=== PATIENT | male | born 1955 | race Caucasian/White ===

== ENCOUNTER 2020-08-13 10:29 | Outpatient (REF) | payer MEDICARE, SELFPAY ==
[2020-08-13 13:48] LABS: Anion Gap 11 (12-20); Blood Urea Nitrogen 18 mg/dL (9-16); Calcium 9.2 mg/dL (8.4-10.2); Carbon Dioxide 34 mmol/L (22-29); Chloride 102 mmol/L (96-108); Estimated Glomerular Filt Rate > 60; Glucose Random 160 mg/dL (60-115); Potassium 4.5 mmol/l (3.3-5.1); Sodium 142 mmol/L (135-145)
== END 2020-08-13 10:30 | disposition home or self-care (01) ==
LOC: HO.MANLDS 10:29
PROVIDERS: PCP Physician Assistant; Visit Provider Physician Assistant
DX: R60.0 Localized edema (principal)
CPT/HCPCS: 80048

== ENCOUNTER 2020-10-22 14:16 | Outpatient (REF) | payer MEDICARE, SELFPAY ==
[2020-10-22 18:43] LABS: Free T4 (Free Thyroxine) 0.94 ng/dL (0.71-1.85); Thyroid Stimulating Hormone 10.71 uIU/mL (0.32-4.0)
== END 2020-10-22 14:17 | disposition home or self-care (01) ==
LOC: HO.MANLDS 14:16
PROVIDERS: PCP Internal Medicine; Visit Provider Physician Assistant
DX: E03.9 Hypothyroidism, unspecified (principal)
CPT/HCPCS: 84439; 84443

== ENCOUNTER → 2020-11-18 12:40 | Outpatient (REF) | payer MEDICARE, SELFPAY ==
--- NOTE | 2020-11-18 12:45 | CA_ITS ---
Transthoracic Echocardiogram Patient (Last, First, Middle): Rudy Mathias E Gender: Male Date of : 1955 Age: 65 Procedure Date: 11/18/2020 Procedure Type: Transthoracic Echocardiogram Location: OP Height: 185.42 cm Weight: 163.3 kg BSA: 2.76 m2 Heart Rate: bpm BP: 138 / 80 mmHg Routing Equipment Tender: Referring MD: Tomi Loyola MD Overhead Worker: Evan Meyers MD Symptoms: ASHD, PAF, HTN, OBSTRUCTIVE SLEEP APNEA. Study Quality: Technically Difficult due to oesity ECG Rhythm: Sinus Conclusions: - 1. Technically limited study due to body habitus 2. Normal LV systolic function with LVEF of 65-70% 3. Limited evaluation of cardiac valves with normal cardiac valvular Doppler 4. Moderately elevated right ventricular systolic pressure Findings Procedure Information Contrast agent, definity, is being given per protocol without apparent complications. Left Ventricle Normal left ventricular size and systolic function. There is mildly increased left ventricular wall thickness. The visually estimated ejection fraction is between 65-70%. Diastolic function is indeterminate on the basis of available data. Right Ventricle The right ventricle was not well visualized. Atria The left atrium was not well visualized. Interatrial shunt cannot be excluded. The right atrium was not well visualized. Aortic Valve The aortic valve was not well visualized. There is no aortic valve stenosis. There is no aortic valve regurgitation. Mitral Valve The mitral valve was not well visualized. There is trace mitral valve regurgitation. There is no mitral valve stenosis. Pulmonic Valve The pulmonic valve was not well visualized. Tricuspid Valve The tricuspid valve was not well visualized. Moderate pulmonary hypertension is present. Great Vessels The aorta was not well visualized. The pulmonary artery was not well visualized. Venous The inferior vena cava is normal in size and collapses greater than 50% with inspiration. Pericardium/Pleural The pericardium was not well visualized. Prior Study Comparison Changes noted compared to prior study dated: 05/19/2016. RV systolic pressure measured to be moderately elevated Measurements 2D Linear Measurements IVSd: 1.29 0.6-0.9/0.6-1.0 cm LVIDd: 4.68 3.9-5.3/4.2-5.9 cm LVIDd Index: 1.70 2.4-3.2/2.2-3.1 cm/m2 LVIDs: 3.10 2.0-3.6 cm LVPWd: 1.27 0.7-1.1 cm Ao Root: 3.00 2.1-3.5 cm LA Diam: 4.00 2.7-3.8/3.0-4.0 cm LAIDs Index: 1.45 1.5-2.3 cm/m2 LV Mass: 288.08 67-162/88-224 g LV Mass Index: 104.38 43-95/49-115 g/m2 LVOT Diam: 2.10 3.0+(-)1.3 cm Mitral Valve MV Pk E: 1.13 MV PK A: 0.55 MV Decel Time: 141.00 E/A: 2.10 E'Lateral: 13.20 E'Medial: 7.45 E/E' Med: 15.20 E/E' Lat: 8.60 PHT: 41.00 MVA PHT: 5.37 Decel [place]: 8.02 Aortic Valve AoV Pk Felix: 1.25 AoV Mn Felix: 0.88 AoV VTI: 0.32 AoV Pk Grad: 6.00 Aov Mn Grad: 4.00 JACLYN Cont.VTI: 2.92 LVOT LVOT Pk Felix: 0.92 LVOT Mn Felix: 0.65 LVOT VTI: 0.27 LVOT Pk Grad: 3.00 LVOT Mn Grad: 2.00 LVOT Diam: 2.10 LVOT Area: 3.46 Diastolic Function MV Pk E: 1.13 MV Pk A: 0.55 E/A: 2.10 E'Medial: 7.45 E/E' Med: 15.20 E' Laterial: 13.20 E/E' Lat: 8.60 Tricuspid Valve TR Pk Felix: 3.38 TR Pk Grad: 46.00 RA Press: 3.00 RVSP: 49.00 Great Vessels Aorta Ao Root-2D: 3.00 2.0-3.7 cm Ao Asc: 2.90 2.1-3.4 cm Pulmonary Valve PV Pk Felix: 0.83 Peak PV Grad: 3.00 Updated in Other Vendor System with Status of Final Evan Meyers MD electronically signed on 11/19/2020 2:35:35 PM with status of Final
== END ==
LOC: HO.CARD 12:40
PROVIDERS: PCP Internal Medicine; Visit Provider Internal Medicine
DX: I25.10 Atherosclerotic heart disease of native coronary artery without angina pectoris (principal); I10 Essential (primary) hypertension; I48.0 Paroxysmal atrial fibrillation; G47.33 Obstructive sleep apnea (adult) (pediatric)
CPT/HCPCS: 93306; Q9957

== ENCOUNTER → 2020-12-02 07:59 | Outpatient (BNVA) | payer MEDICARE, SELFPAY | PROVIDERS: PCP Internal Medicine; Visit Provider Internal Medicine | DX: I25.10 Atherosclerotic heart disease of native coronary artery without angina pectoris (principal); I48.0 Paroxysmal atrial fibrillation; I10 Essential (primary) hypertension; E78.5 Hyperlipidemia, unspecified; G47.33 Obstructive sleep apnea (adult) (pediatric); M79.89 Other specified soft tissue disorders; R09.89 Other specified symptoms and signs involving the circulatory and respiratory systems; Z78.9 Other specified health status | CPT/HCPCS: 93005; 99212 ==

== ENCOUNTER 2021-02-18 14:04 | Outpatient (REF) | payer MEDICARE, SELFPAY ==
[2021-02-18 18:44] LABS: Free T4 (Free Thyroxine) 0.77 ng/dL (0.71-1.85)
== END 2021-02-18 14:05 | disposition home or self-care (01) ==
LOC: HO.MANLDS 14:04
PROVIDERS: PCP Internal Medicine; Visit Provider Physician Assistant
DX: E03.9 Hypothyroidism, unspecified (principal)
CPT/HCPCS: 36415; 84439; 84443

== ENCOUNTER 2021-09-03 07:11 | Emergency (ER) | payer MEDICARE, SELFPAY ==
--- NOTE | ~2021-09-03 | CT_ITS ---
EXAMINATION: CT SOFT TISSUE NECK WITH CONTRAST CLINICAL INFORMATION: Evaluate for abscess. Left mandible. COMPARISON: No relevant prior imaging. TECHNIQUE: Following the intravenous administration of 60 mL of Omnipaque 350 intravenous contrast, helical imaging was performed in the axial plane with generation of coronal and sagittal reformatted images. This CT examination was performed using dose optimization techniques as appropriate, variously including the following: *Automated exposure control *Adjustment of mA and/or kV according to patient size (this includes techniques or standardized protocols for targeted exams where dose is matched to indication/reason for exam; i.e. extremities or head) *Use of iterative reconstruction technique DLP: 418 mGy-cm FINDINGS: There are multiple carious or missing teeth. There is a peripherally enhancing subperiosteal abscess located along the buccal margin of the left mandibular alveolar process best depicted on coronal image 16 of 84 series 4 measuring approximately 0.5 cm in diameter. In addition there is relatively extensive inflammatory stranding within the adjacent subcutaneous fat and asymmetric thickening of the left platysma muscle. Multiple asymmetrically prominent left cervical lymph nodes are likely reactive in the setting of an odontogenic abscess. Pharyngeal mucosal spaces are symmetric. Parapharyngeal and retromaxillary fat is preserved. [employer] spaces are symmetric. Parotid and submandibular glands are normal. The tongue base and epiglottis are normal. Preepiglottic fat is preserved. Glottic and subglottic airways are patent. The thyroid gland is normal and the remainder of the visualized visceral soft tissues are normal. Lung apices are clear. There is multilevel degenerative spondylosis of the cervical spine. The skull base is intact. No mastoid middle ear effusion. Limited visualization of the intracranial anatomy reveals no abnormal finding. CT/CT soft tissue neck w con IMPRESSION: There odontogenic disease and an 0.5 cm subperiosteal abscess involving the buccal margin of the left mandibular alveolar process. Extensive inflammatory changes are visualized within the subcutaneous fat and there are multiple reactive left sided cervical lymph nodes.
[2021-09-03 07:16] VITALS: BP 120/74; PULSE 79; RESP 18; TEMP 37.3; O2SAT 93; BMI 47.5
--- NOTE | 2021-09-03 07:53 | ED_ITS ---
HPI - Dental/Oral General Chief complaint: Dental/Oral Stated complaint: dental pain/infection Time Seen by Provider: 09/03/21 07:41 Source: patient Mode of arrival: ambulatory Limitations: no limitations History of Present Illness HPI Narrative: Patient comes emergency room complaining of left-sided dental pain in the maxillary side. Patient was seen by his dentist, patient is supposed to get tooth extraction of his molar on the left side, but due to the infection patient was placed on clindamycin, patient allergic to penicillin. Patient has been on clindamycin for 2 days and ibuprofen, patient states that the swelling on the left side of his face is increasing despite being on antibiotics for the last 2 days. Patient denies fever chills, no pain on the floor of the mouth, no tongue swelling. Related Data Home Medications Medication Instructions Recorded Confirmed furosemide 40 mg tablet 40 mg PO DAILY 12/02/20 12/02/20 levothyroxine 75 mcg tablet 75 mcg PO DAILY 12/02/20 12/02/20 potassium chloride 10 mEq 10 meq PO DAILY 12/02/20 12/02/20 capsule,extended release Previous Rx's Medication Instructions Recorded aspirin 81 mg tablet,delayed 81 mg PO DAILY 90 Days #90 tab 10/07/20 release ezetimibe 10 mg tablet (Zetia) 10 mg PO DAILY 90 Days #90 tab 10/29/20 amlodipine 10 mg tablet 10 mg PO DAILY #90 tab 01/13/21 metoprolol tartrate 100 mg tablet 100 mg PO BID #180 tab 03/23/21 losartan 25 mg tablet 25 mg PO DAILY #90 tab 05/18/21 oxycodone 5 mg tablet 5 mg PO TID PRN #7 tab 09/03/21 Allergies Allergy/AdvReac Type Severity Reaction Status Date / Time penicillin V Allergy Unknown Verified 11/20/19 00:00 Penicillins [PENICILLINS] Allergy Unknown UNKNOWN Unverified 07/24/20 14:36 statin intolerance Allergy Unknown Uncoded 11/20/19 00:00 Review of Systems Review of Systems: Constitutional : No Weight loss, No Fever, No Chills, No Night Sweats, No Fatigue, No Malaise ENT/Mouth : No Hearing loss, No Ear Pain, No Nasal Congestion, No Sinus Pain, No Hoarseness, No sore throat, No Rhinorrhea, No Swallowing Difficulty, complaining of worsening pain and swelling in the left maxillary side Eyes: No Eye Pain, No Swelling, No Redness, No Foreign Body, No Discharge, No Vision Changes Cardiovascular : No Chest Pain, No SOB, No Dyspnea on Exertion, No Orthopnea, No Edema, No Palpitations Respiratory : No Cough, No Sputum, No Wheezing, No Smoke Exposure, No Dyspnea Gastrointestinal : No Nausea, No Vomiting, No Diarrhea, No Constipation, No abdominal Pain, No Hematochezia, No Melena Genitourinary : no irregular bleeding, No Dysuria, No Urinary Frequency, No Hematuria, No Urinary Incontinence, No Urgency, No Flank Pain, No Urinary Flow Changes, No Hesitancy Musculoskeletal : No joint pain, No Myalgias, No Joint Swelling Skin : No Skin Lesions, No rash Neuro : No Weakness, No Numbness, No Paresthesias, No Loss of Consciousness, No Dizziness, No Headache Psych : No Anxiety/Panic, No Depression, No SI/HI/AH/VH, No Social Issues, Heme/Lymph: No Bruising, No Bleeding,No Lymphadenopathy Endocrine : No Polyuria, No Polydipsia, No Temperature Intolerance [facility] Past Medical History Medical History Atherosclerotic cardiovascular disease Essential hypertension Leg swelling Lyme disease Mixed hyperlipidemia Obstructive sleep apnea Paroxysmal atrial fibrillation Pulmonary hyperinflation Statin intolerance Family History Family History (Updated 12/02/20 @ 08:34 by MARGARITA Hill) Father No problems noted. Mother CHF (congestive heart failure) Social History Social History (Updated 12/02/20 @ 08:34 by MARGARITA Hill) Advance Directives: No Physical Exam Vital Signs: Vital Signs: Last Vital Signs Temp 98.3 F 09/03/21 11:19 Pulse 60 09/03/21 11:19 Resp 18 09/03/21 11:19 BP 120/65 09/03/21 11:19 Pulse Ox 93 09/03/21 11:19 Body Mass Index 47.5 Const: Other: Appearance: Alert. Oriented X3. No acute distress. Eyes: Pupils equal, round and reactive to light. ENT: Pharynx normal. Moderate swelling in the left maxillary side, no pain to palpation on the mild floor, orientation especially on the left mandibular side, no visualized abscess Neck: Normal inspection. Neck supple. No lymph nodes noted. No crepitus CVS: Normal heart rate and rhythm. Pulses normal. Normal S1 and S2 Respiratory: No respiratory distress. Breath sounds normal. No Wheezing. No rales Abdomen: Soft and nontender. No rigidity. No distention. good BS x4 Skin: Skin warm and dry. Normal skin color. Normal skin turgor. Extremities: No lower extremity edema. No lower extremity edema. No Lacerations. No Rash Neuro: Oriented X 3. No motor deficit. No sensory deficit. Moving all extermities. No slurred speech. Course Course Course Narrative: At this time, Galindo's angina is not suspected. Although labs and CT scans are pending. At this time, patient declined pain medication I discussed the CT scan findings with the patient, patient does have a 0.5 cm abscess. Patient declined to have it drained. Patient states that he will continue taking the antibiotic. At this time he declined any further pain me dication but states he will be willing to take a prescription in case he needs it. MDM - Dental/Oral Lab Data Result diagrams: 09/03/21 08:13 09/03/21 08:13 Labs: Lab Results 09/03/21 09/03/21 09/03/21 Range/Units 08:13 08:13 08:13 WBC 11.2 H (4.8-10.8) X10*3/uL RBC 5.35 (4.60-5.80) X10*6/uL Hgb 17.1 (14.0-18.0) g/dl Hct 50.0 (42-52) % MCV 93.5 (80-98) fL MCH 32.0 (27.0-33.0) pg MCHC 34.2 (31.0-36.0) g/dl RDW 13.2 (11.0-16.0) % Plt Count 124 L (160-400) X10*3/uL MPV 12.5 H (9.4-12.4) fL Immature Gran % (Auto) 0.3 (0.0-0.4) % Neut % (Auto) 76.7 H (45-73) % Lymph % (Auto) 9.8 L (20-40) % [place] % (Auto) 11.5 H (2-11) % Eos % (Auto) 1.3 (0-4) % Baso % (Auto) 0.4 (0-2) % Lymph # (Auto) 1.1 L (1.2-4.9) X10*3/uL [place] # (Auto) 1.3 H (0.1-1.2) X10*3/uL Eos # (Auto) 0.1 (0.0-0.4) X10*3/uL Baso # (Auto) 0.0 (0.0-0.2) X10*3/uL Abs Immat Gran (auto) 0.03 (0.00-0.03) X10*3/uL Absolute Neuts (auto) 8.6 H (2.0-8.3) X10*3/uL Absolute Nucleated RBC 0.000 (0.0-0.012) X10*3/uL Nucleated RBC % (auto) 0.0 (0.0-0.2) /100WBC Sodium 136 (135-145) mmol/L Potassium 4.5 (3.3-5.1) mmol/L Chloride 101 (96-108) mmol/L Carbon Dioxide 29 (22-29) mmol/L Anion Gap 11 L (12-20) BUN 9 (9-16) mg/dL Creatinine 0.85 (0.5-1.4) mg/dL Estim Creat Clear Calc 135.0 Estimated GFR > 60 Random Glucose 149 H (60-115) mg/dL Lactic Acid 1.2 (0.5-2.0) mmol/L Calcium 9.0 (8.4-10.2) mg/dL Total Bilirubin 1.1 H (0.0-1.0) mg/dL Direct Bilirubin 0.4 (0.0-0.5) mg/dL AST 15 (5-37) U/L ALT 15 (0-40) U/L Alkaline Phosphatase 72 (39-117) U/L Total Protein 6.5 (6.5-8.0) g/dL Albumin 4.0 (3.5-5.0) g/dL Imaging Data CT of the soft tissue of the neck: Radiologist's impression: FINDINGS: There are multiple carious or missing teeth. There is a peripherally enhancing subperiosteal abscess located along the buccal margin of the left mandibular alveolar process best depicted on coronal image 16 of 84 series 4 measuring approximately 0.5 cm in diameter. In addition there is relatively extensive inflammatory stranding within the adjacent subcutaneous fat and asymmetric thickening of the left platysma muscle. Multiple asymmetrically prominent left cervical lymph nodes are likely reactive in the setting of an odontogenic abscess. Pharyngeal mucosal spaces are symmetric. Parapharyngeal and retromaxillary fat is preserved. Package Reinspector spaces are symmetric. Parotid and submandibular glands are normal. The tongue base and epiglottis are normal. Preepiglottic fat is preserved. Glottic and subglottic airways are patent. The thyroid gland is normal and the remainder of the visualized visceral soft tissues are normal. Lung apices are clear. There is multilevel degenerative spondylosis of the cervical spine. The skull base is intact. No mastoid middle ear effusion. Limited visualization of the intracranial anatomy reveals no abnormal finding. CT/CT soft tissue neck w con IMPRESSION: There odontogenic disease and an 0.5 cm subperiosteal abscess involving the buccal margin of the left mandibular alveolar process. Extensive inflammatory changes are visualized within the subcutaneous fat and there are multiple reactive left sided cervical lymph nodes. Discharge Plan Discharge Clinical Impression: Abscess, dental Patient Disposition: Home, Self-Care Instructions: Dental Abscess (ED) Additional Instructions: Please follow-up with your primary care physician in with your dentist tomorrow. If you have any worsening or new symptoms, please return to the emergency room or call 911 Prescriptions: New oxycodone 5 mg tablet 5 mg PO TID PRN (Reason: pain) Qty: 7 RF: 0 No Action aspirin 81 mg tablet,delayed release (DR/EC) 81 mg PO DAILY 90 Days Qty: 90 RF: 3 ezetimibe [Zetia] 10 mg tablet 10 mg PO DAILY 90 Days Qty: 90 RF: 1 amlodipine 10 mg tablet 10 mg PO DAILY Qty: 90 RF: 3 metoprolol tartrate 100 mg tablet 100 mg PO BID Qty: 180 RF: 1 losartan 25 mg tablet 25 mg PO DAILY Qty: 90 RF: 3 furosemide 40 mg tablet 40 mg PO DAILY RF: 0 levothyroxine 75 mcg tablet 75 mcg PO DAILY RF: 0 potassium chloride 10 mEq capsule, extended release 10 meq PO DAILY RF: 0
[2021-09-03 08:18] LABS: MANUAL DIFF FLAG NO
[2021-09-03 08:21] LABS: Basophils Percent Auto 0.4 % (0-2); Eosinophils Absolute Auto 0.1 X10*3/uL (0.0-0.4); Eosinophils Percent Auto 1.3 % (0-4); Hemoglobin 17.1 g/dl (14.0-18.0); Imm Gran Abs Auto 0.03 X10*3/uL (0.00-0.03); Imm Gran Pct Auto 0.3 % (0.0-0.4); Lymphocytes Absolute Auto 1.1 X10*3/uL (1.2-4.9); Lymphocytes Percent Auto 9.8 % (20-40); Mean Corpuscular HGB Conc 34.2 g/dl (31.0-36.0); Mean Corpuscular Volume 93.5 fL (80-98); Mean Platelet Volume 12.5 fL (9.4-12.4); Monocytes Absolute Auto 1.3 X10*3/uL (0.1-1.2); Monocytes Percent Auto 11.5 % (2-11); Neutrophils Absolute Auto 8.6 X10*3/uL (2.0-8.3); Neutrophils Percent Auto 76.7 % (45-73); Platelet Count 124 X10*3/uL (160-400); Red Blood Count 5.35 X10*6/uL (4.60-5.80); Red Cell Distribution Width 13.2 % (11.0-16.0); White Blood Count 11.2 X10*3/uL (4.8-10.8)
--- NOTE | 2021-09-03 08:30 | PC.NURSE ---
pt alert and oriented, vss. pt c/o left-sided dental pain. Pt seen by his dentist and was supposed to have his molar on his left side extracted. the procedure was not done because of the infection, he was put on clindamycin, pt states he has been on the clindamycin for 2 days and has been taking Ibuprofen, he reports the swelling is increasing. Patient denies fever/chills. no tongue swelling. no sob noted or reported. No other symptoms reported. IV established, labs drawn.
[2021-09-03 08:32] LABS: Lactic Acid 1.2 mmol/L (0.5-2.0)
[2021-09-03 08:36] LABS: Alanine Aminotransferase 15 U/L (0-40); Alkaline Phosphatase 72 U/L (39-117); Anion Gap 11 (12-20); Aspartate Amino Transferase 15 U/L (5-37); Bilirubin Direct 0.4 mg/dL (0.0-0.5); Bilirubin Total 1.1 mg/dL (0.0-1.0); Blood Urea Nitrogen 9 mg/dL (9-16); Carbon Dioxide 29 mmol/L (22-29); Chloride 101 mmol/L (96-108); Estimated Glomerular Filt Rate > 60; Glucose Random 149 mg/dL (60-115); Potassium 4.5 mmol/L (3.3-5.1); Sodium 136 mmol/L (135-145); Total Protein 6.5 g/dL (6.5-8.0)
[2021-09-03 09:05] VITALS: BP 118/68; PULSE 60; RESP 18; O2SAT 95
[2021-09-03] MEDS: iohexoL 350 MG/ML 100 ML INFUS..BTL IV (10:47)
[2021-09-03 11:19] VITALS: BP 120/65; PULSE 60; RESP 18; TEMP 36.8; O2SAT 93
--- NOTE | 2021-09-03 11:30 | PC.NURSE ---
pt medically cleared for discharge. vss.
== END 2021-09-03 11:33 | disposition home or self-care (01) ==
PROVIDERS: Emergency Provider Emergency Medicine; PCP Internal Medicine
DX: K04.7 Periapical abscess without sinus (principal); K08.89 Other specified disorders of teeth and supporting structures; Z79.899 Other long term (current) drug therapy; I10 Essential (primary) hypertension; I48.0 Paroxysmal atrial fibrillation; E78.2 Mixed hyperlipidemia
CPT/HCPCS: 36415; 70491; 80048; 80076; 83605; 85025; 87040; 99283; 99284; Q9967

== ENCOUNTER → 2021-12-03 08:10 | Outpatient (BNVA) | payer MEDICARE, SELFPAY | PROVIDERS: PCP Internal Medicine; Visit Provider Internal Medicine | DX: I25.10 Atherosclerotic heart disease of native coronary artery without angina pectoris (principal); I48.0 Paroxysmal atrial fibrillation; I10 Essential (primary) hypertension; E78.2 Mixed hyperlipidemia; G47.33 Obstructive sleep apnea (adult) (pediatric); M79.89 Other specified soft tissue disorders; R09.89 Other specified symptoms and signs involving the circulatory and respiratory systems; Z79.82 Long term (current) use of aspirin; Z79.899 Other long term (current) drug therapy; Z78.9 Other specified health status | CPT/HCPCS: 93005; 99212 ==

== ENCOUNTER → 2022-01-25 12:22 | Outpatient (BNVA) | payer MEDICARE, SELFPAY | PROVIDERS: PCP Internal Medicine; Visit Provider Internal Medicine | DX: I25.10 Atherosclerotic heart disease of native coronary artery without angina pectoris (principal); I48.0 Paroxysmal atrial fibrillation; I10 Essential (primary) hypertension; E78.2 Mixed hyperlipidemia; G47.33 Obstructive sleep apnea (adult) (pediatric); M79.89 Other specified soft tissue disorders; R09.89 Other specified symptoms and signs involving the circulatory and respiratory systems; Z78.9 Other specified health status | CPT/HCPCS: 93005; 99212 ==

== ENCOUNTER 2022-02-26 11:35 | Outpatient (REF) | payer MEDICARE, SELFPAY ==
[2022-02-26 13:52] LABS: Anion Gap 10 (12-20); Blood Urea Nitrogen 13 mg/dL (9-16); Calcium 9.5 mg/dL (8.4-10.2); Carbon Dioxide 37 mmol/L (22-29); Chloride 99 mmol/L (96-108); Estimated Glomerular Filt Rate > 60; Glucose Random 134 mg/dL (60-115); Potassium 4.6 mmol/L (3.3-5.1); Sodium 141 mmol/L (135-145)
[2022-02-26 14:03] LABS: Free T4 (Free Thyroxine) 0.85 ng/dL (0.71-1.85); Thyroid Stimulating Hormone 8.17 uIU/mL (0.32-4.0)
== END 2022-02-26 11:36 | disposition home or self-care (01) ==
LOC: HO.MANLDS 11:35
PROVIDERS: Absent Provider Internal Medicine; PCP Physician Assistant; Visit Provider Physician Assistant
DX: I48.0 Paroxysmal atrial fibrillation (principal); E03.9 Hypothyroidism, unspecified
CPT/HCPCS: 36415; 80048; 84439; 84443

== ENCOUNTER → 2022-08-05 11:06 | Outpatient (BNVA) | payer MEDICARE, SELFPAY | PROVIDERS: PCP Physician Assistant; Referring Provider Physician Assistant; Visit Provider Internal Medicine | DX: I48.0 Paroxysmal atrial fibrillation (principal); I25.10 Atherosclerotic heart disease of native coronary artery without angina pectoris; M79.89 Other specified soft tissue disorders; I10 Essential (primary) hypertension; E78.2 Mixed hyperlipidemia; G47.33 Obstructive sleep apnea (adult) (pediatric); E66.01 Morbid (severe) obesity due to excess calories; Z68.42 Body mass index [BMI] 45.0-49.9, adult | CPT/HCPCS: 99212 ==

== ENCOUNTER 2022-11-01 13:49 | Inpatient (IN) | payer MEDICARE, SELFPAY ==
[2022-11-01] VITALS (7 sets, daily range): BP systolic 115–147; BP diastolic 70–82; PULSE 60–74; RESP 13–24; TEMP 36.1–36.8; O2SAT 79–95; BMI 47.8; BMI 48.0
--- NOTE | ~2022-11-01 | US_ITS ---
EXAMINATION: US VENOUS ULTRASOUND WITH DOPPLER LOWER EXTREMITY, BILATERAL CLINICAL INFORMATION: Bilateral lower extremity swelling, erythema, PE COMPARISON: None TECHNIQUE: Ultrasound of the deep veins is performed from the hip to the calf with compression sonography and color and pulse Doppler assessment. Spectral analysis with color-flow imaging is performed. FINDINGS: RIGHT: There is normal venous compression and respiratory variation and augmented flow. The visualized common femoral vein, superficial femoral vein, profunda femoral vein, popliteal vein, and the trifurcation region shows no evidence of deep venous thrombosis. There is no significant popliteal fossa cyst. There is limited visualization of the mid to distal femoral vein due to body habitus. LEFT: There is normal venous compression and respiratory variation and augmented flow. The visualized common femoral vein, superficial femoral vein, profunda femoral vein, popliteal vein, and the trifurcation region shows no evidence of deep venous thrombosis. There is no significant popliteal fossa cyst. There is limited visualization of the mid to distal femoral vein due to body habitus. There is also limited visualization of the calf veins. If the patient's symptoms persist, followup ultrasound in 5 days 7 days might be of value to exclude proximal propagation from a non-visualized calf vein. US/US venous duplex LE BI IMPRESSION: No DVT demonstrated in the bilateral lower extremities.
--- NOTE | ~2022-11-01 | XR_ITS ---
EXAMINATION: XR CHEST CLINICAL INFORMATION: Covid positive, O2 sat 79% COMPARISON: Chest x-ray 05/09/2018 TECHNIQUE: Frontal view of the chest was obtained. FINDINGS: The lungs are mildly hypoinflated. Mild streaky linear bibasilar opacities likely subsegmental atelectasis. No definite airspace consolidation. No pleural effusion or pneumothorax. Cardiomediastinal silhouette is unchanged and within normal limits. Prominence of the pulmonary vascularity likely artifactually accentuated by AP technique
--- NOTE | 2022-11-01 14:02 | ECG_ITS ---
Test Reason : DYSPNEA Blood Pressure : / mmHG Vent. Rate : 064 BPM Atrial Rate : 064 BPM P-R Int : 118 ms QRS Dur : 082 ms QT Int : 430 ms P-R-T Axes : 083 067 030 degrees QTc Int : 443 ms Normal sinus rhythm Nonspecific ST and T wave abnormality Abnormal ECG When compared with ECG of 09-MAY-2018 10:41, Criteria for Lateral infarct are no longer Present Referred By: Gomez Bowen Electronically Signed By:Andi Lozada
--- NOTE | 2022-11-01 14:06 | ED.GENADULT ---
HPI - General Adult General Stated complaint: COVID+/Difficulty breathing Related Data Home Medications Medication Instructions Recorded Confirmed levothyroxine 100 mcg tablet 100 mcg PO DAILY 01/25/22 08/05/22 losartan 50 mg tablet 50 mg PO DAILY 01/25/22 08/05/22 potassium chloride 10 mEq 10 meq PO DAILY 01/25/22 08/05/22 tablet,extended release Previous Rx's Medication Instructions Recorded aspirin 81 mg tablet,delayed 81 mg PO DAILY 90 days #90 tabs 10/15/21 release diltiazem HCl 120 mg 120 mg PO DAILY 90 days #90 caps 01/25/22 capsule,extended release 24 hr metoprolol tartrate 100 mg tablet 100 mg PO BID #180 tabs 03/15/22 apixaban 5 mg tablet (Eliquis) 5 mg PO BID 90 days #180 tabs 08/05/22 ezetimibe 10 mg tablet 10 mg PO DAILY #90 tabs 10/11/22 Allergies Allergy/AdvReac Type Severity Reaction Status Date / Time Penicillins [PENICILLINS] Allergy Unknown UNKNOWN Verified 01/25/22 12:36 statin intolerance Allergy Unknown swelling Uncoded 01/25/22 12:36 [facility] Past Medical History Medical History (Updated 08/05/22 @ 12:57 by Tomi Loyola MD) Atherosclerotic cardiovascular disease Essential hypertension Leg swelling Lyme disease Mixed hyperlipidemia Obstructive sleep apnea Paroxysmal atrial fibrillation Pulmonary hyperinflation Statin intolerance Surgical History History of cardiac catheterization Family History Family History Father No problems noted. Mother CHF (congestive heart failure) Social History Social History (Updated 01/25/22 @ 12:35 by MARGARITA Ray) Patient Tobacco Use Status: Former Tobacco user Quit Date: 01/15/2022 Course Course Course Narrative: RME: Patient COVID positive. Patient presented shortness of breath. O2 saturation room air. 79%. Patient immediately brought by nurse to the ED. EKG troponin chest x-ray steroids albuterol inhaler and oxygen nasal cannula ordered. Discharge Plan Discharge Prescriptions: No Action aspirin 81 mg tablet,delayed release (DR/EC) 81 mg PO DAILY 90 Days Qty: 90 3RF metoprolol tartrate 100 mg tablet 100 mg PO BID Qty: 180 3RF ezetimibe 10 mg tablet 10 mg PO DAILY Qty: 90 3RF levothyroxine 100 mcg tablet 100 mcg PO DAILY losartan 50 mg tablet 50 mg PO DAILY potassium chloride 10 mEq tablet extended release 10 meq PO DAILY diltiazem HCl 120 mg capsule,extended release 24hr 120 mg PO DAILY 90 Days Qty: 90 3RF Eliquis 5 mg tablet 5 mg PO BID 90 Days Qty: 180 3RF
--- NOTE | 2022-11-01 14:24 | ED.GENADULT ---
HPI - General Adult General Chief complaint: Dyspnea Stated complaint: COVID+/Difficulty breathing Time Seen by Provider: 11/01/22 14:10 Source: patient and family () Mode of arrival: ambulatory Limitations: no limitations History of Present Illness HPI narrative: 67-year-old male with history of smoking and COPD and obstructive sleep apnea patient tested positive for COVID about a week ago today patient checked his O2 sat was in the 70s%, in the ED patient had O2 sat of 79% on room air patient was placed on facemask with full L of oxygen his O2 saturation is 95%. Related Data Home Medications Medication Instructions Recorded Confirmed levothyroxine 100 mcg tablet 100 mcg PO DAILY 01/25/22 08/05/22 losartan 50 mg tablet 50 mg PO DAILY 01/25/22 08/05/22 potassium chloride 10 mEq 10 meq PO DAILY 01/25/22 08/05/22 tablet,extended release Previous Rx's Medication Instructions Recorded aspirin 81 mg tablet,delayed 81 mg PO DAILY 90 days #90 tabs 10/15/21 release diltiazem HCl 120 mg 120 mg PO DAILY 90 days #90 caps 01/25/22 capsule,extended release 24 hr metoprolol tartrate 100 mg tablet 100 mg PO BID #180 tabs 03/15/22 apixaban 5 mg tablet (Eliquis) 5 mg PO BID 90 days #180 tabs 08/05/22 ezetimibe 10 mg tablet 10 mg PO DAILY #90 tabs 10/11/22 Allergies Allergy/AdvReac Type Severity Reaction Status Date / Time Penicillins [PENICILLINS] Allergy Unknown UNKNOWN Verified 01/25/22 12:36 statin intolerance Allergy Unknown swelling Uncoded 01/25/22 12:36 Review of Systems Review of Systems: All other systems are reviewed and are negative Constitutional: Reports as per HPI and Reports no additional constitutional complaints Eyes: Reports as per HPI and Reports no additional eye complaints Reports system reviewed and no additional complaints, except as documented Cardiovascular: Reports as per HPI and Reports no additional cardiovascular complaints Respiratory: Reports as per HPI and Reports no additional respiratory complaints Gastrointestinal: Reports as per HPI and Reports no additional gastrointestinal complaints Genitourinary: Reports no additional female genitourinary complaints Musculoskeletal: Reports no additional musculoskeletal complaints Skin/Breast: Reports system reviewed and no additional complaints, except as docu Psychiatric: Reports no additional psychiatric complaints Endocrine: Reports no additional endocrine complaints Hematologic/Lymphatic: Reports no additional hematologic/lymphatic complaints Allergic/Immunologic: Reports no additional allergic/immunologic complaints Reports system reviewed and no additional complaints, except as documented and Reports Abnormal speech present [facility] Past Medical History Medical History Atherosclerotic cardiovascular disease Essential hypertension Leg swelling Lyme disease Mixed hyperlipidemia Obstructive sleep apnea Paroxysmal atrial fibrillation Pulmonary hyperinflation Statin intolerance Surgical History History of cardiac catheterization Family History Family History Father No problems noted. Mother CHF (congestive heart failure) Social History Social History Patient Tobacco Use Status: Former Tobacco user Quit Date: 01/15/2022 Advance Directives: No Advance Directives Information Provided: Yes Physical Exam ED Vital Signs: Vital Signs - 24 hr 11/01/22 13:59 11/01/22 14:24 11/01/22 15:11 Temperature 96.9 F Pulse Rate 63 63 60 Respiratory Rate 24 H 16 13 Blood Pressure 141/78 H Pulse Oximetry 79 L 95 Oxygen Delivery Method Room Air Oxymask Oxygen Flow Rate 4 BMI result Body Mass Index 47.8 Vital signs have been reviewed as appeared to be correct. Blood pressure normal. Heart rate normal. Respiration rate normal. Temperature normal. Oxygen saturation normal. Appearance: Alert. Oriented X3. No acute distress. Head: Normal external exam. Normocephalic. Atraumatic. No Velasquez signs noted. No raccoon eyes noted Eyes: PERRLA. EOMI. Conjunctiva and sclera normal. Eyelids normal. ENT: TM's Normal. Pharynx normal. Uvula midline. Moist mucous membranes. No trismus noted. No drooling noted. No muffled voice noted. Neck: Normal inspection. Neck supple. FROM. No adenopathy. Thyroid Normal. No meningeal signs. No neck mass noted. CVS: Normal heart rate and rhythm. Heart sound normal. No murmurs noted. Pulses normal throughout. Respiratory: No respiratory distress. Painless inspiration. Breath sounds normal. No wheezes/rales/rhonchi noted. Chest nontender. No accessory muscle usage noted or decreased air movement noted. Abdomen: Soft and nontender. Bowel sounds normal in all 4 quadrants. No distention noted. No organomegaly noted. No visible injury noted. Back: No CVA tenderness. Full range of motion noted. Skin: Skin warm and dry. Normal skin color. Normal skin turgor. No rashes/lesions/lacerations noted. Extremities: No lower extremity edema. Extremities exhibit normal range of motion. Extremities nontender. Neuro: Oriented X 3. Cranial nerve exam: II-XII are grossly intact No motor deficit. No sensory deficit. Reflexes normal. Course Course Course Narrative: 67-year-old history of COPD/obstructive sleep apnea/obesity/smoker recently diagnosed with COVID patient is hypoxic requiring supplemental oxygen. Lactic acidosis likely secondary to hypoxia no severe sepsis or septic shock. Will admit for supplemental oxygen. Medications Administered Discontinued Medications Generic Name Dose Route Start Last Admin Trade Name Freq PRN Reason Stop Dose Admin Albuterol/Ipratropium 3 ml 11/01/22 14:02 11/01/22 14:22 Albuterol/Iprat 2.5/0.5mg 3 Ml Ampul.Neb INHALE 11/01/22 14:03 3 ml ONCE ONE Administration Dexamethasone Sodium Phosphate 10 mg 11/01/22 14:02 11/01/22 15:12 Dexamethasone Sod Phosphate 10 Mg/Ml Vial IVPUSH 11/01/22 14:03 10 mg ONCE ONE Administration Lorazepam 2 mg 11/01/22 14:57 11/01/22 15:12 Lorazepam 1 Mg Tablet PO 11/01/22 14:58 2 mg ONCE ONE Administration Medical Decision Making Differential Diagnosis Differential Diagnoses: The differential diagnosis associated with the presentation includes (COVID/hypoxia/pneumonia/sepsis.) Admission/Observation Consideration of admission/observation: Escalation of care including admission/observation considered Consult Healthcare Provider Management of the patient was discussed with: Hospitalist Lab Data MDM Lab Attestation statement: I reviewed the patient's lab results. Result Diagrams: 11/01/22 15:01 11/01/22 15:01 Labs: Lab Results 11/01/22 11/01/22 11/01/22 Range/Units 14:59 15:01 15:01 WBC 7.0 (4.8-10.8) X10*3/uL RBC 5.39 (4.60-5.80) X10*6/uL Hgb 17.5 (14.0-18.0) g/dl Hct 53.7 H (42.0-52.0) % MCV 99.6 H (80.0-98.0) fL MCH 32.5 (27.0-33.0) pg MCHC 32.6 (31.0-36.0) g/dl RDW 13.6 (11.0-16.0) % Plt Count 120 L (160-400) X10*3/uL MPV 12.7 H (9.4-12.4) fL Immature Gran % (Auto) 0.3 (0.0-0.4) % Neut % (Auto) 59.7 (45-73) % Lymph % (Auto) 22.2 (20-40) % [place] % (Auto) 12.0 H (2-11) % Eos % (Auto) 5.2 H (0-4) % Baso % (Auto) 0.6 (0-2) % Lymph # (Auto) 1.6 (1.2-4.9) X10*3/uL [place] # (Auto) 0.8 (0.1-1.2) X10*3/uL Eos # (Auto) 0.4 (0.0-0.4) X10*3/uL Baso # (Auto) 0.0 (0.0-0.2) X10*3/uL Abs Immat Gran (auto) 0.02 (0.00-0.03) X10*3/uL Absolute Neuts (auto) 4.2 (2.0-8.3) x10*3/uL Absolute Nucleated RBC 0.000 (0.0-0.012) X10*3/uL Nucleated RBC % (auto) 0.0 (0.0-0.2) /100WBC PT (10.0-13.1) SEC INR (0.9-1.1) APTT (26.0-36.4) SEC Sodium (135-145) mmol/L Potassium (3.3-5.1) mmol/L Chloride (96-108) mmol/L Carbon Dioxide (22-29) mmol/L Anion Gap (12-20) BUN (9-16) mg/dL Creatinine (0.5-1.4) mg/dL Estim Creat Clear Calc Estimated GFR Random Glucose (60-115) mg/dL Lactic Acid 4.2 H* (0.5-2.0) mmol/L Calcium (8.4-10.2) mg/dL Ferritin (20-250) ng/mL Total Bilirubin (0.0-1.0) mg/dL AST (5-37) U/L ALT (0-40) U/L Alkaline Phosphatase (39-117) U/L Lactate Dehydrogenase (118-273) U/L Troponin I High Sens 7.6 (<3.5-35.0) ng/L B-Natriuretic Peptide (<100) pg/mL Total Protein (6.5-8.0) g/dL Albumin (3.5-5.0) g/dL Procalcitonin ng/mL 11/01/22 11/01/22 11/01/22 Range/Units 15:01 15:01 15:01 WBC (4.8-10.8) X10*3/uL RBC (4.60-5.80) X10*6/uL Hgb (14.0-18.0) g/dl Hct (42.0-52.0) % MCV (80.0-98.0) fL MCH (27.0-33.0) pg MCHC (31.0-36.0) g/dl RDW (11.0-16.0) % Plt Count (160-400) X10*3/uL MPV (9.4-12.4) fL Immature Gran % (Auto) (0.0-0.4) % Neut % (Auto) (45-73) % Lymph % (Auto) (20-40) % [place] % (Auto) (2-11) % Eos % (Auto) (0-4) % Baso % (Auto) (0-2) % Lymph # (Auto) (1.2-4.9) X10*3/uL [place] # (Auto) (0.1-1.2) X10*3/uL Eos # (Auto) (0.0-0.4) X10*3/uL Baso # (Auto) (0.0-0.2) X10*3/uL Abs Immat Gran (auto) (0.00-0.03) X10*3/uL Absolute Neuts (auto) (2.0-8.3) x10*3/uL Absolute Nucleated RBC (0.0-0.012) X10*3/uL Nucleated RBC % (auto) (0.0-0.2) /100WBC PT 13.5 H (10.0-13.1) SEC INR 1.2 H (0.9-1.1) APTT 29.1 (26.0-36.4) SEC Sodium 140 (135-145) mmol/L Potassium 4.5 (3.3-5.1) mmol/L Chloride 96 (96-108) mmol/L Carbon Dioxide 34 H (22-29) mmol/L Anion Gap 15 (12-20) BUN 11 (9-16) mg/dL Creatinine 0.95 (0.5-1.4) mg/dL Estim Creat Clear Calc 124.7 Estimated GFR > 60 Random Glucose 118 H (60-115) mg/dL Lactic Acid (0.5-2.0) mmol/L Calcium 9.1 (8.4-10.2) mg/dL Ferritin (20-250) ng/mL Total Bilirubin 0.8 (0.0-1.0) mg/dL AST 14 (5-37) U/L ALT 14 (0-40) U/L Alkaline Phosphatase 57 (39-117) U/L Lactate Dehydrogenase 210 (118-273) U/L Troponin I High Sens (<3.5-35.0) ng/L B-Natriuretic Peptide 104 H (<100) pg/mL Total Protein 6.2 L (6.5-8.0) g/dL Albumin 3.8 (3.5-5.0) g/dL Procalcitonin ng/mL 11/01/22 11/01/22 Range/Units 15:01 15:01 WBC (4.8-10.8) X10*3/uL RBC (4.60-5.80) X10*6/uL Hgb (14.0-18.0) g/dl Hct (42.0-52.0) % MCV (80.0-98.0) fL MCH (27.0-33.0) pg MCHC (31.0-36.0) g/dl RDW (11.0-16.0) % Plt Count (160-400) X10*3/uL MPV (9.4-12.4) fL Immature Gran % (Auto) (0.0-0.4) % Neut % (Auto) (45-73) % Lymph % (Auto) (20-40) % [place] % (Auto) (2-11) % Eos % (Auto) (0-4) % Baso % (Auto) (0-2) % Lymph # (Auto) (1.2-4.9) X10*3/uL [place] # (Auto) (0.1-1.2) X10*3/uL Eos # (Auto) (0.0-0.4) X10*3/uL Baso # (Auto) (0.0-0.2) X10*3/uL Abs Immat Gran (auto) (0.00-0.03) X10*3/uL Absolute Neuts (auto) (2.0-8.3) x10*3/uL Absolute Nucleated RBC (0.0-0.012) X10*3/uL Nucleated RBC % (auto) (0.0-0.2) /100WBC PT (10.0-13.1) SEC INR (0.9-1.1) APTT (26.0-36.4) SEC Sodium (135-145) mmol/L Potassium (3.3-5.1) mmol/L Chloride (96-108) mmol/L Carbon Dioxide (22-29) mmol/L Anion Gap (12-20) BUN (9-16) mg/dL Creatinine (0.5-1.4) mg/dL Estim Creat Clear Calc Estimated GFR Random Glucose (60-115) mg/dL Lactic Acid (0.5-2.0) mmol/L Calcium (8.4-10.2) mg/dL Ferritin 141 (20-250) ng/mL Total Bilirubin (0.0-1.0) mg/dL AST (5-37) U/L ALT (0-40) U/L Alkaline Phosphatase (39-117) U/L Lactate Dehydrogenase (118-273) U/L Troponin I High Sens (<3.5-35.0) ng/L B-Natriuretic Peptide (<100) pg/mL Total Protein (6.5-8.0) g/dL Albumin (3.5-5.0) g/dL Procalcitonin 0.03 ng/mL Independent Interpretation I performed an independent interpretation of an: Plain X-Ray (Chest: No acute pathology.) Radiology Impression Discussion of test interpretation with radiology: I have reviewed the radiologist's reading. Discharge Plan Discharge Clinical Impression: COVID-19 virus infection, Hypoxia, Acidosis, lactic Patient Disposition: Admitted As Inpatient Prescriptions: No Action aspirin 81 mg tablet,delayed release (DR/EC) 81 mg PO DAILY 90 Days Qty: 90 3RF metoprolol tartrate 100 mg tablet 100 mg PO BID Qty: 180 3RF ezetimibe 10 mg tablet 10 mg PO DAILY Qty: 90 3RF levothyroxine 100 mcg tablet 100 mcg PO DAILY losartan 50 mg tablet 50 mg PO DAILY potassium chloride 10 mEq tablet extended release 10 meq PO DAILY diltiazem HCl 120 mg capsule,extended release 24hr 120 mg PO DAILY 90 Days Qty: 90 3RF Eliquis 5 mg tablet 5 mg PO BID 90 Days Qty: 180 3RF
[2022-11-01 15:08] LABS: MANUAL DIFF FLAG NO
[2022-11-01 15:09] LABS: Basophils Percent Auto 0.6 % (0-2); Eosinophils Absolute Auto 0.4 X10*3/uL (0.0-0.4); Eosinophils Percent Auto 5.2 % (0-4); Hematocrit 53.7 % (42.0-52.0); Hemoglobin 17.5 g/dl (14.0-18.0); Imm Gran Abs Auto 0.02 X10*3/uL (0.00-0.03); Imm Gran Pct Auto 0.3 % (0.0-0.4); Lymphocytes Absolute Auto 1.6 X10*3/uL (1.2-4.9); Lymphocytes Percent Auto 22.2 % (20-40); Mean Corpuscular HGB Conc 32.6 g/dl (31.0-36.0); Mean Corpuscular Hemoglobin 32.5 pg (27.0-33.0); Mean Corpuscular Volume 99.6 fL (80.0-98.0); Mean Platelet Volume 12.7 fL (9.4-12.4); Monocytes Absolute Auto 0.8 X10*3/uL (0.1-1.2); Neutrophils Absolute Auto 4.2 x10*3/uL (2.0-8.3); Neutrophils Percent Auto 59.7 % (45-73); Platelet Count 120 X10*3/uL (160-400); Red Blood Count 5.39 X10*6/uL (4.60-5.80); Red Cell Distribution Width 13.6 % (11.0-16.0)
[2022-11-01 15:16] LABS: INTERNATIONAL NORM RATIO 1.2 (0.9-1.1); Prothrombin Time 13.5 SEC (10.0-13.1)
[2022-11-01 15:18] LABS: Partial Thromboplastin Time 29.1 SEC (26.0-36.4)
[2022-11-01 15:26] LABS: Alanine Aminotransferase 14 U/L (0-40); Albumin Level 3.8 g/dL (3.5-5.0); Alkaline Phosphatase 57 U/L (39-117); Anion Gap 15 (12-20); Aspartate Amino Transferase 14 U/L (5-37); Bilirubin Total 0.8 mg/dL (0.0-1.0); Blood Urea Nitrogen 11 mg/dL (9-16); Calcium 9.1 mg/dL (8.4-10.2); Carbon Dioxide 34 mmol/L (22-29); Chloride 96 mmol/L (96-108); Creatinine Clr Calc Pharmacy 124.7; Estimated Glomerular Filt Rate > 60; Glucose Random 118 mg/dL (60-115); Lactate Dehydrogenase 210 U/L (118-273); Potassium 4.5 mmol/L (3.3-5.1); Sodium 140 mmol/L (135-145); Total Protein 6.2 g/dL (6.5-8.0)
[2022-11-01 15:32] LABS: Troponin-I High Sensitivity 7.6 ng/L (<3.5-35.0)
[2022-11-01 15:37] LABS: Lactic Acid 4.2 mmol/L (0.5-2.0)
[2022-11-01 15:46] LABS: Ferritin 141 ng/mL (20-250); Procalcitonin 0.03 ng/mL
[2022-11-01 16:00] LABS: B Type Natriuretic Peptide 104 pg/mL (<100)
--- NOTE | 2022-11-01 17:11 | PC.NURSE ---
Patient took off oxygen because he wanted to go to the bathroom desated to 80% on room air. instructed patient he cannot take off his oxygen he needs it. reapplied oxygen. Patient became unsteady walking.
[2022-11-01 17:23] LABS: Influenza A PCR NEGATIVE (Negative); Influenza B PCR NEGATIVE (Negative); Resp Syncy Virus RNA Qual PCR NEGATIVE (Negative); SARS COV2 PCR INHOUSE POSITIVE (Negative)
--- NOTE | 2022-11-01 17:39 | P.HPHOSP_ITS ---
History of Present Illness Date of Service: 11/01/22 <HARSH Marques - Last Filed: 11/01/22 18:15> Attending physician on admission: Uli Myrick <HARSH Marques - Last Filed: 11/01/22 18:15> Chief Complaint: hypoxia, sob <HARSH Marques - Last Filed: 11/01/22 18:15> 67-year-old male with history of hypertension, hyperlipidemia intolerant of statins, COPD, obstructive sleep apnea noncompliant with CPAP, paroxysmal atrial fibrillation noncompliant with anticoagulation, morbid obesity, and coronary artery disease who is a former smoker who recently quit within the last few weeks presented to the ED earlier today for evaluation of hypoxia. He states he tested positive for COVID-19 at home 6 days ago. Symptoms have included fevers up to 104 that have resolved, productive cough, pleuritic chest pain, nasal congestion, and hypoxia to 77%. He has become increasingly short of breath. He did call his PCP who prescribed paxlovid which he has been taking x 3 days and she then recommended he come to the ED 2 days ago, but he did not present until today. Arrival, patient hypoxic at 79%, placed on OxyMask with improvement to 95%. Also initially tachypneic to 24 but afebrile without any tachycardia or hypotension. No leukocytosis. Platelet count 120. Renal function and electrolyte levels within normal limits except for CO2 34. Lactic acid 4.2. CRP 4.90. BNP 104, troponin 7.6. Procalcitonin within normal limits. CXR showing low lung volumes with mild bibasilar subsegmental atelectasis without any definitive airspace consolidation or pleural effusions. Serologies for influenza, RSV, COVID-19 pending. Pt to be admitted for acute hypoxemic respiratory failure secondary to COVID-19 and COPD exacerbation. <HARSH Marques - Last Filed: 11/01/22 18:15> Review of Systems Review of Systems: General: No fevers, malaise, unintentional weight loss HEENT: +sore throat, +nasal congestion. No blurred vision, diplopia. No rhinorrhea, sinus pain, ear pain Cardiovascular: +ble edema, +pleuritic cp. No chest pressure, palpitations Respiratory: +shortness of breath, +wheezing, +cough GI: No abdominal pain, nausea, vomiting, diarrhea : No dysuria, hematuria, increased urinary frequency MSK: No myalgia, back pain Neuro: No headaches, weakness, paresthesias Skin: No rashes or lesions <HARSH Marques - Last Filed: 11/01/22 18:15> [facility] Medical History: Medical History (Updated 11/01/22 @ 18:13 by HARSH Marques) Atherosclerotic cardiovascular disease Essential hypertension Hypoxia Leg swelling Lyme disease Mixed hyperlipidemia Obstructive sleep apnea Paroxysmal atrial fibrillation Pulmonary hyperinflation Statin intolerance <HARSH Marques - Last Filed: 11/01/22 18:15> Family History: Family History Father No problems noted. Mother CHF (congestive heart failure) <HARSH Marques - Last Filed: 11/01/22 18:15> Surgical History: Surgical History History of cardiac catheterization <HARSH Marques - Last Filed: 11/01/22 18:15> Social History: Social History Alcohol intake: former Patient Tobacco Use Status: Former Tobacco user Quit Date: 01/15/2022 Use of substances other than those prescribed or required for medical reasons: No Advance Directives: No Advance Directives Information Provided: Yes <HARSH Marques - Last Filed: 11/01/22 18:15> Meds Allergies/Adverse reactions: Allergies Allergy/AdvReac Type Severity Reaction Status Date / Time Penicillins [PENICILLINS] Allergy Unknown UNKNOWN Verified 01/25/22 12:36 statin intolerance Allergy Unknown swelling Uncoded 01/25/22 12:36 <HARHS Marques - Last Filed: 11/01/22 18:15> Active Medications: Current Medications Acetaminophen (Acetaminophen 325 Mg Tablet) 650 mg PO Q6H PRN PRN Reason: Pain, Mild (Pain Scale 1-3) Albuterol Sulfate (Albuterol Sulfate (0.083%) 2.5 Mg/3 Ml Vial.Neb) 2.5 mg INHALE Q2H PRN PRN Reason: Shortness of Breath/Wheezing Albuterol/Ipratropium (Albuterol/Iprat 2.5/0.5mg 3 Ml Ampul.Neb) 3 ml INHALE RQ4H WHILE AWAKE SELVIN Dexamethasone Sodium Phosphate (Dexamethasone Sod Phosphate 4 Mg/Ml Vial) 6 mg IVPUSH DAILY SELVIN Stop: 11/10/22 09:01 Ondansetron HCl (Ondansetron Hcl 4 Mg/2 Ml Vial) 4 mg IVPUSH Q8H PRN PRN Reason: Nausea and Vomiting Pharmacy Consult (Consult Rx Perform Med Rec) 1 each MISCELLANE STAT STA Stop: 11/01/22 16:46 Senna (Sennosides 8.6 Mg Tablet) 17.2 mg PO BEDTIME PRN PRN Reason: Constipation <HARSH Marques - Last Filed: 11/01/22 18:15> Home medications: Home Medications Medication Instructions Recorded Confirmed Last Taken Type levothyroxine 100 mcg tablet 100 mcg PO DAILY@0600 01/25/22 11/01/22 11/01/22 History losartan 50 mg tablet 50 mg PO DAILY 01/25/22 11/01/22 11/01/22 History potassium chloride 10 mEq 10 meq PO DAILY 01/25/22 11/01/22 11/01/22 History tablet,extended release atorvastatin 40 mg tablet 1 tab PO DAILY 11/01/22 11/01/22 11/01/22 History budesonide 32 mcg/actuation nasal 1 spray intranasal DAILY 11/01/22 11/01/22 11/01/22 History spray cholecalciferol (vitamin D3) 25 11/01/22 11/01/22 History mcg (1,000 unit) tablet <HARSH Marques - Last Filed: 11/01/22 18:15> Physical Exam Vital Signs and Narrative: Vital Signs: Last Vital Signs Temp 96.9 F 11/01/22 13:59 Pulse 60 11/01/22 15:11 Resp 13 11/01/22 15:11 BP 141/78 H 11/01/22 13:59 Pulse Ox 95 11/01/22 15:11 O2 Del Method 11/01/22 15:11 O2 Flow Rate 4 11/01/22 15:11 BMI result Body Mass Index 47.8 <HARSH Marques - Last Filed: 11/01/22 18:15> Constitutional - Awake and Alert, No apparent distress Eyes - PERRLA, EOMI Cardiovascular - S1S2, RRR, 1+ ble edema Respiratory - Normal lung expansion, Normal respiratory effort, No respiratory distress on 5L oxymask, bilateral expiratory wheezes Gastrointestinal - NT / ND; +BS; No rebound or guarding Extremities - no calf tenderness bilaterally, 1+ ble edema with venous stasis changes lower legs b/l Skin - Warm/Dry Neurological - Alert & oriented x3 Psychological - Appropriate affect <HARSH Marques - Last Filed: 11/01/22 18:15> Results Labs CBC and Chem 7: : 11/01/22 15:01 11/01/22 15:01 <HARSH Marques - Last Filed: 11/01/22 18:15> Labs: Laboratory Results - last 24 hr 11/01/22 11/01/22 11/01/22 14:59 15:01 15:01 MCV 99.6 H MCH 32.5 MCHC 32.6 RDW 13.6 Plt Count 120 L MPV 12.7 H Immature Gran % (Auto) 0.3 Neut % (Auto) 59.7 Lymph % (Auto) 22.2 Traill % (Auto) 12.0 H Eos % (Auto) 5.2 H Baso % (Auto) 0.6 Lymph # (Auto) 1.6 Traill # (Auto) 0.8 Eos # (Auto) 0.4 Baso # (Auto) 0.0 Abs Immat Gran (auto) 0.02 Absolute Neuts (auto) 4.2 Absolute Nucleated RBC 0.000 Nucleated RBC % (auto) 0.0 PT INR APTT Anion Gap Estim Creat Clear Calc Estimated GFR Random Glucose Lactic Acid 4.2 H* Calcium Ferritin Total Bilirubin AST ALT Alkaline Phosphatase Lactate Dehydrogenase Total Creatine Kinase Troponin I High Sens 7.6 C-Reactive Protein B-Natriuretic Peptide Total Protein Albumin Procalcitonin 11/01/22 11/01/22 11/01/22 15:01 15:01 15:01 MCV MCH MCHC RDW Plt Count MPV Immature Gran % (Auto) Neut % (Auto) Lymph % (Auto) Traill % (Auto) Eos % (Auto) Baso % (Auto) Lymph # (Auto) Traill # (Auto) Eos # (Auto) Baso # (Auto) Abs Immat Gran (auto) Absolute Neuts (auto) Absolute Nucleated RBC Nucleated RBC % (auto) PT 13.5 H INR 1.2 H APTT 29.1 Anion Gap 15 Estim Creat Clear Calc 124.7 Estimated GFR > 60 Random Glucose 118 H Lactic Acid Calcium 9.1 Ferritin Total Bilirubin 0.8 AST 14 ALT 14 Alkaline Phosphatase 57 Lactate Dehydrogenase 210 Total Creatine Kinase 58 Troponin I High Sens C-Reactive Protein 4.90 H B-Natriuretic Peptide 104 H Total Protein 6.2 L Albumin 3.8 Procalcitonin 11/01/22 11/01/22 15:01 15:01 MCV MCH MCHC RDW Plt Count MPV Immature Gran % (Auto) Neut % (Auto) Lymph % (Auto) Traill % (Auto) Eos % (Auto) Baso % (Auto) Lymph # (Auto) Traill # (Auto) Eos # (Auto) Baso # (Auto) Abs Immat Gran (auto) Absolute Neuts (auto) Absolute Nucleated RBC Nucleated RBC % (auto) PT INR APTT Anion Gap Estim Creat Clear Calc Estimated GFR Random Glucose Lactic Acid Calcium Ferritin 141 Total Bilirubin AST ALT Alkaline Phosphatase Lactate Dehydrogenase Total Creatine Kinase Troponin I High Sens C-Reactive Protein B-Natriuretic Peptide Total Protein Albumin Procalcitonin 0.03 <HARSH Marques - Last Filed: 11/01/22 18:15> Imaging Radiologist's Impressions: Impressions Chest X-Ray 11/01/22 14:36 IMPRESSION: 1. Low lung volumes with mild bibasilar subsegmental atelectasis. 2. No definite airspace consolidation or pleural effusions. <HARSH Marques - Last Filed: 11/01/22 18:15> Assessment and Plan (1) COVID-19 virus infection: Status: Acute <HARSH Marques Last Filed: 11/01/22 18:15> (2) Hypoxia: Status: Inactive <HARSH Marques - Last Filed: 11/01/22 18:15> (3) COPD exacerbation: Status: Acute <HARSH Marques Last Filed: 11/01/22 18:15> (4) Acute hypoxemic respiratory failure: Status: Acute <HARSH Marques - Last Filed: 11/01/22 18:15> 67-year-old male with history of hypertension, hyperlipidemia intolerant of statins, COPD, obstructive sleep apnea noncompliant with CPAP, hypothyroidism, paroxysmal atrial fibrillation noncompliant with anticoagulation, morbid obesity, and coronary artery disease who is a former smoker who recently quit within the last few weeks admitted for acute hypoxemic respiratory failure secondary to COVID-19 and COPD exacerbation. # acute hypoxemic respiratory failure-secondary to COVID-19 and COPD exacerbation -states he feels like he needs supplemental O2 at baseline, but does not currently use this at baseline -oxygen saturation down to 72% at home and 79% on arrival to ED -continue supplemental O2 to maintain oximetry 92%, titrate as tolerated -D-dimer ordered # COVID-19 with acute hypoxemic respiratory failure -Initially dx 6 days ago, and took 3 days paxlovid -CXR negative for pneumonia -IV remdesivir -IV steroid for COPD exacerbation as below -continue supplemental O2 as above -symptomatic management -droplet/contact precautions # acute COPD exacerbation secondary to COVID-19 -IV Solu-Medrol 60 mg b.i.d. -DuoNebs q.4h -albuterol p.r.n. # paroxysmal atrial fibrillation -not currently taking apixaban as prescribed due to cost. Will resume apixaban 5 mg b.i.d. and provide patient with coupon -continue diltiazem and metoprolol # hypertension-reasonably controlled -continue home meds # hypothyroidism -continue levothyroxine # CAD/HLD-no anginal chest pain, troponin negative, EKG without ischemic changes -continue baby aspirin, BB, Zetia -intolerant of statins # KJ -noncompliant with CPAP -counseled on the importance of compliance with CPAP, refuses DVT prophylaxis-Kana Full code Patient requires inpatient stay of at least 2 midnights for management of acute hypoxemic respiratory failure secondary to COVID-19 on IV remdesivir and supplemental O2 with OxyMask with close monitoring for pulmonary decompensation. <HARSH Marques - Last Filed: 11/01/22 18:15> 67-year-old male with history of hypertension, hyperlipidemia intolerant of statins, COPD, obstructive sleep apnea noncompliant with CPAP, hypothyroidism, paroxysmal atrial fibrillation noncompliant with anticoagulation, morbid obesity, and coronary artery disease who is a former smoker who recently quit within the last few weeks admitted for acute hypoxemic respiratory failure secondary to COVID-19 and COPD exacerbation. # acute hypoxemic respiratory failure-secondary to COVID-19 and COPD exacerbation -states he feels like he needs supplemental O2 at baseline, but does not currently use this at baseline -oxygen saturation down to 72% at home and 79% on arrival to ED -continue supplemental O2 to maintain oximetry 92%, titrate as tolerated -D-dimer ordered # COVID-19 with acute hypoxemic respiratory failure -Initially dx 6 days ago, and took 3 days paxlovid -CXR negative for pneumonia -IV remdesivir -IV steroid for COPD exacerbation as below -continue supplemental O2 as above -symptomatic management -droplet/contact precautions # acute COPD exacerbation secondary to COVID-19 -IV Solu-Medrol 60 mg b.i.d. -DuoNebs q.4h -albuterol p.r.n. # paroxysmal atrial fibrillation -not currently taking apixaban as prescribed due to cost. Will resume apixaban 5 mg b.i.d. and provide patient with coupon -continue diltiazem and metoprolol # hypertension-reasonably controlled -continue home meds # hypothyroidism -continue levothyroxine # CAD/HLD-no anginal chest pain, troponin negative, EKG without ischemic changes -continue baby aspirin, BB, Zetia -intolerant of statins # KJ -noncompliant with CPAP -counseled on the importance of compliance with CPAP, refuses DVT prophylaxis-Kana Full code Patient requires inpatient stay of at least 2 midnights for management of acute hypoxemic respiratory failure secondary to COVID-19 on IV remdesivir and supplemental O2 with OxyMask with close monitoring for pulmonary decompensation. 67-year-old male with history of hypertension, hyperlipidemia intolerant of statins, COPD, obstructive sleep apnea noncompliant with CPAP, paroxysmal atrial fibrillation noncompliant with anticoagulation, morbid obesity, and coronary artery disease who is a former smoker who recently quit within the last few weeks presented to the ED earlier today for evaluation of hypoxia. He states he tested positive for COVID-19 at home 6 days ago. Symptoms have included fevers up to 104 that have resolved, productive cough, pleuritic chest pain, nasal congestion, and hypoxia to 77%. He has become increasingly short of breath. He did call his PCP who prescribed paxlovid which he has been taking x 3 days and she then recommended he come to the ED 2 days ago, but he did not present until today. Arrival, patient hypoxic at 79%, placed on OxyMask with improvement to 95%. Also initially tachypneic to 24 but afebrile without any tachycardia or hypotension. No leukocytosis. Platelet count 120. Renal function and electrolyte levels within normal limits except for CO2 34. Lactic acid 4.2. CRP 4.90. BNP 104, troponin 7.6. Procalcitonin within normal limits. CXR showing low lung volumes with mild bibasilar subsegmental atelectasis without any definitive airspace consolidation or pleural effusions. Serologies for influenza, RSV, COVID-19 pending. Pt to be admitted for acute hypoxemic r espiratory failure secondary to COVID-19 and COPD exacerbation. Addendum to history and physical by the advanced practice provider, HARSH Iniguez I interviewed and examined the patient. I discussed their presentation and management with the KURT. I reviewed the history and physical and agree with the documentation, with the following additions and corrections: 67yo M with HTN, COPD, KJ not on CPAP, pAF not on AC due to cost issues, morbid obesity, CAD on 6th day of illness with Covid-19 [fever, cough, chest pain] on Paxlovid. Presented hypoxic at 79%, tachypneic at 24 RR. Lactate 4.2, CRP 4 .90. CXR with mild bibasilar subsegmental atelectasis. SARS-CoV2 RNA positive Plan admit for COPD exacerbation/severe Covid-19 infection. Give steroids, remdesivir, nebulizer treatments. Apixaban for AF- give co-pay card. Check D- dimer; if high, CTA to r/o PE. <Uli Myrick MD - Last Filed: 11/01/22 18:45> Time Spent With Patient Time: Total time managing care of this patient today ____ minutes. <HARSH Marques - Last Filed: 11/01/22 18:15> Quality Stroke Does the patient have a stroke diagnosis?: No <HARSH Marques - Last Filed: 11/01/22 18:15> VTE Prior VTE?: No <HARSH Marques - Last Filed: 11/01/22 18:15> VTE Risk Level:: Medical - moderate - high <HARSH Marques - Last Filed: 11/01/22 18:15> VTE Device Contraindication: Treatment Not Indicated <HARSH Marques - Last Filed: 11/01/22 18:15> VTE Drug Contraindication: N/A - Med Ordered <HARSH Marques - Last Filed: 11/01/22 18:15>
[2022-11-01 18:23] LABS: D Dimer High Sensitivity 1967 NG/ML
[2022-11-01 18:26] LABS: ~Lactic Acid-LAB USE ONLY 1.5 mmol/L (0.5-2.0)
--- NOTE | 2022-11-01 18:26 | PHA.MEDREC ---
Pharmacy Consult ? Medication Reconciliation Pharmacy has completed the medication reconciliation. Spoke to pt's Muna over the phone who went over med list.
[2022-11-01] MEDS: methylPREDNISolone Sod Succ 125 MG/2 ML VIAL 60 MG IVPUSH (19:17)
[2022-11-01] MEDS: Albuterol/Iprat 2.5/0.5MG 3 ML AMPUL.NEB INHALE (20:21)
[2022-11-01] MEDS: Apixaban 5 MG TABLET PO (20:28)
[2022-11-01] MEDS: Metoprolol Tartrate 100 MG TABLET PO (20:28)
--- NOTE | 2022-11-01 21:01 | PM.EVENT ---
Event Note Date of Service: 11/01/22 Event Note: CTA chest showed positive for PE. pt already on anticoagulation Time Spent With Patient Time: Total time managing care of this patient today ____ minutes.
[2022-11-02] VITALS (10 sets, daily range): BP systolic 127–158; BP diastolic 59–93; PULSE 66–80; RESP 17–22; TEMP 36.2–37.1; O2SAT 91–96
[2022-11-02] MEDS: Levothyroxine Sodium 100 MCG TABLET PO (05:59)
[2022-11-02] MEDS: methylPREDNISolone Sod Succ 125 MG/2 ML VIAL 60 MG IVPUSH (06:20)
[2022-11-02 08:26] LABS: Hematocrit 52.8 % (42.0-52.0); Hemoglobin 17.6 g/dl (14.0-18.0); Mean Corpuscular HGB Conc 33.3 g/dl (31.0-36.0); Mean Corpuscular Hemoglobin 32.7 pg (27.0-33.0); Mean Platelet Volume 12.9 fL (9.4-12.4); Platelet Count 131 X10*3/uL (160-400); Red Blood Count 5.39 X10*6/uL (4.60-5.80); Red Cell Distribution Width 13.3 % (11.0-16.0); Venous Blood Gas Refer to POC result; White Blood Count 7.4 X10*3/uL (4.8-10.8)
[2022-11-02 08:28] LABS: VBG Base Excess 4.7 mmol/L; VBG HCO3 33 mmol/L (22-26); VBG pCO2 61 mmHg; VBG pH 7.33 (7.32-7.43); VBG pO2 53 mmHg
[2022-11-02] MEDS: Metoprolol Tartrate 100 MG TABLET PO ×2 (08:45→21:35)
[2022-11-02] MEDS: Apixaban 5 MG TABLET PO (08:45)
[2022-11-02] MEDS: dilTIAZem HCL CD 120 MG CAP.ER.DEG PO (08:45)
[2022-11-02] MEDS: Ezetimibe 10 MG TABLET PO (08:46)
[2022-11-02] MEDS: Atorvastatin Calcium 40 MG TABLET PO (08:46)
[2022-11-02] MEDS: Losartan Potassium 50 MG TABLET PO (08:47)
[2022-11-02 08:48] LABS: Blood Urea Nitrogen 10 mg/dL (9-16); Calcium 8.9 mg/dL (8.4-10.2); Creatinine Clr Calc Pharmacy 154.2; Estimated Glomerular Filt Rate > 60; Glucose Random 197 mg/dL (60-115)
[2022-11-02] MEDS: Albuterol/Iprat 2.5/0.5MG 3 ML AMPUL.NEB INHALE ×4 (08:51→20:20)
--- NOTE | 2022-11-02 08:56 | MHC.CM.PN ---
IMM EXPLAINED AND WHITE COPY TO BE MAILED TO [facility]. YELLOW COPY TO CHART. CM SPOKE WITH PT VIA TELEPHONE. LIVES IN SINGLE FAMILY HOME WITH SPOUSE. PT IS EMPLOYED, NO SERVICES PRIOR. USES C-PAP AT NIGHT BUT IS UNSURE OF THE VENDOR IT HAS CHANGED FREQUENTLY. +HCP,COPY REQUESTED. + COVID VAX X 3. PCP DR. CAST. DP: ANTICIPATE HOME WITH NO SERVICES, [facility] WILL TRANSPORT HOME. CM WILL CONTINUE TO FOLLOW.
[2022-11-02 09:09] LABS: Anion Gap 17 (12-20); Carbon Dioxide 30 mmol/L (22-29); Chloride 100 mmol/L (96-108); Potassium 5.6 mmol/L (3.3-5.1); Sodium 141 mmol/L (135-145)
--- NOTE | 2022-11-02 09:53 | P.PNIM_ITS ---
Subjective Subjective Date of Service: 11/02/22 Interval History: Seen in follow-up for acute hypoxic respiratory failure secondary to COVID-19 and acute pulmonary embolism Interval history: Patient denies any complaints. No shortness of breath, chest pain, lightheadedness. He is satting at 94% on 5 L OxyMask. Review of Systems General: No fevers, malaise, unintentional weight loss Cardiovascular: No chest pain, palpitations, or leg edema Respiratory: No shortness of breath, wheezing, cough GI: No abdominal pain, nausea, vomiting, diarrhea : No dysuria, hematuria, increased urinary frequency MSK: No myalgia, back pain Neuro: No headaches, weakness, paresthesias Skin: No rashes or lesions Physical Exam Vital Signs: Vital Signs: Last Vital Signs Temp 97.1 F 11/02/22 08:00 Pulse 80 11/02/22 08:51 Resp 22 H 11/02/22 08:51 BP 127/72 11/02/22 08:00 Pulse Ox 91 L 11/02/22 08:00 O2 Del Method 11/02/22 08:00 O2 Flow Rate 7 11/02/22 08:00 BMI result Body Mass Index 48.0 Constitutional - Awake and Alert, No apparent distress Eyes - PERRLA, EOMI Cardiovascular - S1S2, RRR, No edema Respiratory - Normal lung expansion, Normal respiratory effort, No respiratory distress, CTA bilaterally Gastrointestinal - NT / ND; +BS; No rebound or guarding Extremities - no calf tenderness bilaterally, BLE swelling, mild erythema, with chronic venous stasis changes Skin - Warm/Dry Neurological - Alert & oriented Psychological - Appropriate affect Objective Data Active Medications Acetaminophen (Acetaminophen 325 Mg Tablet) 650 mg PO Q6H PRN PRN Reason: Pain, Mild (Pain Scale 1-3) Albuterol Sulfate (Albuterol Sulfate (0.083%) 2.5 Mg/3 Ml Vial.Neb) 2.5 mg INHALE Q2H PRN PRN Reason: Shortness of Breath/Wheezing Albuterol/Ipratropium (Albuterol/Iprat 2.5/0.5mg 3 Ml Ampul.Neb) 3 ml INHALE RQ4H WHILE AWAKE SELVIN Last Admin: 11/02/22 08:51 Dose: 3 ml Documented By: ROSALINA Apixaban (Apixaban 5 Mg Tablet) 5 mg PO BID [facility] Last Admin: 11/02/22 08:45 Dose: 5 mg Documented By: COLIN Atorvastatin Calcium (Atorvastatin Calcium 40 Mg Tablet) 40 mg PO DAILY [facility] Last Admin: 11/02/22 08:46 Dose: 40 mg Documented By: COLIN Diltiazem HCl (Diltiazem Hcl Cd 120 Mg Cap.Er.Deg) 120 mg PO DAILY [facility]; Protocol Last Admin: 11/02/22 08:45 Dose: 120 mg Documented By: COLIN Ezetimibe (Ezetimibe 10 Mg Tablet) 10 mg PO DAILY [facility] Last Admin: 11/02/22 08:46 Dose: 10 mg Documented By: COLIN Guaifenesin (Guaifenesin 200 Mg/10 Ml 10 Ml Liquid) 10 ml PO Q4H PRN PRN Reason: Cough Remdesivir 100 mg/ Sodium (Chloride) 250 mls @ 125 mls/hr IV Q24H [facility] Stop: 11/05/22 19:59 Levothyroxine Sodium (Levothyroxine Sodium 100 Mcg Tablet) 100 mcg PO DAILY@0600 [facility] Last Admin: 11/02/22 05:59 Dose: 100 mcg Documented By: BRYAN Losartan Potassium (Losartan Potassium 50 Mg Tablet) 50 mg PO DAILY [facility]; Protocol Last Admin: 11/02/22 08:47 Dose: 50 mg Documented By: COLIN Methylprednisolone Sodium Succinate (Methylprednisolone Sod Succ 125 Mg/2 Ml Vial) 60 mg IVPUSH Q12H [facility] Last Admin: 11/02/22 06:20 Dose: 60 mg Documented By: BRYAN Metoprolol Tartrate (Metoprolol Tartrate 100 Mg Tablet) 100 mg PO BID [facility]; Protocol Last Admin: 11/02/22 08:45 Dose: 100 mg Documented By: COLIN Ondansetron HCl (Ondansetron Hcl 4 Mg/2 Ml Vial) 4 mg IVPUSH Q8H PRN PRN Reason: Nausea and Vomiting Potassium Chloride (Potassium Chloride Er 10 Meq Capsule.Er) 10 meq PO DAILY [facility] Last Admin: 11/02/22 08:46 Dose: 10 meq Documented By: COLIN Senna (Sennosides 8.6 Mg Tablet) 17.2 mg PO BEDTIME PRN PRN Reason: Constipation Labs CBC & Chem 7: 11/02/22 08:19 11/02/22 08:19 Labs: Laboratory Results - last 24 hr 11/01/22 11/01/22 11/01/22 14:59 15:01 15:01 MCV 99.6 H MCH 32.5 MCHC 32.6 RDW 13.6 Plt Count 120 L MPV 12.7 H Immature Gran % (Auto) 0.3 Neut % (Auto) 59.7 Lymph % (Auto) 22.2 [place] % (Auto) 12.0 H Eos % (Auto) 5.2 H Baso % (Auto) 0.6 Lymph # (Auto) 1.6 [place] # (Auto) 0.8 Eos # (Auto) 0.4 Baso # (Auto) 0.0 Abs Immat Gran (auto) 0.02 Absolute Neuts (auto) 4.2 Absolute Nucleated RBC 0.000 Nucleated RBC % (auto) 0.0 PT INR APTT D-Dimer High Sensitivty VBG pH VBG pCO2 VBG pO2 VBG HCO3 VBG O2 Saturation VBG Base Excess Anion Gap Estim Creat Clear Calc Estimated GFR Random Glucose Lactic Acid 4.2 H* Lactic Acid F/U @ 2Hr Calcium Ferritin Total Bilirubin AST ALT Alkaline Phosphatase Lactate Dehydrogenase Total Creatine Kinase Troponin I High Sens 7.6 C-Reactive Protein B-Natriuretic Peptide Total Protein Albumin Procalcitonin Influenza Type A (PCR) Influenza Type B (PCR) RSV RNA Qual (PCR) SARS-CoV-2 RNA (RT-PCR) 11/01/22 11/01/22 11/01/22 15:01 15:01 15:01 MCV MCH MCHC RDW Plt Count MPV Immature Gran % (Auto) Neut % (Auto) Lymph % (Auto) [place] % (Auto) Eos % (Auto) Baso % (Auto) Lymph # (Auto) [place] # (Auto) Eos # (Auto) Baso # (Auto) Abs Immat Gran (auto) Absolute Neuts (auto) Absolute Nucleated RBC Nucleated RBC % (auto) PT 13.5 H INR 1.2 H APTT 29.1 D-Dimer High Sensitivty VBG pH VBG pCO2 VBG pO2 VBG HCO3 VBG O2 Saturation VBG Base Excess Anion Gap 15 Estim Creat Clear Calc 124.7 Estimated GFR > 60 Random Glucose 118 H Lactic Acid Lactic Acid F/U @ 2Hr Calcium 9.1 Ferritin Total Bilirubin 0.8 AST 14 ALT 14 Alkaline Phosphatase 57 Lactate Dehydrogenase 210 Total Creatine Kinase 58 Troponin I High Sens C-Reactive Protein 4.90 H B-Natriuretic Peptide 104 H Total Protein 6.2 L Albumin 3.8 Procalcitonin Influenza Type A (PCR) Influenza Type B (PCR) RSV RNA Qual (PCR) SARS-CoV-2 RNA (RT-PCR) 11/01/22 11/01/22 11/01/22 15:01 15:01 16:30 MCV MCH MCHC RDW Plt Count MPV Immature Gran % (Auto) Neut % (Auto) Lymph % (Auto) [place] % (Auto) Eos % (Auto) Baso % (Auto) Lymph # (Auto) [place] # (Auto) Eos # (Auto) Baso # (Auto) Abs Immat Gran (auto) Absolute Neuts (auto) Absolute Nucleated RBC Nucleated RBC % (auto) PT INR APTT D-Dimer High Sensitivty VBG pH VBG pCO2 VBG pO2 VBG HCO3 VBG O2 Saturation VBG Base Excess Anion Gap Estim Creat Clear Calc Estimated GFR Random Glucose Lactic Acid Lactic Acid F/U @ 2Hr Calcium Ferritin 141 Total Bilirubin AST ALT Alkaline Phosphatase Lactate Dehydrogenase Total Creatine Kinase Troponin I High Sens C-Reactive Protein B-Natriuretic Peptide Total Protein Albumin Procalcitonin 0.03 Influenza Type A (PCR) NEGATIVE Influenza Type B (PCR) NEGATIVE RSV RNA Qual (PCR) NEGATIVE SARS-CoV-2 RNA (RT-PCR) POSITIVE A 11/01/22 11/01/22 11/02/22 18:07 18:07 08:19 MCV 98.0 MCH 32.7 MCHC 33.3 RDW 13.3 Plt Count 131 L MPV 12.9 H Immature Gran % (Auto) Neut % (Auto) Lymph % (Auto) [place] % (Auto) Eos % (Auto) Baso % (Auto) Lymph # (Auto) [place] # (Auto) Eos # (Auto) Baso # (Auto) Abs Immat Gran (auto) Absolute Neuts (auto) Absolute Nucleated RBC 0.000 Nucleated RBC % (auto) 0.0 PT INR APTT D-Dimer High Sensitivty 1967 VBG pH VBG pCO2 VBG pO2 VBG HCO3 VBG O2 Saturation VBG Base Excess Anion Gap Estim Creat Clear Calc Estimated GFR Random Glucose Lactic Acid Lactic Acid F/U @ 2Hr 1.5 Calcium Ferritin Total Bilirubin AST ALT Alkaline Phosphatase Lactate Dehydrogenase Total Creatine Kinase Troponin I High Sens C-Reactive Protein B-Natriuretic Peptide Total Protein Albumin Procalcitonin Influenza Type A (PCR) Influenza Type B (PCR) RSV RNA Qual (PCR) SARS-CoV-2 RNA (RT-PCR) 11/02/22 11/02/22 08:19 08:23 MCV MCH MCHC RDW Plt Count MPV Immature Gran % (Auto) Neut % (Auto) Lymph % (Auto) [place] % (Auto) Eos % (Auto) Baso % (Auto) Lymph # (Auto) [place] # (Auto) Eos # (Auto) Baso # (Auto) Abs Immat Gran (auto) Absolute Neuts (auto) Absolute Nucleated RBC Nucleated RBC % (auto) PT INR APTT D-Dimer High Sensitivty VBG pH 7.33 VBG pCO2 61 VBG pO2 53 VBG HCO3 33 H VBG O2 Saturation 77.0 VBG Base Excess 4.7 Anion Gap 17 Estim Creat Clear Calc 154.2 Estimated GFR > 60 Random Glucose 197 H Lactic Acid Lactic Acid F/U @ 2Hr Calcium 8.9 Ferritin Total Bilirubin AST ALT Alkaline Phosphatase Lactate Dehydrogenase Total Creatine Kinase Troponin I High Sens C-Reactive Protein B-Natriuretic Peptide Total Protein Albumin Procalcitonin Influenza Type A (PCR) Influenza Type B (PCR) RSV RNA Qual (PCR) SARS-CoV-2 RNA (RT-PCR) Assessment and Plan (1) Acute hypoxemic respiratory failure: Status: Acute (2) COVID-19 virus infection: Status: Acute (3) COPD exacerbation: Status: Acute (4) Pulmonary embolism: Status: Acute Plan 67-year-old male with history of hypertension, hyperlipidemia intolerant of statins, COPD, obstructive sleep apnea noncompliant with CPAP, hypothyroidism, paroxysmal atrial fibrillation noncompliant with anticoagulation, morbid obesity, and coronary artery disease who is a former smoker who recently quit within the last few weeks admitted for acute hypoxemic respiratory failure secondary to COVID-19 and COPD exacerbation and newly diagnosed PE. # acute hypoxemic respiratory failure-secondary to PE, COVID-19 -states he feels like he needs supplemental O2 at baseline, but does not currently use this at baseline -oxygen saturation down to 72% at home and 79% on arrival to ED -continue supplemental O2 to maintain oximetry 92%, titrate as tolerated #Acute pulmonary embolism -DDimer >1100. CTA chest showing several filling defects with in segmental pulmonary arterial branches in the right upper, right middle, and right lower lobes highly suspicious for segmental PE. No evidence right heart strain/cor pulmonale -Pt resumed on eliquis which he had been noncompliant with d/t cost. Denies bleeding episodes -Continue supplemental O2 as above -BLE DVT studies pending # COVID-19 with acute hypoxemic respiratory failure -CXR negative for pneumonia -IV remdesivir given hypoxia -IV steroid for COPD exacerbation as below -continue supplemental O2 as above -symptomatic management -droplet/contact precautions # acute COPD exacerbation secondary to COVID-19- improving -Titrate IV Solu-Medrol to 40 mg b.i.d. -DuoNebs q.4h -albuterol p.r.n. # paroxysmal atrial fibrillation- rate controlled -not currently taking apixaban as prescribed due to cost.? Will resume apixaban 5 mg b.i.d. and provide patient with coupon -continue diltiazem and metoprolol # hypertension-reasonably controlled -continue home meds # hypothyroidism -continue levothyroxine # CAD/HLD-no anginal chest pain, troponin negative, EKG without ischemic changes -continue baby aspirin, BB, Zetia -intolerant of statins # KJ -noncompliant with CPAP -counseled on the importance of compliance with CPAP, refuses DVT prophylaxis-Eliquis Full code Patient requires ongoing inpt stay for management of acute hypoxemic respiratory failure due to COVID 19 at risk for severe disease due to comorbidities, on IV remdesivir and IV steroid, now with newly diagnosed PE started on eliquis Quality Stroke Does the patient have a stroke diagnosis?: No VTE Prior VTE?: No VTE Risk Level:: Medical - moderate - high VTE Device Contraindication: Treatment Not Indicated VTE Drug Contraindication: N/A - Med Ordered
[2022-11-02] MEDS: methylPREDNISolone Sod Succ 125 MG/2 ML VIAL 40 MG IVPUSH ×2 (11:48→21:36)
[2022-11-02] MEDS: LORazepam 0.5 MG TABLET PO (11:48)
--- NOTE | 2022-11-02 12:37 | P.CDIC_ITS ---
CDI Concurrent Query Documentation Clarification: PHYSICIAN'S DOCUMENTATION REQUEST Date of Query: 11/02/22 1237 Patient Name: Rudy Mathias Admit Date: 11/01/22 Dear Doctor, A review of the medical record indicates additional documentation may be needed. Please review below and update the documentation accordingly. Clinical Indicators: Is there a diagnosis that correlates with these lab findings below: Risk Factors/Clinical Indicators/Treatments Lab: Potassium on 11/02: 5.6 Administered Medications: Potassium chloride Based on the above, could you clarify in the Progress Notes the appropriate diagnosis, if significant, that supports the above abnormalities and additional evaluation, monitoring, and/or treatment rendered: * Hyperkalemia * Labs indicate a diagnosis of (please specify) * Other (please specify) * Unable to determine Use of terms such as suspected, likely, concern for, or probable (associated with a specific diagnosis that is being evaluated, monitored, or treated as if it exists) are acceptable and can be coded in the inpatient setting, when documented at the time of discharge. Thank you, Lesly Marshall MS, RN, CCRN Extension: [phone] Please use your independent medical judgment in providing your response. THIS QUERY IS PART OF THE PERMANENT MEDICAL RECORD Provider Response: Other Other Diagnosis: No hyperkalemia. The sample was moderately hemolyzed. Repeat potassium 4.8
[2022-11-02 14:46] LABS: Potassium 4.8 mmol/L (3.3-5.1)
[2022-11-02] MEDS: Remdesivir 100 MG in 0.9 % Sodium Chloride 230 ML 125 MG IV (18:09)
[2022-11-02] MEDS: Apixaban 5 MG TABLET 10 MG PO (21:36)
[2022-11-03] VITALS (8 sets, daily range): BP systolic 110–163; BP diastolic 57–86; PULSE 58–72; RESP 18–20; TEMP 36.1–36.6; O2SAT 91–94
[2022-11-03] MEDS: Levothyroxine Sodium 100 MCG TABLET PO (05:06)
[2022-11-03] MEDS: Albuterol/Iprat 2.5/0.5MG 3 ML AMPUL.NEB INHALE ×4 (07:38→20:10)
[2022-11-03] MEDS: Apixaban 5 MG TABLET 10 MG PO ×2 (08:07→20:32)
[2022-11-03] MEDS: dilTIAZem HCL CD 120 MG CAP.ER.DEG PO (08:07)
[2022-11-03] MEDS: Losartan Potassium 50 MG TABLET PO (08:07)
[2022-11-03] MEDS: Metoprolol Tartrate 100 MG TABLET PO ×2 (08:07→20:32)
[2022-11-03] MEDS: guaiFENesin 200 MG/10 ML 10 ML LIQUID PO (08:07)
[2022-11-03] MEDS: Ezetimibe 10 MG TABLET PO (08:07)
[2022-11-03] MEDS: Atorvastatin Calcium 40 MG TABLET PO (08:07)
--- NOTE | 2022-11-03 08:27 | PC.NURSE ---
report received from overnight RN, medical authorization specialist per JAN. pt scoring as a moderate fall risk but refusing safety precautions. Refusing bed alarm, camera, non skid socks. Pt educated and encouraged to call for assistance. Call jain within reach.
[2022-11-03 08:28] LABS: Basophils Percent Auto 0.1 % (0-2); Hemoglobin 17.8 g/dl (14.0-18.0); Imm Gran Abs Auto 0.06 X10*3/uL (0.00-0.03); Imm Gran Pct Auto 0.5 % (0.0-0.4); Lymphocytes Absolute Auto 0.7 X10*3/uL (1.2-4.9); MANUAL DIFF FLAG SCAN; Mean Corpuscular HGB Conc 32.2 g/dl (31.0-36.0); Mean Corpuscular Hemoglobin 32.2 pg (27.0-33.0); Mean Platelet Volume 12.7 fL (9.4-12.4); Monocytes Absolute Auto 0.6 X10*3/uL (0.1-1.2); Monocytes Percent Auto 4.2 % (2-11); Neutrophils Absolute Auto 11.7 x10*3/uL (2.0-8.3); Neutrophils Percent Auto 90.2 % (45-73); Platelet Count 152 X10*3/uL (160-400); Red Blood Count 5.53 X10*6/uL (4.60-5.80); Red Cell Distribution Width 13.4 % (11.0-16.0); SCAN SMEAR FLAG 1
[2022-11-03 08:29] LABS: Hematocrit 55.3 % (42.0-52.0)
[2022-11-03 08:51] LABS: SLIDE REVIEW VERIFIED
[2022-11-03 08:57] LABS: Anion Gap 15 (12-20); Blood Urea Nitrogen 19 mg/dL (9-16); Calcium 9.4 mg/dL (8.4-10.2); Carbon Dioxide 33 mmol/L (22-29); Chloride 97 mmol/L (96-108); Creatinine Clr Calc Pharmacy 136.4; Estimated Glomerular Filt Rate > 60; Glucose Random 220 mg/dL (60-115); Potassium 5.3 mmol/L (3.3-5.1); Sodium 140 mmol/L (135-145)
[2022-11-03 09:06] LABS: Venous Blood Gas Refer to POC result
[2022-11-03 09:08] LABS: VBG Base Excess 5.8 mmol/L; VBG HCO3 34 mmol/L (22-26); VBG pCO2 65 mmHg; VBG pH 7.33 (7.32-7.43); VBG pO2 41 mmHg
--- NOTE | 2022-11-03 10:36 | HO.PM.IMPN ---
Subjective Subjective Date of Service: 11/03/22 Interval History: Seen in follow-up for acute hypoxic respiratory failure secondary to COVID-19 and acute pulmonary embolism Interval history: Patient denies any complaints. No shortness of breath, chest pain, lightheadedness. Currently on RA @95% but was requiring 5L oxymask overnight Review of Systems General: No fevers, malaise, unintentional weight loss Cardiovascular: +right sided chest pain positional and pleuritic. No chest pressure, palpitations, or leg edema Respiratory: +cough. No shortness of breath, wheezing, cough GI: No abdominal pain, nausea, vomiting, diarrhea : No dysuria, hematuria, increased urinary frequency MSK: No myalgia, back pain Neuro: No headaches, weakness, paresthesias Skin: No rashes or lesions Physical Exam Vital Signs: Vital Signs: Last Vital Signs Temp 97.1 F 11/03/22 07:55 Pulse 72 11/03/22 07:55 Resp 20 11/03/22 07:55 BP 155/86 H 11/03/22 07:55 Pulse Ox 94 11/03/22 07:55 O2 Del Method 11/03/22 07:55 O2 Flow Rate 2 11/02/22 23:48 BMI result Body Mass Index 48.0 Constitutional - Awake and Alert, No apparent distress Eyes - PERRLA, EOMI Cardiovascular - S1S2, RRR, No edema Respiratory - Normal lung expansion, Normal respiratory effort, No respiratory distress, CTA bilaterally Gastrointestinal - NT / ND; +BS; No rebound or guarding Extremities - no calf tenderness bilaterally, BLE swelling, mild erythema, with chronic venous stasis changes Skin - Warm/Dry Neurological - Alert & oriented Psychological - Appropriate affect Objective Data Active Medications Acetaminophen (Acetaminophen 325 Mg Tablet) 650 mg PO Q6H PRN PRN Reason: Pain, Mild (Pain Scale 1-3) Albuterol Sulfate (Albuterol Sulfate (0.083%) 2.5 Mg/3 Ml Vial.Neb) 2.5 mg INHALE Q2H PRN PRN Reason: Shortness of Breath/Wheezing Albuterol/Ipratropium (Albuterol/Iprat 2.5/0.5mg 3 Ml Ampul.Neb) 3 ml INHALE RQ4H WHILE AWAKE SELVIN Last Admin: 11/03/22 07:38 Dose: 3 ml Documented By: HO.BRESNE Apixaban (Apixaban 5 Mg Tablet) 10 mg PO BID [facility] Last Admin: 11/03/22 08:07 Dose: 10 mg Documented By: RL Atorvastatin Calcium (Atorvastatin Calcium 40 Mg Tablet) 40 mg PO DAILY [facility] Last Admin: 11/03/22 08:07 Dose: 40 mg Documented By: RL Diltiazem HCl (Diltiazem Hcl Cd 120 Mg Cap.Er.Deg) 120 mg PO DAILY [facility]; Protocol Last Admin: 11/03/22 08:07 Dose: 120 mg Documented By: RL Ezetimibe (Ezetimibe 10 Mg Tablet) 10 mg PO DAILY [facility] Last Admin: 11/03/22 08:07 Dose: 10 mg Documented By: RL Fluticasone Propionate (Fluticasone Propionate Nasal 16 Gm [place]) 1 spray NOSTRIL-B DAILY [facility] Last Admin: 11/03/22 10:20 Dose: Not Given Documented By: RL Non-Admin Reason: Med Not Available Guaifenesin (Guaifenesin 200 Mg/10 Ml 10 Ml Liquid) 10 ml PO Q4H PRN PRN Reason: Cough Last Admin: 11/03/22 08:07 Dose: 10 ml Documented By: RL Remdesivir 100 mg/ Sodium (Chloride) 250 mls @ 125 mls/hr IV Q24H [facility] Stop: 11/05/22 19:59 Last Infusion: 11/02/22 22:44 Dose: 0 mls/hr Documented By: TERRI Levothyroxine Sodium (Levothyroxine Sodium 100 Mcg Tablet) 100 mcg PO DAILY@0600 [facility] Last Admin: 11/03/22 05:06 Dose: 100 mcg Documented By: TERRI Lorazepam (Lorazepam 0.5 Mg Tablet) 0.5 mg PO Q8H PRN PRN Reason: Anxiety Last Admin: 11/02/22 11:48 Dose: 0.5 mg Documented By: COLIN Losartan Potassium (Losartan Potassium 50 Mg Tablet) 50 mg PO DAILY [facility]; Protocol Last Admin: 11/03/22 08:07 Dose: 50 mg Documented By: RL Methylprednisolone Sodium Succinate (Methylprednisolone Sod Succ 125 Mg/2 Ml Vial) 40 mg IVPUSH Q12H [facility] Last Admin: 11/02/22 21:36 Dose: 40 mg Documented By: TERRI Metoprolol Tartrate (Metoprolol Tartrate 100 Mg Tablet) 100 mg PO BID [facility]; Protocol Last Admin: 11/03/22 08:07 Dose: 100 mg Documented By: RL Ondansetron HCl (Ondansetron Hcl 4 Mg/2 Ml Vial) 4 mg IVPUSH Q8H PRN PRN Reason: Nausea and Vomiting Potassium Chloride (Potassium Chloride Er 10 Meq Capsule.Er) 10 meq PO DAILY [facility] Last Admin: 11/03/22 08:06 Dose: 10 meq Documented By: RL Senna (Sennosides 8.6 Mg Tablet) 17.2 mg PO BEDTIME PRN PRN Reason: Constipation Labs CBC & Chem 7: 11/03/22 08:20 11/03/22 08:20 Labs: Laboratory Results - last 24 hr 11/03/22 11/03/22 11/03/22 08:20 08:20 08:25 MCV 100.0 H MCH 32.2 MCHC 32.2 RDW 13.4 Plt Count 152 L MPV 12.7 H Immature Gran % (Auto) 0.5 H Neut % (Auto) 90.2 H Lymph % (Auto) 5.0 L [place] % (Auto) 4.2 Eos % (Auto) 0.0 Baso % (Auto) 0.1 Lymph # (Auto) 0.7 L [place] # (Auto) 0.6 Eos # (Auto) 0.0 Baso # (Auto) 0.0 Abs Immat Gran (auto) 0.06 H Absolute Neuts (auto) 11.7 H Absolute Nucleated RBC 0.000 Nucleated RBC % (auto) 0.0 Smear Tech's Comments VERIFIED VBG pH 7.33 VBG pCO2 65 VBG pO2 41 VBG HCO3 34 H VBG O2 Saturation 61.0 VBG Base Excess 5.8 Anion Gap 15 Estim Creat Clear Calc 136.4 Estimated GFR > 60 Random Glucose 220 H Calcium 9.4 Microbiology Microbiology Results: Microbiology 11/01/22 16:15 Blood Culture - Preliminary Blood - Venous No growth after 24 hours. 11/01/22 14:59 Blood Culture - Preliminary Blood - Venous No growth after 24 hours. Assessment and Plan (1) Acute hypoxemic respiratory failure: Status: Acute (2) COVID-19 virus infection: Status: Acute (3) COPD exacerbation: Status: Acute (4) Pulmonary embolism: Status: Acute Plan 67-year-old male with history of hypertension, hyperlipidemia intolerant of statins, COPD, obstructive sleep apnea noncompliant with CPAP, hypothyroidism, paroxysmal atrial fibrillation noncompliant with anticoagulation, morbid obesity, and coronary artery disease who is a former smoker who recently quit within the last few weeks admitted for acute hypoxemic respiratory failure secondary to COVID-19 and COPD exacerbation and newly diagnosed PE. # acute hypoxemic respiratory failure-secondary to PE -states he feels like he needs supplemental O2 at baseline, but does not currently use this at baseline -continue supplemental O2 to maintain oximetry 92% -Titrate O2, consider home O2 eval if needed #Acute pulmonary embolism -DDimer >1100. CTA chest showing several filling defects with in segmental pulmonary arterial branches in the right upper, right middle, and right lower lobes highly suspicious for segmental PE. No evidence right heart strain/cor pulmonale -Continue eliquis 10mg BID x 7 days, then 5mg BID -Continue supplemental O2 as above -BLE DVT studies negative # COVID-19 with acute hypoxemic respiratory failure -CXR negative for pneumonia -IV remdesivir -IV steroid -continue supplemental O2 as above -symptomatic management -droplet/contact precautions # acute COPD exacerbation secondary to COVID-19- improving -Continue IV Solu-Medrol 40 mg b.i.d. -DuoNebs q.4h -albuterol p.r.n. -Leukocytosis 2/2 steroid use, not infection # paroxysmal atrial fibrillation- rate controlled -Continue apixaban 5 mg b.i.d. -continue diltiazem and metoprolol # hypertension- BPs elevated -continue home meds, increase losartan to 50mg daily # hypothyroidism -continue levothyroxine # CAD/HLD-no anginal chest pain, troponin negative, EKG without ischemic changes -continue baby aspirin, BB, Zetia -intolerant of statins # KJ -noncompliant with CPAP -counseled on the importance of compliance with CPAP, refuses #morbid obesity -Pt counseled on weight loss #Hyperkalemia -Specimen hemolyzed, not true hyperkalemia -Repeat BMP am DVT prophylaxis-Eliquis Full code Patient requires ongoing inpt stay for management of acute hypoxemic respiratory failure due on supplemental O2 to COVID 19/PE at risk for severe disease due to comorbidities, on IV remdesivir and IV steroid, now with newly diagnosed PE started on eliquis Quality Stroke Does the patient have a stroke diagnosis?: No VTE Prior VTE?: No VTE Risk Level:: Medical - moderate - high VTE Device Contraindication: Treatment Not Indicated VTE Drug Contraindication: N/A - Med Ordered
[2022-11-03] MEDS: methylPREDNISolone Sod Succ 125 MG/2 ML VIAL 40 MG IVPUSH ×2 (11:10→20:32)
[2022-11-03] MEDS: Remdesivir 100 MG in 0.9 % Sodium Chloride 230 ML 125 MG IV (17:39)
[2022-11-03] MEDS: LORazepam 0.5 MG TABLET PO (20:32)
[2022-11-04] VITALS (7 sets, daily range): BP systolic 126–157; BP diastolic 63–74; PULSE 64–87; RESP 18–20; TEMP 36.1–36.4; O2SAT 82–96
[2022-11-04 05:49] LABS: MANUAL DIFF FLAG NO
[2022-11-04 05:51] LABS: Basophils Percent Auto 0.1 % (0-2); Hematocrit 51.7 % (42.0-52.0); Hemoglobin 16.7 g/dl (14.0-18.0); Imm Gran Abs Auto 0.11 X10*3/uL (0.00-0.03); Imm Gran Pct Auto 0.9 % (0.0-0.4); Lymphocytes Absolute Auto 0.7 X10*3/uL (1.2-4.9); Lymphocytes Percent Auto 5.4 % (20-40); Mean Corpuscular HGB Conc 32.3 g/dl (31.0-36.0); Mean Corpuscular Hemoglobin 32.6 pg (27.0-33.0); Mean Corpuscular Volume 100.8 fL (80.0-98.0); Mean Platelet Volume 12.8 fL (9.4-12.4); Monocytes Absolute Auto 0.7 X10*3/uL (0.1-1.2); Monocytes Percent Auto 5.2 % (2-11); Neutrophils Absolute Auto 11.3 x10*3/uL (2.0-8.3); Neutrophils Percent Auto 88.4 % (45-73); Platelet Count 164 X10*3/uL (160-400); Red Blood Count 5.13 X10*6/uL (4.60-5.80); Red Cell Distribution Width 13.4 % (11.0-16.0); White Blood Count 12.8 X10*3/uL (4.8-10.8)
[2022-11-04 06:32] LABS: Anion Gap 12 (12-20); Blood Urea Nitrogen 24 mg/dL (9-16); Calcium 8.8 mg/dL (8.4-10.2); Carbon Dioxide 33 mmol/L (22-29); Chloride 100 mmol/L (96-108); Creatinine Clr Calc Pharmacy 124.9; Estimated Glomerular Filt Rate > 60; Glucose Random 261 mg/dL (60-115); Potassium 5.6 mmol/L (3.3-5.1); Sodium 139 mmol/L (135-145)
[2022-11-04] MEDS: Levothyroxine Sodium 100 MCG TABLET PO (06:44)
[2022-11-04] MEDS: LORazepam 0.5 MG TABLET PO ×2 (06:44→14:34)
--- NOTE | 2022-11-04 07:46 | PC.NURSE ---
Patient refuses high fall interventions. Pt refused 07:30 POC glucose check and 08:00 vital signs. Provided ongoing safety education.
[2022-11-04 07:56] LABS: Estimated Average Glucose 148 mg/dL; Hemoglobin A1c % 6.8 %
[2022-11-04] MEDS: Insulin Lispro 100 UNIT/ML 3 ML VIAL SUBCUT (11:18)
[2022-11-04] MEDS: predniSONE 20 MG TABLET 40 MG PO (11:19)
[2022-11-04] MEDS: Metoprolol Tartrate 100 MG TABLET PO (11:19)
[2022-11-04] MEDS: dilTIAZem HCL CD 120 MG CAP.ER.DEG PO (11:19)
[2022-11-04] MEDS: Ezetimibe 10 MG TABLET PO (11:19)
[2022-11-04] MEDS: Apixaban 5 MG TABLET 10 MG PO (11:19)
[2022-11-04] MEDS: Albuterol/Iprat 2.5/0.5MG 3 ML AMPUL.NEB INHALE ×2 (11:20→15:33)
[2022-11-04] MEDS: Atorvastatin Calcium 40 MG TABLET PO (11:20)
[2022-11-04 11:23] LABS: Glucose, Whole Blood 286 mg/dL (60-115)
[2022-11-04] MEDS: Sodium Zirconium Cyclosilicate 5 GM POWD.PACK PO ×2 (11:26→17:29)
[2022-11-04] MEDS: 0.9 % Sodium Chloride 500 ML IV (11:33)
--- NOTE | 2022-11-04 12:14 | MHC.CM.PN ---
Addendum entered by Sade Rm 11/04/22 15:30: RN AWARE Addendum entered by Sade Rm 11/04/22 15:26: DP: PT MEDICALLY CLEARED FOR DC HOME, DECLINING HOME SERVICES. FAMILY WILL TRANSPORT HOME. Original Note: PER MD ROUNDS, PT WILL GO HOME WITH NEW 02. PT IS DECLINING [facility], DOES NOT FEEL HE WILL NEED IT. HARSH [place] NOTIFIED. CM WILL CONTINUE TO FOLLOW
--- NOTE | 2022-11-04 15:00 | P.DS_ITS ---
DS: Providers Provider Date of Service: 11/04/22 Date of admission: 11/01/22 17:03 Date of discharge: 11/04/22 Primary care physician: Kojo Hou MD Admitting clinician: Ana Iniguez Attending physician on admission: Uli Myrick Attending physician on discharge: Yuriy Mujica Discharging clinician: Ana Iniguez DS: Diagnosis Discharge Diagnosis (1) Acute hypoxemic respiratory failure: Status: Acute (2) COVID-19 virus infection: Status: Acute (3) COPD exacerbation: Status: Acute (4) Pulmonary embolism: Status: Acute DS: Summary Hospital Course Hospital Course: HPI on admission 11/01/2022: 67-year-old male with history of hypertension, hyperlipidemia intolerant of statins, COPD, obstructive sleep apnea noncompliant with CPAP, paroxysmal atrial fibrillation noncompliant with anticoagulation, morbid obesity, and coronary artery disease who is a former smoker who recently quit within the last few weeks presented to the ED earlier today for evaluation of hypoxia.? He states he tested positive for COVID-19 at home 6 days ago.? Symptoms have included fevers up to 104 that have resolved, productive cough, pleuritic chest pain, nasal congestion, and hypoxia to 77%. He has become increasingly short of breath. He did call his PCP who prescribed paxlovid which he has been taking x 3 days and she then recommended he come to the ED 2 days ago, but he did not present until today.? Arrival, patient hypoxic at 79%, placed on OxyMask with improvement to 95%.? Also initially tachypneic to 24 but afebrile without any tachycardia or hypotension.? No leukocytosis.? Platelet count 120.? Renal function and electrolyte levels within normal limits except for CO2 34.? Lactic acid 4.2.? CRP 4.90.? BNP 104, troponin 7.6.? Procalcitonin within normal limits.? CXR showing low lung volumes with mild bibasilar subsegmental atelectasis without any definitive airspace consolidation or pleural effusions.? Serologies for influenza, RSV, COVID-19 pending. Pt to be admitted for acute hypoxemic respiratory failure secondary to COVID-19 and COPD exacerbation. Hospital Course: 67-year-old male with history of hypertension, hyperlipidemia intolerant of statins, COPD, obstructive sleep apnea noncompliant with CPAP, hypothyroidism, paroxysmal atrial fibrillation noncompliant with anticoagulation, morbid obesity, and coronary artery disease who is a former smoker who recently quit within the last few weeks admitted for acute hypoxemic respiratory failure secondary to newly diagnosed PE treated with eliquis. COVID-19 less likely contirbutory. Pt was educated on the importance of lifelong compliance with anticoagulation. Unable to titrate off of supplemental O2 entirely. Underent home O2 eval and will be discharged with supplemental oxygen. Also with newly diagnosed type 2 diabetes. Advised to follow up with PCP and cardiology soon. # acute hypoxemic respiratory failure-secondary to PE, COVID-19 -Unable to completely titrate from supplemental O2 -Home O2 eval with RT recommending 2L at rest, 4L with exertion. -Discharged home with O2 tanks, advised to follow up with [facility] #Acute pulmonary embolism -DDimer >1100. CTA chest showing several filling defects with in segmental pulmonary arterial branches in the right upper, right middle, and right lower lobes highly suspicious for segmental PE. No evidence right heart strain/cor pulmonale -Comple 10mg BID x 7 days (give 5 doses while inpt) then 5mg BID indefinitely -Continue supplemental O2 as above -BLE DVT studies negative # COVID-19 -CXR negative for pneumonia -Treated with 3 days IV remdesivir -IV steroid -supplemental O2 as above -symptomatic management -droplet/contact precautions # acute COPD exacerbation secondary to COVID-19- improving -Treated with IV Solu-Medrol 40 mg, complete last dose prednisone at home -DuoNebs q.4h -albuterol p.r.n. -Leukocytosis 2/2 steroid use, not infection # paroxysmal atrial fibrillation- rate controlled -Apixiban resumed -continue diltiazem and metoprolol # hypertension- BPs elevated -continue home meds, hold losartan due to hyperkalemia # hypothyroidism -continue levothyroxine # CAD/HLD-no anginal chest pain, troponin negative, EKG without ischemic changes -continue baby aspirin, BB, Zetia -intolerant of statins # KJ -noncompliant with CPAP -counseled on the importance of compliance with CPAP, refuses #morbid obesity -Pt counseled on weight loss #Hyperkalemia -Mild- 5.6 likely secondary to hyperglycemia from steroid use, losartan, KCl supplement -Treated with IVF, 5units insulin, lokelma. Improved to 5.2 -Continue holding losartan and KCl on dc -Repeat BMP 1 week. #Newly diagnosed type 2 diabetes -Hgb A1c 6.8% -Counseled on lifestyle modification including diabetic diet and exercise -Discharged with glucometer and testing supplies to check fasting glucose daily, goal 90-130. Status at Discharge Functional status at discharge: independent ambulation Overall status at discharge: patient is progressing back to baseline Time Spent with Patient Discharge coordination time: Greater than 30 minutes Quality: Safe Use of Opioids Does Pt have an Active Cancer Diagnosis on the Problem List?: No Quality: Stroke Does the patient have a stroke diagnosis?: No Physical Exam Vital Signs: Vital Signs: Last Vital Signs Temp 97.5 F 11/04/22 11:15 Pulse 64 11/04/22 11:22 Resp 20 11/04/22 11:22 BP 157/74 H 11/04/22 11:15 Pulse Ox 93 11/04/22 11:15 O2 Del Method 11/04/22 11:15 O2 Flow Rate 2 11/04/22 11:15 BMI result Body Mass Index 48.0 Constitutional - Awake and Alert, No apparent distress Eyes - PERRLA, EOMI Cardiovascular - S1S2, RRR, No edema Respiratory - Normal lung expansion, Normal respiratory effort, No respiratory distress, CTA bilaterally Gastrointestinal - NT / ND; +BS; No rebound or guarding Extremities - no calf tenderness bilaterally, no swelling Skin - Warm/Dry Neurological - Alert & oriented x3 Psychological - Appropriate affect DS: Data Data Completed and Pending Labs on day of discharge: Laboratory Results - last 24 hr 11/04/22 11/04/22 11/04/22 05:39 05:39 05:39 WBC 12.8 H RBC 5.13 Hgb 16.7 Hct 51.7 MCV 100.8 H MCH 32.6 MCHC 32.3 RDW 13.4 Plt Count 164 MPV 12.8 H Immature Gran % (Auto) 0.9 H Neut % (Auto) 88.4 H Lymph % (Auto) 5.4 L [place] % (Auto) 5.2 Eos % (Auto) 0.0 Baso % (Auto) 0.1 Lymph # (Auto) 0.7 L [place] # (Auto) 0.7 Eos # (Auto) 0.0 Baso # (Auto) 0.0 Abs Immat Gran (auto) 0.11 H Absolute Neuts (auto) 11.3 H Absolute Nucleated RBC 0.000 Nucleated RBC % (auto) 0.0 Sodium 139 Potassium 5.6 H Chloride 100 Carbon Dioxide 33 H Anion Gap 12 BUN 24 H Creatinine 0.95 Estim Creat Clear Calc 124.9 Estimated GFR > 60 POC Glucose Random Glucose 261 H Estimat Average Glucose 148 Hemoglobin A1c % 6.8 Calcium 8.8 D 11/04/22 11:17 WBC RBC Hgb Hct MCV MCH MCHC RDW Plt Count MPV Immature Gran % (Auto) Neut % (Auto) Lymph % (Auto) [place] % (Auto) Eos % (Auto) Baso % (Auto) Lymph # (Auto) [place] # (Auto) Eos # (Auto) Baso # (Auto) Abs Immat Gran (auto) Absolute Neuts (auto) Absolute Nucleated RBC Nucleated RBC % (auto) Sodium Potassium Chloride Carbon Dioxide Anion Gap BUN Creatinine Estim Creat Clear Calc Estimated GFR POC Glucose 286 H Random Glucose Estimat Average Glucose Hemoglobin A1c % Calcium Preliminary micro results at discharge 11/01/22 16:15 Blood Culture - Preliminary Blood - Venous No growth after 48 hours. 11/01/22 14:59 Blood Culture - Preliminary Blood - Venous No growth after 48 hours. Discharge Plan Discharge Anticipated Discharge Date/Time: 11/04/22 14:27 Patient Disposition: Home, Self-Care Discharge Diagnosis: Acute hypoxemic respiratory failure secondary to pulmonary embolism/COVID-19, new onset type 2 diabetes Referrals: Kojo Hou MD [Primary Care Provider] - 1 Week Discharge Medications: New prednisone 20 mg Tablet 40 mg PO DAILY 1 Days Qty: 2 0RF guaifenesin 100 mg/5 mL Liquid 200 mg PO Q4H PRN (Reason: Cough) Qty: 200 0RF apixaban 5 mg tablet See Rx Instructions .ROUTE .COMPLEX Qty: 60 0RF Rx Instructions: Take 10mg by mouth tonight and then 10mg twice daily x 7 days. Then continue 5mg twice daily indefinitely (DME) FreeStyle Lite Strips Strip Qty: 100 0RF Rx Instructions: Test four times a day or as directed. (DME) blood-glucose meter [FreeStyle Lite Meter] Kit Qty: 1 0RF Rx Instructions: As Directed alcohol swabs Pads, Medicated 1 pad TOPICAL QIDACHS Qty: 100 0RF Rx Instructions: Use four times a day or as directed. (DME) lancets [FreeStyle Lancets] 28 gauge misc Qty: 100 0RF Rx Instructions: Test four times a day or as directed. doxycycline monohydrate 100 mg capsule 100 mg PO BID Qty: 19 0RF Continued ezetimibe 10 mg tablet 10 mg PO DAILY Qty: 90 3RF metoprolol tartrate 100 mg tablet 100 mg PO BID Qty: 180 3RF aspirin 81 mg tablet,delayed release (DR/EC) 81 mg PO DAILY Qty: 90 3RF budesonide 32 mcg/actuation spray,non-aerosol 1 spray intranasal DAILY atorvastatin 40 mg tablet 1 tab PO DAILY cholecalciferol (vitamin D3) 25 mcg (1,000 unit) Tablet levothyroxine 100 mcg tablet 100 mcg PO DAILY@0600 diltiazem HCl 120 mg capsule,extended release 24hr 120 mg PO DAILY 90 Days Qty: 90 3RF Discontinued losartan 50 mg tablet 50 mg PO DAILY potassium chloride 10 mEq tablet extended release 10 meq PO DAILY Discharge Orders: Discharge Order (Routine); Ordered 11/04/22 Ordered By: Ana Iniguez Diet: Diabetic diet Activity on Discharge: As tolerated Stand Alone Forms: Patient Portal Discharge page Care Plan Goals: See below Health Concerns: Pulmonary embolism Acute hypoxic respiratory failure COVID 19 Newly diagnosed type 2 diabetes Morbid obesity Plan of Treatment: Pulmonary embolism- likely secondary to COVID-19 and atrial fibrillation both which increase the likelihood of developing clots -You require lifelong anticoagulation to treat and prevent further clots/stroke. -You were started on eliquis in the hospital. Take another dose of 10mg (2 tabs) tonight around 8pm. Then 10mg twice daily x 7 days. Then 5mg twice daily indefinitely Acute hypoxemic respiratory failure-secondary to pulmonary embolism -continue with 2 L supplemental O2 at rest and 4 L supplemental O2 with exertion per home O2 evaluation -Take prednisone 40mg tomorrow morning to complete treatment for mild COPD exacerbation. Continue home inhalers/nebulizers COVID-19 -You do not require any further antibiotic treatment for management of COVID-19. Please continue with symptomatic management as needed. Newly diagnosed type 2 diabetes -your hemoglobin A1c was 6.8%, diabetes diagnosed at 6.5%. The goal for hemoglobin A1cs to be less than 7.0%. At this time I do not feel you need medication but would benefit from lifestyle modification as discussed. Please follow diet low in carbohydrates and work on gradually increasing exercise to help manage diabetes as well as weight. High potassium -You potassium level was mildly elevated during admission. This may be related to you high sugars confined with the losartan and potassium supplement. Please hold off on taking any losartan over potassium supplement until you follow-up with PCP with repeat lab work in 1 week. Follow-up with PCP soon. Assessment: See above Patient Instructions: Pulmonary Embolism (DC), Type 2 Diabetes in Adults: New Diagnosis (GEN) Discharge Date/Time: 11/04/22 19:36
[2022-11-04 15:11] LABS: Anion Gap 11 (12-20); Blood Urea Nitrogen 25 mg/dL (9-16); Calcium 9.1 mg/dL (8.4-10.2); Carbon Dioxide 36 mmol/L (22-29); Chloride 100 mmol/L (96-108); Estimated Glomerular Filt Rate > 60; Glucose Random 309 mg/dL (60-115); Potassium 5.2 mmol/L (3.3-5.1); Sodium 142 mmol/L (135-145)
[2022-11-04] MEDS: Doxycycline Monohydrate 100 MG CAPSULE PO (19:14)
== END 2022-11-04 19:36 | disposition home or self-care (01) | DRG 177 ==
LOC: HO.ED 16:38 → HO.EDOVER 17:14 → HO.IMC 21:01
PROVIDERS: Family Medicine; Physician Assistant; Admitting Provider Physician Assistant; Emergency Provider Emergency Medicine; PCP Internal Medicine; Visit Provider Physician Assistant
DX: U07.1 COVID-19 (principal); I26.99 Other pulmonary embolism without acute cor pulmonale; J96.01 Acute respiratory failure with hypoxia; E87.20 Acidosis, unspecified; Z68.42 Body mass index [BMI] 45.0-49.9, adult; E78.2 Mixed hyperlipidemia; G47.33 Obstructive sleep apnea (adult) (pediatric); I25.10 Atherosclerotic heart disease of native coronary artery without angina pectoris; I10 Essential (primary) hypertension; E11.9 Type 2 diabetes mellitus without complications; E66.01 Morbid (severe) obesity due to excess calories; Z91.199 Patient's noncompliance with other medical treatment and regimen due to unspecified reason; Z88.0 Allergy status to penicillin; Z88.8 Allergy status to other drugs, medicaments and biological substances; Z79.01 Long term (current) use of anticoagulants; Z79.890 Hormone replacement therapy; Z79.899 Other long term (current) drug therapy
CPT/HCPCS: 0241U; 36415; 71045; 71275; 80048; 80053; 82550; 82728; 82803; 82947; 83036; 83605; 83615; 83880; 84132; 84145; 84484; 85025; 85027; 85379; 85610; 85730; 86140; 87040; 93005; 93970; 94640; 99285; J0248; J1100; J2930; Q9967

== ENCOUNTER 2022-11-15 16:12 | Outpatient (REF) | payer MEDICARE, SELFPAY ==
[2022-11-15 19:02] LABS: Alanine Aminotransferase 31 U/L (0-40); Albumin Level 3.7 g/dL (3.5-5.0); Alkaline Phosphatase 62 U/L (39-117); Anion Gap 14 (12-20); Aspartate Amino Transferase 21 U/L (5-37); Bilirubin Total 0.5 mg/dL (0.0-1.0); Blood Urea Nitrogen 18 mg/dL (9-16); Calcium 9.3 mg/dL (8.4-10.2); Carbon Dioxide 34 mmol/L (22-29); Chloride 100 mmol/L (96-108); Estimated Glomerular Filt Rate > 60; Glucose Random 187 mg/dL (60-115); Potassium 4.7 mmol/L (3.3-5.1); Sodium 143 mmol/L (135-145); Total Protein 6.1 g/dL (6.5-8.0)
== END 2022-11-15 16:13 | disposition home or self-care (01) ==
LOC: HO.MANLDS 16:12
PROVIDERS: Visit Provider Physician Assistant
DX: E87.5 Hyperkalemia (principal)
CPT/HCPCS: 36415; 80053

== ENCOUNTER 2022-12-09 09:36 | Outpatient (REF) | payer MEDICARE, SELFPAY ==
--- NOTE | ~2022-12-09 | CT_ITS ---
EXAMINATION: CT ANGIOGRAM OF THE CHEST WITH AND WITHOUT CONTRAST (CT PULMONARY ANGIOGRAM FOR PE) CLINICAL INFORMATION: Follow-up PE. COMPARISON: 12/09/2022 TECHNIQUE: Prior to contrast administration, noncontrast localization images were obtained. Subsequently, multidetector volumetric imaging was performed from the thoracic inlet to below the diaphragms following the administration of 65 mL Omnipaque 350 intravenous contrast. No contrast reaction reported Sagittal, coronal, and MIP oblique sagittal reformatted images were obtained on the CT workstation, uploaded to PACS, and reviewed. This CT examination was performed using dose optimization techniques as appropriate, variously including the following: *Automated exposure control *Adjustment of mA and/or kV according to patient size (this includes techniques or standardized protocols for targeted exams where dose is matched to indication/reason for exam; i.e. extremities or head) *Use of iterative reconstruction technique Total exam dose-length product 347 mGy-cm FINDINGS: QUALITY OF STUDY/CONTRAST BOLUS: Satisfactory. PULMONARY ARTERIES: Previously seen right upper, middle, and lower lobe filling defects have resolved. THORACIC AORTA: No aneurysm. LUNG: Atelectasis at the lung bases is improving. No suspicious lung nodules. PLEURA: No pleural effusion or pneumothorax. MEDIASTINUM: Normal heart size. No pericardial effusion. No hilar or mediastinal lymphadenopathy. No evidence of septal bowing or right heart strain. CORONARY ARTERY CALCIFICATION: Present. CHEST WALL/AXILLA: No axillary or internal mammary lymphadenopathy. OSSEOUS STRUCTURES: Degenerative changes in the spine. UPPER ABDOMEN: Unremarkable. No reflux of contrast into the hepatic veins to suggest elevated right heart pressures. CT/CT angio chest PE protocol IMPRESSION: No acute pulmonary emboli. Previously seen pulmonary emboli have resolved. VTE: negative
[2022-12-09] MEDS: iohexoL 350 MG/ML 100 ML INFUS..BTL IV (11:11)
== END 2022-12-09 09:37 | disposition home or self-care (01) ==
LOC: HO.CT 09:36
PROVIDERS: PCP Internal Medicine; Visit Provider Physician Assistant
DX: I26.99 Other pulmonary embolism without acute cor pulmonale (principal)
CPT/HCPCS: 71275; Q9967

== ENCOUNTER → 2023-01-17 09:00 | Outpatient (BNVA) | payer MEDICARE, SELFPAY | PROVIDERS: PCP Internal Medicine; Referring Provider Internal Medicine; Visit Provider Internal Medicine | DX: I48.0 Paroxysmal atrial fibrillation (principal); I25.10 Atherosclerotic heart disease of native coronary artery without angina pectoris; I10 Essential (primary) hypertension; M79.89 Other specified soft tissue disorders; E78.2 Mixed hyperlipidemia; G47.33 Obstructive sleep apnea (adult) (pediatric); E66.01 Morbid (severe) obesity due to excess calories; Z68.42 Body mass index [BMI] 45.0-49.9, adult | CPT/HCPCS: 99212 ==

== ENCOUNTER 2023-01-25 09:09 | Outpatient (REF) | payer MEDICARE, SELFPAY ==
[2023-01-25 09:35] LABS: MANUAL DIFF FLAG NO
[2023-01-25 10:35] LABS: Basophils Absolute Auto 0.1 X10*3/uL (0.0-0.2); Basophils Percent Auto 1.5 % (0-2); Eosinophils Absolute Auto 0.5 X10*3/uL (0.0-0.4); Hematocrit 50.2 % (42.0-52.0); Hemoglobin 16.7 g/dl (14.0-18.0); Imm Gran Abs Auto 0.03 X10*3/uL (0.00-0.03); Imm Gran Pct Auto 0.5 % (0.0-0.4); Lymphocytes Absolute Auto 2.2 X10*3/uL (1.2-4.9); Lymphocytes Percent Auto 33.5 % (20-40); Mean Corpuscular HGB Conc 33.3 g/dl (31.0-36.0); Mean Corpuscular Hemoglobin 32.2 pg (27.0-33.0); Mean Corpuscular Volume 96.9 fL (80.0-98.0); Mean Platelet Volume 12.6 fL (9.4-12.4); Monocytes Absolute Auto 0.6 X10*3/uL (0.1-1.2); Monocytes Percent Auto 9.7 % (2-11); Neutrophils Absolute Auto 3.2 x10*3/uL (2.0-8.3); Neutrophils Percent Auto 47.8 % (45-73); Platelet Count 149 X10*3/uL (160-400); Red Blood Count 5.18 X10*6/uL (4.60-5.80); Red Cell Distribution Width 12.9 % (11.0-16.0); White Blood Count 6.6 X10*3/uL (4.8-10.8)
[2023-01-25 11:43] LABS: Alanine Aminotransferase 32 U/L (0-40); Alkaline Phosphatase 74 U/L (39-117); Anion Gap 13 (12-20); Aspartate Amino Transferase 24 U/L (5-37); Bilirubin Total 1.3 mg/dL (0.0-1.0); Blood Urea Nitrogen 15 mg/dL (9-16); Calcium 9.2 mg/dL (8.4-10.2); Carbon Dioxide 34 mmol/L (22-29); Chloride 99 mmol/L (96-108); Cholesterol 163 mg/dL; Estimated Glomerular Filt Rate > 60; Glucose Random 240 mg/dL (60-115); HDL Cholesterol 40 mg/dL; LDL Cholesterol Calculated 96 mg/dl; Potassium 4.5 mmol/L (3.3-5.1); Sodium 141 mmol/L (135-145); Total Protein 6.4 g/dL (6.5-8.0); Triglycerides 137 mg/dL
== END 2023-01-25 09:10 | disposition home or self-care (01) ==
LOC: HO.LAB 09:09
PROVIDERS: PCP Internal Medicine; Visit Provider Nurse Practitioner Family
DX: E78.2 Mixed hyperlipidemia (principal); I10 Essential (primary) hypertension; I48.0 Paroxysmal atrial fibrillation
CPT/HCPCS: 36415; 80053; 80061; 85025

== ENCOUNTER 2023-09-14 10:59 | Outpatient (REF) | payer MEDICARE, SELFPAY ==
[2023-09-14 13:43] LABS: Basophils Absolute Auto 0.1 X10*3/uL (0.0-0.2); Basophils Percent Auto 1.2 % (0-2); Eosinophils Absolute Auto 0.2 X10*3/uL (0.0-0.4); Eosinophils Percent Auto 3.9 % (0-4); Hematocrit 48.9 % (42.0-52.0); Hemoglobin 16.3 g/dl (14.0-18.0); Imm Gran Abs Auto 0.01 X10*3/uL (0.00-0.03); Imm Gran Pct Auto 0.2 % (0.0-0.4); Lymphocytes Absolute Auto 1.6 X10*3/uL (1.2-4.9); Lymphocytes Percent Auto 30.8 % (20-40); MANUAL DIFF FLAG SCAN; Mean Corpuscular HGB Conc 33.3 g/dl (31.0-36.0); Mean Corpuscular Hemoglobin 32.1 pg (27.0-33.0); Mean Corpuscular Volume 96.3 fL (80.0-98.0); Monocytes Absolute Auto 0.6 X10*3/uL (0.1-1.2); Monocytes Percent Auto 10.9 % (2-11); Neutrophils Absolute Auto 2.7 x10*3/uL (2.0-8.3); PLT CLUMP 1; Red Blood Count 5.08 X10*6/uL (4.60-5.80); Red Cell Distribution Width 12.2 % (11.0-16.0); SCAN SMEAR FLAG 1
[2023-09-14 13:45] LABS: White Blood Count 5.2 X10*3/uL (4.8-10.8)
[2023-09-14 13:52] LABS: Estimated Average Glucose 338 mg/dL; Hemoglobin A1c % 13.4 % (<6.0)
[2023-09-14 14:26] LABS: Platelet Count 127 X10*3/uL (160-400); SLIDE REVIEW VERIFIED
[2023-09-14 14:27] LABS: Alanine Aminotransferase 34 U/L (0-40); Albumin Level 3.9 g/dL (3.5-5.0); Alkaline Phosphatase 60 U/L (39-117); Anion Gap 13 (12-20); Aspartate Amino Transferase 23 U/L (5-37); Blood Urea Nitrogen 11 mg/dL (9-16); Calcium 9.3 mg/dL (8.4-10.2); Carbon Dioxide 30 mmol/L (22-29); Chloride 101 mmol/L (96-108); Cholesterol 142 mg/dL (<200); Estimated Glomerular Filt Rate > 60; Glucose Random 275 mg/dL (60-115); HDL Cholesterol 32 mg/dL (>40); LDL Cholesterol Calculated 86 mg/dL (<100); Potassium 3.7 mmol/L (3.3-5.1); Sodium 140 mmol/L (135-145); Total Protein 6.4 g/dL (6.5-8.0); Triglycerides 123 mg/dL (<150)
[2023-09-14 14:50] LABS: Free T4 (Free Thyroxine) 0.77 ng/dL (0.71-1.85); Thyroid Stimulating Hormone 9.29 uIU/mL (0.32-4.0)
== END 2023-09-14 11:00 | disposition home or self-care (01) ==
LOC: HO.MANLDS 10:59
PROVIDERS: Visit Provider Physician Assistant
DX: E03.8 Other specified hypothyroidism (principal); E11.9 Type 2 diabetes mellitus without complications
CPT/HCPCS: 36415; 80053; 80061; 83036; 84439; 84443; 85025

== ENCOUNTER 2024-01-24 14:12 | Outpatient (AMB) | payer MEDICARE, SELFPAY ==
--- NOTE | 2024-01-24 14:13 | MHC.OFFVIS ---
Intake Vital Signs 01/24/24 14:15 Height 6 ft 1 in Weight 350 lb 1.505 oz BMI 46.2 BP 140/70 H Blood Pressure Location Lt brachial Position Sitting Pulse 69 Intake Visit Reasons: 1 year followup w/ekg dx: paf Intake Note: 1 year follow up w/ EKG Spray Applicator Required: No Accompanied by: Self / Same As Patient Allergies Penicillins [PENICILLINS] Allergy (Unknown, Verified 01/24/24 14:16) UNKNOWN statin intolerance Allergy (Unknown, Uncoded 01/24/24 14:16) swelling Medication List - Last Reconciled 01/24/24 by Tomi Loyola MD alcohol swabs 1 pad topical QIDACHS atorvastatin 40 mg PO DAILY blood sugar diagnostic (FreeStyle Lite Strips) Test four times a day or as directed. blood-glucose meter (FreeStyle Lite Meter kit) As Directed budesonide 32 mcg/actuation 1 spray intranasal DAILY cholecalciferol (vitamin D3) clobetasol 0.05% grams topical BID diltiazem HCl 120 mg PO DAILY ezetimibe 10 mg PO DAILY furosemide 40 mg PO DAILY guaifenesin 200 mg (10 mL) PO Q4H PRN lancets (FreeStyle Lancets) Test four times a day or as directed. levothyroxine 100 mcg PO DAILY@0600 losartan 50 mg PO DAILY metoprolol tartrate 50 mg PO DAILY rivaroxaban (Xarelto) 20 mg PO DAILY HPI HPI Comments History of Present Illness Details Rudy returns for follow-up regarding his various cardiac issues including coronary disease, paroxysmal atrial fibrillation, hypertension, dyslipidemia among others. Overall, he states that he is feeling fine. No complaints like angina or shortness of breath or in fact anything cardiac sounding. Seems to be getting along okay. A bit more compliant with medications these days. [facility] Medical History (Updated 11/04/22 @ 15:58 by HARSH Marques) Type 2 diabetes mellitus Hypoxia Lyme disease Pulmonary hyperinflation Leg swelling Obstructive sleep apnea Statin intolerance Mixed hyperlipidemia Essential hypertension Paroxysmal atrial fibrillation Atherosclerotic cardiovascular disease Surgical History History of cardiac catheterization Family History Father No problems noted. Mother CHF (congestive heart failure) Social History Household Members: Spouse Housing: House Do you presently have visiting nurse or other home services: No Alcohol intake: never Comment: pt refuses moderate fall precautions Patient Tobacco Use Status: Former Tobacco user Quit Date: 01/15/2022 service: No Current occupational status: employed Review of Systems Const Denies weakness ENT Denies dizziness Card Denies chest pain, Denies chest pain with activity, Denies syncope, Denies rapid heart rate, Denies pedal edema, Denies edema, Denies leg edema, Denies lightheadedness, Denies palpitations, Denies dyspnea, Denies dyspnea on exertion and Denies orthopnea Resp Denies cough, Denies dyspnea and Denies dyspnea on exertion GI Denies hematochezia and Denies change in stool character Musc Denies abnormal gait, Denies muscle cramps, Denies muscle weakness, Denies numbness, Denies radiating pain into limb and Denies tingling Neuro Denies abnormal gait, Denies dizziness, Denies syncope, Denies numbness, Denies tingling and Denies weakness Endo Denies palpitations Physical Exam Vital Signs: Last Vital Signs Pulse 69 01/24/24 14:15 BP 140/70 H 01/24/24 14:15 BMI result Body Mass Index 46.2 Const General: comfortable and no acute distress Orientation/consciousness: patient oriented x3 HEENT Other: Unremarkable Head: Yes normal to inspection Neck Neck: Yes normal visual inspection Chest Chest palpation & inspection: normal inspection of the chest Resp Auscultation: clear to auscultation bilaterally Cardio Palpation: normal PMI Heart sounds: S1 normal heart sound present, S2 normal heart sound present, no gallops, no murmurs and no rubs GI Palpation (GI): Soft to palpation Back/Spine/Pelvis Other: unremarkable Skin General skin exam: no rashes or lesions noted Neuro General: patient oriented x3 Extrem General: Yes normal to inspection Psych Mental Status: mental status grossly normal Office Procedures EKG Details: EKG with sinus rhythm at 69/Min; no significant ST-T changes and otherwise unremarkable[place] [id number], Complete Assessment & Plan Assessment & Plan (1) Paroxysmal atrial fibrillation: Code(s): I48.0 - Paroxysmal atrial fibrillation Plan: Continue metoprolol and diltiazem. Continue Xarelto. Will get labs from his own PCP. (2) Atherosclerotic cardiovascular disease: Code(s): I25.10 - Atherosclerotic heart disease of [place] coronary artery without angina pectoris Plan: Status post drug-eluting stent to RCA, OM2 in the past. Continue aspirin and beta-blockers. Clinically no angina. (3) Leg swelling: Code(s): M79.89 - Other specified soft tissue disorders Plan: Likely from some component of his weight, venous insufficiency and right heart dysfunction. Diuretics. (4) Essential hypertension: Code(s): I10 - Essential (primary) hypertension Plan: Stable. No changes. (5) Mixed hyperlipidemia: Code(s): E78.2 - Mixed hyperlipidemia Plan: Treatment has been less than optimal in the past. Was not taking statins but now listed to be on atorvastatin 40 mg daily. Also on Zetia. Will need to get the most recent labs from his own PCP. (6) Obstructive sleep apnea: Code(s): G47.33 - Obstructive sleep apnea (adult) (pediatric) Plan: Irregular CPAP use. Has been discussed numerous times including today. (7) Morbid obesity: Code(s): E66.01 - Morbid (severe) obesity due to excess calories Plan: His weight is a major issue accounting for a lot of his problems. However, it has been like this for a long time and unlikely to change. Coding Level of Care Code Est Pt Level 4 (81984) Diagnoses Paroxysmal atrial fibrillation I48.0 Atherosclerotic cardiovascular disease I25.10 Leg swelling M79.89 Essential hypertension I10 Mixed hyperlipidemia E78.2 Obstructive sleep apnea G47.33 Morbid obesity E66.01 CPT Codes EKG - CPT: 92085-Trassdujasuwvpoto, Complete ([id number])
[2024-01-24 14:15] VITALS: BP 140/70; PULSE 69; BMI 46.2
== END 2024-01-24 14:38 | disposition home or self-care (01) ==
PROVIDERS: PCP Internal Medicine; Visit Provider Internal Medicine
DX: I48.0 Paroxysmal atrial fibrillation (principal); I25.10 Atherosclerotic heart disease of native coronary artery without angina pectoris; M79.89 Other specified soft tissue disorders; I10 Essential (primary) hypertension; E78.2 Mixed hyperlipidemia; G47.33 Obstructive sleep apnea (adult) (pediatric); E66.01 Morbid (severe) obesity due to excess calories
CPT/HCPCS: 93010; 99214

== ENCOUNTER → 2024-01-24 14:12 | Outpatient (BNVA) | payer MEDICARE, SELFPAY | PROVIDERS: PCP Internal Medicine; Visit Provider Internal Medicine | DX: I25.10 Atherosclerotic heart disease of native coronary artery without angina pectoris (principal); I48.0 Paroxysmal atrial fibrillation; I10 Essential (primary) hypertension; E78.2 Mixed hyperlipidemia; M79.89 Other specified soft tissue disorders; E66.01 Morbid (severe) obesity due to excess calories; G47.33 Obstructive sleep apnea (adult) (pediatric); Z68.42 Body mass index [BMI] 45.0-49.9, adult; Z98.890 Other specified postprocedural states | CPT/HCPCS: 93005; 99212 ==

== ENCOUNTER → 2024-10-12 09:43 | Outpatient (REF) | payer MEDICARE, SELFPAY ==
--- NOTE | ~2024-10-12 | CT_ITS ---
EXAMINATION: CT CHEST WITHOUT CONTRAST CLINICAL INFORMATION: Shortness of breath COMPARISON: None available. TECHNIQUE: Multidetector volumetric CT imaging of the chest was done. Axial MIP volume rendering provided. Sagittal and coronal reformatted images were obtained. This CT examination was performed using dose optimization techniques as appropriate, variously including the following: *Automated exposure control *Adjustment of mA and/or kV according to patient size (this includes techniques or standardized protocols for targeted exams where dose is matched to indication/reason for exam; i.e. extremities or head) *Use of iterative reconstruction technique DLP 389 mGy/cm. FINDINGS: [employer]: Well-expanded lungs. LUNGS: The lungs are clear with no evidence of acute pneumonic consolidation. There is a 3 mm nodule right middle lobe axial image 35/4, focal atelectasis in both lung bases. MEDIASTINUM: Thyroid lobes are symmetrical and normal. The central trachea and bronchi are widely patent. Heart size and great vessels are normal caliber. No abnormal size mediastinal or hilar lymph nodes seen. No pericardial effusion seen. CORONARY ARTERY CALCIFICATION: There is moderate coronary artery calcification. PLEURA: There is no pleural effusion. No pleural mass or thickening. AXILLA: No lymphadenopathy. UPPER ABDOMEN: Visualized liver, spleen, pancreas and bilateral adrenal glands are unremarkable. OSSEOUS STRUCTURES: No aggressive lytic or sclerotic process seen. Moderate ventral spondylosis mid dorsal spine is noted. CT/CT chest wo IV con IMPRESSION: 3 mm nodule right middle lobe.. Bibasilar platelike atelectasis No acute cardiopulmonary process seen Fleischner guidelines were followed. Electronically signed by: Jose Galarza MD 12/03/2024 11:36 AM [facility]
--- NOTE | 2024-10-12 09:50 | CA_ITS ---
Transthoracic Echocardiogram Patient (Last, First, Middle): Rudy Mathias E Gender: Male Date of : 1955 Age: 69 Procedure Date: 10/12/2024 Procedure Type: Transthoracic Echocardiogram Location: OP Height: 185.42 cm Weight: 172.37 kg BSA: 2.83 m2 Heart Rate: bpm BP: 116 / 64 mmHg Illuminating Engineer: ADRIEN Guillen MD: SUSANA Director Of Accounts Payable: Andi Lozada MD Symptoms: R06.02 SOB Study Quality: Fair ECG Rhythm: Atrial Fibrillation Conclusions: - Normal left ventricular size and systolic function. The visually estimated ejection fraction is between 60-65%. - Mildly increased right ventricular cavity size. There is normal right ventricular systolic function. - There is mild dilatation of the aortic arch measuring 3.80 cm. Findings Left Ventricle Normal left ventricular size and systolic function. The visually estimated ejection fraction is between 60-65%. There is no evidence of regional wall motion abnormalities. Diastolic function is indeterminate on the basis of available data. Right Ventricle Mildly increased right ventricular cavity size. There is normal right ventricular systolic function. Atria The left atrium is likely dilated. The right atrium is likely dilated. Aortic Valve The aortic valve structure and function is likely normal. There is no aortic valve stenosis. There is no aortic valve regurgitation. Mitral Valve The mitral valve appears normal. There is no mitral valve regurgitation. There is no mitral valve stenosis. Pulmonic Valve The pulmonic valve was not well visualized. Tricuspid Valve Likely normal tricuspid valve structure and function. There is no tricuspid valve regurgitation. Tricuspid regurgitation envelope is inadequate for calculation of right ventricular systolic pressure. Normal right atrial pressure. Great Vessels There is mild dilatation of the aortic arch measuring 3.80 cm. Venous The inferior vena cava is normal in size and collapses greater than 50% with inspiration. Pericardium/Pleural There is no evidence of pericardial effusion. Prior Study Comparison Changes noted compared to prior study. Patient in Afib. mild aortic arch dilation Measurements 2D Linear Measurements LA Diam: 3.90 2.7-3.8/3.0-4.0 cm LAIDs Index: 1.38 1.5-2.3 cm/m2 LVOT Diam: 2.10 3.0+(-)1.3 cm 2D Systolic Function EF 4C: 53.30 >55% EF 2C: 54.80 >55% EF BiP: 54.60 >55% Mitral Valve MV Pk E: 1.09 Aortic Valve AoV Pk Felix: 1.01 AoV Pk Grad: 4.00 JACLYN: 2.97 LVOT LVOT Pk Felix: 0.87 LVOT Mn Felix: 0.56 LVOT VTI: 0.13 LVOT Pk Grad: 3.00 LVOT Mn Grad: 1.00 LVOT Diam: 2.10 LVOT Area: 3.46 Diastolic Function MV Pk E: 1.09 Right Ventricle TVS' Felix: 6.98 Tricuspid Valve RA Press: 15.00 Great Vessels Aorta Sinus of Valsalva: 3.30 2.0-3.5 cm Ao Asc: 2.90 2.1-3.4 cm Ao Arch: 3.80 Updated in Other Vendor System with Status of Final Andi Lozada MD electronically signed on 10/14/2024 8:20:34 PM with status of Final
[2024-10-12 11:14] LABS: MANUAL DIFF FLAG NO
[2024-10-12 11:20] LABS: Basophils Percent Auto 0.6 % (0-2); Eosinophils Absolute Auto 0.1 X10*3/uL (0.0-0.4); Eosinophils Percent Auto 1.8 % (0-4); Hematocrit 49.2 % (42.0-52.0); Hemoglobin 15.7 g/dl (14.0-18.0); Imm Gran Abs Auto 0.03 X10*3/uL (0.00-0.03); Imm Gran Pct Auto 0.4 % (0.0-0.4); Lymphocytes Absolute Auto 1.2 X10*3/uL (1.2-4.9); Lymphocytes Percent Auto 16.6 % (20-40); Mean Corpuscular HGB Conc 31.9 g/dl (31.0-36.0); Mean Corpuscular Hemoglobin 31.3 pg (27.0-33.0); Mean Corpuscular Volume 98.2 fL (80.0-98.0); Mean Platelet Volume 12.8 fL (9.4-12.4); Monocytes Percent Auto 13.4 % (2-11); Neutrophils Absolute Auto 4.9 x10*3/uL (2.0-8.3); Neutrophils Percent Auto 67.2 % (45-73); Platelet Count 113 X10*3/uL (160-400); Red Blood Count 5.01 X10*6/uL (4.60-5.80); Red Cell Distribution Width 15.4 % (11.0-16.0); White Blood Count 7.2 X10*3/uL (4.8-10.8)
[2024-10-12 11:32] LABS: Alanine Aminotransferase 23 U/L (0-40); Albumin Level 3.4 g/dL (3.5-5.0); Alkaline Phosphatase 56 U/L (39-117); Anion Gap 11 (12-20); Aspartate Amino Transferase 16 U/L (5-37); Bilirubin Total 0.9 mg/dL (0.0-1.0); Blood Urea Nitrogen 20 mg/dL (9-16); Calcium 9.2 mg/dL (8.4-10.2); Carbon Dioxide 37 mmol/L (22-29); Chloride 103 mmol/L (96-108); Estimated Glomerular Filt Rate > 60; Glucose Random 203 mg/dL (60-115); Potassium 4.5 mmol/L (3.3-5.1); Sodium 146 mmol/L (135-145)
--- NOTE | 2024-10-12 11:37 | HO.CARDTECH ---
10/12/[address] Lozada pt is in afib w RVR. [address] Lozada. 1045 pt declined to go to the ED for cardioversion evaluation.
[2024-10-12 12:11] LABS: Erythrocyte Sedimentation Rate 10 MM/HR (0-15)
--- OUTSIDE RECORDS SUMMARY | 2024-10-17 07:06 | XMS_ITS | Continuity of Care Document ---
Author Organization [facility] Address [address] [place] [address] Assessment No assessment recorded. Plan of Treatment Reminders Order Date Submit Date Provider Last Modified By Organization Details Last Modified Time Details Appointments FOLLOW UP 15 2023 03:30P M HARSH MUHAMMAD Not available Not available Not available Lab CMP, serum or plasma 2023 [facility], [address] [place] [address], [id number], 10/09/2024 16:15:32 CBC w/ auto diff 2023 [facility], [address] [place] [address], [id number], 10/09/2024 16:15:32 ESR (erythroc yte sedimenta tion rate), blood 2023 [facility], [address] [place] [address], [id number], 10/09/2024 16:15:32 C reactive protein, QN, serum or plasma 2023 024 [facility], [address] [place] [address], [id number], 10/09/2024 16:15:32 pro BNP (pro B-type natriuret ic peptide), serum or plasma 2023 024 [facility], [address] [place] [address], [id number], 10/09/2024 16:15:32 Referral lymphedem a consult 2023 [facility], [address] [facility], [facility] [address], [place], [address], 10/10/2024 08:58:36 Procedures None recorded. Surgeries None recorded. Imaging CT, chest, w/o contrast 2023 [facility], [address] [place], [address], 10/10/2024 08:28:17 US, betsy ogram 2023 [facility], [address] [place], [address], 10/10/2024 08:28:17 Medication Orders torsemide 20 mg tablet 2023 [facility]2025, [address] [place], [address], 10/09/2024 15:57:52 doxycycli ne hyclate 100 mg tablet 2023 024 [facility]2025, [address] [place], [address], 10/09/2024 15:57:52 Patient TargetsNo targets recorded. Patient InstructionsNo instructions recorded. Reason for Referral Lymphedema Consult for Lymph edema of lower extremity severe LE bilaterally and lymphedema Referring Physician: Olivia Martínez, Internal Medicine, Encounter Date: 10/09/2024 Results Created Date Observation Date Name Description Value Unit Range Abnormal Flag Note LastModifiedBy Organization Detail LastModifiedTime 10/14/2010/12/2024 , dulce rodgers No observ ation record ed. [facility] [address] [place], [address], 10/15/2024 11:38:26 Result Notes None recorded. Problems Name Problem SNOMED Code Status Onset Date Resolution Date Notes Provider Name and Address Organization Details Recorded Time Hypothyro idism 41832269 Active 2019 HARSH MUHAMMAD [address],Elia A, [place], [address], [facility] 0 09:49:20 Venous stasis edema of bilateral lower limbs 026865913278 85586 Active 2020 HARSH MUHAMMAD [address]ia [address], [place], [address], [facility] 1 12:11:22 Abdominal aortic aneurysm 323709159 Active 2021 HARSH MUHAMMAD [address]ia [address], [place], [address], [facility] 2 16:16:46 Edema of lower extremity 191997397 Active 2021 HARSH MUHAMMAD [address], [place], [address], [facility] 2 16:24:25 Chronic sinusitis 34692587 Active 2021 HARSH MUHAMMAD [address]ia [address], [place], [address], [facility] 2 16:33:24 COVID-19 743734723 Active 2021 HARSH MUHAMMAD [address], [place], [address], [facility] 2 08:42:21 Obstructi ve sleep apnea syndrome 80826103 Active 2022 HARSH MUHAMMAD [address], [place], [address], [facility] 3 15:37:17 Pulmonary embolism 50228312 Active 2022 HARSH MUHAMMAD [address], [place], [address], [facility] 3 15:40:40 Hyperkale linden 50713736 Active 2022 HARSH MUHAMMAD [address], [place], [address], [facility] 3 15:46:19 Dyspnea 085296747 Active 2022 HARSH MUHAMMAD [address], [place], [address], [facility] 3 09:35:39 Type 2 diabetes mellitus 03848739 Active 2022 dx'd in ER 2 Millicent Hernandez [facility] 3 11:41:00 Allergic rhinitis 50523265 Active 2022 HARSH MUHAMMAD [address], [place], [address], [facility] 3 12:31:24 Acute bronchiti s 47459176 Active 2023 HARSH MUHAMMAD [address], [place], [address], [facility] 4 10:32:11 Hyperlipi demia 93457316 Active 2023 HARSH MUHAMMAD [address], [place], [address], [facility] 4 10:56:12 Celluliti s of lower leg 423817728 Active 2023 HARSH MUHAMMAD [address], [place], [address], [facility] 4 15:50:51 Lymphedem a of lower extremity 465726277 Active 2023 HARSH MUHAMMAD [address], [place], [address], [facility] 4 15:53:36 Stented coronary artery 170745151 Active 2017 Asiya Segura NP, S [address], [place], [address], [facility] 8 08:53:20 Chronic obstructi ve pulmonary disease 23395966 Active 2017 Asiya Segura NP, S [address], [place], [address], [facility] 8 08:54:03 Atrial fibrillat ion 01701225 Active 2017 Asiya Segura NP, S [address], [place], [address], [facility] 8 08:54:43 Acute non-ST segment elevation myocardia l infarctio n 224292575 Completed 201704/20/2018 Asiya Segura NP, S [address], [facility] [place], [address], [facility] 8 09:04:24 Sleep apnea 16271887 Active 2017 Asiya Segura NP, S [address], [place], [address], [facility] 8 09:19:12 Notes:s/p STEMI 11/2015 Problem Notes None recorded. Procedures Surgical History Date Name Laterality Status Provider Name and Address Organization Details Recorded Time Tonsillectomy completed Asiya Segura NP, S [address]ia [address], [place], [address], [facility] 04/20/2018 09:00:14 Imaging Results None recorded. Procedure Notes None recorded. Medical Equipment None Reported. Allergies Allergen ID Allergen Name Allergen Category Reaction Reaction Severity Criticality Documentation Date Start Date Code Code System Note Provider Name and Address Organization Details Recorded Time 844 Medicinal product containin g penicilli n and acting as antibacte rial agent (product) medicatio n Not available Not available Not available 02/13/2018 89772 05 [facility]ED [facility] 11:48:11 Medications Name Sig Start Date Stop Date Status Note LastModified by Organization Details LastModified Time pulse oximeter leader USE DIRECTED active Not Available Not Available No t Available losartan 50 mg tablet TAKE 1 TABLET BY MOUTH EVERY DAY 11/15 completed Not Available Not Available Not Available furosemide 40 mg tablet TAKE 1 TABLET BY MOUTH EVERY DAY active Not Available Not Available No t Available budesonide 32 mcg/actuati on nasal spray SHAKE LIQUID AND USE 1 SPRAY IN EACH NOSTRIL EVERY DAY active Not Available Not Available No t Available atorvastati n 40 mg tablet TAKE 1 TABLET BY MOUTH EVERY DAY DIRECTED active Not Available Not Available No t Available potassium chloride ER 10 mEq capsule,ext ended release TAKE 1 CAPSULE BY MOUTH EVERY DAY 03/29 completed Not Available Not Available Not Available prednisone 10 mg tablet 60 mg x 2 days50 mg x 2 days40 mg x 2 days30 mg x 2 days20 mg x 2 days10 mg x 2 days active Not Available Not Available No t Available doxycycline hyclate 100 mg capsule Take 1 capsule twice a day by oral route. 03/07 completed Not Available Not Available Not Available torsemide 20 mg tablet Take 1 tablet twice a day by oral route for 30 days. active Not Available Not Available No t Available clindamycin HCl 300 mg capsule 03/07 completed Not Available Not Available Not Available albuterol sulfate 2.5 mg/3 mL (0.083 %) solution for nebulizatio n INHALE CONTENTS OF 1 VIAL(3 ML) IN NEBULIZER THREE TIMES A DAY 2021 active Not Available Not Available Not Avai lable ammonium lactate 12 % lotion APPLY TO LEGS ONCE DAILY active Not Available Not Available No t Available azithromyci n 250 mg tablet TAKE 2 TABLETS BY MOUTH TODAY, THEN TAKE 1 TABLET DAILY FOR 4 DAYS DIRECTED active Not Available Not Available No t Available metoprolol tartrate 100 mg tablet TAKE 1 TABLET BY MOUTH TWICE DAILY 04/16 completed Not Available Not Available Not Available metoprolol succinate ER 50 mg tablet,exte nded release 24 hr TAKE 1 TABLET BY MOUTH EVERY DAY active Not Available Not Available No t Available Coreg 6.25 mg tablet Take 1 tablet twice a day by oral route. 03/01 completed Not Available Not Available Not Available FreeStyle Lancets 28 gauge USE TO TEST BLOOD SUGAR FOUR TIMES DAILY OR DIRECTED 2022 active Not Available Not Available Not Avai lable prednisone 20 mg tablet TAKE 2 TABLETS BY MOUTH ONCE 11/15 completed Not Available Not Available Not Available metoprolol succinate ER 100 mg tablet,exte nded release 24 hr Take 1 tablet every day by oral route for 90 days. 2023 active Not Available Not Available Not Avai lable glipizide ER 5 mg tablet, extended release 24 hr TAKE 1 TABLET DAILY active Not Available Not Available No t Available clindamycin HCl 150 mg capsule 10/22 completed Not Available Not Available Not Available potassium chloride ER 10 mEq tablet,exte nded release TAKE 1 TABLET BY MOUTH EVERY DAY 11/15 completed Not Available Not Available Not Available metronidazo le 500 mg tablet 03/07 completed Not Available Not Available Not Available ciprofloxac in 500 mg tablet TAKE 1 TABLET BY MOUTH EVERY 12 HOURS FOR 10 DAYS 10/09 completed Not Available Not Available Not Available aspirin 81 mg tablet,del yed release TAKE 1 TABLET BY MOUTH DAILY 11/15 completed Not Available Not Available Not Available tramadol 50 mg tablet Take 1 tablet every 6-8 hours by oral route as needed. 03/07 completed Not Available Not Available Not Available triamcinolo ne acetonide 0.1 % topical cream APPLY TO LEGS TWICE DAILY FOR 4 WEEKS active Not Available Not Available No t Available levothyroxi ne 75 mcg tablet TAKE 1 TABLET BY MOUTH EVERY DAY 02/25 completed Not Available Not Available Not Available levothyroxi ne 100 mcg tablet TAKE 1 TABLET BY MOUTH EVERY DAY active Not Available Not Available No t Available amlodipine 10 mg tablet TAKE 1 TABLET BY MOUTH DAILY 11/15 completed Not Available Not Available Not Available benzonatate 100 mg capsule 03/07 completed Not Available Not Available Not Available doxycycline monohydrate 100 mg capsule TAKE 1 CAPSULE BY MOUTH TWICE DAILY 11/15 completed Not Available Not Available Not Available levothyroxi ne 50 mcg tablet Take 1 tablet every day by oral route. 04/18 completed Not Available Not Available Not Available losartan 25 mg tablet TAKE 1 TABLET BY MOUTH DAILY 08/28 completed Not Available Not Available Not Available budesonide 0.5 mg/2 mL suspension for nebulizatio n USE 2 ML VIA NEBULIZER TWICE DAILY active Not Available Not Available No t Available diltiazem CD 120 mg capsule,ext ended release 24 hr TAKE 1 CAPSULE DAILY active Not Available Not Available No t Available codeine 10 mg-guaifene sin 100 mg/5 mL oral liquid TAKE 10 ML BY MOUTH EVERY 4 HOURS NEEDED FOR 7 DAYS *NOT COVERED* active Not Available Not Available No t Available alcohol swabs USE 1 PAD TOPICALLY FOUR TIMES DAILY BEFORE MEALS AND BEDTIME active Not Available Not Available No t Available clobetasol 0.05 % topical ointment APPLY TO THE LEG TWICE DAILY FOR 3 WEEKS active Not Available Not Available No t Available ibuprofen 600 mg tablet TAKE 1 TABLET BY MOUTH THREE TIMES DAILY WITH FOOD 11/15 completed Not Available Not Available Not Available cefuroxime axetil 500 mg tablet 03/07 completed Not Available Not Available Not Available methylpredn isolone 4 mg tablets in a dose pack TAKE 6 TABLETS ON DAY 1 DIRECTED ON PACKAGE AND DECREASE BY 1 TAB EACH DAY FOR A TOTAL OF 6 DAYS active Not Available Not Available No t Available albuterol sulfate HFA 90 mcg/actuati on aerosol inhaler INHALE 1 PUFF BY MOUTH EVERYDAY NEEDED active Not Available Not Available No t Available doxycycline hyclate 100 mg tablet Take 1 tablet twice a day by oral route for 14 days. active Not Available Not Available No t Available levothyroxi ne 112 mcg tablet TAKE 1 TABLET BY MOUTH EVERY DAY active Not Available Not Available No t Available oxycodone 5 mg tablet TAKE 1 TABLET BY MOUTH THREE TIMES DAILY NEEDED FOR PAIN 10/22 completed Not Available Not Available Not Available Bactrim DS 800 mg-160 mg tablet Take 1 tablet every 12 hours by oral route. 03/07 completed Not Available Not Available Not Available Asprin Ec Low Dose 81 mg tablet,del yed release Take 1 tablet every day by oral route. 03/10 completed Not Available Not Available Not Available ezetimibe 10 mg tablet TAKE 1 TABLET DAILY active Not Available Not Available No t Available Crestor 5 mg tablet Take 1 tablet every day by oral route. 2017 active Not Available Not Available Not Avai lable Atrovent HFA 17 mcg/actuati on aerosol inhaler INHALE 2 PUFFS BY MOUTH FOUR TIMES DAILY 03/10 completed Not Available Not Available Not Available potassium chloride 10 Meq daily 03/07 completed Not Available Not Available Not Available FreeStyle Lite Meter kit USE DIRECTED active Not Available Not Available No t Available FreeStyle Lite Strips USE TO TEST FOUR TIMES A DAY OR DIRECTED 2022 active Not Available Not Available Not Avai lable Chest Congestion Relief 100 mg/5 mL oral liquid 11/15 completed Not Available Not Available Not Available blood pressure test kit-large cuff USE DIRECTED 11/15 completed Not Available Not Available Not Available Xarelto 15 mg tablet Take 1 tablet every day by oral route. active Not Available Not Available No t Available Eliquis 5 mg tablet TAKE 2 TABLETS BY MOUTH TONIGHT AND THEN TWICE DAILY FOR 7 DAYS. THEN CONTINUE 5 MG TWICE DAILY INDEFINIT BLU 04/16 completed Not Available Not Available Not Available metoprolol tartrate 75 mg tablet Take 1 tablet twice a day by oral route. 03/10 completed Not Available Not Available Not Available Paxlovid 300 mg (150 mg x 2)-100 mg tablets in a dose pack TAKE 3 TABLET BY MOUTH TWICE DAILY FOR 5 DAYS 11/15 completed Not Available Not Available Not Available Vitals Date Recorded Body height Body mass index (BMI) Body weight Heart rate Oxygen saturation Oxygen saturation in Arterial blood by Pulse oximetry Systolic blood pressure Diastolic blood pressure Provider Name and Address Organization Details Last Updated DateTime 4 185.42 cm 50.1 kg/m2 634195. 1 g 103 /min 93 % 93 % 140 mm[Hg] 80 mm[Hg] Haleigh Gorman [facility] 4 15:48:40 Social History Question Answer Notes LastModified by Organizat ion Details LastModified Time Tobacco Smoking Status Current Every Day Smoker [facility] 10/22/2022 15:58:58 What Was The Date Of Your Most Recent Tobacco Screening? 10/09/2024 [email or web address] Information not available 10/09/2024 How Much Tobacco Do You Smoke? 0.25 PPD [email or web address] Information not available 10/22/2022 Do You Or Have You Ever Used Any Other Forms Of Tobacco Or Nicotine? No [email or web address] Information not available 10/09/2024 Sex: Unknown Functional Status None recorded. Mental Status None recorded. Family History Relationship Description Onset Age of this Age Resolved Age Notes LastModified by Organization Details LastModified Time Mother Dementia guillermo Not available 04/20/2018 08:59:36 Mother Congestive heart failure guillermo Not available 2017 08:59:47 Father Type 2 diabetes mellitus guillermo Not available 2017 09:03:42 Medical History No medical history recorded. Immunizations Vaccine Type Date Status Note Provider Nam e and Address Organization Details Recorded Time COVID-19, mRNA, LNP-S, PF, 50 mcg/0.5 mL dose 01/07/2021 completed Patricia bill [facility] 11/15/2022 11:11:45 COVID-19, mRNA, LNP-S, PF, 50 mcg/0.5 mL dose 02/04/2021 completed Patricia bill [facility] 11/15/2022 11:11:52 COVID-19, mRNA, LNP-S, PF, 50 mcg/0.5 mL dose 09/17/2021 completed Patricia bill [facility] 11/15/2022 11:11:59 Tdap 11/07/2009 completed Not Available [facility] 09/21/2022 22:19:34 Past Encounters Encounter ID Performer Location Encounter Start Date Encounter Closed Date Diagnosis/Indication Diagnosis SNOMED-CT Code Diagnosis ICD10 Code [id number] Meghan Zepeda [facility] [address] [place] [address] 10/09/2024 15:41:10 10/09/2024 16:23:20 Edema of lower extremity 025685346 R60.0 Cellulitis of lower leg 870939280 L03.115 Lymphedema of lower extremity 020861755 I89.0 Dyspnea 662994629 R06.02 Health Concerns Section Related Observation LastModified by Organization Detai ls LastModified Time None Recorded Concern Status LastModified by Organization Details LastModified Time None Recorded Payers Encounter Date Sequence Insurance Name Policy Number Policy Jasso Covered Member ID Jasso Member ID Guarantor Name 10/09/2024 2 [employer] (MEDICARE SUPPLEMENT) Rudy Mathias [id number] Rudy Mathias 10/09/2024 1 MEDICARE [place]: [facility] Rudy Mathias [id number] Rudy Mathias Notes Date Note Type Note Provider Name and Address Organization Details Recorded Time 10/09/2024 text/html LE edema bilater al the patient is having severe LE and lymphedemathe patient will need to restart water pill and start on abx as well for the tissue break down, signs of infection recommend CT and echo for lungs and heart due to the significant swelling of LE hx of OR and PEwill need fu with cardio and vascular will hold on compression stockingscannot get them onsuggested wraps right now HARSH MUHAMMAD [address] [place] [address],[place], [address], [facility] 10/09/2024 16:11:03
--- OUTSIDE RECORDS SUMMARY | 2024-10-17 07:06 | XMS_ITS | Data Portability ---
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) MDM MODERATE MUST MEET 2 OUT OF 3 ELEMENTS: PROBLEMS, DATA OR RISK ELEMENT 1: PROBLEMS ADDRESSED OR 2 OR MORE STABLE CHRONIC ILLNESSES OR OR OR ELEMENT 2: DATA MUST MEET 1 OF 3 CATEGORIES CATEGORY 1: REVIEW OF PRIOR EXTERNAL NOTES, REVIEW OF RESULTS, ORDERING OF EACH TEST, ASSESSMENT REQUIRING INDEPENDENT HISTORIAN OR CATEGORY 2: OR CATEGORY 3: ELEMENT 3: RISK RISK OF COMPLICATIONS AND/OR MORBIDITY OR MORTALITY OF PATIENT MANAGEMENT PROVIDER MUST THOROUGHLY DOCUMENT EACH ELEMENT THAT IS COVERED [email or web address] Not available 03/10/2021 10:12:32 Plan of Treatment Reminders Order Date Submit Date Provider Last Modified By Organization Details Last Modified Time Details Appointments FOLLOW UP 15 2023 03:30P HARSH WRAY Not available Not available Not available Lab TSH + free T4, serum 2021 022 [facility], [address] [place] [address], [address], 10/22/2022 16:35:20 CMP, serum or plasma 2022 023 [facility], [address] [place] [address], [address], 11/16/2022 11:55:02 CMP, serum or plasma 2023 024 [facility], [address] [place] [address], [address], 10/09/2024 16:15:32 CBC w/ auto diff 2023 024 [facility], [address] [place] [address], [address], 10/09/2024 16:15:32 ESR (erythr ocyte sedimen tation rate), blood 2023 024 [facility], [address] [place] [address], [address], 10/09/2024 16:15:32 C reactiv e protein , QN, serum or plasma 2023 024 [facility], [address] [place] [address], [address], 10/09/2024 16:15:32 pro BNP (pro B-type natriur etic peptide ), serum or plasma 2023 024 [facility], [address] [place] [address], [address], 10/09/2024 16:15:32 Referral dermato logist referra l 2019 020 [email or web address] [facility], [address] [facility] [address], [address], 05/14/2020 06:59:07 vascula r surgeon referra l 2021 022 [facility], [address] [place] [address], [address], 11/23/2022 09:23:48 lymphed amina consult 2023 024 [facility], [address] [place] [address] [address], [place], [address], 10/10/2024 08:58:36 Procedures None recorde d. Surgeries None recorde d. Imaging XR, sinuses 2020 021 [email or web address] 10 [facility], [address] [place], [address], 04/07/2021 10:10:03 CT, angiogr am, chest, w/wo contras t - needs 1 mo recheck of his lungs for PEProce dure codes: 17634Qr Referen ce #: [email or web address] [id number] esoluti on: Complet ed on 023 at 03:58 pm. Call ref #[id number] . 2022 023 [facility], [address] [place], [address], 12/13/2022 08:34:05 CT, chest, w/o contras t 2023 024 [facility], [address] [place], [address], 10/10/2024 08:28:17 US, echocar diogram 2023 024 [facility], [address] [place], [address], 10/10/2024 08:28:17 Medication Orders albuter ol sulfate HFA 90 mcg/act uation aerosol inhaler 2019 020 [id number], [address] [place], [place], [id number], 04/16/2020 10:37:40 Atroven t HFA 17 mcg/act uation aerosol inhaler 2019 020 [email or web address] [facility] [employer] [facility] #86088, [address] [place], [place], [id number], 03/10/2021 09:48:22 albuter ol sulfate 2.5 mg/3 mL (0.083 %) solutio n for nebuliz ation 2020 021 [facility], [address] [place], [place], [id number], 03/10/2021 09:59:42 Xarelto 20 mg tablet 2021 023 DBA_PATCH_ [id number] [facility] [employer] [facility] #45872, [address] [place], [place], [id number], 11/16/2022 09:07:23 budeson johan 32 mcg/act uation nasal spray 2021 022 [email or web address] [facility] [employer] #40204, [address] [place], [place], [id number], 11/15/2022 15:50:59 torsemi de 20 mg tablet 2023 024 [facility] #[facility], [address] [place], [address], 10/09/2024 15:57:52 doxycyc line hyclate 100 mg tablet 2023 024 [facility] #[facility], [address] [place], [address], 10/09/2024 15:57:52 Patient TargetsNo targets recorded. Patient Instructions Encounter Date Encounter Id Patient Instructions Last Modified By Organization Details Last Modified Time 04/16/2020 [id number] pulse oximetry* rtryba Not available 04/16/2020 10:37:33 03/10/2021 [id number] pulse oximetry* rtryba Not available 03/10/2021 09:58:26 10/22/2022 [id number] pulse oximetry* TANESHA Not available 10/22/2022 16:53:45 Reason for Referral [employer] Referral for S kin tag Referring Physician: Olivia Martínez, Internal Medicine, Encounter Date: 04/16/2020 Vascular Surgeon Referral fo r Edema of lower extremity severe LE edema, possible lymphedema and stasis dermatitis Referring Physician: Olivia Martínez, Internal Medicine, Encounter Date: 10/22/2022 Lymphedema Consult for Lymph edema of lower extremity severe LE bilaterally and lymphedema Referring Physician: Olivia Martínez, Internal Medicine, Encounter Date: 10/09/2024 Results Created Date Observation Date Name Description Value Unit Range Abnormal Flag Note LastModifiedBy Organization Detail LastModifiedTime 04/16/20 20 04/16/2020 pulse oxime try* Result 94 Not Available [facility] [address] [facility] [place], [address], 04/16/2020 10:00:02 03/10/20 21 03/10/2021 pulse oxime try* Result 95 Not Available [facility] [address] [facility], [place], [address], 03/10/2021 09:44:51 12/13/19 23 12/09/2022 CT, angio gram, chest , w/wo contr ast No observ ation record ed. [facility] (Medical Records) [address] [place], [address], 12/13/2022 13:39:00 12/13/19 23 12/09/2022 CT, angio gram, chest , w/wo contr ast No observ ation record ed. [facility] (Medical Records) [address] [place], [address], 12/13/2022 13:59:17 01/15/20 23 01/06/2023 US, abdom inal aorta No observ ation record ed. [facility] - [address], [address], 01/14/2023 11:31:29 10/14/20 24 10/12/2024 US, echoc ardio gram No observ ation record ed. [facility] (Medical Records) [address] [place], [address], 10/15/2024 11:38:26 Result Notes None recorded. Problems Name Problem SNOMED Code Status Onset Date Resolution Date Notes Provider Name and Address Organization Details Recorded Time Hypothyro idism 42236200 Active 2019 HARSH MUHAMMAD [address],Elia A, [place], [address], [facility] 0 09:49:20 Venous stasis edema of bilateral lower limbs 550696396570 49356 Active 2020 HARSH MUHAMMAD [address],Elia A, [place], [address], [facility] 1 12:11:22 Abdominal aortic aneurysm 231318167 Active 2021 HARSH MUHAMMAD [address],Elia A, [place], [address], [facility] 2 16:16:46 Edema of lower extremity 040420861 Active 2021 HARSH MUHAMMAD [address],Elia A, [place], [address], [facility] 2 16:24:25 Chronic sinusitis 16470344 Active 2021 HARSH MUHAMMAD [address],Elia A, [place], [address], [facility] 2 16:33:24 COVID-19 903095460 Active 2021 HARSH MUHAMMAD [address],Elia A, [place], [address], [facility] 2 08:42:21 Obstructi ve sleep apnea syndrome 72347876 Active 2022 HARSH MUHAMMAD [address],Elia A, [place], [address], [facility] 3 15:37:17 Pulmonary embolism 34645996 Active 2022 HARSH MUHAMMAD [address],Elia A, [place], [address], [facility] 3 15:40:40 Hyperkale linden 96655021 Active 2022 HARSH MUHAMMAD [address],Elia A, [place], [address], [facility] 3 15:46:19 Dyspnea 301099984 Active 2022 HARSH MUHAMMAD [address],Elia A, [place], [address], [facility] 3 09:35:39 Type 2 diabetes mellitus 64742340 Active 2022 dx'd in ER 2 [facility] 3 11:41:00 Allergic rhinitis 85156022 Active 2022 HARSH MUHAMMAD [address],Elia A, [place], [address], [facility] 3 12:31:24 Acute bronchiti s 94772349 Active 2023 HARSH MUHAMMAD [address],Elia A, [place], [address], [facility] 4 10:32:11 Hyperlipi demia 02720119 Active 2023 HARSH MUHAMMAD [address],Elia A, [place], [address], [facility] 4 10:56:12 Celluliti s of lower leg 114651343 Active 2023 HARSH MUHAMMAD [address],Elia A, [place], [address], [facility] 4 15:50:51 Lymphedem a of lower extremity 680014461 Active 2023 HARSH MUHAMMAD [address],Elia A, [place], [address], [facility] 4 15:53:36 Stented coronary artery 768657688 Active 2017 Asiya Segura NP, S [address],Elia A, [place], [address], [facility] 8 08:53:20 Chronic obstructi ve pulmonary disease 55370665 Active 2017 Asiya Segura NP, S [address],Elia A, [place], [address], [facility] Internal [facility] 8 08:54:03 Atrial fibrillat ion 62042516 Active 2017 Asiya Segura NP, S [address],Elia A, [place], [address], [facility] 8 08:54:43 Acute non-ST segment elevation myocardia l infarctio n 799981346 Completed 201704/20/2018 Asiya Segura NP, S [address],Elia A, [place], [address], [facility] 8 09:04:24 Sleep apnea 02828085 Active 2017 Asiya Segura NP, S [address],Elia A, [place], [address], [facility] 8 09:19:12 Notes:s/p STEMI 11/2015 Problem Notes None recorded. Procedures Surgical History Date Name Laterality Status Provider Name and Address Organization Details Recorded Time Tonsillectomy completed Asiya Segura NP, S [address],Elia A, [place], [address], [facility] 04/20/2018 09:00:14 Imaging Results Imaging Date Name Status LastModified by Organization Details LastModified Time 12/09/2022 CT, angiogram, chest, w/wo contrast completed [facility] (Medical Records) [address] [place], [address], 12/13/2022 13:39:00 12/09/2022 CT, angiogram, chest, w/wo contrast completed [facility] (Medical Records) [address] [place], [address], 12/13/2022 13:59:17 01/06/2023 US, abdominal aorta completed [facility] - [address], [address], 01/14/2023 11:31:29 10/12/2024 US, echocardiogram completed [facility] (Medical Records) [address] [place], [address], 10/15/2024 11:38:26 Procedure Notes None recorded. Medical Equipment None Reported. Allergies Allergen ID Allergen Name Allergen Category Reaction Reaction Severity Criticality Documentation Date Start Date Code Code System Note Provider Name and Address Organization Details Recorded Time 844 Medicinal product containin g penicilli n and acting as antibacte rial agent (product) medicatio n Not available Not available Not available 02/13/2018 32747 05 SNOMED Venita bill [place] [facility] 8 11:48:11 Medications Name Sig Start Date [...] Available Not Available Vitals Date Recorded Body weight Heart rate Oxygen saturation Oxygen saturation in Arterial blood by Pulse oximetry Systolic blood pressure Diastolic blood pressure Provider Name and Address Organization Details Last Updated DateTime 0 450355. 14 g 62 /min 94 % 94 % 106 mm[Hg] 60 mm[Hg] HARSH MUHAMMAD [address] [place], [address], [facility] Internal [facility] 0 10:05:51 Date Recorded Body height Body mass index (BMI) Body weight Oxygen saturation Oxygen saturation in Arterial blood by Pulse oximetry Heart rate Systolic blood pressure Diastolic blood pressure Provider Name and Address Organization Details Last Updated DateTime 1 185.42 cm 48.8 kg/m2 772705. 18 g 95 % 95 % 58 /min 116 mm[Hg] 62 mm[Hg] Diana Butterfield [facility] 1 09:50:56 Date Recorded Body weight Heart rate Oxygen saturation Oxygen saturation in Arterial blood by Pulse oximetry Systolic blood pressure Diastolic blood pressure Provider Name and Address Organization Details Last Updated DateTime 2 532552. 47 g 70 /min 93 % 93 % 134 mm[Hg] 72 mm[Hg] Stephanie Marsh [facility] 2 16:01:32 Date Recorded Body height Body mass index (BMI) Body weight Oxygen saturation Oxygen saturation in Arterial blood by Pulse oximetry Heart rate Systolic blood pressure Diastolic blood pressure Provider Name and Address Organization Details Last Updated DateTime 3 185.42 cm 50.7 kg/m2 930648. 47 g 94 % 94 % 70 /min 100 mm[Hg] 58 mm[Hg] Patricia Higgins [facility] 3 15:17:30 Date Recorded Body height Body mass index (BMI) Body weight Heart rate Oxygen saturation Oxygen saturation in Arterial blood by Pulse oximetry Systolic blood pressure Diastolic blood pressure Provider Name and Address Organization Details Last Updated DateTime 4 185.42 cm 50.1 kg/m2 246564. 1 g 103 /min 93 % 93 % 140 mm[Hg] 80 mm[Hg] Haleigh Gorman [facility] 15:48:40 Social History Question Answer Notes LastModified by Organizat ion Details LastModified Time Tobacco Smoking Status Current Every Day Smoker Stephanie Marsh landy [facility] 10/22/2022 15:58:58 What Was The Date Of Your Most Recent Tobacco Screening? 10/09/2024 [email or web address] Information not available 10/09/2024 How Much Tobacco Do You Smoke? 0.25 PPD [email or web address] Information not available 10/22/2022 Do You Or Have You Ever Used Any Other Forms Of Tobacco Or Nicotine? No [email or web address] Information not available 10/09/2024 Sex: Unknown Functional Status None recorded. Mental Status None recorded. Family History Relationship Description Onset Age of this Age Resolved Age Notes LastModified by Organization Details LastModified Time Mother Dementia dameron hospitallan Not available 04/20/2018 08:59:36 Mother Congestive heart failure guillermo Not available 2017 08:59:47 Father Type 2 diabetes mellitus guillermo Not available 2017 09:03:42 Medical History No medical history recorded. Immunizations Vaccine Type Date Status Note Provider Nam e and Address Organization Details Recorded Time COVID-19, mRNA, LNP-S, PF, 50 mcg/0.5 mL dose 01/07/2021 completed Patricia bill [facility] 11/15/2022 11:11:45 COVID-19, mRNA, LNP-S, PF, 50 mcg/0.5 mL dose 02/04/2021 janeen bill [facility] 11/15/2022 11:11:52 COVID-19, mRNA, LNP-S, PF, 50 mcg/0.5 mL dose 09/17/2021 completed Patricia bill [facility] 11/15/2022 11:11:59 Tdap 11/07/2009 completed Not Available [facility] 09/21/2022 22:19:34 Past Encounters Encounter ID Performer Location Encounter Start Date Encounter Closed Date Diagnosis/Indication Diagnosis SNOMED-CT Code Diagnosis ICD10 Code [id number] Asiya Segura NP, S [facility] [address] [place] [address] 02/13/2018 11:41:19 02/13/2018 17:13:46 Acute exacerbation of chronic obstructive pulmonary disease 726830441 J44.1 Atrial fibrillation 4943 6004 I48.91 Acute sinusitis 99233337 J01.90 [id number] Kojo Hou [facility] [address] [place] [address] 02/17/2018 09:27:29 02/17/2018 10:13:38 Acute sinusitis 68926452 J01.90 [id number] Asiya Segura NP, [facility] [address] [place] [address] 03/01/2018 09:23:55 03/01/2018 11:47:57 Atrial fibrillation 11187794 I48.91 Hypothyroidism 94015675 E03.9 Obstructiv e sleep apnea syndrome 31060127 G47.33 Hypercholesterolemia 136 21649 E78.00 Coronary arteriosclerosis in mohegan artery 6719696196 107 I25.10 [id number] Asiya Segura NP, [facility] [address] [place] [address] 04/18/2018 09:48:44 04/18/2018 10:37:32 Local infection of wound 86442613 T14.90XA [id number] Asiya Segura NP, [facility] [address] [place] [address] 04/21/2018 08:51:19 04/21/2018 09:38:34 Impaired fasting glycemia 926764600 R73.01 Screening procedure 2012 5006 Z13.9 Open wound of lower limb 57009986 S81.802D Sleep apnea 21770349 G47 .30 Coronary arteriosclerosis 58285172 I25.10 Atrial fibrillation 4943 6004 I48.91 [id number] Asiya Segura NP, [facility] [address] [place] [address] 05/02/2018 08:55:20 05/02/2018 11:48:20 Acute bronchitis 66100526 J20.9 Open wound of lower limb 67517477 S81.802D Hypothyroidism 47776236 E03.9 Impaired f asting glycemia 933304983 R73.01 Hypercholesterolemia 136 65440 E78.00 Screening procedure 2012 5006 Z13.9 [id number] Asiya Segura NP, [facility] [address] [place] [address] 05/05/2018 10:00:05 05/05/2018 11:16:11 Hypercholesterolemia 87665438 E78.00 Hypothyroidism 70547845 E03.9 Acute bronchitis 6054397 2 J20.9 Obstructiv e sleep apnea syndrome 93773946 G47.33 Paroxysmal atrial fibrillation 689648930 I48.0 Infection of tooth 06009 8007 K04.7 [id number] Asiya Segura NP, [facility] [address] [place] [id number] 05/09/2018 09:01:14 05/09/2018 11:37:20 Dyspnea on exertion 36588894 R06.09 [id number] HARSH MUHAMMAD [facility] [address] [place] [address] 03/07/2020 14:10:16 03/07/2020 15:08:27 Atrial fibrillation 36665616 I48.91 Hypothyroidism 91841045 E03.9 Edema of l ower extremity 228824105 R60.0 Essential hypertension 84746287 I10 [id number] HARSH MUHAMMAD [facility] [address] [place] [address] 03/14/2020 11:38:12 03/14/2020 12:19:25 Atrial fibrillation 07931394 I48.91 Edema of l ower extremity 656479336 R60.0 [id number] HARSH MUHAMMAD [facility] [address] [place] [address] 04/16/2020 09:54:29 04/16/2020 10:49:38 Chronic obstructive pulmonary disease 33210616 J44.9 Edema of l ower extremity 475388328 R60.0 Skin tag 195546506 L91.8 [id number] HARSH MUHAMMAD [facility] [address] [place] [address] 03/10/2021 09:39:34 03/10/2021 15:36:03 Hypothyroidism 65224482 E03.9 Chronic ob structive pulmonary disease 94552524 J44.9 Chronic sinusitis 176544 00 J32.9 [id number] [facility] [address] [place] [address] 10/22/2022 15:40:28 10/22/2022 16:47:37 Hypothyroidism 38382001 E03.8 Chronic ob structive pulmonary disease 66505135 J44.9 Atrial fibrillation 4943 6004 I48.11 Advance care planning 71 3622735 Z71.89 Abdominal aortic aneurysm 072073370 I71.40 Active or passive immunization 204152037 Z23 Edema of l ower extremity 501727352 R60.0 Chronic sinusitis 214110 00 J32.0 [id number] HARSH MUHAMMAD [facility] [address] [place] [address] 11/15/2022 14:49:58 11/15/2022 16:00:15 Obstructive sleep apnea syndrome 20603540 G47.33 Pulmonary embolism 25220 003 I26.99 Edema of l ower extremity 305436197 R60.0 Hyperkalemia 90574984 E8 7.5 [id number] Meghan Zepeda [facility] [address] [place] [address] 10/09/2024 15:41:10 10/09/2024 16:23:20 Edema of lower extremity 215942656 R60.0 Cellulitis of lower leg 292333374 L03.115 Lymphedema of lower extremity 463821498 I89.0 Dyspnea 030197906 R06.02 Health Concerns Section Related Observation LastModified by Organization Detai ls LastModified Time None Recorded Concern Status LastModified by Organization Details LastModified Time None Recorded Advance Directives Directive None Recorded Payers Encounter Date Sequence Insurance Name Policy Number Policy Jasso Covered Member ID Jasso Member ID Guarantor Name 04/16/2020 2 [employer] (MEDICARE SUPPLEMENT) Rudy Mathias [id number] Rudy Mathias 04/16/2020 1 [place] [employer] Rudy Mathias [id number] Rudy Mathias 03/10/2021 2 [employer] (MEDICARE SUPPLEMENT) Rudy Mathias [id number] Rudy Mathias 03/10/2021 1 [place] [employer] Rudy Mathias [id number] Rudy Mathias 10/22/2022 2 [employer] (MEDICARE SUPPLEMENT) Rudy Mathias [id number] Rudy Mathias 10/22/2022 1 [place] [facility] Rudy Mathias [id number] Rudy Mathias 11/15/2022 2 [employer] OPTIONS (MEDICARE SUPPLEMENT) Rudy Mathias [id number] Rudy Mathias 11/15/2022 1 [place] [facility] [employer] Rudy Mathias [id number] Rudy Mathias 10/09/2024 2 [employer] OPT[employer] (MEDICARE SUPPLEMENT) Rudy Mathias [id number] Rudy Mey 10/09/2024 1 [place] [facility] G[employer]MENT [facility] Rudy Mathias [id number] Rudy Kleinerman Notes Date Note Type Note Provider Name and Address Organization Details Recorded Time 04/16/2020 text/html f/u edema in the lower extermities will increase lasix dose > read cardiology note, may be related in part to heart failure vs venous insufficency no chest pain, sob with activity, bilateral swelling in LE HARSH MUHAMMAD [address] [facility] [place], [address], [facility] 04/16/2020 10:43:13 03/10/2021 text/html fu LE: the patient reports that he is doing well still has the LE edema, but recent echo was unremarkable the patient cannot tolerate the lasix everyday the patient reports that he takes his lasix when he knows he had nothing COPD: stable, would like to try neb chronic sinusitis: discussed follow up with XR HARSH MUHAMMAD [address] [facility] [place], [address], [facility] 03/10/2021 10:14:12 10/22/2022 text/html c/o LE edema hypothyroidism: will need to recheck his TSH levels again severe LE: has been seeing cardio, haven't said anything about ithas not been seen here in awhiledeclined intervention last time besides lasix hypo: needs a fib: will start on xarelto HARSH MUHAMMAD 6 [facility]Elia Lang, [place], [address], [facility] 10/22/2022 16:42:15 11/15/2022 text/html hospital fu PE due to COVID-19d/c on oxygen (2 to 3 L on oxygen as needed for oxygen sat less than 90% and at night) will start on xarelto for blood thinner since eliquis is far too expensivewill give free samples until patient reaches deducible will need to recheck his potassium level after d/closartan and potassium d/cno lasix on board continue on metoprolol, diltiazem, cholesterol medication, levothyroxinewill set up with fu CTA to monitor his lungs seeing vascular on Tuesday will recheck his levels HARSH MUHAMMAD 6 [facility], [address], [facility] 11/15/2022 15:59:38 10/09/2024 text/html LE edema bilater al the patient is having severe LE and lymphedemathe patient will need to restart water pill and start on abx as well for the tissue break down, signs of infection recommend CT and echo for lungs and heart due to the significant swelling of LE hx of GA and PEwill need fu with cardio and vascular will hold on compression stockingscannot get them onsuggested wraps right now HARSH MUHAMMAD [address] [facility]Elia Lang, [place], [address], [facility] 10/09/2024 16:11:03
[2024-10-17 14:18] LABS: NT-proBNP 1065 pg/mL (<125)
== END ==
LOC: HO.CARD 09:43
PROVIDERS: PCP Internal Medicine; Visit Provider Physician Assistant
DX: R60.0 Localized edema (principal); R06.02 Shortness of breath
CPT/HCPCS: 36415; 71250; 80053; 83880; 85025; 85652; 86140; 93306; Q9957

== ENCOUNTER → 2024-10-12 09:50 | Outpatient (BNV) | payer MEDICARE, SELFPAY | PROVIDERS: PCP Internal Medicine; Visit Provider Internal Medicine Cardiovascular Disease | DX: I48.91 Unspecified atrial fibrillation (principal); R06.02 Shortness of breath | CPT/HCPCS: 93306 ==

== ENCOUNTER → 2024-10-12 11:24 | Outpatient (BNV) | payer MEDICARE, SELFPAY | PROVIDERS: PCP Internal Medicine; Visit Provider Radiology Diagnostic Radiology | DX: R91.1 Solitary pulmonary nodule (principal); R06.02 Shortness of breath | CPT/HCPCS: 71250 ==

== ENCOUNTER 2025-02-12 15:15 | Outpatient (AMB) | payer MEDICARE, SELFPAY ==
--- NOTE | 2025-02-12 15:18 | A.OFFVIS_ITS ---
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 blood-glucose meter (FreeStyle Lite Meter kit) As Directed budesonide 32 mcg/actuation 1 spray intranasal DAILY clobetasol 0.05% grams topical BID ezetimibe 10 mg PO DAILY furosemide 40 mg PO DAILY lancets (FreeStyle Lancets) Test four times a day or as directed. levothyroxine 100 mcg PO DAILY@0600 losartan 50 mg PO DAILY metoprolol tartrate 100 mg PO DAILY rivaroxaban (Xarelto) 20 mg PO DAILY HPI Comments Details: Rudy returns for follow-up regarding his various cardiac issues including coronary disease, paroxysmal atrial fibrillation, hypertension, dyslipidemia among others. Recently, he was admitted to [facility] following mechanical fall. Patient states that he just lead office chair by losing balance. In that setting, it seems that he was in atrial fibrillation with rapid ventricular rate and also congestive heart failure. He was seen by EP, Dr. Sanchez. He was started on Amiodarone but it seems they ran out of the script and not taking it anymore. His beta-rach dose was increased. Diltiazem was stopped. Overall, he states he feels okay. He really does not feel any palpitations. He has had longstanding leg swelling and that is pretty much unchanged. Breathing is okay. No angina. [facility] Medical History (Updated 02/12/25 @ 15:57 by Tomi Loyola MD) Type 2 diabetes mellitus Hypoxia Lyme disease Pulmonary hyperinflation Leg swelling Obstructive sleep apnea Statin intolerance Mixed hyperlipidemia Essential hypertension Paroxysmal atrial fibrillation Atherosclerotic cardiovascular disease Surgical History History of cardiac catheterization Family History Father No problems noted. Mother CHF (congestive heart failure) Social History Household Members: Spouse Housing: House Do you presently have visiting nurse or other home services: No Alcohol intake: never Comment: pt refuses moderate fall precautions Patient Tobacco Use Status: Former Tobacco user service: No Current occupational status: employed Review of Systems ENT Reports dizziness Card Denies chest pain, Denies chest pain at rest, Denies chest pain with activity, Denies rapid heart rate, Denies pedal edema, Denies edema, Denies leg edema, Denies lightheadedness, Denies palpitations, Denies dyspnea, Denies dyspnea on exertion and Denies orthopnea Resp Denies cough, Denies dyspnea and Denies dyspnea on exertion GI Denies hematochezia and Denies change in stool character Musc Denies abnormal gait, Reports limited range of motion, Reports muscle cramps, Denies muscle weakness, Denies numbness, Denies radiating pain into limb, Denies stiffness and Denies tingling Neuro Denies abnormal gait, Reports dizziness, Denies numbness and Denies tingling Endo Denies palpitations Physical Exam Vital Signs: Last Vital Signs Pulse 110 H 02/12/25 15:19 BP 114/72 02/12/25 15:19 BMI result Body Mass Index 48.7 Const General: comfortable and no acute distress Orientation/consciousness: patient oriented x3 HEENT Other: Unremarkable Head: Yes normal to inspection Neck Neck: Yes normal visual inspection Chest Chest palpation & inspection: normal inspection of the chest Resp Auscultation: clear to auscultation bilaterally Cardio Palpation: normal PMI Heart sounds: S1 normal heart sound present, S2 normal heart sound present, no gallops, no murmurs and no rubs GI Palpation (GI): Soft to palpation Back/Spine/Pelvis Other: unremarkable Skin General skin exam: no rashes or lesions noted Neuro General: patient oriented x3 Extrem Other: Chronic changes noted Psych Mental Status: mental status grossly normal Office Procedures EKG Details: EKG with atrial fibrillation at a rate of 110/Min; cannot exclude old anterior infarct; rightward axis. [id number], Complete Assessment & Plan Assessment & Plan (1) Persistent atrial fibrillation: Code(s): I48.19 - Other persistent atrial fibrillation Category: Medical Plan: Used to be paroxysmal atrial fibrillation but more recently possible persistent. He used to be on metoprolol/diltiazem. After recent hospitalization, metoprolol dose has been increased. Off diltiazem. Post discharge, he took Amiodarone for a few weeks but no longer taking as he apparently ran out of it. We will plan to get a Holter monitor. Discussed about rate control versus rhythm control. He has an appointment with EP coming up. We will get a Holter monitor for adequacy of rate control. He can see EP and then decide. Remains on Xarelto. (2) Chronic diastolic (congestive) heart failure: Code(s): I50.32 - Chronic diastolic (congestive) heart failure Category: Medical Plan: In the recent echocardiogram, LVEF 60-65%. In the repeat study at [facility] it seems he was tachycardic-LVEF reported to be mildly reduced to normal. His leg swelling itself is likely multifactorial and could be related to some combination of weight, untreated sleep apnea, venous insufficiency, atrial fibrillation. Remains on diuretics. Apparently, Farxiga prescribed at [facility] was way too expensive. (3) Atherosclerotic cardiovascular disease: Code(s): I25.10 - Atherosclerotic heart disease of [place] coronary artery without angina pectoris Category: Medical Plan: Status post drug-eluting stent to RCA, OM2 in the past. Clinically no angina. (4) Essential hypertension: Code(s): I10 - Essential (primary) hypertension Category: Medical Plan: Stable. No changes. (5) Mixed hyperlipidemia: Code(s): E78.2 - Mixed hyperlipidemia Category: Medical Plan: Treatment has been less than optimal in the past. Was not taking statins but now listed to be on atorvastatin 40 mg daily. Also on Zetia. Last LDL from 2022 was 86 mg/dL. Triglycerides 123 mg/dL. (6) Obstructive sleep apnea: Code(s): G47.33 - Obstructive sleep apnea (adult) (pediatric) Category: Medical Plan: Not on regular CPAP. He is aware that it is causing or contributing to a lot of cardiovascular other issues. (7) Morbid obesity: Code(s): E66.01 - Morbid (severe) obesity due to excess calories Category: Medical Plan: His weight is a major issue accounting for a lot of his problems. However, it has been like this for a long time and unlikely to change. Orders: Orders ECG 3 day holter monitor Today I48.19 - Other persistent atrial fibrillation Coding Level of Care Code Est Pt Level 4 (65806) Complex EM visit Add On G2211 Diagnoses Persistent atrial fibrillation I48.19 Chronic diastolic (congestive) heart failure I50.32 Atherosclerotic cardiovascular disease I25.10 Essential hypertension I10 Mixed hyperlipidemia E78.2 Obstructive sleep apnea G47.33 Morbid obesity E66.01 CPT Codes EKG - CPT: 53110-[id number], Complete ([id number])
[2025-02-12 15:19] VITALS: BP 114/72; PULSE 110; BMI 48.7
--- OUTSIDE RECORDS SUMMARY | 2025-02-12 18:14 | XMS_ITS | Data Portability ---
Author Organization [facility], [facility] Address [address] [place] [address] Assessment No assessment recorded. Plan of Treatment Reminders Order Date Submit Date Provider Last Modified By Organization Details Last Modified Time Details Appointments None recorded. Lab None recorded. Referral None recorded. Procedures None recorded. Surgeries None recorded. Imaging None recorded. Medication Orders cyclobenzap rine 10 mg tablet 2010 011 [facility] #[id number], [address], [place], [id number], 3 05:17:00 ibuprofen 600 mg tablet 2010 011 [facility] #[id number], [address], [place], [id number], 3 04:58:16 Patient TargetsNo targets recorded. Patient InstructionsNo instructions recorded. Reason for Referral None Reported. Procedures Surgical History Date Name Laterality Status Provider Name and Address Organization Details Recorded Time Tonsillectomy completed Not Available [facility] 09/23/2011 06:06:16 Imaging Results None recorded. Procedure Notes None recorded. Medical Equipment None Reported. Allergies Allergen ID Allergen Name Allergen Category Reaction Reaction Severity Criticality Documentation Date Start Date Code Code System Note Provider Name and Address Organization Details Recorded Time 43531 Product containin g penicilli n (product) medicatio n Not available Not available Not available 04/27/2011 13886 8001 SNOMED Not Available [facility] 1 06:05:41 Medications Name Sig Start Date Stop Date Status Note LastModified by Organization Details LastModified Time cyclobenzaprine 10 mg tablet Take 1 tablet twice a day by oral route as needed. 2010 active Not Available Not Available Not Avai lable cefaclor 500 mg capsule take 2.00 tabs bid active Not Available Not Available No t Available azithromycin 250 mg tablet active Not Available Not Available No t Available acyclovir 200 mg capsule active Not Available Not Available Not Available ergocalciferol (vitamin D2) 1,250 mcg (50,000 unit) capsule take 1.00 cap weekly active Not Available Not Available No t Available hydroxychloroqui ne 200 mg tablet take 1.00 tab bid active Not Available Not Available No t Available ibuprofen 600 mg tablet Take 1 tablet every 6-8 hours by oral route with meals. 2010 active Not Available Not Available Not Avai lable cefuroxime axetil 500 mg tablet active Not Available Not Available Not Available Vitals Date Recorded Body height Body weight Body mass index (BMI) Heart rate Systolic blood pressure Diastolic blood pressure Provider Name and Address Organization Details Last Updated DateTime 1 182.245 cm 024235. 632903 g 45.2 kg/m2 76 /min 120 mm[Hg] 88 mm[Hg] Charla Kelly CMA [facility] 1 11:46:08 Social History Question Answer Notes LastModified by Organizat ion Details LastModified Time Tobacco Smoking Status Current Every Day Smoker 1 ppd [facility] 11:40:35 Live Alone Or With Others? With Others 7 Information not available 09/23/2011 Patient Has Health Care Proxy Signed And In Chart No Form Given 7 Information not available 09/23/2011 Marital Status 7 Information not available 09/23/2011 Sex: Unknown Functional Status None recorded. Mental Status None recorded. Family History Relationship Description Onset Age of this Age Resolved Age Notes LastModified by Organization Details LastModified Time Mother Dementia 72 [id number] [id number] Not available 06/18/2013 03:01:15 Mother Heart disease CHF [id number] [id number] Not available 06/18/2013 03:01:15 Father Malignant neoplastic disease 58 hairy cell leukem ia (previ ously record ed as Cancer ) [id number] [id number] Not available 06/18/2013 03:01:15 Father Heart disease CABG age 75 [email or web address] [id number] Not available 06/18/2013 03:01:15 Maternal Aunt Malignant neoplastic disease ; primar y site unknow n (previ ously record ed as Cancer ) [email or web address] [id number] Not available 06/18/2013 03:01:15 Medical History Condition Response Lyme Disease Y Obesity Y Osteoarthritis Y Immunizations Vaccine Type Date Status Note Provider Nam e and Address Organization Details Recorded Time Td (adult) 11/07/2009 completed Not Available [facility] 09/22/2011 05:22:52 Past Encounters Encounter ID Performer Location Encounter Start Date Encounter Closed Date Diagnosis/Indication Diagnosis SNOMED-CT Code Diagnosis ICD10 Code Diagnosis Note [id number] , [facility], OFFICE [address] [place] [address] 04/27/2011 11:30:30 04/28/2011 13:49:16 Health Concerns Section Related Observation LastModified by Organization Detai ls LastModified Time None Recorded Concern Status LastModified by Organization Details LastModified Time None Recorded Advance Directives Directive None Recorded Payers Encounter Date Sequence Insurance Name Policy Number Policy Jasso Covered Member ID Jasso Member ID Guarantor Name 04/27/2011 1 [facility] [employer] - NAVIGATOR (PPO) [id number] Rudy Mathias [id number] Rudy Mathias Notes Date Note Type Note Provider Name and Address Organization Details Recorded Time 04/27/2011 text/html Pt is here to get established, former pt of Dr. Hernandez. Sx as above; pain has been worsening since mowing incident. Hot shower sometimes helps. No fever. Avoids medical care as much as possible. Diana Kenny NP [address] [place] [address], [place], [address], [facility] 05/03/2011 12:36:11
--- OUTSIDE RECORDS SUMMARY | 2025-02-12 18:14 | XMS_ITS | Data Portability ---
Author Organization [facility], Home Service Address [address] [place] [address] Assessment No assessment recorded. Plan of Treatment Reminders Order Date Submit Date Provider Last Modified By Organization Details Last Modified Time Details Appointments None recorded . Lab CMP, serum or plasma 2024 025 [facility], [address] [place] [address], [address], 5 15:39:50 hemoglob in A1c, QN, blood 2024 025 [facility], [address] [place] [address], [address], 5 15:39:50 CBC w/ auto diff 2024 025 [facility], [address] [place] [address], [address], 5 15:39:50 TSH + free T4, serum 2024 025 [facility], [address] [place] [address], [address], 5 15:39:50 CMP, serum or plasma 2023 024 [facility], [address] [place] [address], [address], 4 14:47:11 CBC w/ auto diff 2023 024 [facility], [address] [place] [address], [address], 4 16:15:32 ESR (erythro cyte sediment ation rate), blood 2023 024 [facility], [address] [place] [address], [address], 4 16:15:32 C reactive protein, QN, serum or plasma 2023 024 [facility], [address] [place] [address], [address], 4 16:15:32 pro BNP (pro B-type natriure tic peptide) , serum or plasma 2023 024 [facility], [address] [place] [address], [address], 4 16:15:32 CMP, serum or plasma 2022 023 [facility], [address] [place] [address], [address], 3 11:55:02 Referral vascular surgeon referral 2023 024 [facility], [address] [place] [address], [address], 4 08:07:19 lymphede ma consult 2023 024 [facility], [address] [facility], [facility] [address], [place], [address], 4 08:58:36 Procedures None recorded . Surgeries None recorded . Imaging CT, chest, w/o contrast 2023 024 [facility], [address] [place] [address], [address], 4 08:28:17 US, echocard iogram 2023 024 [facility], [address] [place], [address], 4 08:28:17 CT, angiogra m, chest, w/wo contrast - needs 1 mo recheck of his lungs for PEProced ure codes: 43171Cgi l Referenc e #: [id number] olution: Complete d on 12/08/19 23 at 03:58 pm. Call ref #[id number]. 2022 023 [facility], [address] [place], [address], 3 08:34:05 Medication Orders metformi n 500 mg tablet 2024 025 [facility]/Pharmacy #2024, [address] [place], [address], 5 15:35:38 cephalex in 500 mg capsule 2023 025 [facility]acy #2024, [address] [place], [address], 5 15:25:19 terbinaf ine HCl 250 mg tablet 2023 024 [facility]Pharmacy #2024, [address] [place], [address], 4 14:05:41 spironol actone 50 mg tablet 2023 024 [facility]Pharmacy #2024, [address] [place], [address], 4 14:22:22 Hibiclen s 4 % topical liquid 2023 025 [facility]/Pharmacy #5, [address] [place], [address], 5 15:27:52 spironol actone 25 mg tablet 2023 025 [facility]/Pharmacy #2024, [address] [place], [address], 5 12:19:08 torsemid e 20 mg tablet 2023 024 [facility]/Pharmacy #2024, [address] [place], [address], 5 15:29:01 doxycycl ine hyclate 100 mg tablet 2023 024 [facility]/Pharmacy #2024, [address] [place], [address], 4 16:04:16 Patient TargetsNo targets recorded. Patient InstructionsNo instructions recorded. Reason for Referral Lymphedema Consult for Lymph edema of lower extremity severe LE bilaterally and lymphedema Referring Physician: Ubaldo Martínez, Internal Medicine, Encounter Date: 10/09/2024 Vascular Surgeon Referral fo r Edema of lower extremity previous patient, having severe swelling of his L extremities Referring Physician: Ubaldo Martínez, Internal Medicine, Encounter Date: 10/24/2024 Results Created Date Observation Date Name Description Value Unit Range Abnormal Flag Note LastModifiedBy Organization Detail LastModifiedTime 12/13/1912/09/2022 CT, angio gram, chest , w/wo contr ast No observ ation record ed. [facility] (Medical Records) [address] [place], [address], 12/13/2022 13:39:00 12/13/19 23 12/09/2022 CT, angio gram, chest , w/wo contr ast No observ ation record ed. [facility] (Medical Records) [address] [place], [address], 12/13/2022 13:59:17 01/15/20 23 01/06/2023 US, abdom inal aorta No observ ation record ed. [facility] - [address], [place], [address], 01/14/2023 11:31:29 10/14/20 24 10/12/2024 US, echoc ardio gram No observ ation record ed. [facility] (Medical Records) [address] [place], [address], 10/15/2024 11:38:26 12/03/19 25 10/12/2024 CT, chest , w/o contr ast No observ ation record ed. [facility] (Medical Records) [address] [place], [address], 12/03/2024 15:24:21 Result Notes None recorded. Problems Name Problem SNOMED Code Status Onset Date Resolution Date Notes Provider Name and Address Organization Details Recorded Time Hypothyr oidism 91304350 Active 2019 HARSH MUHAMMAD [address] [place], [address], [facility] 0 09:49:20 Venous stasis edema of bilatera l lower limbs 91316066899 814561 Active 2020 HARSH MUHAMMAD [address] [place], [address], [facility] 1 12:11:22 Abdomina l aortic aneurysm 010585457 Active 2021 HARSH MUHAMMAD [address] [place], [address], [facility] 2 16:16:46 Edema of lower extremit y 184913011 Active 2021 HARSH MUHAMMAD [address] [place], [address], [place] [facility] 2 16:24:25 Chronic sinusiti s 09121719 Active 2021 HARSH MUHAMMAD [address] [place], [address], [facility] 2 16:33:24 COVID-19 292427627 Active 2021 HARSH MUHAMMAD [address] [place], [address], [facility] 2 08:42:21 Obstruct anurag sleep apnea syndrome 36780212 Active 2022 HARSH MUHAMMAD [address] [place], [address], [facility] 3 15:37:17 Pulmonar y embolism 25097312 Active 2022 HARSH MUHAMMAD [address] [place] [address], [address], [facility] 3 15:40:40 Hyperkal emia 81942711 Active 2022 HARSH MUHAMMAD [address] [place] [address], [address], [facility] 3 15:46:19 Dyspnea 266675508 Active 2022 HARSH MUHAMMAD [address] [place] [address], [address], [facility] 3 09:35:39 Type 2 diabetes mellitus 51581685 Active 2022 dx'd in ER [facility] [place] [facility] 3 11:41:00 Allergic rhinitis 68539640 Active 2022 HARSH MUHAMMAD [address] [place], [address], [facility] 3 12:31:24 Acute bronchit is 58698525 Active 2023 HARSH MUHAMMAD [address] [place], [address], [facility] 4 10:32:11 Hyperlip idemia 25525418 Active 2023 HARSH MUHAMMAD [address] [place], [address], [facility] 4 10:56:12 Cellulit is of lower leg 485469949 Active 2023 HARSH MUHAMMAD [address] [place], [address], [facility] 4 15:50:51 Lymphede ma of lower extremit y 655435666 Active 2023 HARSH MUHAMMAD [address] [place], [address], [facility] 4 15:53:36 Stasis dermatit is of lower limb due to chronic peripher al venous hyperten pham 909154583 Active 2023 HARSH MUHAMMAD [address] [place], [address], [facility] 4 14:01:58 Asthma 444858235 Active 2024 HARSH MUHAMMAD [address] [place], [address], [facility] 5 15:24:52 Acute sinusiti s 67645628 Active 2024 HARSH MUHAMMAD [address] [place], [address], [facility] 5 11:09:26 Acute exacerba tion of chronic obstruct anurag pulmonar y disease 679969501 Active 2024 HARSH MUHAMMAD [address] [place], [address], [facility] 5 09:06:40 Congesti ve heart failure 57725816 Active 2024 HARSH MUHAMMAD [address] [place], [address], [facility] 5 09:06:59 Chronic hypoxemi c respirat ory failure 091632863 Active 2024 HARSH MUHAMMAD [address] [place], [address], [facility] 5 09:07:13 Essvita l hyperten pham 85863084 Active 2024 HARSH MUHAMMAD [address] [place], [address], [facility] 5 09:29:23 Stented coronary artery 255092136 Active 2017 Asiya Segura NP, S [address] [place] [address], [address], [facility] 8 08:53:20 Chronic obstruct anurag pulmonar y disease 60182865 Active 2017 Asiya Segura NP, Kory [address] [place] [address], [address], [facility] 8 08:54:03 Atrial fibrilla tion 37031568 Active 2017 Asiya Segura NP, S [address] [place] [address], [address], [facility] 8 08:54:43 Acute non-ST segment elevatio n myocardi al infarcti on 559983437 Completed 201704/20/2018 Asiya Segura NP, S [address] [place] [address], [address], [facility] 8 09:04:24 Sleep apnea 14817094 Active 2017 Asiya Segura NP, S [address] [place] [address], [address], [facility] 8 09:19:12 Notes:s/p STEMI 11/2015 Problem Notes None recorded. Procedures Surgical History Date Name Laterality Status Provider Name and Address Organization Details Recorded Time Tonsillectomy completed Asiya senior NP, S [address] [place] [address], [address], [facility] 04/20/2018 09:00:14 Imaging Results Imaging Date Name Status LastModified by Organization Details LastModified Time 12/09/2022 CT, angiogram, chest, w/wo contrast completed [facility] (Medical Records) [address] [place], [address], 12/13/2022 13:39:00 12/09/2022 CT, angiogram, chest, w/wo contrast completed [facility] (Medical Records) [address] [place] [address], [address], 12/13/2022 13:59:17 01/06/2023 US, abdominal aorta completed [facility] - [address], [address], 01/14/2023 11:31:29 10/12/2024 US, echocardiogram completed [facility] (Medical Records) [address] [place] [address], [address], 10/15/2024 11:38:26 10/12/2024 CT, chest, w/o contrast completed [facility] (Medical Records) [address] [place] [address], [address], 12/03/2024 15:24:21 Procedure Notes None recorded. Medical Equipment None Reported. Allergies Allergen ID Allergen Name Allergen Category Reaction Reaction Severity Criticality Documentation Date Start Date Code Code System Note Provider Name and Address Organization Details Recorded Time 844 Product containin g penicilli n (product) medicatio n Not available Not available Not available 02/13/2018 50917 8001 SNFELIPA bill [facility] 8 11:48:11 Medications Name Sig Start Date Stop Date Status Note LastModified by Organization Details LastModified Time pulse oximeter leader USE DIRECTED active Not Available Not Available No t Available losartan 50 mg tablet TAKE 1 TABLET BY MOUTH EVERY DAY 11/15 completed Not Available Not Available Not Available furosemide 40 mg tablet TAKE 1 TABLET BY MOUTH EVERY DAY 10/24 completed Not Available Not Available Not Available budesonide 32 mcg/actuati on nasal spray SHAKE LIQUID AND USE 1 SPRAY IN EACH NOSTRIL EVERY DAY 01/07 completed Not Available Not Available Not Available atorvastati n 40 mg tablet TAKE 1 TABLET BY MOUTH EVERY DAY DIRECTED active Not Available Not Available No t Available metformin 500 mg tablet TAKE 1 TABLET BY MOUTH TWICE A DAY active Not Available Not Available No t Available potassium chloride ER 10 mEq capsule,ext ended release TAKE 1 CAPSULE BY MOUTH EVERY DAY 03/29 completed Not Available Not Available Not Available prednisone 10 mg tablet 60 mg x 2 days50 mg x 2 days40 mg x 2 days30 mg x 2 days20 mg x 2 days10 mg x 2 days 10/24 completed Not Available Not Available Not Available doxycycline hyclate 100 mg capsule Take 1 capsule twice a day by oral route. 03/07 completed Not Available Not Available Not Available torsemide 20 mg tablet TAKE 2 TABLETS BY MOUTH TWICE A DAY ORALLY DAILY 90 DAYS active Not Available Not Available No [...] % lotion APPLY TO LEGS ONCE DAILY 01/07 completed Not Available Not Available Not Available azithromyci n 250 mg tablet TAKE 2 TABLETS BY MOUTH TODAY, THEN TAKE 1 TABLET DAILY FOR 4 DAYS DIRECTED 01/07 completed Not Available Not Available Not Available metoprolol tartrate 100 mg tablet TAKE 1 TABLET BY MOUTH TWICE DAILY 04/16 completed Not Available Not Available Not Available amiodarone 200 mg tablet TAKE 2 TABLETS BY MOUTH TWO TIMES A DAY FOR 5 DOSES THEN TAKE 1 TABLET BY MOUTH ONCE DAILY active Not Available Not Available No t Available metoprolol succinate ER 50 mg tablet,exte nded release 24 hr Take 1 tablet every day by oral route for 90 days. 01/07 completed Not Available Not Available Not Available Coreg 6.25 mg tablet Take 1 tablet twice a day by oral route. 03/01 completed Not Available Not Available Not Available glipizide ER 10 mg tablet, extended release 24 hr TAKE 1 TABLET BY MOUTH EVERY DAY FOR 30 DAYS active Not Available Not Available No t Available FreeStyle Lancets 28 gauge USE TO TEST BLOOD SUGAR FOUR TIMES DAILY OR DIRECTED 2022 active Not Available Not Available Not Avai lable prednisone 20 mg tablet TAKE 2 TABLETS BY MOUTH ONCE 11/15 completed Not Available Not Available Not Available metoprolol succinate ER 100 mg tablet,exte nded release 24 hr TAKE 1 TABLET BY MOUTH EVERY DAY DIRECTED active Not Available Not Available No t Available glipizide ER 5 mg tablet, extended release 24 hr TAKE 1 TABLET DAILY 01/07 completed Not Available Not Available Not Available clindamycin HCl 150 mg capsule 10/22 [...] Not Available Not Available No t Available spironolact one 25 mg tablet Take 1 tablet every day by oral route for 30 days. 11/16 completed Not Available Not Available Not Available levothyroxi ne 75 mcg tablet TAKE 1 TABLET BY MOUTH EVERY DAY 02/25 completed Not Available Not Available Not Available levothyroxi ne 100 mcg tablet TAKE 1 TABLET BY MOUTH EVERY DAY 01/07 completed Not Available Not Available Not Available terbinafine HCl 250 mg tablet TAKE 1 TABLET BY MOUTH EVERY DAY FOR 30 DAYS active Not Available Not Available No [...] completed Not Available Not Available Not Available cephalexin 500 mg capsule Take 1 capsule every 6 hours by oral route for 10 days. 01/07 completed Not Available Not Available Not Available losartan 25 mg tablet TAKE 1 TABLET BY MOUTH DAILY 08/28 completed Not Available Not Available Not Available budesonide 0.5 mg/2 mL suspension for nebulizatio n USE 2 ML VIA NEBULIZER TWICE DAILY active Not Available Not Available No t Available diltiazem CD 120 mg capsule,ext ended release 24 hr TAKE 1 CAPSULE DAILY 01/07 completed Not Available Not Available Not Available codeine 10 mg-guaifene sin 100 mg/5 mL oral liquid TAKE 10 ML BY MOUTH EVERY 4 HOURS NEEDED FOR 7 DAYS *NOT COVERED* 01/07 completed Not Available Not Available Not Available alcohol swabs USE 1 PAD TOPICALLY FOUR TIMES DAILY BEFORE MEALS AND BEDTIME 01/07 completed Not Available Not Available Not Available clobetasol 0.05 % topical ointment APPLY TO THE LEG TWICE DAILY FOR 3 WEEKS 01/07 completed Not Available Not Available Not Available ibuprofen 600 mg tablet TAKE 1 [...] DAY FOR A TOTAL OF 6 DAYS 10/24 completed Not Available Not Available Not Available albuterol sulfate HFA 90 mcg/actuati on aerosol inhaler INHALE 1 PUFF BY MOUTH EVERY DAY NEEDED active Not Available Not Available No t Available doxycycline hyclate 100 mg tablet Take 1 tablet twice a day by oral route for 14 days. 10/24 completed Not Available Not Available Not Available Hibiclens 4 % topical liquid Apply 1 applicati on every day by topical route for 30 days. 01/07 completed Not Available Not Available Not Available spironolact one 50 mg tablet Take 1 tablet(s) every day by oral route for 30 days. 2024 active Not Available Not Available Not Avai lable levothyroxi ne 112 mcg tablet TAKE 1 TABLET BY MOUTH EVERY DAY active Not Available Not Available No t Available amoxicillin 875 mg-potassiu m clavulanate 125 mg tablet TAKE 1 TABLET BY MOUTH EVERY 12 HOURS FOR 4 DAYS 2024 active Not Available Not Available Not Avai lable oxycodone 5 mg tablet TAKE 1 TABLET [...] completed Not Available Not Available Not Available Farxiga 10 mg tablet TAKE 1 TABLET BY MOUTH EVERY DAY 01/07 completed Not Available Not Available Not Available metoprolol tartrate 75 mg tablet Take 1 tablet twice a day by oral route. 03/10 completed Not Available Not Available Not Available metoprolol succinate ER 100 mg capsule sprinkle, ext. release 24 hr Take 1 capsule every day by oral route. 01/22 completed Not Available Not Available Not Available [...] Updated DateTime 3 185.42 cm 50.7 kg/m2 889207. 47 g 94 % 94 % 70 /min 100 mm[Hg] 58 mm[Hg] Patricia Higgins [facility] 3 15:17:30 Date Recorded Body height Body mass index (BMI) Body weight Heart rate Oxygen saturation Oxygen saturation in Arterial blood by Pulse oximetry Systolic blood pressure Diastolic blood pressure Provider Name and Address Organization Details Last Updated DateTime 4 185.42 cm 50.1 kg/m2 006228. 1 g 103 /min 93 % 93 % 140 mm[Hg] 80 mm[Hg] [facility] 4 15:48:40 Date Recorded Body height Body mass index (BMI) Body weight Heart rate Oxygen saturation Oxygen saturation in Arterial blood by Pulse oximetry Systolic blood pressure Diastolic blood pressure Provider Name and Address Organization Details Last Updated DateTime 4 185.42 cm 50.5 kg/m2 475597. 88 g 94 /min 94 % 94 % 138 mm[Hg] 70 mm[Hg] Haleigh [facility] [place] 4 15:26:23 Date Recorded Body height Body mass index (BMI) Body weight Heart rate Oxygen saturation Oxygen saturation in Arterial blood by Pulse oximetry Systolic blood pressure Diastolic blood pressure Provider Name and Address Organization Details Last Updated DateTime 4 185.42 cm 50.5 kg/m2 521783. 88 g 102 /min 93 % 93 % 100 mm[Hg] 60 mm[Hg] Haleigh Hidalgomond [facility] 4 13:56:40 Date Recorded Body height Body mass index (BMI) Body weight Heart rate Oxygen saturation Oxygen saturation in Arterial blood by Pulse oximetry Systolic blood pressure Diastolic blood pressure Provider Name and Address Organization Details Last Updated DateTime 5 185.42 cm 47.5 kg/m2 715083. 25 g 58 /min 95 % 95 % 118 mm[Hg] 74 mm[Hg] Nohemy Kohler [facility] 5 15:16:48 Social History Question Answer Notes LastModified by Organizat ion Details LastModified Time Tobacco Smoking Status Current Every Day Smoker Stephanie bill [facility] 10/22/2022 15:58:58 What Was The Date Of Your Most Recent Tobacco Screening? 01/07/2025 [email or web address] Information not available 01/07/2025 How Much Tobacco Do You Smoke? 0.25 PPD [email or web address] Information not available 10/22/2022 Do You Or Have You Ever Used Any Other Forms Of Tobacco Or Nicotine? No [email or web address] Information not available 10/09/2024 Sex: Unknown Functional [...] mcg/0.5 mL dose 01/07/2021 completed Patricia bill [facility] 11/15/2022 11:11:45 COVID-19, mRNA, LNP-S, PF, 50 mcg/0.5 mL dose 02/04/2021 janeen bill [facility] [place] 11/15/2022 11:11:52 COVID-19, mRNA, LNP-S, PF, 50 mcg/0.5 mL dose 09/17/2021 completed Patricia bill [facility] 11/15/2022 11:11:59 Tdap 11/07/2009 completed Not Available [facility] 09/21/2022 22:19:34 Past Encounters Encounter ID Performer Location Encounter Start Date Encounter Closed Date Diagnosis/Indication Diagnosis SNOMED-CT Code Diagnosis ICD10 Code Diagnosis Note [id number] Asiya Segura NP, [facility] [address] [facility],[place] [address] 02/13/2018 11:41:19 02/13/2018 17:13:46 Acute exacerbation of chronic obstructive pulmonary disease 446018009 J44.1 o2 sat 93 %, to come to office for PA visit for sat recheck Saturday 02/17 Atrial fibrillation 4943 6004 I48.91 nml sinus rhythm, cont. metoprolol Acute sinusitis 51876074 J01.90 see COPD instructio ns, rest [id number] Kojo Hou DO [facility] [address] [place] [address],[place] [address] 02/17/2018 09:27:29 02/17/2018 10:13:38 Acute sinusitis 73597393 J01.90 [id number] Asiya Segura NP, [address],[place] [address] 03/01/2018 09:23:55 03/01/2018 11:47:57 Atrial fibrillation 83260947 I48.91 nml sinus rhythm, cont. metoprolol , f/u with Dr. Dutch carney as scheduled Hypothyroidism 73501060 E03.9 to recheck TSH with Free t4, TSHwas elevated in ER labs. continue levothyrox ine Obstructiv e sleep apnea syndrome 59461629 G47.33 continue use CPAP, f/u Dr. Harper prn Hypercholesterolemia 136 63982 E78.00 recheck profile, consider /discussed Crestor Coronary arteriosclerosis in capitan grande band artery 3827091149 107 I25.10 exercise as zeinab [id number] Asiya Segura NP, [facility] [address] [facility],[place] [address] 04/18/2018 09:48:44 04/18/2018 10:37:32 Local infection of wound 57041217 T14.90XA cleansed, wrapped with ricardo after bacitacin and telfa applied [id number] Asiya Segura NP, [facility] [address] [facility] [place] [address] 04/21/2018 08:51:19 04/21/2018 09:38:34 Impaired fasting glycemia 994501479 R73.01 Screening procedure 2012 5006 Z13.9 Open wound of lower limb 25222867 S81.802D improving, call if problems Sleep apnea 64288395 G47 .30 stable Coronary arteriosclerosis 87116161 I25.10 stable Atrial fibrillation 4943 6004 I48.91 nml sinus rhythm, cont. metoprolol , saw Dr. Dutch carney , no changes [id number] Asiya Segura NP, [facility] [address] [facility] [place] [address] 05/02/2018 08:55:20 05/02/2018 11:48:20 Acute bronchitis 52686100 J20.9 f/u Tuesday in office Open wound of lower limb 22914773 S81.802D Hypothyroidism 36497917 E03.9 to recheck TSH with Free t4, meds increased in February Impaired f asting glycemia 180658901 R73.01 no clinical diagnosis NIDDM Hypercholesterolemia 136 63885 E78.00 recheck profile, Screening procedure 2012 5006 Z13.9 [id number] Asiya Segura NP, [facility] [address] [facility] [place] [address] 05/05/2018 10:00:05 05/05/2018 11:16:11 Hypercholesterolemia 87748186 E78.00 increase crestor 10 mg Hypothyroidism 53010664 E03.9 TSH > 7, increase levothyrox ine to 88 mcg, recheck 6 weeks Acute bronchitis 9034064 2 J20.9 await CXR, not read yet, done C continue prednisone & abx Obstructiv e sleep apnea syndrome 34121143 G47.33 f/u Dr. Costello prn, try more compliance Paroxysmal atrial fibrillation 857823506 I48.0 RRR Infection of tooth 44874 8007 K04.7 to f/u with dentist, have forms to complete, call out to dentist- do they need to use anesthetic with epinephrin e [id number] Asiya Segura NP, S [facility] [address] [facility] [place] [place] [address] 05/09/2018 09:01:14 05/09/2018 11:37:20 Dyspnea on exertion [id number] R06.09 r/o PE sent to [facility] [place] [id number] HARSH MUHAMMAD [facility] [address] [facility] on [place] [address] 03/07/2020 14:10:16 03/07/2020 15:08:27 Atrial fibrillation 02107453 I48.91 stable Hypothyroidism 48803456 E03.9 will check and determine if he needs medication Edema of l ower extremity 901281980 R60.0 will recheck in one week Essential hypertension 18790591 I10 BP 130/80, doing well [id number] HARSH MUHAMMAD [facility] [address] [facility],[place] [address] 03/14/2020 11:38:12 03/14/2020 12:19:25 Atrial fibrillation 72922292 I48.91 stable Edema of l ower extremity 802942240 R60.0 will recheck in one week via phone call to pt with update will discuss possibly increasing lasix dose [id number] HARSH MUHAMMAD [facility] [address] [facility] on [address] [address] 04/16/2020 09:54:29 04/16/2020 10:49:38 Chronic obstructive pulmonary disease 63418332 J44.9 would like to try another inhaler for his COPD Edema of l ower extremity 054034203 R60.0 will increase lasix dosage to 80 mg and see if he can continue to get water weight off has f/u with cardiologi st in a month last cardiologi st note reported edema from being due to venous insufficen cy vs.right heart failure > has a long hx of edema will still check his TSH later to see if it has adjusted Skin tag [id number] L91.8 referral [id number] HARSH MUHAMMAD [facility] [address] [facility] on [place], [place] [address] 03/10/2021 09:39:34 03/10/2021 15:36:03 Hypothyroidism 97080574 E03.9 recent labs, medication changed appropriat blu Chronic ob structive pulmonary disease 82964383 J44.9 will try neb Chronic sinusitis 689899 00 J32.9 will fu with XR sinuses [id number] [facility] [address] [facility], it[place] [facility] [place] [address] 10/22/2022 15:40:28 10/22/2022 16:47:37 Hypothyroidism 72381671 E03.8 recent labs, medication changed appropriat blu Chronic ob structive pulmonary disease 53688554 J44.9 will try nebulizer Atrial fibrillation 4943 6004 I48.11 adrian start on xarelto since he has never been on a blood thinner and his risk score is high for a cardiovasc ular event Advance care planning 71 3298909 Z71.89 advised Abdominal aortic aneurysm 424622217 I71.40 declined Active or passive immunization 110488746 Z23 patient advised he is due for flu shot, tdap, pneu & shingles Edema of l ower extremity 908756188 R60.0 will set up with a vascular surgeon Chronic sinusitis 322049 00 J32.0 will trial a spray [id number] HARSH MUHAMMAD [facility] [address] [facility] on [place], ite [facility] [place] [address] 11/15/2022 14:49:58 11/15/2022 16:00:15 Obstructive sleep apnea syndrome 87261853 G47.33 will resubmit CPAP supplies Pulmonary embolism 90477 003 I26.99 will recheck lungs in one mos Edema of l ower extremity 350020856 R60.0 will set up with a vascular surgeon on Tuesday (10 am) Hyperkalemia 49750537 E8 7.5 will recheck levels [id number] Meghan Zepeda [facility] [address] [facility],[place] [address] 10/09/2024 15:41:10 10/09/2024 16:23:20 Edema of lower extremity 922717956 R60.0 recommende d vascular referralst art on diuretic Cellulitis of lower leg 267275659 L03.115 will start on doxy for the infection Lymphedema of lower extremity 690497868 I89.0 will set up with lymp consult Dyspnea 200840845 R06.[address] wo [id number] [facility] [address] [facility],[place] [address] 10/24/2024 15:17:57 10/24/2024 16:32:34 Edema of lower extremity 102457308 R60.0 recommende d vascular referralst art on diuretic Lymphedema of lower extremity 662126121 I89.0 new referral sent in for a new vascular surgeon [id number] HARSH MUHAMMAD [facility] [address] [facility],[place] [address] 11/05/2024 13:48:44 11/05/2024 14:23:31 Edema of lower extremity 195189479 R60.0 has his appt for the clinic on 12/03 Stasis padma matitis of lower limb due to chronic peripheral venous hypertension 255483033 I87.399 start keflex and terbinafin e for the risk of infection [id number] HARSH MUHAMMAD [facility] [address] [facility],[place] [address] 01/07/2025 14:47:36 01/07/2025 16:10:00 Depression screening 131752320 Z13.31 Acute exac erbation of chronic obstructive pulmonary disease 919141414 J44.1 resolved Congestive heart failure 80022757 I50.21 stable Chronic hy poxemic respiratory failure 391774890 J96.11 resolved Edema of l ower extremity 491146602 R60.0 has fu with them coming up Atrial fibrillation 1756 6004 I48.11 stablewill start on xarelto since he has never been on a blood thinner and his risk score is high for a cardiovasc ular event Type 2 juan betes mellitus 33703954 E11.9 currently on the Hypothyroidism 27190323 E03.8 recent labs, medication changed appropriat blu Health Concerns Section Related Observation LastModified by Organization Detai ls LastModified Time None Recorded Concern Status LastModified by Organization Details LastModified Time None Recorded Advance Directives Directive None Recorded Payers Encounter Date Sequence Insurance Name Policy Number Policy Jasso Covered Member ID Jasso Member ID Guarantor Name 11/15/2022 2 [employer] OPT[employer] (MEDICARE SUPPLEMENT) Rudy Mathias [id number] Rudy Mathias 11/15/2022 1 [place] [facility] Rudy Mathias [id number] Rudy Mathias 10/09/2024 2 [employer] OPTIONS (MEDICARE SUPPLEMENT) Rudy Mathias [id number] Rudy Mathias 10/09/2024 1 [place] [facility] Rudy Mathias [id number] Rudy Mathias 10/24/2024 2 [employer] OPTIONS (MEDICARE SUPPLEMENT) Rudy Mathias [id number] Rudy Mathias 10/24/2024 1 [place] [facility] Rudy Mathias [id number] Rudy Mathias 11/05/2024 2 [employer] OPTIONS (MEDICARE SUPPLEMENT) Rudy Mathias [id number] Rudy Mathias 11/05/2024 1 [place] [facility] Rudy Mathias [id number] Rudy Mathias 01/07/2025 2 [employer] OPTIONS (MEDICARE SUPPLEMENT) Rudy Mathias [id number] Rudy Mathias 01/07/2025 1 [place] [facility] Rudy Mathias [id number] Rudy Mathias Notes Date Note Type Note Provider Name and Address Organization Details Recorded Time 3 text/htm l hospital fu PE due to COVID-19d/c on [...] vascular on Tuesday will recheck his levels UBALDO TRYBA, [facility] [address] [place], [address], [facility] 11/15/2022 15:59:38 4 text/htm l LE edema bilateral the patient is having severe LE and lymphedemathe patient will need to restart water pill and start on abx as well for the tissue break down, signs of infection recommend CT and echo for lungs and heart due to the significant swelling of LE hx of [place] and PEwill need fu with cardio and vascular will hold on compression stockingscannot get them onsuggested wraps right now HARSH MUHAMMAD [address] [place], [address], [facility] 10/09/2024 16:11:03 4 text/htm l f/u 2 week check the patient reports that he is having purulent discharge from his legsfrom the swellingchanged a referral to the vascular surgeon start on hibiclens and the spironolactone with the torsemide to continue to get the fluid offwaiting on his CTecho showed his afib HARSH MUHAMMAD [address] [place], [address], [facility] [place] 10/24/2024 16:06:30 4 text/htm l f/u will increase 50 mg of the spironolactonewill continue the torsemide, he cannot go up on it due to how much he is already urinating on it a lot and has difficulties as it isspironolactone didn't cause as many issues with the urination the patient got his CT and BW, no results back from [facility], will call to request the restarts continue on other medications as prescribedwill fu with patient after the results HARSH MUHAMMAD [address] [place], [address], [facility] 11/05/2024 14:22:31 5 text/htm l hospital d/c HOSPITAL COURSE: patient was admitted to hospital due to severe COPD exacerbation causing acute respiratory hypoxic failure in the setting of worsened atrial fibrillation with RVRpatient currently on metoprolol and diltiazem, diltiazem was started a few months ago due to noting him being in recurrent afib and noted on recent echopatient has been encouraged to fu with both his home lighting adviser and his vascular surgeon, patient is non compliant with routine fu in office, presents with acute complications to his chronic conditions was given diltiazem drip, ceftriaxone and azithromycinadmitted to hospital, info past the admission note was not sent to officewill have to confirm if meds were changed and if he has a fu with cardiology TODAY:reviewed his medication listfinish out out his course of the augmentin recheck levels in one month fu with cardio and cont with vascular HARSH MUHAMMAD [address] [facility], [place], [address], [facility] 01/07/2025 15:40:55
== END 2025-02-12 15:53 | disposition home or self-care (01) ==
LOC: HO.HCS 15:16
PROVIDERS: PCP Internal Medicine; Visit Provider Internal Medicine
DX: I48.19 Other persistent atrial fibrillation (principal); I50.32 Chronic diastolic (congestive) heart failure; I25.10 Atherosclerotic heart disease of native coronary artery without angina pectoris; I10 Essential (primary) hypertension; E78.2 Mixed hyperlipidemia; G47.33 Obstructive sleep apnea (adult) (pediatric); E66.01 Morbid (severe) obesity due to excess calories
CPT/HCPCS: 93010; 99214; G2211

== ENCOUNTER → 2025-02-12 15:15 | Outpatient (BNVA) | payer MEDICARE, SELFPAY | PROVIDERS: PCP Internal Medicine; Visit Provider Internal Medicine | DX: I11.0 Hypertensive heart disease with heart failure (principal); I50.32 Chronic diastolic (congestive) heart failure; I48.19 Other persistent atrial fibrillation; I25.10 Atherosclerotic heart disease of native coronary artery without angina pectoris; E78.2 Mixed hyperlipidemia; G47.33 Obstructive sleep apnea (adult) (pediatric); E66.01 Morbid (severe) obesity due to excess calories; Z68.42 Body mass index [BMI] 45.0-49.9, adult | CPT/HCPCS: 93005; 99212 ==

== ENCOUNTER → 2025-02-18 12:43 | Outpatient (REF) | payer MEDICARE, SELFPAY ==
[2025-02-18 14:18] LABS: Basophils Absolute Auto 0.1 X10*3/uL (0.0-0.2); Basophils Percent Auto 0.8 % (0-2); Eosinophils Absolute Auto 0.3 X10*3/uL (0.0-0.4); Eosinophils Percent Auto 3.8 % (0-4); Hematocrit 48.7 % (42.0-52.0); Hemoglobin 15.6 g/dl (14.0-18.0); Imm Gran Abs Auto 0.01 X10*3/uL (0.00-0.03); Imm Gran Pct Auto 0.1 % (0.0-0.4); Lymphocytes Absolute Auto 1.7 X10*3/uL (1.2-4.9); Lymphocytes Percent Auto 23.2 % (20-40); MANUAL DIFF FLAG SCAN; Mean Corpuscular Hemoglobin 31.5 pg (27.0-33.0); Mean Corpuscular Volume 98.2 fL (80.0-98.0); Monocytes Absolute Auto 0.9 X10*3/uL (0.1-1.2); Monocytes Percent Auto 12.4 % (2-11); Neutrophils Absolute Auto 4.4 x10*3/uL (2.0-8.3); Neutrophils Percent Auto 59.7 % (45-73); PLT CLUMP 1; Red Blood Count 4.96 X10*6/uL (4.60-5.80); SCAN SMEAR FLAG 1
[2025-02-18 14:20] LABS: Estimated Average Glucose 151 mg/dL; Hemoglobin A1C 209.2939 umol/L; Hemoglobin A1c % 6.9 % (<6.0); Total Hemoglobin (HGBA1C) 4069.1467 umol/L
[2025-02-18 14:21] LABS: White Blood Count 7.4 X10*3/uL (4.8-10.8)
[2025-02-18 14:29] LABS: Alanine Aminotransferase 18 U/L (0-40); Alkaline Phosphatase 73 U/L (39-117); Anion Gap 9 (12-20); Aspartate Amino Transferase 21 U/L (5-37); Bilirubin Total 0.7 mg/dL (0.0-1.0); Blood Urea Nitrogen 19 mg/dL (9-16); Calcium 9.7 mg/dL (8.4-10.2); Carbon Dioxide 37 mmol/L (22-29); Chloride 104 mmol/L (96-108); Estimated Glomerular Filt Rate > 60; Glucose Random 88 mg/dL (60-115); Potassium 4.6 mmol/L (3.3-5.1); Sodium 145 mmol/L (135-145); Total Protein 6.6 g/dL (6.5-8.0)
--- OUTSIDE RECORDS SUMMARY | 2025-02-18 14:36 | XMS_ITS | Data Portability ---
Author Organization [facility] Address [address] [place] [address] Assessment No assessment recorded. Plan of Treatment Reminders Order Date Submit Date Provider Last Modified By Organization Details Last Modified Time Details Appointments None recorded. Lab None recorded. Referral None recorded. Procedures None recorded. Surgeries None recorded. Imaging None recorded. Medication Orders cyclobenzap rine 10 mg tablet 2010 011 [facility] #[id number], [address], [place], [id number], 3 05:17:00 ibuprofen 600 mg tablet 2010 011 [id number], [address], [place], [id number], 3 04:58:16 Patient TargetsNo targets recorded. Patient InstructionsNo instructions recorded. Reason for Referral None Reported. Procedures Surgical History Date Name Laterality Status Provider Name and Address Organization Details Recorded Time Tonsillectomy completed Not Available [facility] 09/23/2011 06:06:16 Imaging Results None recorded. Procedure Notes None recorded. Medical Equipment None Reported. Allergies Allergen ID Allergen Name Allergen Category Reaction Reaction Severity Criticality Documentation Date Start Date Code Code System Note Provider Name and Address Organization Details Recorded Time 67582 Product containin g penicilli n (product) medicatio n Not available Not available Not available 04/27/2011 95195 8001 SNOMED Not Available [facility] 1 06:05:41 Medications Name Sig Start Date [...] Details Last Updated DateTime 1 182.245 cm 260589. 127712 g 45.2 kg/m2 76 /min 120 mm[Hg] 88 mm[Hg] Charla Kelly CMA [facility] 1 11:46:08 Social History Question Answer Notes LastModified by Organizat ion Details LastModified Time Tobacco Smoking Status Current Every Day Smoker 1 ppd [facility] 04/27/2011 11:40:35 Live Alone Or With Others? [...] Details LastModified Time Mother Dementia 72 [id number] [id number] Not available 06/18/2013 03:01:15 Mother Heart disease CHF [email or web address] [id number] Not available 06/18/2013 03:01:15 Father Malignant neoplastic disease 58 hairy cell leukem ia (previ ously record ed as Cancer ) [email or web address] [id number] Not available 06/18/2013 03:01:15 Father Heart disease CABG age 75 [email or web address] 11166 Not available 06/18/2013 03:01:15 Maternal Aunt Malignant neoplastic disease ; primar y site unknow n (previ ously record ed as Cancer ) [email or web address] 13544 Not available 06/18/2013 03:01:15 Medical History Condition Response Obesity Y Osteoarthritis Y Lyme Disease Y Immunizations Vaccine Type Date Status Note Provider Nam e and Address Organization Details Recorded Time Td (adult) 11/07/2009 completed Not Available [facility] 09/22/2011 05:22:52 Past Encounters Encounter ID Performer Location Encounter Start Date Encounter Closed Date Diagnosis/Indication Diagnosis SNOMED-CT Code Diagnosis ICD10 Code Diagnosis Note [id number] , [facility], OFFICE [address] [place] [address] 04/27/2011 11:30:30 04/28/2011 13:49:16 Health Concerns Section Related Observation LastModified by Organization Detai ls LastModified Time None Recorded Concern Status LastModified by Organization Details LastModified Time None Recorded Advance Directives Directive None Recorded Payers Encounter Date Sequence Insurance Name Policy Number Policy Jasso Covered Member ID Jasso Member ID Guarantor Name 04/27/2011 1 [facility] PLAN - NAVIGATOR (PPO) [id number] Rudy Mathias [id number] Rudy Mathias Notes Date Note Type Note Provider Name and Address Organization Details Recorded Time 04/27/2011 text/html Pt is here to get established, former pt of Dr. Hernandez. Sx as above; pain has been worsening since mowing incident. Hot shower sometimes helps. No fever. Avoids medical care as much as possible. Diana Kenny NP [address] [place] [address], [place], [address], [facility] 05/03/2011 12:36:11
--- OUTSIDE RECORDS SUMMARY | 2025-02-18 14:36 | XMS_ITS | Data Portability ---
Author Organization [facility] Home Service Address [address] [place] [address] Assessment No assessment recorded. Plan of Treatment Reminders Order Date Submit Date Provider Last Modified By Organization Details Last Modified Time Details Appointments None recorded . Lab CMP, serum or plasma 2024 025 [facility], [address] [place] [address], [address], 5 15:39:50 hemoglob in A1c, QN, blood 2024 025 [facility], [address] [place] [address], [address], 5 15:39:50 CBC w/ auto diff 2024 025 [facility], [address] [place] [address], [address], 5 15:39:50 TSH + free T4, serum 2024 025 [facility], [address] [place] [address], [address], 5 15:39:50 CMP, serum or plasma 2023 024 [facility], [address] [place] [address], [address], 4 14:47:11 CBC w/ auto diff 2023 024 [facility], [address] [place] [address], [address], 4 16:15:32 ESR (erythro cyte sediment ation rate), blood 2023 024 [facility], [address] [place] [address], [address], 4 16:15:32 C reactive protein, QN, serum or plasma 2023 024 [facility], [address] [place] [address], [address], 4 16:15:32 pro BNP (pro B-type natriure tic peptide) , serum or plasma 2023 024 [facility], [address] [place] [address], [address], 4 16:15:32 CMP, serum or plasma 2022 023 [facility], [address] [place] [address], [address], 3 11:55:02 Referral vascular surgeon referral 2023 024 [facility], [address] [place] [address], [address], 4 08:07:19 lymphede ma consult 2023 024 [facility], [address] [facility] [address], [place], [address], 4 08:58:36 Procedures None recorded . Surgeries None recorded . Imaging CT, chest, w/o contrast 2023 024 [facility] Scheduling, [address] [place] [address], [address], 4 08:28:17 US, echocard iogram 2023 024 [facility] Sched[facility], [address] [place], [address], 4 08:28:17 CT, angiogra m, chest, w/wo contrast - needs 1 mo recheck of his lungs for PEProced ure codes: 51996Tgq l Referenc e #: [id number] olution: Complete d on 12/08/19 23 at 03:58 pm. Call ref #[id number]. 2022 023 [facility] Scheduling, [address] [place], [address], 3 08:34:05 Medication Orders metformi n 500 mg tablet 2024 025 [facility]acy #2024, [address] [place], [address], 5 15:35:38 cephalex in 500 mg capsule 2023 025 [facility] #2024, [address] [place], [address], 5 15:25:19 terbinaf ine HCl 250 mg tablet 2023 024 [facility] #2024, [address] [place], [address], 4 14:05:41 spironol actone 50 mg tablet 2023 024 [facility] #2024, [address] [place], [address], 4 14:22:22 Hibiclen s 4 % topical liquid 2023 025 [facility]Pharmacy #5, [address] [place], [address], 5 15:27:52 spironol actone 25 mg tablet 2023 025 [facility]acy #2024, [address] [place], [address], 5 12:19:08 torsemid e 20 mg tablet 2023 024 [facility]Pharmacy #2024, [address] [place], [address], 5 15:29:01 doxycycl ine hyclate 100 mg tablet 2023 024 [facility]acy #2024, [address] [place], [address], 4 16:04:16 Patient TargetsNo targets recorded. Patient [...] contr ast No observ ation record ed. [facility] (Medical Records) [address] [place], [address], 12/13/2022 13:39:00 12/13/19 23 12/09/2022 CT, angio gram, chest , w/wo contr ast No observ ation record ed. [facility] (Medical Records) [address] [place], [address], 12/13/2022 13:59:17 01/15/20 23 01/06/2023 US, abdom inal aorta No observ ation record ed. [facility] - [address], [place], [address], 01/14/2023 11:31:29 10/14/20 24 10/12/2024 US, echoc ardio gram No observ ation record ed. [facility] (Medical Records) [address] [place], [address], 10/15/2024 11:38:26 12/03/19 25 10/12/2024 CT, chest , w/o contr ast No observ ation record ed. [facility] (Medical Records) [address] [place], [address], 12/03/2024 15:24:21 Result Notes None recorded. Problems Name Problem SNOMED Code Status Onset Date Resolution Date Notes Provider Name and Address Organization Details Recorded Time Hypothyr oidism 91940602 Active 2019 HARSH MUHAMMAD [address] [place], [address], [facility] 0 09:49:20 Venous stasis edema of bilatera l lower limbs 45376052281 563954 Active 2020 HARSH MUHAMMAD [address] [place], [address], [facility] 1 12:11:22 Abdomina l aortic aneurysm 015851448 Active 2021 HARSH MUHAMMAD [address] [place], [address], [facility] 2 16:16:46 Edema of lower extremit y 498332123 Active 2021 HARSH MUHAMMAD [address] [place], [address], [place] [facility] 2 16:24:25 Chronic sinusiti s 78276883 Active 2021 HARSH MUHAMMAD [address] [place], [address], [facility] 2 16:33:24 COVID-19 464019169 Active 2021 HARSH MUHAMMAD [address] [place], [address], [facility] 2 08:42:21 Obstruct anurag sleep apnea syndrome 50671803 Active 2022 HARSH MUHAMMAD [address] [place], [address], [facility] 3 15:37:17 Pulmonar y embolism 96424371 Active 2022 HARSH MUHAMMAD [address] [place] [address], [address], [facility] 3 15:40:40 Hyperkal emia 00660901 Active 2022 HARSH MUHAMMAD [address] [place] [address], [address], [facility] 3 15:46:19 Dyspnea 787353068 Active 2022 HARSH MUHAMMAD [address] [place] [address], [address], [facility] 3 09:35:39 Type 2 diabetes mellitus 66752992 Active 2022 dx'd in ER 2 [facility] 3 11:41:00 Allergic rhinitis 23836013 Active 2022 HARSH MUHAMMAD [address] [place], [address], [facility] 3 12:31:24 Acute bronchit is 29558464 Active 2023 HARSH MUHAMMAD [address] [place], [address], [facility] 4 10:32:11 Hyperlip idemia 28463392 Active 2023 HARSH MUHAMMAD [address] [place], [address], [facility] 4 10:56:12 Cellulit is of lower leg 660589130 Active 2023 HARSH MUHAMMAD [address] [place], [address], [facility] 4 15:50:51 Lymphede ma of lower extremit y 903403846 Active 2023 HARSH MUHAMMAD [address] [place], [address], [facility] 4 15:53:36 Stasis dermatit is of lower limb due to chronic peripher al venous hyperten pham 808645806 Active 2023 HARSH MUHAMMAD [address] [place], [address], [facility] 4 14:01:58 Asthma 953468187 Active 2024 HARSH MUHAMMAD [address] [place], [address], [facility] 5 15:24:52 Acute sinusiti s 07813145 Active 2024 HARSH MUHAMMAD [address] [place], [address], [facility] 5 11:09:26 Acute exacerba tion of chronic obstruct anurag pulmonar y disease 709750099 Active 2024 HARSH MUHAMMAD [address] [place], [address], [facility] 5 09:06:40 Congesti ve heart failure 29976603 Active 2024 HARSH MUHAMMAD [address] [place], [address], [facility] 5 09:06:59 Chronic hypoxemi c respirat ory failure 914646964 Active 2024 HARSH MUHAMMAD [address] [place], [address], [facility] 5 09:07:13 Essvita l hyperten pham 36140775 Active 2024 HARSH MUHAMMAD [address] [place], [address], [facility] 5 09:29:23 Stented coronary artery 444583870 Active 2017 Asiya Segura NP, S [address] [place] [address], [address], [facility] 8 08:53:20 Chronic obstruct anurag pulmonar y disease 66865227 Active 2017 Asiya Segura NP, Kory [address] [place] [address], [address], [facility] 8 08:54:03 Atrial fibrilla tion 51258193 Active 2017 Asiya Segura NP, S [address] [place] [address], [address], [facility] 8 08:54:43 Acute non-ST segment elevatio n myocardi al infarcti on 981969709 Completed 201704/20/2018 Asiya Segura NP, S [address] [place] [address], [address], [facility] 8 09:04:24 Sleep apnea 51234285 Active 2017 Asiya Segura NP, S [address] [place] [address], [address], [facility] 8 09:19:12 Notes:s/p STEMI 11/2015 Problem Notes None recorded. Procedures Surgical History Date Name Laterality Status Provider Name and Address Organization Details Recorded Time Tonsillectomy completed Asiya senior NP, S [address] [place] [address], [address], [facility] 04/20/2018 09:00:14 Imaging Results Imaging Date Name Status LastModified by Organization Details LastModified Time 12/09/2022 CT, angiogram, chest, w/wo contrast completed [facility] (Medical Records) [address] [place], [address], 12/13/2022 13:39:00 12/09/2022 CT, angiogram, chest, w/wo contrast completed [facility] (Medical Records) [address] [place] [address], [address], 12/13/2022 13:59:17 01/06/2023 US, abdominal aorta completed [facility] - [address], [address], 01/14/2023 11:31:29 10/12/2024 US, echocardiogram completed [facility] (Medical Records) [address] [place] [address], [address], 10/15/2024 11:38:26 10/12/2024 CT, chest, w/o contrast completed [facility] (Medical Records) [address] [place] [address], [address], 12/03/2024 15:24:21 Procedure Notes None recorded. Medical Equipment None Reported. Allergies Allergen ID Allergen Name Allergen Category Reaction Reaction Severity Criticality Documentation Date Start Date Code Code System Note Provider Name and Address Organization Details Recorded Time 844 Product containin g penicilli n (product) medicatio n Not available Not available Not available 02/13/2018 78169 8001 SNFELIPA bill [facility] 8 11:48:11 Medications Name [...] Updated DateTime 3 185.42 cm 50.7 kg/m2 287861. 47 g 94 % 94 % 70 /min 100 mm[Hg] 58 mm[Hg] Patricia Higgins [facility] 3 15:17:30 Date Recorded Body height Body mass index (BMI) Body weight Heart rate Oxygen saturation Oxygen saturation in Arterial blood by Pulse oximetry Systolic blood pressure Diastolic blood pressure Provider Name and Address Organization Details Last Updated DateTime 4 185.42 cm 50.1 kg/m2 430986. 1 g 103 /min 93 % 93 % 140 mm[Hg] 80 mm[Hg] [facility] 4 15:48:40 Date Recorded Body height Body mass index (BMI) Body weight Heart rate Oxygen saturation Oxygen saturation in Arterial blood by Pulse oximetry Systolic blood pressure Diastolic blood pressure Provider Name and Address Organization Details Last Updated DateTime 4 185.42 cm 50.5 kg/m2 626932. 88 g 94 /min 94 % 94 % 138 mm[Hg] 70 mm[Hg] Haleigh [facility] 4 15:26:23 Date Recorded Body height Body mass index (BMI) Body weight Heart rate Oxygen saturation Oxygen saturation in Arterial blood by Pulse oximetry Systolic blood pressure Diastolic blood pressure Provider Name and Address Organization Details Last Updated DateTime 4 185.42 cm 50.5 kg/m2 712608. 88 g 102 /min 93 % 93 % 100 mm[Hg] 60 mm[Hg] Haleigh Hidalgomond [facility] 4 13:56:40 Date Recorded Body height Body mass index (BMI) Body weight Heart rate Oxygen saturation Oxygen saturation in Arterial blood by Pulse oximetry Systolic blood pressure Diastolic blood pressure Provider Name and Address Organization Details Last Updated DateTime 5 185.42 cm 47.5 kg/m2 947780. 25 g 58 /min 95 % 95 % 118 mm[Hg] 74 mm[Hg] Nohemy Kohler [facility] 5 15:16:48 Social History Question Answer Notes LastModified by Organizat ion Details LastModified Time Tobacco Smoking Status Current Every Day Smoker Stephanie bill [facility] 10/22/2022 15:58:58 What Was The Date Of Your Most Recent Tobacco Screening? 01/07/2025 [email or web address] Information not available 01/07/2025 How Much Tobacco Do You Smoke? 0.25 PPD [email or web address] Information not available 10/22/2022 Do You Or Have You Ever Used Any Other Forms Of Tobacco Or Nicotine? No [email or web address] Information not available 10/09/2024 Sex: Unknown Functional [...] mcg/0.5 mL dose 01/07/2021 completed Patricia bill [facility] 11/15/2022 11:11:45 COVID-19, mRNA, LNP-S, PF, 50 mcg/0.5 mL dose 02/04/2021 janeen bill [facility] 11/15/2022 11:11:52 COVID-19, mRNA, LNP-S, PF, 50 mcg/0.5 mL dose 09/17/2021 completed Patricia bill [facility] 11/15/2022 11:11:59 Tdap 11/07/2009 completed Not Available [facility] 09/21/2022 22:19:34 Past Encounters Encounter ID Performer Location Encounter Start Date Encounter Closed Date Diagnosis/Indication Diagnosis SNOMED-CT Code Diagnosis ICD10 Code Diagnosis Note [id number] Asiya Segura NP, [facility] [address] [facility],[place] [address] 02/13/2018 11:41:19 02/13/2018 17:13:46 Acute exacerbation of chronic obstructive pulmonary disease 780019755 J44.1 o2 sat 93 %, to come to office for [place] visit for sat recheck Saturday 02/17 Atrial fibrillation 4943 6004 I48.91 nml sinus rhythm, cont. metoprolol Acute sinusitis 31135328 J01.90 see COPD instructio ns, rest [id number] Kojo Hou DO [facility] [address] [place] [address],[place] [address] 02/17/2018 09:27:29 02/17/2018 10:13:38 Acute sinusitis 20281617 J01.90 [id number] Asiya Segura NP, [address],[place] [address] 03/01/2018 09:23:55 03/01/2018 11:47:57 Atrial fibrillation 46079524 I48.91 nml sinus rhythm, cont. metoprolol , f/u with Dr. Dutch carney as scheduled Hypothyroidism 01018484 E03.9 to recheck TSH with Free t4, TSHwas elevated in ER labs. continue levothyrox ine Obstructiv e sleep apnea syndrome 43060487 G47.33 continue use CPAP, f/u Dr. Harper prn Hypercholesterolemia 136 35733 E78.00 recheck profile, consider /discussed Crestor Coronary arteriosclerosis in ewiiaapaayp artery 3248244982 107 I25.10 exercise as zeinab [id number] Asiya Segura NP, [facility] [address] [facility],[place] [address] 04/18/2018 09:48:44 04/18/2018 10:37:32 Local infection of wound 03842097 T14.90XA cleansed, wrapped with ricardo after bacitacin and telfa applied [id number] Asiya Segura NP, [facility] [address] [facility],[place] [address] 04/21/2018 08:51:19 04/21/2018 09:38:34 Impaired fasting glycemia 582312741 R73.01 Screening procedure 2012 5006 Z13.9 Open wound of lower limb 21022268 S81.802D improving, call if problems Sleep apnea 46708384 G47 .30 stable Coronary arteriosclerosis 97532772 I25.10 stable Atrial fibrillation 4943 6004 I48.91 nml sinus rhythm, cont. metoprolol , saw Dr. Dutch carney , no changes [id number] Asiya Segura NP, [facility] [address] [facility] Jan [facility] [place] [address] 05/02/2018 08:55:20 05/02/2018 11:48:20 Acute bronchitis 23452188 J20.9 f/u Tuesday in office Open wound of lower limb 21521427 S81.802D Hypothyroidism 16252284 E03.9 to recheck TSH with Free t4, meds increased in February Impaired f asting glycemia 042051499 R73.01 no clinical diagnosis NIDDM Hypercholesterolemia 136 73919 E78.00 recheck profile, Screening procedure 2012 5006 Z13.9 [id number] Asiya Segura NP, [facility] [address] [facility],[place] [address] 05/05/2018 10:00:05 05/05/2018 11:16:11 Hypercholesterolemia 25376379 E78.00 increase crestor 10 mg Hypothyroidism 74095525 E03.9 TSH > 7, increase levothyrox ine to 88 mcg, recheck 6 weeks Acute bronchitis 3101705 2 J20.9 await CXR, not read yet, done C continue prednisone & abx Obstructiv e sleep apnea syndrome 51226731 G47.33 f/u Dr. Costello prn, try more compliance Paroxysmal atrial fibrillation 183805499 I48.0 RRR Infection of tooth 14518 8007 K04.7 to f/u with dentist, have forms to complete, call out to dentist- do they need to use anesthetic with epinephrin e [id number] Asiya Segura NP, S [facility] [address] [facility] [employer] [address] 05/09/2018 09:01:14 05/09/2018 11:37:20 Dyspnea on exertion 10626442 R06.09 r/o PE sent [place] [facility] [place] [place] [id number] HARSH MUHAMMAD [facility] [address] [facility] [employer],[place] [address] 03/07/2020 14:10:16 03/07/2020 15:08:27 Atrial fibrillation 26436616 I48.91 stable Hypothyroidism 66461845 E03.9 will check and determine if he needs medication Edema of l ower extremity 513859116 R60.0 will recheck in one week Essential hypertension 92979778 I10 BP 130/80, doing well [id number] HARSH MUHAMMAD [facility] [address] [facility],[place] [address] 03/14/2020 11:38:12 03/14/2020 12:19:25 Atrial fibrillation 42960861 I48.91 stable Edema of l ower extremity 965432168 R60.0 will recheck in one week via phone call to pt with update will discuss possibly increasing lasix dose [id number] HARSH MUHAMMAD [facility] [address] [facility] [employer],[place] [address] 04/16/2020 09:54:29 04/16/2020 10:49:38 Chronic obstructive pulmonary disease 85168106 J44.9 would like to try another inhaler for his COPD Edema of l ower extremity 527436281 R60.0 will increase lasix dosage to 80 [...] see if it has adjusted Skin tag 195662357 L91.8 referral [id number] HARSH MUHAMMAD [facility] [address] [facility] [employer], ite D [facility] [address] 03/10/2021 09:39:34 03/10/2021 15:36:03 Hypothyroidism 05720917 E03.9 recent labs, medication changed appropriat blu Chronic ob structive pulmonary disease 44347582 J44.9 will try neb Chronic sinusitis 497499 00 J32.9 will fu with XR sinuses [id number] [facility] [address] [facility], it[place] [address] 10/22/2022 15:40:28 10/22/2022 16:47:37 Hypothyroidism 32586609 E03.8 recent labs, medication changed appropriat blu Chronic ob structive pulmonary disease 88739429 J44.9 will try nebulizer Atrial fibrillation 4943 6004 I48.11 adrian start on xarelto since he has never been on a blood thinner and his risk score is high for a cardiovasc ular event Advance care planning 71 3761041 Z71.89 advised Abdominal aortic aneurysm 755569374 I71.40 declined Active or passive immunization 739363830 Z23 patient advised he is due for flu shot, tdap, pneu & shingles Edema of l ower extremity 776058664 R60.0 will set up with a vascular surgeon Chronic sinusitis 452910 00 J32.0 will trial a spray [id number] HARSH MUHAMMAD [facility] [address] [facility] [employer], ite [facility] [address] 11/15/2022 14:49:58 11/15/2022 16:00:15 Obstructive sleep apnea syndrome 84575547 G47.33 will resubmit CPAP supplies Pulmonary embolism 85014 003 I26.99 will recheck lungs in one mos Edema of l ower extremity 019993988 R60.0 will set up with a vascular surgeon on Tuesday (10 am) Hyperkalemia 90823293 E8 7.5 will recheck levels [id number] Meghan Zepeda [facility] [address] [facility],[place] [address] 10/09/2024 15:41:10 10/09/2024 16:23:20 Edema of lower extremity 282994895 R60.0 recommende d vascular referralst art on diuretic Cellulitis of lower leg 202568812 L03.115 will start on doxy for the infection Lymphedema of lower extremity 189165146 I89.0 will set up with lymp consult Dyspnea 376001163 R06.[address] wo [id number] [facility] [address] [facility],[place] [address] 10/24/2024 15:17:57 10/24/2024 16:32:34 Edema of lower extremity 090584631 R60.0 recommende d vascular referralst art on diuretic Lymphedema of lower extremity 234781312 I89.0 new referral sent in for a new vascular surgeon [id number] HARSH MUHAMMAD [facility] [address] [facility],[place] [address] 11/05/2024 13:48:44 11/05/2024 14:23:31 Edema of lower extremity 834908474 R60.0 has his appt for the clinic on 12/03 Stasis padma matitis of lower limb due to chronic peripheral venous hypertension 884590974 I87.399 start keflex and terbinafin e for the risk of infection [id number] HARSH MUHAMMAD [facility] [address] [facility],[place] [address] 01/07/2025 14:47:36 01/07/2025 16:10:00 Depression screening 776763901 Z13.31 Acute exac erbation of chronic obstructive pulmonary disease 513687154 J44.1 resolved Congestive heart failure 03627759 I50.21 stable Chronic hy poxemic respiratory failure 816497017 J96.11 resolved Edema of l ower extremity 627200203 R60.0 has fu with them coming up Atrial fibrillation 1690 6004 I48.11 stablewill start on xarelto since he has never been on a blood thinner and his risk score is high for a cardiovasc ular event Type 2 juan betes mellitus 83117508 E11.9 currently on the Hypothyroidism 73406965 E03.8 recent labs, medication changed appropriat blu Health Concerns Section Related Observation LastModified by Organization Detai ls LastModified Time None Recorded Concern Status LastModified by Organization Details LastModified Time None Recorded Advance Directives Directive None Recorded Payers Encounter Date Sequence Insurance Name Policy Number Policy Jasso Covered Member ID Jasso Member ID Guarantor Name 11/15/2022 2 [employer] (MEDICARE SUPPLEMENT) Rudy Mathias [id number] Rudy Mathias 11/15/2022 1 [place] [facility] Rudy Mathias [id number] Rudy Mathias 10/09/2024 2 [employer] OPT[employer] (MEDICARE SUPPLEMENT) Rudy Mathias [id number] Rudy Mathias 10/09/2024 1 [place] [facility] Rudy Mathias [id number] Rudy Mathias 10/24/2024 2 [employer] (MEDICARE SUPPLEMENT) Rudy Mathias [id number] Rudy Mathias 10/24/2024 1 [place] [facility] Rudy Mathias [id number] Rudy Mathias 11/05/2024 2 [employer] OPT[employer] (MEDICARE SUPPLEMENT) Rudy Mathias [id number] Rudy Mathias 11/05/2024 1 [place] [facility] Rduy Mathias [id number] Rudy Mathias 01/07/2025 2 [employer] (MEDICARE SUPPLEMENT) Rudy Mathias [id number] Rudy Mathias 01/07/2025 1 [place]: [facility] Rudy Mathias [id number] Rudy Mathias Notes Date Note Type Note [...] recheck his levels UBALDO TRYBA, PA [address] [place], [id number], [facility] 11/15/2022 15:59:38 4 text/htm l LE edema bilateral the patient is having severe LE and lymphedemathe patient will need to restart water pill and start on abx as well for the tissue break down, signs of infection recommend CT and echo for lungs and heart due to the significant swelling of LE hx of CT and PEwill need fu with cardio and vascular will hold on compression stockingscannot get them onsuggested wraps right now HARSH MUHAMMAD [address] [place], [phone], [facility] 10/09/2024 16:11:03 4 text/htm l f/u 2 week check the patient reports that he is having purulent discharge from his legsfrom the swellingchanged a referral to the vascular surgeon start on hibiclens and the spironolactone with the torsemide to continue to get the fluid offwaiting on his CTecho showed his afib HARSH MUHAMMAD [address] [place], [phone], [facility] 10/24/2024 16:06:30 4 text/htm l f/u will increase 50 mg of the spironolactonewill continue the torsemide, he cannot go up on it due to how much he is already urinating on it a lot and has difficulties as it isspironolactone didn't cause as many issues with the urination the patient got his CT and BW, no results back from [facility], will call to request the restarts continue on other medications as prescribedwill fu with patient after the results HARSH MUHAMMAD [address] [place], [phone], [facility] 11/05/2024 14:22:31 5 [...] been encouraged to fu with both his numerical control operator and his vascular surgeon, patient is non [...] and cont with vascular HARSH MUHAMMAD [address] [facility], [place], [phone], [facility] 01/07/2025 15:40:55
[2025-02-18 14:44] LABS: Free T4 (Free Thyroxine) 0.99 ng/dL (0.71-1.85); Thyroid Stimulating Hormone 10.78 uIU/mL (0.32-4.0)
[2025-02-18 14:46] LABS: Mean Platelet Volume 13.4 fL (9.4-12.4); Platelet Count 141 X10*3/uL (160-400); SLIDE REVIEW VERIFIED
== END ==
LOC: HO.CARD 12:43
PROVIDERS: Absent Provider Physician Assistant; PCP Internal Medicine; Visit Provider Internal Medicine
DX: I48.19 Other persistent atrial fibrillation (principal); E11.9 Type 2 diabetes mellitus without complications; E03.8 Other specified hypothyroidism
CPT/HCPCS: 36415; 80053; 83036; 84439; 84443; 85025; 93242

== ENCOUNTER → 2025-02-18 12:45 | Outpatient (BNV) | payer MEDICARE, SELFPAY | PROVIDERS: Absent Provider Physician Assistant; PCP Internal Medicine; Visit Provider Internal Medicine | DX: I48.91 Unspecified atrial fibrillation (principal) | CPT/HCPCS: 93244 ==

== ENCOUNTER 2025-04-22 14:34 | Outpatient (AMB) | payer MEDICARE, SELFPAY ==
--- NOTE | 2025-04-22 14:42 | A.OFFVIS_ITS ---
Vital Signs 04/22/25 14:43 Height 6 ft 1 in Weight 365 lb BMI 48.2 BP 110/68 Blood Pressure Location Lt brachial Position Sitting Pulse 100 Pulse Source Pulse Oximeter Intake Visit Reasons: f/up s/p holter Allergies Penicillins [PENICILLINS] Allergy (Unknown, Verified 02/12/25 15:22) UNKNOWN statin intolerance Allergy (Unknown, Uncoded 02/12/25 15:22) swelling Medication List - Last Reconciled 04/22/25 by Tomi Loyola MD atorvastatin 40 mg PO DAILY blood sugar diagnostic (FreeStyle Lite Strips) Test four times a day or as directed. blood-glucose meter (FreeStyle Lite Meter kit) As Directed budesonide 32 mcg/actuation 1 spray intranasal DAILY clobetasol 0.05% grams topical BID ezetimibe 10 mg PO DAILY furosemide 40 mg PO DAILY lancets (FreeStyle Lancets) Test four times a day or as directed. levothyroxine 100 mcg PO DAILY@0600 losartan 50 mg PO DAILY metoprolol tartrate 100 mg PO DAILY rivaroxaban (Xarelto) 20 mg PO DAILY HPI Comments Details: Rudy returns for follow-up regarding his various cardiac issues including coronary disease, paroxysmal atrial fibrillation, hypertension, dyslipidemia among others. Recently, he was admitted to [facility] following mechanical fall. Patient states that he fell from office chair by losing balance. In that setting, it seems that he was in atrial fibrillation with rapid ventricular rate and also congestive heart failure. He was seen by EP, Dr. Sanchez. He was started on Amiodarone but it seems they ran out of the script and not taking it anymore. His beta-rach dose was increased. Diltiazem was stopped. According to him, he is generally getting along fine. He does not really feel any palpitations or any other cardiac symptoms. Longstanding leg swelling about the same as before. CPAP still an issue. [facility] Medical History (Updated 02/12/25 @ 15:57 by Tomi Loyola MD) Type 2 diabetes mellitus Hypoxia Lyme disease Pulmonary hyperinflation Leg swelling Obstructive sleep apnea Statin intolerance Mixed hyperlipidemia Essential hypertension Paroxysmal atrial fibrillation Atherosclerotic cardiovascular disease Surgical History History of cardiac catheterization Family History Father No problems noted. Mother CHF (congestive heart failure) Social History Household Members: Spouse Housing: House Do you presently have visiting nurse or other home services: No Alcohol intake: never Comment: pt refuses moderate fall precautions Patient Tobacco Use Status: Former Tobacco user service: No Current occupational status: employed Review of Systems Const Denies weakness ENT Denies dizziness Card Denies chest pain, Denies chest pain with activity, Denies syncope, Denies rapid heart rate, Denies pedal edema, Denies edema, Denies leg edema, Denies lightheadedness, Denies palpitations, Denies dyspnea, Denies dyspnea on exertion and Denies orthopnea Resp Denies cough, Denies dyspnea and Denies dyspnea on exertion GI Denies hematochezia and Denies change in stool character Musc Denies abnormal gait, Denies muscle cramps, Denies muscle weakness, Denies numbness, Denies radiating pain into limb and Denies tingling Neuro Denies abnormal gait, Denies dizziness, Denies syncope, Denies numbness, Denies tingling and Denies weakness Endo Denies palpitations Physical Exam Vital Signs: Last Vital Signs Pulse 100 04/22/25 14:43 BP 110/68 04/22/25 14:43 BMI result Body Mass Index 48.2 Const General: comfortable and no acute distress Orientation/consciousness: patient oriented x3 HEENT Other: Unremarkable Head: Yes normal to inspection Neck Neck: Yes normal visual inspection Chest Chest palpation & inspection: normal inspection of the chest Resp Auscultation: clear to auscultation bilaterally Cardio Palpation: normal PMI Heart sounds: S1 normal heart sound present, S2 normal heart sound present, no gallops, no murmurs and no rubs GI Palpation (GI): Soft to palpation Back/Spine/Pelvis Other: unremarkable Skin General skin exam: no rashes or lesions noted Neuro General: patient oriented x3 Extrem Other: Chronic changes noted Psych Mental Status: mental status grossly normal Assessment & Plan Assessment & Plan (1) Persistent atrial fibrillation: Code(s): I48.19 - Other persistent atrial fibrillation Category: Medical Plan: Because of obesity and untreated sleep apnea, poor candidate for rhythm control. Hence we will optimize rate control medications as much as able. Continue metoprolol. Resume the diltiazem that was stopped. Add digoxin. Continue anticoagulation. Has seen EP but not felt to be a good ablation candidate. (2) Chronic diastolic (congestive) heart failure: Code(s): I50.32 - Chronic diastolic (congestive) heart failure Category: Medical Plan: In the recent echocardiogram, LVEF 60-65%. In the repeat study at [facility] it seems he was tachycardic-LVEF reported to be mildly reduced to normal. His leg swelling itself is likely multifactorial and could be related to some combination of weight, untreated sleep apnea, venous insufficiency, atrial fibrillation. Remains on diuretics. Apparently, Farxiga prescribed at [facility] was way too expensive. (3) Atherosclerotic cardiovascular disease: Code(s): I25.10 - Atherosclerotic heart disease of [place] coronary artery without angina pectoris Category: Medical Plan: Status post drug-eluting stent to RCA, OM2 in the past. Clinically no angina. (4) Essential hypertension: Code(s): I10 - Essential (primary) hypertension Category: Medical Plan: Stable. No changes. (5) Mixed hyperlipidemia: Code(s): E78.2 - Mixed hyperlipidemia Category: Medical Plan: Treatment has been less than optimal in the past. Was not taking statins but now listed to be on atorvastatin 40 mg daily. Also on Zetia. Last LDL from 2022 was 86 mg/dL. Triglycerides 123 mg/dL. (6) Obstructive sleep apnea: Code(s): G47.33 - Obstructive sleep apnea (adult) (pediatric) Category: Medical Plan: Not on regular CPAP. He is aware that it is causing or contributing to a lot of cardiovascular other issues. He is working with his PCP to get that resolved. (7) Morbid obesity: Code(s): E66.01 - Morbid (severe) obesity due to excess calories Category: Medical Plan: Longstanding issue and unlikely to change much. Plan Discussion Notes We discussed atrial fibrillation management, emphasizing rate control. I explained the addition of digoxin could slow heart rate effectively. Ablation has a low chance of success in his case. Restarting diltiazem was addressed due to past efficacy. I advised on identifying fast heart rates and local ER visits as needed. Sleep apnea complicates management, emphasizing addressing CPAP supply issues. I discussed treatment adherence and regular monitoring to avoid exacerbations. We decided on a follow-up holter and then clinc visit for re- evaluation and monitoring. Patient was informed and verbally consented to the use of an ambient scribe for clinic note documentation during this visit. Orders: Orders ECG 3 day holter monitor 4 Weeks I48.19 - Other persistent atrial fibrillation Medications: New diltiazem HCl CD 120 mg PO DAILY 90 caps 1RF digoxin 125 mcg PO DAILY 90 tabs 1RF digoxin 125 mcg PO DAILY 90 tabs 1RF diltiazem HCl CD 120 mg PO DAILY 90 caps 1RF Patient Instructions: - Take diltiazem and digoxin as prescribed. - Monitor for fast heart rates and seek care at local care as needed. - Persist with obtaining sleep apnea equipment. - Continue regular medical follow-ups. - Try to avoid activities that excessively increase heart rate. - Discuss any new symptoms or concerns promptly. Coding Level of Care Code Est Pt Level 4 (47538) Complex EM visit Add On G2211 Diagnoses Persistent atrial fibrillation I48.19 Chronic diastolic (congestive) heart failure I50.32 Atherosclerotic cardiovascular disease I25.10 Essential hypertension I10 Mixed hyperlipidemia E78.2 Obstructive sleep apnea G47.33 Morbid obesity E66.01
[2025-04-22 14:43] VITALS: BP 110/68; PULSE 100; BMI 48.2
--- OUTSIDE RECORDS SUMMARY | 2025-04-22 16:16 | XMS_ITS | Continuity of Care Document ---
Author Organization [facility] Address [address] [place] [id number]- Care Team Providers Care Rabbit Breeder Name Role Phone Kojo Hou DO Primary Care Physician Encounter [facility] Date(s): 04/09/25 - 04/16/25 [facility] [address] [place] [address]- Attending Physician: Jerrell LAWRENCE, Ana Stuart Admitting Physician: Jerrell LAWRENCE, Ana Stuart Referring Physician: Kojo Hou DO Encounter Type: Office Visit Allergies, Adverse Reactions, Alerts Substance Criticality Severity Reaction Reaction Severity Status penicillins Unable to assess criticality Persistent Moderate Active Medications Albuterol (Eqv-ProAir HFA) 90 mcg/inh inhalation aerosol 1 inhalation = 90 mcg, Inhalation, Every 4 hours, PRN as needed for shortness of breath or wheezing, # 18 Gm, 0 Refills, Maintenance, 12/20/24 1:16:00 PM EST, Aerosol, Partial fill upon patient request if the prescription is for a schedule II opioid drug. Start Date: 12/20/24 Status: Ordered Quantity: 18.0 Unit: g Repeat number: 1 amiodarone 200 mg oral tablet See Instructions, 2 tablets po 2 times a day for 5 doses then once 200 mg once daily for 30 days, #35 tablet, Refills 0, Tot. Refills 0, Maintenance, 12/26/24 12:33:00 PM EST, Instructions Replace Required Details, Route to Pharmacy Electronically, [facility], Partial fill upon patient request if the prescription is for a schedule II opioid drug., 188, cm, 12/26/24 10:15:00 EST, Height, 163.2, kg, 12/20/24 23:52:00 EST, Dry Weight Start Date: 12/26/24 Status: Ordered Quantity: 35.0 Unit: tablet Repeat number: 1 ammonium lactate 12% topical cream 1 application, Topically, 2 times a day, # 140 Gm, 0 Refills, Maintenance, 04/09/25 11:47:00 AM EDT, Cream, [facility]/pharmacy #[id number], Partial fill upon patient request if the prescription is for a schedule II opioid drug., 1 application Topically 2 times a day,x10 days, 188, cm, 04/09/25 11:05:00 EDT, Height, 163.2, kg, 12/20/24 23:52:00 EST, Dry Weight Start Date: 04/09/25 Stop Date: 04/19/25 Status: Ordered Quantity: 140.0 Unit: g Repeat number: 1 Indications: Lymphedema, not elsewhere classified; Varicose veins of left lower extremity with ulcer of unspecified site; Other specified soft tissue disorders; atorvastatin 40 mg oral tablet 1 tablet = 40 mg, By Mouth, Daily, # 30 tablet, 5 Refills, Maintenance, 12/20/24 1:23:00 PM EST, Tablet, Partial fill upon patient request if the prescription is for a schedule II opioid drug. Start Date: 12/20/24 Status: Ordered Quantity: 30.0 Unit: tablet Repeat number: 1 Bilateral Juxtafit Knee-high Compression Garments with 2 pairs of liners Bilateral Juxtafit Knee-high Compression Garments with 2 pairs of liners, See Instructions, # 1 kit, Refills 0, Tot. Refills 0, Maintenance, Dx: Lymphedema with venous ulceration Use daily up to 23 hours per day., 04/09/25 11:40:00 AM EDT, Supply Start Date: 04/09/25 Status: Ordered Quantity: 1.0 Unit: kit Repeat number: 1 Indications: Lymphedema, not elsewhere classified; Varicose veins of left lower extremity with ulcer of unspecified site; Other specified soft tissue disorders; dapagliflozin 10 mg oral tablet 1 tablet = 10 mg, By Mouth, Daily, # 30 tablet, 0 Refills, Maintenance, 12/26/24 12:32:00 PM EST, Tablet, [facility], Partial fill upon patient request if the prescription is for a schedule II opioid drug., 188, cm, 12/26/24 10:15:00 EST, Height, 163.2, kg, 12/20/24 23:52:00 EST, Dry Weight Start Date: 12/26/24 Stop Date: 01/25/25 Status: Ordered Quantity: 30.0 Unit: tablet Repeat number: 1 glipiZIDE 10 mg oral tablet, extended release 1 tablet = 10 mg, By Mouth, Daily, # 30 tablet, 0 Refills, Maintenance, 12/20/24 1:15:00 PM EST, ER Tablet, Partial fill upon patient request if the prescription is for a schedule II opioid drug. Start Date: 12/20/24 Status: Ordered Quantity: 30.0 Unit: tablet Repeat number: 1 levothyroxine 0.112 mg oral tablet 1 tablet = 112 mcg, By Mouth, Daily, # 30 tablet, 0 Refills, Maintenance, 12/20/24 1:23:00 PM EST, Tablet, Partial fill upon patient request if the prescription is for a schedule II opioid drug. Start Date: 12/20/24 Status: Ordered Quantity: 30.0 Unit: tablet Repeat number: 1 metFORMIN 500 mg oral tablet 0 Refills, Maintenance, 04/09/25 11:04:00 AM EDT, Partial fill upon patient request if the prescription is for a schedule II opioid drug. Start Date: 04/09/25 Status: Ordered Repeat number: 1 metoprolol 100 mg oral tablet, extended release 100 mg, 1, tablet, By Mouth, Daily, # 30 tablet, Refills 0, Tot. Refills 0, Maintenance, 12/26/24 12:38:00 PM EST, Route to Pharmacy Electronically, [facility], Partial fill upon patientrequest if the prescription is for a schedule II opioid drug., 188, cm, 12/26/24 10:15:00 EST, Height, 163.2, kg, 12/20/24 23:52:00 EST, Dry Weight Start Date: 12/26/24 Stop Date: 01/25/25 Status: Ordered Quantity: 30.0 Unit: tablet Repeat number: 1 spironolactone 50 mg oral tablet 1 tablet = 50 mg, By Mouth, Daily, # 30 tablet, 0 Refills, Maintenance, 12/20/24 1:16:00 PM EST, Tablet, Partial fill upon patient request if the prescription is for a schedule II opioid drug. Start Date: 12/20/24 Status: Ordered Quantity: 30.0 Unit: tablet Repeat number: 1 terbinafine 250 mg oral tablet 1 tablet = 250 mg, By Mouth, Daily, # 30 tablet, 0 Refills, Maintenance, 12/20/24 1:16:00 PM EST, Tablet, Partial fill upon patient request if the prescription is for a schedule II opioid drug. Start Date: 12/20/24 Status: Ordered Quantity: 30.0 Unit: tablet Repeat number: 1 torsemide 20 mg oral tablet 3 tablet = 60 mg, By Mouth, Daily, # 90 tablet, 0 Refills, Maintenance, 12/26/24 12:36:00 PM EST, Tablet, [facility], Partial fill upon patient request if the prescription is for a schedule II opioid drug., 188, cm, 12/26/24 10:15:00 EST, Height, 163.2, kg, 12/20/24 23:52:00 EST, Dry Weight Start Date: 12/26/24 Stop Date: 01/25/25 Status: Ordered Quantity: 90.0 Unit: tablet Repeat number: 1 Xarelto 20 mg oral tablet 1 tablet = 20 mg, By Mouth, Daily at supper, # 30 tablet, 0 Refills, Maintenance, 12/26/24 2:42:00 PM EST, Tablet, [facility], Partial fill upon patient request if the prescription is for a schedule II opioid drug., 188, cm, 12/26/24 10:15:00 EST, Height, 163.2, kg, 12/20/24 23:52:00 EST, Dry Weight Start Date: 12/26/24 Status: Ordered Quantity: 30.0 Unit: tablet Repeat number: 1 Zetia = 10 mg, By Mouth, Daily, 0 Refills, Maintenance, 12/05/16 11:12:35 PM EST Start Date: 12/05/16 Status: Ordered Repeat number: 1 Problem List Condition Confirmation Course Effective Dates Status Health St atus Informant Hereditary lymphedema of legs Confirmed Active Severe obesity Confirmed Active Social History Social History Type Response Smoking Status Former smoker, quit more than 30 days ago entered on: 04/09/25 Sex Sex Representation Male (finding) Note * Anupama Santos: PERFORM Event Display: Patient Education/Instruction Authored Date: [id number] Ambulatory Adult Visit Summary [address] [address] Name: SURINDER TIERNEY : 1955?? Visit: 04/09/2025 10:43?? Ambulatory Visit Instructions ?? Your Care Team Primary Care Provider Ameya WEISS, Kojo Lang? This Visit Provider Jerrell LAWRENCE, Ana Your Diagnosis Lymphedema Venous ulcer of left leg Leg swelling Vitals Signs Pulse Rate: 61 bpm Height: 188 cm Systolic Blood Pressure: 100 mm Hg Weight: 171.81 kg Diastolic Blood Pressure: 70 mm Hg Body Mass Index:??48.61 kg/m2??Critical Oxygen Saturation: 95 % Body surface area: 3 What to do next Scheduled Follow-Up Appointments Tuesday 11:30 AM EDT ?? Where: [address] [address]- Status: Pending Tuesday 11:00 AM EDT ?? With: Jerrell LAWRENCE, Ana Stuart Where: [address] [address]- Status: Pending Medications The list below reflects the information in our records and provided by you today along with any changes made during this visit. Please continue your medications until treatment is completed or stopped by your provider. If this is different from the information you have or there are other questions,please contact the prescribing provider. What How Much When Why Instructions New Ammonium Lactate 12% (ammonium lactate 12% topical cream) 1 derrell Topically Twice a day Venous ulcer of left leg Lymphedema Leg swelling Duration: 10 Days Pickup at [facility]/pharmacy #[id number] New Durable Medical Equipment (Bilateral Juxtafit Knee-high Compression Garments with 2 pairs of liners) See instructions Lymphedema Venous ulcer of left leg Leg swelling Dx: Lymphedema with venous ulceration ? Use daily up to 23 hours per day. ?? Printed Prescription Unchanged Albuterol (Albuterol (Eqv-ProAir HFA) 90 mcg/ inh inhalation aerosol) 1 inhalation Inhalation Every 4 hours as needed for as needed for shortness of breath or wheezing Unchanged amiODARONE (amiodarone 200 mg oral tablet) See instructions 2 tablets po 2 times a day for 5 doses then once 200 mg once daily for 30 days ?? Unchanged Atorvastatin (atorvastatin 40 mg oral tablet) 1 tab(s) Oral Daily Unchanged dapagliflozin (dapagliflozin 10 mg oral tablet) 1 tab(s) Oral Daily Duration: 30 Days Unchanged Ezetimibe 10 mg tablet (Zetia) 10 Milligram Oral Daily Unchanged GlipiZIDE (glipiZIDE 10 mg oral tablet, extended release) 1 tab(s) Oral Daily Unchanged Levothyroxine (levothyroxine 0.112 mg oral tablet) 1 tab(s) Oral Daily Unchanged Metformin (metFORMIN 500 mg oral tablet) Unchanged Metoprolol (metoprolol 100 mg oral tablet, extended release) 1 tab(s) Oral Daily Duration: 30 Days Unchanged rivaroxaban (Xarelto 20 mg oral tablet) 1 tab(s) Oral Daily at supper Unchanged Spironolactone (spironolactone 50 mg oral tablet) 1 tab(s) Oral Daily Unchanged Terbinafine (terbinafine 250 mg oral tablet) 1 tab(s) Oral Daily Unchanged torsemide (torsemide 20 mg oral tablet) 3 tab(s) Oral Daily Duration: 30 Days Pharmacy Information [facility]/pharmacy #5: [address], [place] [id number] [phone] Medications and Immunizations Administered Medications Given During Visit No medications given during this visit.?? Allergies (NKA means No Known Allergies) penicillins Common Emergency Awareness Tips IS IT A STROKE? Act FAST and Check for these signs: FACE Does the face look uneven? ARM Does one arm drift down? SPEECH Does their speech sound strange? TIME Call at any sign of stroke ?? Heart Attack Signs Chest discomfort: Most heart attacks involve discomfort in the center of the chest and lasts more than a few minutes, or goes away and comes back. It can feel like uncomfortable pressure, squeezing, fullness or pain. Discomfort in upper body: Symptoms can include pain or discomfort in one or both arms, back, neck, jaw or stomach. Shortness of breath: With or without discomfort. Other signs: Breaking out in a cold sweat, nausea, or lightheaded. Remember, MINUTES DO MATTER. If you experience any of these heart attack warning signs, call to get immediate medical attention! ?? Smoking can increase your chances of developing chronic health problems and can cause harmful effects to other family members in your house. If you smoke, you are strongly encouraged to quit. Please call [employer] at [phone] or [phone] ([phone]) or log in to [email or web address] for referrals to smoking cessation programs. ?? The National Suicide Prevention Hotline is available 30/05 if you or someone you know needs to find a reason to keep living. By calling 5-933-364-[employer] (2902) you'll be connected to a skilled, trained counselor at a crisis center in your area. [facility] You can view and manage your care through the patient portal or by using a health care derrell of your choosing. [employer] is a website that allows you to securely view your medical information including your hospital discharge summary, office visit summaries, medications and follow-up visits. You can also request appointments, renew medications, and request access to your medical information using a health care derrell of your choosing, or just ask a question. You can enroll at [email or web address] or register during your next office visit. [facility], in keeping with [facility] guidance, no longer requires face masks for staff, patientsor visitors in most situations. Similiar to time spent indoors at other locations, there is the chance that you were exposed to repiratory viruses during your time with us (such as flu or COVID-19). If you develop symptoms concerning for a viral respiratory infection, please seek testing (and treatment if indicated) from your medical provider or home test kit. ?? Disclaimer: The information provided is of a general nature and is intended to be used in conjunction with the recommendations and advice of your health care practitioner. Every effort has been made to ensure that the information provided is accurate and complete at the time it is provided to you however, as your needs change, or, as new information becomes available, different or additional instructions may be required. ?? If you have questions, please consult with your primary care provider or pharmacist, as appropriate. This information is not intended to serve as substitution for assessment and evaluation by a qualified health care provider. If you do not have a primary care provider, you may find a [facility] provider by calling [employer] at [phone]. Patient Care team information Care Team Personnel Name: Nancyguzman Kojo WEISS Position: Reference Physician Member Role: PCP Address: [address] [place] [address] Internal [place], [place] [address] Telecom: Name: Avril Rodriguez RN Position: S RN Member Role: Primary Care Nurse Name: Kajal Mchugh RN Position: S RN Member Role: Primary Care Nurse Name: Eder Lincoln RN Position: S RN Member Role: Primary Care Nurse Care Team Related Persons Name: SEPIDEH TIERNEY Name: YANA TIERNEY Insurance Providers Guarantor name: АННА Health Plan Information #: 1 Payer: MEDICARE B Payer Identifier: АННА Member Number: [id number] Group Number: Subscriber Identifier: [id number] Relationship to Subscriber: self Coverage Type: NA Coverage Verification Date: NA Telecom: NA Address: Health Plan Information #: 2 Payer: [employer] SECONDARY ONLY Payer Identifier: АННА Member Number: [id number] Group Number: Subscriber Identifier: [id number] Relationship to Subscriber: self Coverage Type: MEDICARE Coverage Verification Date: Telecom: Address:
== END 2025-04-22 15:10 | disposition home or self-care (01) ==
LOC: HO.HCS 14:35
PROVIDERS: PCP Internal Medicine; Visit Provider Internal Medicine
DX: I48.19 Other persistent atrial fibrillation (principal); I50.32 Chronic diastolic (congestive) heart failure; I25.10 Atherosclerotic heart disease of native coronary artery without angina pectoris; I10 Essential (primary) hypertension; E78.2 Mixed hyperlipidemia; G47.33 Obstructive sleep apnea (adult) (pediatric); E66.01 Morbid (severe) obesity due to excess calories
CPT/HCPCS: 99214; G2211

== ENCOUNTER → 2025-04-22 14:34 | Outpatient (BNVA) | payer MEDICARE, SELFPAY | PROVIDERS: PCP Internal Medicine; Visit Provider Internal Medicine | DX: I48.19 Other persistent atrial fibrillation (principal); I11.0 Hypertensive heart disease with heart failure; I50.32 Chronic diastolic (congestive) heart failure; I25.10 Atherosclerotic heart disease of native coronary artery without angina pectoris; E78.2 Mixed hyperlipidemia; G47.33 Obstructive sleep apnea (adult) (pediatric); E66.01 Morbid (severe) obesity due to excess calories; Z68.42 Body mass index [BMI] 45.0-49.9, adult | CPT/HCPCS: 99212 ==

== ENCOUNTER 2025-04-23 13:31 | Outpatient (REF) | payer MEDICARE, SELFPAY ==
--- NOTE | ~2025-04-23 | US_ITS ---
EXAMINATION: US TRIPLEX LOWER EXTREMITY, LEFT CLINICAL INFORMATION: Pain and edema, left lower extremity COMPARISON: None available. TECHNIQUE: Color-flow triplex imaging with spectral analysis and compression Doppler were performed on the left lower extremity. FINDINGS: Respiratory variation, normal compression and augmented flow are demonstrated throughout the interrogated left common femoral vein, superficial femoral vein, profunda femoral vein, popliteal vein and midcalf posterior tibial venous segments. There is no Ivey's cyst. US/US venous duplex LE IMPRESSION: No acute deep venous thrombosis interrogated veins, left lower extremity. Negative for DVT. Electronically signed by: Shaheen Oropeza MD 04/23/2025 01:59 PM EDT
--- OUTSIDE RECORDS SUMMARY | 2025-04-23 15:26 | XMS_ITS | Continuity of Care Document ---
Author Organization [place] - [facility], [facility] Address [address] [place] [address] [place] [address] Assessment No assessment recorded. Plan of Treatment Reminders Order Date Submit Date Provider Last Modified By Organization Details Last Modified Time Details Appointments FOLLOW UP 2024 10:15A M HARSH MUHAMMAD Not available Not available Not available FOLLOW UP 2024 03:15P M DR CAST Not available Not available Not available Lab None recorded. Referral None recorded. Procedures None recorded. Surgeries None recorded. Imaging US, duplex, venous, lower extremity - r/o dvt 2024 025 [facility] [place] Central Scheduling, [address] [place] [address], [address], 04/23/2025 14:03:34 Medication Orders prednison e 10 mg tablet 2024 025 [facility]acy #2024, [address] [place], [address], 04/23/2025 11:07:05 doxycycli ne hyclate 100 mg tablet 2024 025 [facility]armacy #2024, [address] [place], [address], 04/23/2025 11:07:06 tramadol 50 mg tablet 2024 025 [facility]acy #2024, [address] [place], [address], 04/23/2025 11:07:09 Hibiclens 4 % topical liquid 2024 025 [facility]2025, [address] [place], [address], 04/23/2025 11:13:31 Patient TargetsNo targets recorded. Patient InstructionsNo instructions recorded. Reason for Referral None Reported. Results Created Date Observation Date Name Description Value Unit Range Abnormal Flag Note LastModifiedBy Organization Detail LastModifiedTime 04/23/2004/23/2025 US, patience x, fiorella s, lower extre mity No observ ation record ed. [facility] [place] (Medical Records) [address] [place], [address], 04/23/2025 14:03:34 Result Notes None recorded. Problems Name Problem SNOMED Code Status Onset Date Resolution Date Notes Provider Name and Address Organization Details Recorded Time Hypothyr oidism 78084567 Active 2019 HARSH MUHAMMAD [address] [place], [address], [facility] 0 09:49:20 Venous stasis edema of bilatera l lower limbs 17785062414 268511 Active 2020 HARSH MUHAMMAD [address] [place], [address], [facility] 1 12:11:22 Abdomina l aortic aneurysm 129833828 Active 2021 HARSH MUHAMMAD [address] [place], [address], [facility] 2 16:16:46 Edema of lower extremit y 309643531 Active 2021 HARSH MUHAMMAD [address] [place], [address], [facility] 2 16:24:25 Chronic sinusiti s 30494577 Active 2021 HARSH MUHAMMAD [address] [place], [address], [facility] 2 16:33:24 COVID-19 615800198 Active 2021 HARSH MUHAMMAD [address] [place], [address], [facility] 2 08:42:21 Obstruct anurag sleep apnea syndrome 29854599 Active 2022 HARSH MUHAMMAD [address] [place], [address], [facility] 3 15:37:17 Pulmonar y embolism 20417564 Active 2022 HARSH MUHAMMAD [address] [place], [address], [facility] 3 15:40:40 Hyperkal emia 81784802 Active 2022 HARSH MUHAMMAD [address] [place], [address], [facility] 3 15:46:19 Dyspnea 692666925 Active 2022 HARSH MUHAMMAD [address] [place], [address], [facility] 3 09:35:39 Type 2 diabetes mellitus 76459336 Active 2022 [facility] ER [facility] 11:41:00 Allergic rhinitis 56601178 Active 2022 HARSH MUHAMMAD [address] [place], [address], [facility] 3 12:31:24 Acute bronchit is 91651386 Active 2023 HARSH MUHAMMAD [address] [place], [address], [facility] 4 10:32:11 Hyperlip idemia 27532661 Active 2023 HARSH MUHAMMAD [address] [place], [address], [facility] 4 10:56:12 Cellulit is of lower leg 232994851 Active 2023 HARSH MUHAMMAD [address] [place], [address], [facility] 4 15:50:51 Lymphede ma of lower extremit y 628922514 Active 2023 HARSH MUHAMMAD [address] [place], [address], [facility] 4 15:53:36 Stasis dermatit is of lower limb due to chronic peripher al venous hyperten pham 976015113 Active 2023 HARSH MUHAMMAD [address] [place], [address], [facility] 4 14:01:58 Asthma 680297975 Active 2024 HARSH MUHAMMAD [address] [place], [address], [facility] 5 15:24:52 Acute sinusiti s 21760650 Active 2024 HARSH MUHAMMAD [address] [place], [address], [facility] 5 11:09:26 Acute exacerba tion of chronic obstruct anurag pulmonar y disease 848267843 Active 2024 HARSH MUHAMMAD [address] [place], [address], [facility] 5 09:06:40 Congesti ve heart failure 70320746 Active 2024 HARSH MUHAMMAD [address] [place], [address], [facility] 5 09:06:59 Chronic hypoxemi c respirat ory failure 837690386 Active 2024 HARSH MUHAMMAD [address] [place], [address], [facility] 5 09:07:13 Essentia l hyperten pham 06022747 Active 2024 HARSH MUHAMMAD [address] [place] [address], [address], [facility] 5 09:29:23 Stented coronary artery 928671320 Active 2017 Asiya Segura NP, S [address] [place] [address], [address], [facility] 8 08:53:20 Chronic obstruct anurag pulmonar y disease 43587582 Active 2017 Asiya Segura NP, S [address] [place] [address], [address], [facility] 8 08:54:03 Atrial fibrilla tion 83342206 Active 2017 Asiya Segura NP, S [address] [place] [address], [address], [facility] 8 08:54:43 Edema of left lower limb 594274144 Active 2024 HARSH MUHAMMAD [address] [place] [address], [address], [facility] 5 11:03:36 Cellulit is of left lower limb 25067690758 944132 Active 2024 HARSH MUHAMMAD [address] [place] [address], [address], [facility] 5 11:04:47 Acute non-ST segment elevatio n myocardi al infarcti on 144270810 Completed 201704/20/2018 Asiya Segura NP, S [address] [place] [address], [address], [facility] 8 09:04:24 Sleep apnea 26385841 Active 2017 Asiya Segura NP, Kory [address] [place] [address], [address], [facility] 8 09:19:12 Notes:s/p STEMI 11/2015 Problem Notes None recorded. Procedures Surgical History Date Name Laterality Status Provider Name and Address Organization Details Recorded Time Tonsillectomy completed Asiya senior NP, S [address] [place], [address], [facility] 04/20/2018 09:00:14 Imaging Results None recorded. Procedure Notes None recorded. Medical Equipment None Reported. Allergies Allergen ID Allergen Name Allergen Category Reaction Reaction Severity Criticality Documentation Date Start Date Code Code System Note Provider Name and Address Organization Details Recorded Time 844 Product containin g penicilli n (product) medicatio n Not available Not available Not available 02/13/2018 65365 8001 SN[facility]ELIPA [facility] 8 11:48:11 Medications Name Sig Start Date Stop Date Status Note LastModified by Organization Details LastModified Time pulse oximeter leader USE DIRECTED active Not Available Not Available No t Available losartan 50 mg tablet TAKE 1 TABLET BY MOUTH EVERY DAY 11/15 completed Not Available Not Available Not Available furosemid e 40 mg tablet TAKE 1 TABLET BY MOUTH EVERY DAY 10/24 completed Not Available Not Available Not Available budesonid e 32 mcg/actua tion nasal spray SHAKE LIQUID AND USE 1 SPRAY IN EACH NOSTRIL EVERY DAY 01/07 completed Not Available Not Available Not Available atorvasta tin 40 mg tablet TAKE 1 TABLET BY MOUTH EVERY DAY DIRECTED active Not Available Not Available No t Available metformin 500 mg tablet TAKE 1 TABLET BY MOUTH TWICE A DAY active Not Available Not Available No t Available potassium chloride ER 10 mEq capsule,e xtended release TAKE 1 CAPSULE BY MOUTH EVERY DAY 03/29 completed Not Available Not Available Not Available prednison e 10 mg tablet 60 mg x 2 days50 mg x 2 days40 mg x 2 days30 mg x 2 days20 mg x 2 days10 mg x 2 days 2024 active Not Available Not Available Not Avai lable doxycycli ne hyclate 100 mg capsule Take 1 capsule twice a day by oral route. 03/07 completed Not Available Not Available Not Available torsemide 20 mg tablet TAKE 2 TABLETS BY MOUTH TWICE A DAY ORALLY DAILY 90 DAYS active Not Available Not Available No t Available clindamyc in HCl 300 mg capsule 03/07 completed Not Available Not Available Not Available albuterol sulfate 2.5 mg/3 mL (0.083 %) solution for nebulizat ion INHALE CONTENTS OF 1 VIAL(3 ML) IN NEBULIZE R THREE TIMES A DAY 2021 active Not Available Not Available Not Avai lable ammonium lactate 12 % lotion APPLY TO LEGS ONCE DAILY 01/07 completed Not Available Not Available Not Available azithromy mary 250 mg tablet TAKE 2 TABLETS BY MOUTH TODAY, THEN TAKE 1 TABLET DAILY FOR 4 DAYS DIRECTED 01/07 completed Not Available Not Available Not Available metoprolo l tartrate 100 mg tablet TAKE 1 TABLET BY MOUTH TWICE DAILY 04/16 completed Not Available Not Available Not Available amiodaron e 200 mg tablet TAKE 2 TABLETS BY MOUTH TWO TIMES A DAY FOR 5 DOSES THEN TAKE 1 TABLET BY MOUTH ONCE DAILY active Not Available Not Available No t Available metoprolo l succinate ER 50 mg tablet,ex tended release 24 hr Take 1 tablet every [...] Not Available Not Available Not Avai lable prednison e 20 mg tablet TAKE 2 TABLETS BY MOUTH ONCE 11/15 completed Not Available Not Available Not Available metoprolo l succinate ER 100 mg tablet,ex tended release 24 hr TAKE 1 TABLET BY MOUTH EVERY DAY DIRECTED active Not Available Not Available No t Available glipizide ER 5 mg tablet, extended release 24 hr TAKE 1 TABLET DAILY 01/07 completed Not Available Not Available Not Available clindamyc in HCl 150 mg capsule 10/22 completed Not Available Not Available Not Available potassium chloride ER 10 mEq tablet,ex tended release TAKE 1 TABLET BY MOUTH EVERY DAY 11/15 completed Not Available Not Available Not Available metronida zole 500 mg tablet 03/07 completed Not Available Not Available Not Available ciproflox acin 500 mg tablet TAKE 1 TABLET BY MOUTH EVERY 12 HOURS FOR 10 DAYS 10/09 completed Not Available Not Available Not Available aspirin 81 mg tablet,de layed release TAKE 1 TABLET BY MOUTH DAILY 11/15 completed Not Available Not Available Not Available tramadol 50 mg tablet Take 1 tablet every 4-6 hours by oral route as needed for 7 days. 2024 active Not Available Not Available Not Avai lable triamcino lone acetonide 0.1 % topical cream APPLY TO LEGS TWICE DAILY FOR 4 WEEKS 03/26 completed Not Available Not Available Not Available spironola ctone 25 mg tablet Take 1 tablet every day by oral route for 30 days. 11/16 completed Not Available Not Available Not Available levothyro xine 75 mcg tablet TAKE 1 TABLET BY MOUTH EVERY DAY 02/25 completed Not Available Not Available Not Available levothyro xine 100 mcg tablet TAKE 1 TABLET BY MOUTH EVERY DAY 01/07 completed Not Available Not Available Not Available terbinafi ne HCl 250 mg tablet TAKE 1 TABLET BY MOUTH EVERY DAY FOR 30 DAYS active Not Available Not Available No t Available amlodipin e 10 mg tablet TAKE 1 TABLET BY MOUTH DAILY 11/15 completed Not Available Not Available Not Available benzonata te 100 mg capsule 03/07 completed Not Available Not Available Not Available doxycycli ne monohydra te 100 mg capsule TAKE 1 CAPSULE BY MOUTH TWICE DAILY 11/15 completed Not Available Not Available Not Available levothyro xine 50 mcg tablet Take 1 tablet every day by oral route. 04/18 completed Not Available Not Available Not Available cephalexi n 500 mg capsule Take 1 capsule every 6 hours by oral route for 10 days. 01/07 completed Not Available Not Available Not Available losartan 25 mg tablet TAKE 1 TABLET BY MOUTH DAILY 08/28 completed Not Available Not Available Not Available budesonid e 0.5 mg/2 mL suspensio n for nebulizat ion USE 2 ML VIA NEBULIZE R TWICE DAILY active Not Available Not Available No t Available diltiazem CD 120 mg capsule,e xtended release 24 hr TAKE 1 CAPSULE DAILY 01/07 completed Not Available Not Available Not Available ammonium lactate 12 % topical cream APPLY TOPICALL Y 2 TIMES A DAY, FOR 10 DAYS active Not Available Not Available No t Available codeine 10 mg-guaife nesin 100 mg/5 mL oral liquid TAKE 10 ML BY MOUTH EVERY 4 HOURS NEEDED FOR 7 DAYS *NOT COVERED* 01/07 completed Not Available Not Available Not Available alcohol swabs USE 1 PAD TOPICALL Y FOUR TIMES DAILY BEFORE MEALS AND BEDTIME 01/07 completed Not Available Not Available Not Available clobetaso l 0.05 % topical ointment APPLY TO THE LEG TWICE DAILY FOR 3 WEEKS 01/07 completed Not Available Not Available Not Available ibuprofen 600 mg tablet TAKE 1 TABLET BY MOUTH THREE TIMES DAILY WITH FOOD 11/15 completed Not Available Not Available Not Available cefuroxim e axetil 500 mg tablet 03/07 completed Not Available Not Available Not Available methylpre dnisolone 4 mg tablets in a dose pack TAKE 6 TABLETS ON DAY 1 DIRECTED ON PACKAGE AND DECREASE BY 1 TAB EACH DAY FOR A TOTAL OF 6 DAYS 10/24 completed Not Available Not Available Not Available albuterol sulfate HFA 90 mcg/actua tion aerosol inhaler INHALE 1 PUFF BY MOUTH EVERY DAY NEEDED active Not Available Not Available No t Available doxycycli ne hyclate 100 mg tablet Take 1 tablet twice a day by oral route for 14 days. 2024 active Not Available Not Available Not Avai lable Hibiclens 4 % topical liquid Apply 1 applicat ion every day by topical route for 30 days. 2024 active Not Available Not Available Not Avai lable spironola ctone 50 mg tablet Take 1 tablet(s ) every day by oral route for 30 days. 2024 active Not Available Not Available Not Avai lable levothyro xine 112 mcg tablet TAKE 1 TABLET BY MOUTH EVERY DAY active Not Available Not Available No t Available amoxicill in 875 mg-potass ium clavulana te 125 mg tablet TAKE 1 TABLET BY [...] Available Asprin Ec Low Dose 81 mg tablet,de layed release Take 1 tablet every day by oral route. 03/10 completed Not Available Not Available Not Available ezetimibe 10 mg tablet 10 MG ORALLY DAILY active Not Available Not Available No t Available Crestor 5 mg tablet Take 1 tablet every day by oral route. 2017 active Not Available Not Available Not Avai lable Atrovent HFA 17 mcg/actua tion aerosol inhaler INHALE 2 PUFFS BY MOUTH [...] Available Not Available Not Avai lable Chest Congestio n Relief 100 mg/5 mL oral liquid 11/15 completed Not Available Not Available Not Available blood pressure test kit-large cuff USE DIRECTED 11/15 completed Not Available Not Available Not Available Xarelto 15 mg tablet Take 1 tablet every day by oral route. active Not Available Not Available No t Available Xarelto 20 mg tablet Take 1 tablet every day by oral route for 30 days. 11/15 completed samples Not Available Not Available Not Available Eliquis 5 mg tablet TAKE 2 TABLETS BY MOUTH TONIGHT AND THEN TWICE DAILY FOR 7 DAYS. THEN CONTINUE 5 MG TWICE DAILY INDEFINI TELY 04/16 completed Not Available Not Available Not Available Farxiga 10 mg tablet TAKE 1 TABLET BY MOUTH EVERY DAY 01/07 completed Not Available Not Available Not Available metoprolo l tartrate 75 mg tablet Take 1 tablet twice a day by oral route. 03/10 completed Not Available Not Available Not Available metoprolo l succinate ER 100 mg capsule sprinkle, ext. release 24 hr Take 1 capsule every day by oral route. 01/22 completed Not Available Not Available Not Available Paxlovid 300 mg (150 mg x 2)-100 mg tablets in a dose pack TAKE 3 TABLET BY MOUTH TWICE DAILY FOR 5 DAYS 11/15 completed Not Available Not Available Not Available Vitals Date Recorded Body height Oxygen saturation Oxygen saturation in Arterial blood by Pulse oximetry Body mass index (BMI) Body weight Heart rate Systolic blood pressure Diastolic blood pressure Provider Name and Address Organization Details Last Updated DateTime 5 185.42 cm 97 % 97 % 47.9 kg/m2 137073. 03 g 68 /min 102 mm[Hg] 68 mm[Hg] Diana Jimenez [facility] 5 10:24:18 Social History Question Answer Notes LastModified by Organizat ion Details LastModified Time Tobacco Smoking Status Former Smoker Diana Jimenez [facility] 03/26/2025 15:03:48 What Was The Date Of Your Most Recent Tobacco Screening? 04/23/2025 [email or web address] Information not available 04/23/2025 How Much Tobacco Do You Smoke? 0.25 PPD [email or web address] Information not available 10/22/2022 Sex: Unknown Functional Status Question Answer Note LastModified by Organization D etails LastModified Time Do you or have you ever used any other forms of tobacco or nicotine? No [email or web address] Information not available 10/09/2024 Mental Status None recorded. Family History Relationship [...] mcg/0.5 mL dose 01/07/2021 completed Patricia bill [facility] 11/15/2022 11:11:45 COVID-19, mRNA, LNP-S, PF, 50 mcg/0.5 mL dose 02/04/2021 completed Patricia bill [facility] 11/15/2022 11:11:52 COVID-19, mRNA, LNP-S, PF, 50 mcg/0.5 mL dose 09/17/2021 completed Patricia Higgins [facility] 11/15/2022 11:11:59 Tdap 11/07/2009 completed Not Available [facility] 09/[facility]/2022 22:19:34 Past Encounters Encounter ID Performer Location Encounter Start Date Encounter Closed Date Diagnosis/Indication Diagnosis SNOMED-CT Code Diagnosis ICD10 Code Diagnosis Note [id number] Kojo Cast [facility] [address] [address] 03/26/2025 14:52:29 03/26/2025 16:14:29 Depression screening 413672790 Z13.31 neg Lymphedema of lower extremity 278711163 I89.0 [id number] Kojo Cast [facility] [address] [address] 04/23/2025 10:11:30 04/23/2025 11:25:42 Edema of left lower limb 986078024 R60.0 has fu with them coming up Cellulitis of left lower limb 1192425421 6954116 L03.116 will set up with prednisone , doxy and tramadol with STAT US r/o clot for acute worsening of edema has vascular appt notable changes in toe coloration , but pt states it has well like this for awhileswel ling is more than previous, around 4+ edematende r to the touch and warm Lymphedema of lower extremity 039147927 I89.0 new referral sent in for a new vascular surgeon Health Concerns Section Related Observation LastModified by Organization Detai ls LastModified Time None Recorded Concern Status LastModified by Organization Details LastModified Time None Recorded Payers Encounter Date Sequence Insurance Name Policy Number Policy Jasso Covered Member ID Jasso Member ID Guarantor Name 04/23/2025 2 [employer] (MEDICARE SUPPLEMENT) Rudy Mathias [id number] Rudy Mathias 04/23/2025 1 [place]IC[place]: [employer] Rudy Mathias [id number] Rudy Mathias Notes Date Note Type Note Provider Name a nd Address Organization Details Recorded Time 5 text/html c/o L Edema and pain, warmth the patient reports that he noticed this morning sig increase in swellingsig tendernesshas been seeing vasc, has f/u they are treating him for the swelling, also getting US arterial and other studies recommended eval for acute DVT given hxalso has been taking less xarelto due to engle, only the 15 mg, given the 20 mg in office today to start will start on pred taper, doxy, tramadol for pain recommended hospital for patient but he declinedreviewed the risks of not going including necrosis and even and patient understands the risk but will not go to the hospital if his breathing worsens or changes need to go to ER immediately vitals are w/n/l at this time pulse ox taken on the L big toe which was 98% HARSH MUHAMMAD [address], [place], [address], [facility] 04/23/2025 11:17:33
== END 2025-04-23 13:32 | disposition home or self-care (01) ==
LOC: HO.US 13:31
PROVIDERS: PCP Internal Medicine; Visit Provider Physician Assistant
DX: R60.0 Localized edema (principal)
CPT/HCPCS: 93971

== ENCOUNTER → 2025-04-23 13:40 | Outpatient (BNV) | payer MEDICARE, SELFPAY | PROVIDERS: PCP Internal Medicine; Visit Provider Radiology Diagnostic Radiology | DX: R22.42 Localized swelling, mass and lump, left lower limb (principal) | CPT/HCPCS: 93971 ==

== ENCOUNTER → 2025-05-21 12:42 | Outpatient (REF) | payer MEDICARE, SELFPAY ==
--- NOTE | 2025-05-21 12:45 | HM_ITS ---
* Total monitoring time 7 days. * Underlying rhythm is atrial fibrillation. * Average ventricular rate 75/Min. No significant burden of bradycardia/tachycardia. * No significant pauses or high-grade AV blocks. * No patient markers or diary events. MTDD
--- OUTSIDE RECORDS SUMMARY | 2025-05-21 13:54 | XMS_ITS | Data Portability ---
Author Organization [facility], [facility] Address [address] [place] [address] Assessment No assessment recorded. Plan of Treatment Reminders Order Date Submit Date Provider Last Modified By Organization Details Last Modified Time Details Appointments None recorded. Lab None recorded. Referral None recorded. Procedures None recorded. Surgeries None recorded. Imaging None recorded. Medication Orders cyclobenzap rine 10 mg tablet 2010 011 [facility] #[id number], [address], [place], [id number], 3 05:17:00 ibuprofen 600 mg tablet 2010 011 [place] [facility] #[id number], [address], [place], [id number], 3 04:58:16 Patient TargetsNo targets recorded. Patient InstructionsNo instructions recorded. Reason for Referral None Reported. Procedures Surgical History Date Name Laterality Status Provider Name and Address Organization Details Recorded Time Tonsillectomy completed Not Available [facility] 09/23/2011 06:06:16 Imaging Results None recorded. Procedure Notes None recorded. Medical Equipment None Reported. Allergies Allergen ID Allergen Name Allergen Category Reaction Reaction Severity Criticality Documentation Date Start Date Code Code System Note Provider Name and Address Organization Details Recorded Time 02731 Product containin g penicilli n (product) medicatio n Not available Not available Not available 04/27/2011 [id number] SNOMED Not Available [facility] 1 06:05:41 Medications Name Sig Start [...] Body mass index (BMI) Heart rate Systolic And Diastolic Provider Name and Address Organization Details Last Updated DateTime 04/27/2011 182.245 cm 273562.7 66659 g 45.2 kg/m2 76 /min 120/88 mm[Hg] Chalra Kelly CMA [facility] 04/27/2011 11:46:08 Social History Question Answer Notes LastModified by Organizat ion Details LastModified Time Tobacco Smoking Status Current Every Day Smoker 1 ppd Charla Kelly CMA [facility] 04/27/2011 11:40:35 Live Alone Or With Others? [...] Details LastModified Time Mother Dementia 72 [id number] [id number] Not available 06/18/2013 03:01:15 Mother Heart disease CHF [id number] [id number] Not available 06/18/2013 03:01:15 Father Malignant neoplastic disease 58 hairy cell leukem ia (previ ously record ed as Cancer ) [id number] [id number] Not available 06/18/2013 03:01:15 Father Heart disease CABG age 75 [id number] [id number] Not available 06/18/2013 03:01:15 Maternal Aunt Malignant neoplastic disease ; primar y site unknow n (previ ously record ed as Cancer ) [id number] [id number] Not available 06/18/2013 03:01:15 Medical History Condition Response Osteoarthritis Y Lyme Disease Y Obesity Y Immunizations Vaccine Type Date Status Note Provider Nam e and Address Organization Details Recorded Time Td (adult) 11/07/2009 completed Not Available [facility] 09/22/2011 05:22:52 Past Encounters Encounter ID Performer Location Encounter Start Date Encounter Closed Date Diagnosis/Indication Diagnosis SNOMED-CT Code Diagnosis ICD10 Code Diagnosis Note [id number] Diana Kenny NP , [facility], OFFICE [address] [place] [address] 04/27/2011 11:30:30 04/28/2011 13:49:16 Health Concerns Section Related Observation LastModified by Organization Detai ls LastModified Time None Recorded Concern Status LastModified by Organization Details LastModified Time None Recorded Advance Directives Directive None Recorded Payers Insurance Date Sequence Insurance Name Policy Number Policy Jasso Covered Member ID Jasso Member ID Guarantor Name 05/23/2015 1 [employer] (PPO) [id number] Rudy Mathias [id number] Rudy Mathias Notes Date Note Type Note Provider Name and Address Organization Details Recorded Time 04/27/2011 text/html Pt is here to get established, former pt of Dr. Hernandez. Sx as above; pain has been worsening since mowing incident. Hot shower sometimes helps. No fever. Avoids medical care as much as possible. Diana Kenny NP [address] [place] [address], [phone], [facility] 05/03/2011 12:36:11
== END ==
LOC: HO.CARD 12:42
PROVIDERS: PCP Internal Medicine; Visit Provider Internal Medicine
DX: I48.19 Other persistent atrial fibrillation (principal)
CPT/HCPCS: 93242

== ENCOUNTER → 2025-05-21 12:45 | Outpatient (BNV) | payer MEDICARE, SELFPAY | PROVIDERS: PCP Internal Medicine; Visit Provider Internal Medicine | DX: I48.91 Unspecified atrial fibrillation (principal) | CPT/HCPCS: 93244 ==

== ENCOUNTER 2025-07-30 11:35 | Outpatient (REF) | payer MEDICARE, SELFPAY ==
--- OUTSIDE RECORDS SUMMARY | 2019-10-26 13:29 | XMS_ITS | Encounter Summary ---
Author Organization [facility] Address [address] [address] Phone Care Team Providers Care Estate Administrator Name Role Phone Kojo Hou DO Primary Care Provider [phone] Encounter Details Date Type Department Care Team (Late st Contact Info) Description 10/26/2019 12:29 PM EST Hospital Encounter [facility] [address] [place] [phone] Estela Saldaña PA [address] [place] [phone] Social History Tobacco Use Types Packs/Day Years Used Date Smoking Tobacco: Every Day Cigarettes 1 57.7 Started: 1969 Smokeless Tobacco: Never Comments:CURRENT 6-7 [...] on filedocumented in this encounter Care Teams Estate Administrator Relationship Specialty Start Date End Date Kojo Hou DO [email or web address] PCP - General 08/23/17 documented as of this encounter Additional Source Comments The information contained in this document represents components of the legal health record. It is not the complete legal health record.[facility]
[2025-07-30 13:14] LABS: MANUAL DIFF FLAG NO
[2025-07-30 13:34] LABS: Hematocrit 50.0 % (42.0-52.0); Hemoglobin 16.2 g/dl (14.0-18.0); Imm Gran Abs Auto 0.03 X10*3/uL (0.00-0.03); Imm Gran Pct Auto 0.3 % (0.0-0.4); Lymphocytes Absolute Auto 1.9 X10*3/uL (1.2-4.9); Mean Corpuscular HGB Conc 32.4 g/dl (31.0-36.0); Mean Corpuscular Hemoglobin 30.6 pg (27.0-33.0); Mean Corpuscular Volume 94.3 fL (80.0-98.0); NRBC Abs Auto 0.000 X10*3/uL (0.0-0.012); NRBC Pct Auto 0.0 /100WBC (0.0-0.2); Platelet Count 148 X10*3/uL (160-400); Red Blood Count 5.30 X10*6/uL (4.60-5.80); White Blood Count 8.7 X10*3/uL (4.8-10.8)
[2025-07-30 13:35] LABS: Hemoglobin A1C 232.1752 umol/L; Total Hemoglobin (HGBA1C) 4015.6508 umol/L
[2025-07-30 13:58] LABS: Alanine Aminotransferase 15 U/L (0-40); Albumin Level 4.1 g/dL (3.5-5.0); Alkaline Phosphatase 68 U/L (39-117); Anion Gap 13 (12-20); Aspartate Amino Transferase 24 U/L (5-37); Blood Urea Nitrogen 19 mg/dL (9-16); Calcium 9.2 mg/dL (8.4-10.2); Carbon Dioxide 29 mmol/L (22-29); Chloride 106 mmol/L (96-108); Cholesterol 118 mg/dL (<200); Estimated Glomerular Filt Rate > 60; HDL Cholesterol 32 mg/dL (>40); Potassium 4.9 mmol/L (3.3-5.1); Sodium 143 mmol/L (135-145); Total Protein 6.6 g/dL (6.5-8.0); Triglycerides 107 mg/dL (<150)
--- OUTSIDE RECORDS SUMMARY | 2025-07-30 14:32 | XMS_ITS | Clinical Summary ---
Author Organization Located Within [facility] Address [address] [address] Phone Care Team Providers Care Dump Operator Name Role Phone Kojo Hou DO Primary Care Provider [phone] Allergies Active Allergy Reactions Criticality Noted Date Comments Penicillins Rash Low 09/14/2016 Medications ezetimibe (ZETIA) 10 mg tablet Take 1 tablet by mouth daily. Active furosemide (LASIX) 20 MG tablet Take 1 tablet by mouth daily. Active ticagrelor (BRILINTA) 90 mg Tab Take 1 tablet by mouth 2 (two) times a day. Active potassium chloride (MICRO-K) 10 mEq CR capsule Take 10 mEq by mouth 2 (two) times a day with meals. Active levothyroxine (SYNTHROID, LEVOTHROID) 75 MCG tablet TAKE 1 TABLET BY MOUTH ONCE DAILY- MAKE APPOINTMENT FOR FURTHER REFILLS AND OVERDUE FOR LABS 0 9 Active amLODIPine (NORVASC) 10 MG tablet 0 9 Active aspirin 81 MG EC tablet daily. Active rosuvastatin (CRESTOR) 5 MG tablet daily. Active traMADol (ULTRAM) 50 mg tablet prn Active losartan (COZAAR) 25 MG tablet Take 25 mg by mouth daily. 0 9 Active metoprolol tartrate (LOPRESSOR) 100 MG tablet Take 100 mg by mouth. 0 9 Active albuterol 90 mcg/actuation inhaler Inhale 2 puffs into the lungs every 6 (six) hours as needed for wheezing. 1 Inhaler 0 Active dilTIAZem (CARDIZEM CD) 120 MG 24 hr capsule Take 120 mg by mouth daily. 2 Active Active Problems No known active problems Encounters Date Type Department Care Team Description 05/14/2025 5:25 PM EDT - 05/14/2025 11:59 PM EDT Hospital Encounter [facility] Specimen Processing [address] [place] [address] Olivia Martínez PA Discharge Disposition: Home or Self Care 05/14/2025 Transcribe Orders [facility] Specimen Processing [address] [place] [address] Olivia Martínez PA Acute cellulitis (Primary Dx) from Last 3 Months Family History Medical History Relation Comments Sleep disorder Mother Relation Status Comments Mother Social History Tobacco Use Types Packs/Day Years Used Date Smoking Tobacco: Every Day Cigarettes 1 57.7 Started: 1969 Smokeless Tobacco: Never Tobacco Cessation:Ready to Q uit: Not Asked; Counseling Given: Not Answered Comments:CURRENT 6-7 CIG/D Alcohol Use Standard Drinks/Week [...] on file Sexual Orientation Not on file Last Filed Vital Signs Vital Sign Reading Time Taken Comments Blood Pressure 132/80 09/20/2022 9:21 AM EST Pulse 63 09/20/2022 9:21 AM EST Temperature 36.5 C (97.7 F) 01/03/2020 11:32 AM EST Respiratory Rate 18 01/03/2020 12:02 PM EST Oxygen Saturation 91% 09/20/2022 9:21 AM EST Inhaled Oxygen Concentration - - Weight 171.5 kg (378 lb) 09/20/2022 9:21 AM EST Height 185.4 cm (6' 0.99 ) 09/20/2022 9:21 AM ES T Body Mass Index 49.88 09/20/2022 9:21 AM EST Plan of Treatment Health Maintenance Due Date Last Done Comments DEPRESSION SCREENING 1965 SMOKING Hx and SMOKELESS TOBACCO SCREENING 1966 PNEUMOCOCCAL VACCINES (50+ years) (1 of 2 - PCV) 1972 COLOGUARD 1998 COLONOSCOPY 1998 COLORECTAL CANCER SCREENING 1998 FIT TEST 1998 FOBT 1998 SIGMOIDOSCOPY 1998 VIRTUAL COLONOSCOPY 1998 ZOSTER VACCINES (1 of 2) 2003 RSV VACCINE (1 - Risk 60-74 years 1-dose series) 2013 ABDOMINAL AORTIC ANEURYSM (AAA) SCREENING 2018 Adult Td,Tdap Booster 11/07/2019 11/07/2009 TSH LEVEL 03/11/2021 03/11/2020 LIPID PANEL 05/02/2023 05/02/2018 INFLUENZA VACCINE (#1) 2025 COVID-19 VACCINE (3 - 2024-2 6 season) 2025 02/04/2021, 01/07/2021 CREATININE LEVEL 12/10/2025 12/10/2024 POTASSIUM LEVEL 12/10/2025 12/10/2024 HEPATITIS C SCREENING Completed 05/02/2018 HEPATITIS A VACCINES Aged Out No long er eligible based on patient's age to complete this topic HIB VACCINES Aged Out No longer eligi ble based on patient's age to complete this topic MENINGOCOCCAL VACCINES (ACWY) Aged Out No longer eligible based on patient's age to complete this topic MENINGOCOCCAL VACCINES (B) Aged Out N o longer eligible based on patient's age to complete this topic Medical Devices Not on file Procedures Procedure Name Priority Date/Time Associated Diagnosis Comments WOUND CULTURE/SMEAR Routine 05/14/2025 5 :28 PM EDT Acute cellulitis BASIC METABOLIC PANEL Routine 12/10/2024 11:17 AM EST Heart failure with preserved ejection fraction, unspecified HF chronicity TSH Routine 03/11/2020 11:08 AM EDT Hypothyroidism, adult from Last 3 Months or Most Recently Relevant to Health Maintenance Results * (ABNORMAL) Wound culture/smear (05/14/2025 5:28 PM EDT) Special Requests None 05/14/2025 5:28 PM EDT [facility] GRAM STAIN NO ORGANISMS SEEN 05/15/2025 11:05 AM EDT [facility] Wound Culture/Smear MIXED ORGANISMS RESEMBLING CUTANEOUS HERI(A) 05/16/2025 11:43 AM EDT [facility] Other (Arm) 05/14/2025 5:28 PM EDT 05/14/2025 5:29 PM EDT Comment:LEFT FOREARM us Olivia HOUSE MICROBIOLOGY - GENERAL ORDLe HULL Final Result Performing Organization Address [facility]/ZIP Co de Phone Number [address] [address] * (ABNORMAL) Basic metabolic panel (12/10/2024 11:17 AM EST) SODIUM 142 133 - 146 mmol/L [facility] CHLORIDE 99 96 - 108 mmol/L [facility] POTASSIUM 4.6 3.3 - 5.1 mmol/L [facility] CO2 35 21 - 35 mmol/L [facility] BUN 25(H) 6 - 19 mg/dL [facility] CREATININE 1.00 0.5 - 1.5 mg/dL [facility] GLUCOSE 154(H) 70 - 99 mg/dL [facility] CALCIUM 9.2 8.4 - 10.3 mg/dL [facility] EGFR 80 >59 mL/min/1.7 3m2 [facility] Comment:Estimated glomerular filtration rate calculated using the CKD-EPI refit equation. ANION GAP 13 10 - 20 mmol/L [facility] Blood 12/10/2024 11:1 7 AM EST 12/10/2024 11:19 AM EST us Pili Oropeza MD LAB BLOOD ORDERABLES Fin al Result Performing Organization Address City/[facility]/ZIP Co de Phone Number [address] [address] * (ABNORMAL) TSH (03/11/2020 11:08 AM EDT) TSH 38.30(H) 0.27 - 4.20 uIU/mL [facility] Blood 03/11/2020 11:0 8 AM EDT 03/11/2020 11:10 AM EDT [facility] LAB BLOOD ORDERABLES Final Result [facility] [address] [place] [address] from Last 3 Months or Most Recently Relevant to Health Maintenance [place] [address] [place] [address] MEDICARE SUPPLEMENT MEDICARE PART A & B [facility] SAFETY NET PARTIAL [facility] AAR MEDICARE REPLACEMENT [facility] MEDICARE SUPPLEMENT MEDICARE PART A & B [facility] NET PARTIAL [facility] MEDICARE REPLACEMENT [place] [place] [address] MEDICARE SUPPLEMENT MEDICARE PART A & B [facility] MEDICARE SUPPLEMENT MEDICARE PART A & B [facility] Address: [facility] CLAIMS DIVISION [address] [place] [phone] MEDICARE PART A & B NET PARTIAL [facility] MEDICARE REPLACEMENT [facility] MEDICARE SUPPLEMENT MEDICARE PART A & B [facility] MEDICARE SUPPLEMENT MEDICARE PART A & B [facility] PARTIAL MEDICARE REPLACEMENT [facility] MEDICARE SUPPLEMENT MEDICARE PART A & B [facility] PARTIAL MEDICARE REPLACEMENT [facility] MEDICARE SUPPLEMENT MEDICARE PART A & B [facility] NET PARTIAL MEDICARE REPLACEMENT Care Teams Dump Operator Relationship Specialty Start Date End Date Kojo Hou DO PCP - General 08/23/17 Additional Source Comments The information contained in this document represents components of the legal health record. It is not the complete legal health record.Loc[facility]
--- OUTSIDE RECORDS SUMMARY | 2025-07-30 14:33 | XMS_ITS | Encounter Summary ---
Author Organization [facility] Address [address] [address] Phone Care Team Providers Care User Support Analyst Name Role Phone Kojo Hou Primary Care Provider [phone] Ameya Kojo Precious Unavailable Encounter Details Date Type Department Care Team (Late st Contact Info) Description 05/02/2018 Ancillary Orders Virtual Department [address] [place] [address] Asiya Segura, MIGUEL [address] [place] [address] Acute bronchitis, unspecified organism Social History Tobacco Use Types Packs/Day Years Used Date Smoking Tobacco: Never Assessed Sex and Gender Information Value Date Recorded Sex Assigned at Not on file Legal Sex Male 9:58 PM EDT Gender Identity Not on file Sexual Orientation Not on file documented as of this encounter Plan of Treatment Not on file documented as of this encounter Visit Diagnoses Diagnosis Acute bronchitis, unspecified organism documented in this encounter Care Teams User Support Analyst Relationship Specialty Start Date End Date Kojo Hou DO PCP - General 08/23/17 Kojo Hou DO [address] [place] [address] [place] [address] Insurance Assigned Provider 02/04/18 documented as of this encounter Additional Source Comments The information contained in this document represents components of the legal health record. It is not the complete legal health record.[facility]
[2025-07-30 14:58] LABS: Free T4 (Free Thyroxine) 0.94 ng/dL (0.71-1.85)
== END 2025-07-30 11:36 | disposition home or self-care (01) ==
LOC: HO.MANLDS 11:35
PROVIDERS: Visit Provider Physician Assistant
DX: E11.9 Type 2 diabetes mellitus without complications (principal); E03.8 Other specified hypothyroidism; E78.5 Hyperlipidemia, unspecified
CPT/HCPCS: 36415; 80053; 80061; 83036; 84439; 84443; 85025

== ENCOUNTER 2025-07-31 14:13 | Outpatient (AMB) | payer MEDICARE, SELFPAY ==
--- OUTSIDE RECORDS SUMMARY | 2019-10-26 13:29 | XMS_ITS | Encounter Summary ---
Author Organization [facility] Address [address] [address] Phone Care Team Providers Care Floor Press Operator Name Role Phone Kojo Hou DO Primary Care Provider [phone] Encounter Details Date Type Department Care Team (Late st Contact Info) Description 10/26/2019 12:29 PM EST Hospital Encounter [facility] [address] [place] [phone] Estela Saldaña PA [address] [place] [phone] Social History Tobacco Use Types Packs/Day Years [...] on filedocumented in this encounter Care Teams Floor Press Operator Relationship Specialty Start Date End Date Kojo Hou DO [email or web address] PCP - General 08/23/17 documented as of this encounter Additional Source Comments The information contained in this document represents components of the legal health record. It is not the complete legal health record.[facility]
[2025-07-31 14:23] VITALS: BP 120/68; PULSE 98; BMI 46.4
--- NOTE | 2025-07-31 14:23 | MHC.OFFVIS ---
Vital Signs 07/31/25 14:23 Height 6 ft 1 in Weight 352 lb BMI 46.4 BP 120/68 Blood Pressure Location Lt brachial Position Sitting Pulse 98 Pulse Source Pulse Oximeter Intake Visit Reasons: 3m follow up Allergies Penicillins (PENICILLINS) Allergy (Unknown, Verified 02/12/25 15:22) UNKNOWN statin intolerance Allergy (Unknown, Uncoded 02/12/25 15:22) swelling Medication List - Last Reconciled 07/31/25 by Tomi Loyola MD atorvastatin 40 mg PO DAILY blood sugar diagnostic (FreeStyle Lite Strips) Test four times a day or as directed. blood-glucose meter (FreeStyle Lite Meter kit) As Directed budesonide 32 mcg/actuation 1 spray intranasal DAILY clobetasol 0.05% grams topical BID digoxin 125 mcg PO DAILY diltiazem HCl CD 120 mg PO DAILY ezetimibe 10 mg PO DAILY furosemide 40 mg PO DAILY lancets (FreeStyle Lancets) Test four times a day or as directed. levothyroxine 100 mcg PO DAILY@0600 losartan 50 mg PO DAILY metoprolol tartrate 100 mg PO DAILY rivaroxaban (Xarelto) 20 mg PO DAILY HPI Comments Details: Rudy returns for follow-up regarding his various cardiac issues including coronary disease, paroxysmal atrial fibrillation, hypertension, dyslipidemia among others. Few months ago, he was admitted to [facility] following mechanical fall. Patient states that he fell from office chair by losing balance. In that setting, it seems that he was in atrial fibrillation with rapid ventricular rate and also congestive heart failure. He was seen by EP, Dr. Sanchez. Briefly he was put on amiodarone. Then it seems he has saw EP who decided against any ablation procedure. He is managed mainly on rate control. Since last seen, he is doing fine for the most part. No new concerns like exertional angina or palpitations. Breathing is just about the same as before. [facility] Medical History (Updated 02/12/25 @ 15:57 by Tomi Loyola MD) Type 2 diabetes mellitus Hypoxia Lyme disease Pulmonary hyperinflation Leg swelling Obstructive sleep apnea Statin intolerance Mixed hyperlipidemia Essential hypertension Paroxysmal atrial fibrillation Atherosclerotic cardiovascular disease Surgical History History of cardiac catheterization Family History Father No problems noted. Mother CHF (congestive heart failure) Social History Household Members: Spouse Housing: House Do you presently have visiting nurse or other home services: No Alcohol intake: never Comment: pt refuses moderate fall precautions Patient Tobacco Use Status: Former Tobacco user service: No Current occupational status: employed Review of Systems Const Denies weakness ENT Denies dizziness Card Denies chest pain, Denies chest pain with activity, Denies syncope, Denies rapid heart rate, Denies pedal edema, Denies edema, Denies leg edema, Denies lightheadedness, Denies palpitations, Denies dyspnea, Denies dyspnea on exertion and Denies orthopnea Resp Denies cough, Denies dyspnea and Denies dyspnea on exertion GI Denies hematochezia and Denies change in stool character Musc Denies abnormal gait, Denies muscle cramps, Denies muscle weakness, Denies numbness, Denies radiating pain into limb and Denies tingling Neuro Denies abnormal gait, Denies dizziness, Denies syncope, Denies numbness, Denies tingling and Denies weakness Endo Denies palpitations Physical Exam Vital Signs: Last Vital Signs Pulse 98 07/31/25 14:23 BP 120/68 07/31/25 14:23 BMI result Body Mass Index 46.4 Const General: comfortable and no acute distress Orientation/consciousness: patient oriented x3 HEENT Other: Unremarkable Head: Yes normal to inspection Neck Neck: Yes normal visual inspection Chest Chest palpation & inspection: normal inspection of the chest Resp Auscultation: clear to auscultation bilaterally Cardio Palpation: normal PMI Heart sounds: S1 normal heart sound present, S2 normal heart sound present, no gallops, no murmurs and no rubs GI Palpation (GI): Soft to palpation Back/Spine/Pelvis Other: unremarkable Skin General skin exam: no rashes or lesions noted Neuro General: patient oriented x3 Extrem Other: Chronic changes noted Psych Mental Status: mental status grossly normal Assessment & Plan Assessment & Plan (1) Persistent atrial fibrillation: Code(s): I48.19 - Other persistent atrial fibrillation Category: Medical Plan: Due to obesity, untreated sleep apnea poor candidate for rhythm control. Has seen EP and not considered to be a good ablation candidate. Continue diltiazem, metoprolol and digoxin. Check digoxin levels. Continue anticoagulation. (2) Chronic diastolic (congestive) heart failure: Code(s): I50.32 - Chronic diastolic (congestive) heart failure Category: Medical Plan: In the recent echocardiogram, LVEF 60-65%. In the repeat study at [facility] it seems he was tachycardic-LVEF reported to be mildly reduced to normal. His leg swelling itself is likely multifactorial and could be related to some combination of weight, untreated sleep apnea, venous insufficiency, atrial fibrillation. Remains on diuretics. Apparently, Farxiga prescribed at [facility] was way too expensive. (3) Atherosclerotic cardiovascular disease: Code(s): I25.10 - Atherosclerotic heart disease of [place] coronary artery without angina pectoris Category: Medical Plan: Status post drug-eluting stent to RCA, OM2 in the past. Clinically no angina. (4) Essential hypertension: Code(s): I10 - Essential (primary) hypertension Category: Medical Plan: Stable. No changes. (5) Mixed hyperlipidemia: Code(s): E78.2 - Mixed hyperlipidemia Category: Medical Plan: Treatment has been less than optimal in the past. Was not taking statins but now listed to be on atorvastatin 40 mg daily. Also on Zetia. Most recent LDL from yesterday was 65 mg/dL. (6) Obstructive sleep apnea: Code(s): G47.33 - Obstructive sleep apnea (adult) (pediatric) Category: Medical Plan: He states he has seen multiple sleep Medicine doctors but still unable to get the actual CPAP machine. Advised him to contact PCP about that. (7) Morbid obesity: Code(s): E66.01 - Morbid (severe) obesity due to excess calories Category: Medical Plan: Longstanding issue and unlikely to change much. Orders: Orders Digoxin Today I48.19 - Other persistent atrial fibrillation Coding Level of Care Code Est Pt Level 4 (64127) Complex EM visit Add On G2211 Diagnoses Persistent atrial fibrillation I48.19 Chronic diastolic (congestive) heart failure I50.32 Atherosclerotic cardiovascular disease I25.10 Essential hypertension I10 Mixed hyperlipidemia E78.2 Obstructive sleep apnea G47.33 Morbid obesity E66.01
--- OUTSIDE RECORDS SUMMARY | 2025-07-31 17:00 | XMS_ITS | Encounter Summary ---
Author Organization [facility] Address [address] [address] Phone Care Team Providers Care Partnership Development Manager Name Role Phone Kojo Hou Primary Care Provider [phone] Ameya Kojo Precious Unavailable Encounter Details Date Type Department Care Team (Late st Contact Info) Description 05/02/2018 Ancillary Orders Virtual Department [address] [place] [address] Asiya Segura, MIGUEL [address] [place] [address] Acute bronchitis, unspecified organism Social History Tobacco [...] organism documented in this encounter Care Teams Partnership Development Manager Relationship Specialty Start Date End Date Kojo Hou DO PCP - General 08/23/17 Kojo Hou DO [address] [place] [address] [place] [address] Insurance Assigned Provider 02/04/18 documented as of this encounter Additional Source Comments The information contained in this document represents components of the legal health record. It is not the complete legal health record.[facility]
--- OUTSIDE RECORDS SUMMARY | 2025-07-31 17:00 | XMS_ITS | Clinical Summary ---
Author Organization [facility] Address [address] [address] Phone Care Team Providers Care Process Owner Name Role Phone Kojo Hou DO Primary Care Provider [phone] Allergies Active Allergy Reactions Criticality Noted Date [...] EDT Hospital Encounter [facility] Specimen Processing [address] [place] [address] Olivia Martínez PA Discharge Disposition: Home or Self Care 05/14/2025 Transcribe Orders [facility] Specimen Processing [address] [place] [address] Olivia Martínez PA Acute cellulitis (Primary Dx) [...] Special Requests None 05/14/2025 5:28 PM EDT [facility] GRAM STAIN NO ORGANISMS SEEN 05/15/2025 11:05 AM EDT [facility] Wound Culture/Smear MIXED ORGANISMS RESEMBLING CUTANEOUS HERI(A) 05/16/2025 11:43 AM EDT [facility] Other (Arm) 05/14/2025 5:28 PM EDT 05/14/2025 5:29 PM EDT Comment:LEFT FOREARM us Olivia HOUSE MICROBIOLOGY - GENERAL ORDLe HULL Final Result Performing Organization Address [facility]/ZIP Co de Phone Number [address] [address] * (ABNORMAL) Basic metabolic panel (12/10/2024 11:17 AM EST) SODIUM 142 133 - 146 mmol/L [facility] CHLORIDE 99 96 - 108 mmol/L [facility] POTASSIUM 4.6 3.3 - 5.1 mmol/L [facility] CO2 35 21 - 35 mmol/L [facility] BUN 25(H) 6 - 19 mg/dL [facility] CREATININE 1.00 0.5 - 1.5 mg/dL [facility] GLUCOSE 154(H) 70 - 99 mg/dL [facility] CALCIUM 9.2 8.4 - 10.3 mg/dL [facility] EGFR 80 >59 mL/min/1.7 3m2 [facility] Comment:Estimated glomerular filtration rate calculated using the CKD-EPI refit equation. ANION GAP 13 10 - 20 mmol/L [facility] Blood 12/10/2024 11:1 7 AM EST 12/10/2024 11:19 AM EST us Pili Oropeza MD LAB BLOOD ORDERABLES Fin al Result Performing Organization Address City/[facility]/ZIP Co de Phone Number [address] [address] * (ABNORMAL) TSH (03/11/2020 11:08 AM EDT) TSH 38.30(H) 0.27 - 4.20 uIU/mL [facility] Blood 03/11/2020 11:0 8 AM EDT 03/11/2020 11:10 AM EDT Olivia HOUSE LAB BLOOD ORDERABLES Final Result [facility] [address] [place] [address] from Last 3 Months or Most Recently Relevant to Health Maintenance [place] [address] [place] [address] MEDICARE SUPPLEMENT MEDICARE PART A & B [facility] SAFET[facility] NET PARTIAL [facility] AAR MEDICARE REPLACEMENT [facility] MEDICARE SUPPLEMENT MEDICARE PART A & B [facility] NET PARTIAL [facility] MEDICARE [place] [address] [place] [address] MEDICARE SUPPLEMENT MEDICARE PART A & B [facility] MEDICARE SUPPLEMENT MEDICARE PART A & B MEDICARE PART A & B NET PARTIAL [facility] MEDICARE REPLACEMENT [facility] MEDICARE SUPPLEMENT MEDICARE PART A & B [facility] MEDICARE SUPPLEMENT MEDICARE PART A & B [facility] PART[facility] MEDICARE REPLACEMENT [facility] MEDICARE SUPPLEMENT MEDICARE PART A & B [facility] PARTIAL MEDICARE REPLACEMENT [facility] MEDICARE SUPPLEMENT MEDICARE PART A & B [facility] NET PARTIAL MEDICARE REPLACEMENT Care Teams Process Owner Relationship Specialty Start Date End Date Kojo Hou DO PCP - General 08/23/17 Additional Source Comments The information contained in this document represents components of the legal health record. It is not the complete legal health record.[facility]
--- OUTSIDE RECORDS SUMMARY | 2025-07-31 17:01 | XMS_ITS | Data Portability ---
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) MDM MODERATE MUST MEET 2 OUT OF 3 ELEMENTS: PROBLEMS, DATA OR RISK ELEMENT 1: PROBLEMS ADDRESSED 1 OR MORE CHRONIC ILLNESS WITH EXACERBATION OR 2 OR MORE STABLE CHRONIC ILLNESSES OR 1 UNDIAGNOSED NEW PROBLEM OR 1 ACUTE ILLNESS W/SYMPTOMS OR 1 ACUTE COMPLICATED INJURY ELEMENT 2: DATA MUST MEET 1 OF 3 CATEGORIES CATEGORY 1: REVIEW OF PRIOR EXTERNAL NOTES, REVIEW OF RESULTS, ORDERING OF EACH TEST, ASSESSMENT REQUIRING INDEPENDENT HISTORIAN OR CATEGORY 2: INDEPENDENT INTERPRETATION OF TESTS BY ANOTHER PHYSICIAN OR SPECIALIST OR CATEGORY 3: DISCUSSION OF MGT OR TEST INTERPRETATION W/EXTERNAL PHYSICIAN OR SPECIALIST ELEMENT 3: RISK RISK OF COMPLICATIONS AND/OR MORBIDITY OR MORTALITY OF PATIENT MANAGEMENT PROVIDER MUST THOROUGHLY DOCUMENT EACH ELEMENT THAT IS COVERED [email or web address] Not available 03/26/2025 15:38:00 Plan of Treatment Reminders Order Date Submit Date Provider Last Modified By Organization Details Last Modified Time Details Appointments None recorded. Lab culture, wound - left forearm 2024 025 [facility], [address] [place] [address], [place], [address], 08:10:38 CMP, serum or plasma 2024 025 [facility], [address] [place] [address], [address], 15:39:50 hemoglobin A1c, QN, blood 2024 025 [facility], [address] [place] [address], [place], [address], 15:39:50 CBC w/ auto diff 2024 025 [facility], [address] [place] [address], [address], 15:39:50 TSH + free T4, serum 2024 025 [facility], [address] [place] [address], [address], 15:39:50 Referral lymphedema consult 2024 025 [email or web address] 10 [facility], [address] [place] [address], [address], 08:35:53 Procedures None recorded. Surgeries None recorded. Imaging US, duplex, venous, lower extremity - r/o dvt 2024 025 [facility], [address] [place] [address], [place], [address], 14:03:34 Medication Orders doxycyclin e hyclate 100 mg tablet 2024 025 [facility]acy #2024, [address] [place], [address], 5 08:49:31 prednisone 10 mg tablet 2024 025 [facility] #5, [address] [place], [address], 5 14:04:28 prednisone 10 mg tablet 2024 025 [facility] #5, [address] [place], [address], 5 11:07:05 doxycyclin e hyclate 100 mg tablet 2024 025 [facility], [address] [place], [address], 08:49:28 tramadol 50 mg tablet 2024 025 [facility] [address] [place], [address], 11:07:09 Hibiclens 4 % topical liquid 2024 025 [facility], [address] [place], [address], 11:13:31 metformin 500 mg tablet 2024 025 [facility] [address] [place], [address], 15:35:38 cephalexin 500 mg capsule 2023 025 [facility] #2024, [address] [place], [address], 15:25:19 terbinafin e HCl 250 mg tablet 2023 024 [facility] [address] [place], [address], 14:05:41 spironolac tone 50 mg tablet 2023 024 [facility] #2024, [address] [place], [address], 14:22:22 Patient TargetsNo targets recorded. Patient InstructionsNo instructions recorded. Reason for Referral Lymphedema Consult for Lymph edema of lower extremity Referring Physician: Kojo Hou, Internal Medicine, Encounter Date: 03/26/2025 Results Created Date Observation Date Name Description Value Unit Range Abnormal Flag Note LastModifiedBy Organization Detail LastModifiedTime 10/14/20 24 10/12/2024 US, echoc ardio gram No observ ation record ed. [facility] (Medical Records) [address] [place], [address], 10/15/2024 11:38:26 12/03/19 25 10/12/2024 CT, chest , w/o contr ast No observ ation record ed. [facility] (Medical Records) [address] [place], [address], 12/03/2024 15:24:21 04/23/20 25 04/23/2025 US, fiorella angeles [facility] mity No observ ation record ed. [email or web address] [facility] (Medical Records) [address] [place], [address], 04/24/2025 14:57:25 Result Notes None recorded. Problems Name Problem SNOMED Code Status Onset Date Resolution Date Notes Provider Name and Address Organization Details Recorded Time Stented coronary artery 961669806 Active 2017 Asiya Segura NP, S [address] [place] [address], [address], [facility] 8 08:53:20 Chronic obstruct anurag pulmonar y disease 45110883 Active 2017 Asiya Segura NP, S [address] [place] [address], [address], [facility] 8 08:54:03 Atrial fibrilla tion 85707107 Active 2017 Asiya Segura NP, S [address] [place] [address], [address], [facility] 8 08:54:43 Acute non-ST segment elevatio n myocardi al infarcti on 279699955 Completed 201704/20/2018 Asiya Segura NP, S [address] [place] [address], [address], [facility] 8 09:04:24 Sleep apnea 35766652 Active 2017 Asiya Segura 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, S [address] [place], [address], [facility] 8 09:19:12 Hypothyr oidism 52893264 Active 2019 HARSH MUHAMMAD [address] [place], [address], [facility] 5 10:35:43 Venous stasis edema of bilatera l lower limbs 96820640565 853697 Active 2020 HARSH MUHAMMAD [address] [place] [address], [address], [facility] 1 12:11:22 Abdomina l aortic aneurysm 352229528 Active 2021 HARSH MUHAMMAD [address] [place] [address], [address], [facility] 2 16:16:46 Edema of lower extremit y 869271764 Active 2021 HARSH MUHAMMAD [address] [place] [address], [address], [facility] 2 16:24:25 Chronic sinusiti s 47785881 Active 2021 HARSH MUHAMMAD [address] [place] [address], [address], [facility] 2 16:33:24 COVID-19 016684441 Active 2021 HARSH MUHAMMAD [address] [place], [address], [facility] 2 08:42:21 Obstruct anurag sleep apnea syndrome 80345644 Active 2022 HARSH MU[facility]AMMAD [address] [place], [address], [facility] 3 15:37:17 Pulmonar y embolism 57376451 Active 2022 HARSH [facility] [address] [place], [address], [facility] 3 15:40:40 Hyperkal emia 09381912 Active 2022 HARSH MU[facility] [address] [place], [address], [facility] 3 15:46:19 Dyspnea 563579031 Active 2022 HARSH [facility] [address] [place], [address], [facility] 3 09:35:39 Type 2 diabetes mellitus 67300008 Active 2022 dx'd in ER 2 HARSH MUHAMMAD [address] [place], [address], [facility] 5 10:35:54 Allergic rhinitis 62800969 Active 2022 HARSH MU[facility]AMMAD [address] [place], [address], [facility] 3 12:31:24 Acute bronchit is 10716045 Active 2023 HARSH [facility]MAD [address] [place], [address], [facility] 4 10:32:11 Hyperlip idemia 05438768 Active 2023 HARSH [address] [place], [address], [facility] 5 10:35:21 Cellulit is of lower leg 861054175 Active 2023 HARSH [facility] [address] [place], [address], [facility] 4 15:50:51 Lymphede ma of lower extremit y 433089337 Active 2023 HARSH [facility] [place], [address], [facility] 4 15:53:36 Stasis dermatit is of lower limb due to chronic peripher al venous hyperten pahm 615127411 Active 2023 HARSH [facility] [place], [address], [facility] 4 14:01:58 Asthma 007086920 Active 2024 HARSH [facility] [address] [place], [address], [facility] 5 15:24:52 Acute sinusiti s 82590965 Active 2024 HARSH MU[facility] [address] [place], [address], [facility] 5 11:09:26 Acute exacerba tion of chronic obstruct anurag pulmonar y disease 004419798 Active 2024 HARSH [address] [place], [address], [facility] 5 09:06:40 Congesti ve heart failure 96939222 Active 2024 HARSH MU[facility]AMMAD [address] [place], [address], [facility] 5 09:06:59 Chronic hypoxemi c respirat ory failure 254966023 Active 2024 HARSH MU[facility]AMMAD [address] [place], [address], [facility] 5 09:07:13 Essentia l hyperten pham 81098979 Active 2024 HARSH MUHAMMAD [address] [place], [address], [facility] 5 09:29:23 Edema of left lower limb 030663500 Active 2024 HARSH MUHAMMAD [address] [place], [address], [facility] 5 11:03:36 Cellulit is of left lower limb 84618750301 237358 Active 2024 HARSH MUHAMMAD [address] [place], [address], [facility] 5 11:04:47 Acute cellulit is Active 2024 HARSH MU[facility]AMMAD [address] [place], [address], [facility] 5 13:58:55 Acute dermatit is 40833282 Active 2024 HARSH MU[facility]AMMAD [address] [place], [address], [facility] 5 14:02:21 Notes:s/p STEMI 11/2015 Problem Notes None recorded. Procedures Surgical History Date Name Laterality Status Provider Name and Address Organization Details Recorded Time Tonsillectomy completed Asiya senior NP, S [address] [place], [address], [facility] 04/20/2018 09:00:14 Imaging Results None recorded. Procedure Notes None recorded. Medical Equipment None Reported. Allergies Allergen ID Allergen Name Allergen Category Reaction Reaction Severity Criticality Documentation Date Start Date Code Code System Note Provider Name and Address Organization Details Recorded Time 844 Product containin g penicilli n (product) medicatio n Not available Not available Not available 02/13/2018 05077 8001 SNOMED [facility] 8 11:48:11 Medications Name Sig Start [...] Not Available prednison e 10 mg tablet TAKE 4 TABLETS BY MOUTH X 2 DAYS,THE N 3 TABS X2 DAYS ,2 TABS X2 DAYS AND 1 TAB X2 DAYS active Not Available Not Available No t Available doxycycli ne hyclate 100 mg capsule Take [...] TAKE 1 TABLET BY MOUTH EVERY DAY needs appt call office 2024 active Not Available Not Available Not Avai lable FreeStyle Lancets 28 gauge USE TO TEST [...] Available Not Available tramadol 50 mg tablet TAKE 1 TABLET BY MOUTH EVERY 4 TO 6 HOURS NEEDED FOR 7 DAYS. active Not Available Not Available No t Available triamcino lone acetonide 0.1 % topical cream [...] Not Available cephalexi n 500 mg capsule TAKE 1 CAPSULE BY MOUTH EVERY 6 HOURS FOR 10 DAYS active Not Available Not Available No t Available losartan 25 mg tablet TAKE 1 TABLET BY MOUTH DAILY 08/28 completed Not Available Not Available Not Available budesonid e 0.5 mg/2 mL suspensio n for nebulizat ion USE 2 ML VIA NEBULIZE R TWICE DAILY active Not Available Not Available No t Available diltiazem CD 120 mg capsule,e xtended release 24 hr TAKE 1 CAPSULE BY MOUTH EVERY DAY active Not Available Not Available No t Available ammonium lactate 12 % topical cream [...] completed Not Available Not Available Not Available digoxin 125 mcg (0.125 mg) tablet TAKE 1 TABLET BY MOUTH EVERY DAY active Not Available Not Available No t Available clobetaso l 0.05 % topical ointment [...] twice a day by oral route for 10 days. 07/17 completed Not Available Not Available Not Available Hibiclens 4 % topical liquid Apply 1 applicat ion every day by topical route for 30 days. 2024 active Not Available Not Available Not Avai lable spironola ctone 50 mg tablet TAKE 1 TABLET BY MOUTH EVERY DAY active Not Available Not Available No t Available levothyro xine 112 mcg tablet TAKE 1 TABLET BY MOUTH EVERY DAY 2024 active Not Available Not Available Not Avai lable amoxicill in 875 mg-potass ium clavulana te 125 mg tablet TAKE 1 TABLET BY MOUTH EVERY 12 HOURS FOR 4 DAYS 05/14 completed Not Available Not Available Not Available oxycodone 5 mg tablet TAKE 1 [...] in Arterial blood by Pulse oximetry Systolic And Diastolic Provider Name and Address Organization Details Last Updated DateTime 5 185.42 cm 47.5 kg/m2 409248. 25 g 58 /min 95 % 95 % 118/74 mm[Hg] Nohemy Kohler [facility] 5 15:16:48 Date Recorded Body height Body mass index (BMI) Body weight Heart rate Oxygen saturation Oxygen saturation in Arterial blood by Pulse oximetry Systolic And Diastolic Provider Name and Address Organization Details Last Updated DateTime 5 185.42 cm 50.4 kg/m2 140258. 29 g 96 /min 95 % 95 % 118/72 mm[Hg] Diana Jimenez [facility] 5 15:09:27 Date Recorded Body height Oxygen saturation Oxygen saturation in Arterial blood by Pulse oximetry Body mass index (BMI) Body weight Heart rate Systolic And Diastolic Provider Name and Address Organization Details Last Updated DateTime 5 185.42 cm 97 % 97 % 47.9 kg/m2 037167. 03 g 68 /min 102/68 mm[Hg] Diana Jimenez [facility] 5 10:24:18 Date Recorded Body height Provider Name an d Address Organization Details Last Updated DateTime 05/14/2025 185.42 cm Nohemy Kohler [facility] 05/14/2025 13:46:35 Date Recorded Body height Body mass index (BMI) Body weight Heart rate Oxygen saturation Oxygen saturation in Arterial blood by Pulse oximetry Systolic And Diastolic Provider Name and Address Organization Details Last Updated DateTime 185.42 cm 50.5 kg/m2 142433. 88 g 102 /min 93 % 93 % 100/60 mm[Hg] Haleigh Gorman [facility] 4 13:56:40 Social History Question Answer Notes LastModified by Organizat ion Details LastModified Time Tobacco Smoking Status Former Smoker Diana Tony bill [facility] 03/26/2025 15:03:48 What Was The Date Of Your Most Recent Tobacco Screening? 05/14/2025 [email or web address] Information not available 05/14/2025 How Much Tobacco Do You Smoke? 0.25 PPD [email or web address] Information not available 10/22/2022 Sex: Unknown Functional Status Question Answer Note LastModified by Organization D etails LastModified Time Do you or have you ever used any other forms of tobacco or nicotine? No [email or web address] Information not available 10/09/2024 Mental Status None [...] mcg/0.5 mL dose 01/07/2021 completed Patricia bill [facility] 11/15/2022 11:11:45 COVID-19, mRNA, LNP-S, PF, 50 mcg/0.5 mL dose 02/04/2021 janeen bill [facility] 11/15/2022 11:11:52 COVID-19, mRNA, LNP-S, PF, 50 mcg/0.5 mL dose 09/17/2021 completed Patricia bill [place] - [facility] 11/15/2022 11:11:59 Tdap 11/07/2009 completed Not Available [facility] 09/21/2022 22:19:34 Past Encounters Encounter ID Performer Location Encounter Start Date Encounter Closed Date Diagnosis/Indication Diagnosis SNOMED-CT Code Diagnosis ICD10 Code Diagnosis IMO Codes Diagnosis Note [id number] Asiya Segura NP, S [facility] [address] [facility] [address] 02/13/2018 11:41:19 02/13/2018 17:13:46 Acute exacerbation of chronic obstructive pulmonary disease 162383805 J44.1 o2 sat 93 %, to come to office for DC visit for sat recheck Saturday 02/17 Atrial fibrillation 4943 6004 I48.91 nml sinus rhythm, cont. metoprolol Acute sinusitis 42505269 J01.90 see COPD instructio ns, rest [id number] Kojo Hou [facility] [address] [facility],[place] [address] 02/17/2018 09:27:29 02/17/2018 10:13:38 Acute sinusitis 86817000 J01.90 [id number] Kojo Hou [facility] [address] [facility],[place] [address] 03/01/2018 09:23:55 03/01/2018 11:47:57 Atrial fibrillation 83183887 I48.91 nml sinus rhythm, cont. metoprolol , f/u with Dr. Dutch carney as scheduled Hypothyroidism 47424641 E03.9 to recheck TSH with Free t4, TSHwas elevated in ER labs. continue levothyrox ine Obstructiv e sleep apnea syndrome 87650455 G47.33 continue use CPAP, f/u Dr. Harper prn Hypercholesterolemia 136 81659 E78.00 recheck profile, consider /discussed Crestor Coronary arteriosclerosis in [place] artery 4318213463 107 I25.10 exercise as zeinab [id number] Kojo Hou DO [facility] [address] [facility],[place] [address] 04/18/2018 09:48:44 04/18/2018 10:37:32 Local infection of wound 01674138 T14.90XA cleansed, wrapped with ricardo after bacitacin and telfa applied [id number] Kojo Hou [facility] [address] [facility],[place] [address] 04/21/2018 08:51:19 04/21/2018 09:38:34 Impaired fasting glycemia 856418011 R73.01 Screening procedure 2012 5006 Z13.9 Open wound of lower limb 55553120 S81.802D improving, call if problems Sleep apnea 25636529 G47 .30 stable Coronary arteriosclerosis 66032480 I25.10 stable Atrial fibrillation 4943 6004 I48.91 nml sinus rhythm, cont. metoprolol , saw Dr. Dutch carney , no changes [id number] Kojo Hou [facility] [address] [facility],[place] [address] 05/02/2018 08:55:20 05/02/2018 11:48:20 Acute bronchitis 50319851 J20.9 f/u Tuesday in office Open wound of lower limb 64985950 S81.802D Hypothyroidism 08914163 E03.9 to recheck TSH with Free t4, meds increased in February Impaired f asting glycemia 367207914 R73.01 no clinical diagnosis NIDDM Hypercholesterolemia 136 12145 E78.00 recheck profile, Screening procedure 2012 5006 Z13.9 [id number] [facility] [address] [facility],[place] [address] 05/05/2018 10:00:05 05/05/2018 11:16:11 Hypercholesterolemia 39598116 E78.00 increase crestor 10 mg Hypothyroidism 71691315 E03.9 TSH > 7, increase levothyrox ine to 88 mcg, recheck 6 weeks Acute bronchitis 6999881 2 J20.9 await CXR, not read yet, done [facility] continue prednisone & abx Obstructiv e sleep apnea syndrome 80226847 G47.33 f/u Dr. Costello prn, try more compliance Paroxysmal atrial fibrillation 085040124 I48.0 RRR Infection of tooth 15523 8007 K04.7 to f/u with dentist, have forms to complete, call out to dentist- do they need to use anesthetic with epinephrin e [id number] Kojo Hou [facility] [address] [facility],[place] [address] 05/09/2018 09:01:14 05/09/2018 11:37:20 Dyspnea on exertion 70754759 R06.09 r/o PE sent to [facility] [place] [id number] Kojo Hou [facility] [address] [facility] [address] 03/07/2020 14:10:16 03/07/2020 15:08:27 Atrial fibrillation 48250371 I48.91 stable Hypothyroidism 93199678 E03.9 will check and determine if he needs medication Edema of l ower extremity 374956096 R60.0 will recheck in one week Essential hypertension 25835352 I10 BP 130/80, doing well [id number] Kojo Hou [facility] [address] [facility], [place] [address] 03/14/2020 11:38:12 03/14/2020 12:19:25 Atrial fibrillation 16058328 I48.91 stable Edema of l ower extremity 168459389 R60.0 will recheck in one week via phone call to pt with update will discuss possibly increasing lasix dose [id number] Kojo Hou [facility] [address] [facility],[place] [address] 04/16/2020 09:54:29 04/16/2020 10:49:38 Chronic obstructive pulmonary disease 07377358 J44.9 would like to try another inhaler for his COPD Edema of l ower extremity 021524307 R60.0 will increase lasix dosage to 80 [...] see if it has adjusted Skin tag 616668349 L91.8 referral [id number] Kojo Hou [facility] [address] [facility] [place] [address] 03/10/2021 09:39:34 03/10/2021 15:36:03 Hypothyroidism 07760028 E03.9 recent labs, medication changed appropriat nik Chronic ob structive pulmonary disease 23346534 J44.9 will try neb Chronic sinusitis 297001 00 J32.9 will fu with XR sinuses [id number] Kojo Hou [facility] [address] [facility],[place] [address] 10/22/2022 15:40:28 10/22/2022 16:47:37 Hypothyroidism 70245211 E03.8 recent labs, medication changed appropriat nik Chronic ob structive pulmonary disease 19062187 J44.9 will try nebulizer Atrial fibrillation 4943 6004 I48.11 adrian start on xarelto since he has never been on a blood thinner and his risk score is high for a cardiovasc ular event Advance care planning 71 1351306 Z71.89 advised Abdominal aortic aneurysm 214818928 I71.40 declined Active or passive immunization 420886369 Z23 patient advised he is due for flu shot, tdap, pneu & shingles Edema of l ower extremity 951019536 R60.0 will set up with a vascular surgeon Chronic sinusitis 773848 00 J32.0 will trial a spray [id number] Kojo Hou [facility] [address] [facility], [employer] [facility] [address] 11/15/2022 14:49:58 11/15/2022 16:00:15 Obstructive sleep apnea syndrome 81169735 G47.33 will resubmit CPAP supplies Pulmonary embolism 49580 003 I26.99 will recheck lungs in one mos Edema of l ower extremity 354889527 R60.0 will set up with a vascular surgeon on Tuesday (10 am) Hyperkalemia 44947899 E8 7.5 will recheck levels [id number] Kooj Hou [facility] [address] [facility],[place] [address] 10/09/2024 15:41:10 10/09/2024 16:23:20 Edema of lower extremity 498888822 R60.0 recommende d vascular referralst art on diuretic Cellulitis of lower leg 530958263 L03.115 will start on doxy for the infection Lymphedema of lower extremity 734007641 I89.0 will set up with lymp consult Dyspnea 259665397 R06.[address] wo [id number] Kojo Hou [facility] [address] [facility],[place] [address] 10/24/2024 15:17:57 10/24/2024 16:32:34 Edema of lower extremity 385591589 R60.0 recommende d vascular referralst art on diuretic Lymphedema of lower extremity 119477717 I89.0 new referral sent in for a new vascular surgeon [id number] Kojo Hou [facility] [address] [facility],[place] [address] 11/05/2024 13:48:44 11/05/2024 14:23:31 Edema of lower extremity 753928254 R60.0 has his appt for the clinic on 12/03 Stasis padma matitis of lower limb due to chronic peripheral venous hypertension 371265701 I87.399 start keflex and terbinafin e for the risk of infection [id number] Kojo Hou [facility] [address] [facility],[place] [address] 01/07/2025 14:47:36 01/07/2025 16:10:00 Depression screening 552292928 Z13.31 Acute exac erbation of chronic obstructive pulmonary disease 442930259 J44.1 resolved Congestive heart failure 64724109 I50.21 stable Chronic hy poxemic respiratory failure 217643254 J96.11 resolved Edema of l ower extremity 603206618 R60.0 has fu with them coming up Atrial fibrillation 4943 6004 I48.11 stablewill start on xarelto since he has never been on a blood thinner and his risk score is high for a cardiovasc ular event Type 2 juan betes mellitus 77781924 E11.9 currently on the Hypothyroidism 46870055 E03.8 recent labs, medication changed appropriat nik [id number] Kojo PreciousKate Hou, [facility] [address] [facility],[place] [address] 03/26/2025 14:52:29 03/26/2025 16:14:29 Depression screening 151458210 Z13.31 neg Lymphedema of lower extremity 024741768 I89.0 [id number] Kojo LangKate Hou, [facility] [address] [facility],[place] [place] [address] 04/23/2025 10:11:30 04/23/2025 11:25:42 Edema of left lower limb [id number] R60.0 [id number] has fu with them coming up Cellulitis of left lower limb [id number] L03.230 [id number] will set up with prednisone , doxy and tramadol with STAT US r/o clot for acute worsening of edema has vascular appt notable changes in toe coloration , but pt states it has well like this for awhileswel ling is more than previous, around 4+ edematende r to the touch and warm Lymphedema of lower extremity [id number] I89.0 new referral sent in for a new vascular surgeon [id number] [facility] [address] [facility],[place] [address] 05/14/2025 13:44:52 05/14/2025 14:11:24 Acute cellulitis [id number] L03.90 [id number] send out culture for armrestart prednisone and doxycyclin e Acute dermatitis [id number] L30.9 3 restart treatment Health Concerns Section Related Observation LastModified by Organization Jyoti johnson LastModified Time None Recorded Concern Status LastModified by Organization Details LastModified Time None Recorded Advance Directives Directive None Recorded Payers Insurance Date Sequence Insurance Name Policy Number Policy Jasso Covered Member ID Jasso Member ID Guarantor Name 05/14/2025 2 [employer] (MEDICARE SUPPLEMENT) Rudy Mathias [id number] Rudy Mathias 02/13/2018 1 *SELF PAY* Ho henry Mey 10/09/2024 2 [place] PRIOR TO 2023 - [facility] (MEDICAID) Rudy Lujan Mey [id number] Rudy Mathias 10/09/2024 2 [place] [facility] Rudy Lujan Mey [id number] Rudy Mathias 10/09/2024 1 [place] [facility] Rudy Lujan Mey [id number] Rudy Mathias 10/09/2024 1 [facility] (MEDICARE REPLACEMENT/A DVANTAGE - PPO) [id number] Rudy Lujan Mey [id number] Rudy Mathias 07/14/2025 1 [place] [facility] Rudy Lujan Mey [id number] Rudy Mathias Notes Date Note Type Note Provider Name and Address Organization Details Recorded Time 4 text/htm l ROS as noted in the HPI f/u will increase 50 mg of the spironolactonewill continue the torsemide, he cannot go up on it due to how much he is already urinating on it a lot and has difficulties as it isspironolactone didn't cause as many issues with the urination the patient got his CT and BW, no results back from [facility], will call to request the restarts continue on other medications as prescribedwill fu with patient after the results HARSH MUHAMMAD [address] [place] [address], [place], [address], [facility] 11/05/2024 14:22:31 5 text/htm l ROS as noted in the HPI hospital d/c HOSPITAL COURSE: patient was admitted to hospital due to severe COPD exacerbation causing acute respiratory hypoxic failure in the setting of worsened atrial fibrillation with RVRpatient currently on metoprolol and diltiazem, diltiazem was started a few months ago due to noting him being in recurrent afib and noted on recent echopatient has been encouraged to fu with both his data security analyst and his vascular surgeon, patient is non [...] and cont with vascular HARSH MUHAMMAD [address] [place], [address], [facility] 01/07/2025 15:40:55 5 text/htm l ROS as noted in the HPI here for eval of his leg swelling has longstanding hx of leg swelling and has been eval by cardiology recently Kojo Hou, [address] [place], [address], [facility] 03/26/2025 15:40:59 5 text/htm l ROS as noted in the HPI c/o L Edema and pain, warmth the [...] toe which was 98% HARSH MUHAMMAD [address] [facility], [place], [address], [facility] 04/23/2025 11:17:33 5 text/htm l ROS as noted in the HPI c/o rash bilateral arms acute cellulitis: the patient developed acute onset of maculopapular rash with itching, spreading rapidly over the last 24 hourswas at his camp (has a camper)no known exposure to plant or animal or insect that he recallsdenies any new lotions, shampoos, meds, foods, clothes, etc that would have triggered the rashcould be a staph infection vs allergic dermatitis/contact dermatitisskin sample was taken for culturerestarting on doxy and pred (lower dosed taper) given coverage of doxy recommended using aloe and calamine for the itchkeeping the skin clean and dry HARSH MUHAMMAD [address] [facility], [place], [address], [facility] 05/14/2025 14:16:40
== END 2025-07-31 14:45 | disposition home or self-care (01) ==
LOC: HO.HCS 14:14
PROVIDERS: PCP Internal Medicine; Visit Provider Internal Medicine
DX: I48.19 Other persistent atrial fibrillation (principal); I50.32 Chronic diastolic (congestive) heart failure; I25.10 Atherosclerotic heart disease of native coronary artery without angina pectoris; I10 Essential (primary) hypertension; E78.2 Mixed hyperlipidemia; G47.33 Obstructive sleep apnea (adult) (pediatric); E66.01 Morbid (severe) obesity due to excess calories
CPT/HCPCS: 99214; G2211

== ENCOUNTER → 2025-07-31 14:13 | Outpatient (BNVA) | payer MEDICARE, SELFPAY | PROVIDERS: PCP Internal Medicine; Visit Provider Internal Medicine | DX: I48.19 Other persistent atrial fibrillation (principal); I50.32 Chronic diastolic (congestive) heart failure; I25.10 Atherosclerotic heart disease of native coronary artery without angina pectoris; I10 Essential (primary) hypertension; E78.2 Mixed hyperlipidemia; G47.33 Obstructive sleep apnea (adult) (pediatric); E66.01 Morbid (severe) obesity due to excess calories; Z68.42 Body mass index [BMI] 45.0-49.9, adult; R60.9 Edema, unspecified; Z87.891 Personal history of nicotine dependence | CPT/HCPCS: 99212 ==

== ENCOUNTER 2025-09-27 11:05 | Outpatient (REF) | payer MEDICARE, SELFPAY ==
--- OUTSIDE RECORDS SUMMARY | 2019-10-26 12:29 | XMS_ITS | Encounter Summary ---
Author Organization [facility] Address [address] [facility] [address] [place] [phone] Phone Care Team Providers Care Neurosurgeon Name Role Phone Kojo Hou DO Primary Care Provider [phone] Encounter Details Date Type Department Care Team (Late st Contact Info) Description 10/26/2019 12:29 PM EST Hospital Encounter [facility] [address] [place] [phone] Estela Saldaña PA [address] [place] [phone] Social History Tobacco Use Types Packs/Day Years Used Date Smoking Tobacco: Every Day Cigarettes 1 57.9 Started: 1969 Smokeless Tobacco: Never Comments:CURRENT 6-7 CIG/D Alcohol Use Standard Drinks/Week Comments Yes 0 (1 standard drink = 0.6 oz pur e alcohol) 1 drink/yr Education Answer Date Recorded Are you interested in more education? Not on dago e 03/03/2023 Are you concerned about learning? Not on file 03/03/2023 No 03/03/2023 No 03/03/2023 Digital Access Answer Date Recorded No 04/02/2023 No 04/02/2023 No 04/02/2023 Reliable internet access at home? Not on file 04/02/2023 Device with a working camera? Not on file Sex and Gender Information Value Date Recorded Sex Assigned at Not on file Legal Sex Male 9:58 PM EDT Gender Identity Not on file Sexual Orientation Not on file documented as of this encounter Plan of Treatment Not on file documented as of this encounter Procedures Procedure Name Priority Date/Time Associated Diagnosis Comments XR CHEST PA AND LATERAL 2 VIEWS Urgent/patient waiting 10/26/2019 12:38 PM EST Bronchitis documented in this encounter Results * XR CHEST PA AND LATERAL 2 VIEWS (10/26/2019 12:38 PM EST) Anatomical Region Laterality Modality Chest Radiographic Karo ging 10/26/2019 12:4 4 PM EST Impressions 10/26/2019 12:45 PM EST No acute chest pathology. POS - [facility] Narrative 10/26/2019 12:45 PM EST HISTORY: * Cough, new onset TECHNIQUE: AP and lateral radiographs of the chest obtained. COMPARISON: 02/21/2010 FINDINGS: The heart and mediastinum are normal sized. There is no focal lung consolidation or infiltrate. The radiograph is slightly underpenetrated. There is no pneumothorax. Procedure Note Dante Allan MD - 10/26/2019 HISTORY: * Cough, new onset TECHNIQUE: AP and lateral radiographs of the chest obtained. COMPARISON: 02/21/2010 FINDINGS: The heart and mediastinum are normal sized. There is no focal lung consolidation or infiltrate. The radiograph isslightly underpenetrated. There is no pneumothorax. IMPRESSION: No acute chest pathology. POS - [facility] Estela Nory Piper PA IMG XR CHEST Final R esult documented in this encounter Visit Diagnoses Not on filedocumented in this encounter Care Teams Neurosurgeon Relationship Specialty Start Date End Date Kojo Hou DO [email or web address] PCP - General 08/23/17 documented as of this encounter Additional Source Comments The information contained in this document represents components of the legal health record. It is not the complete legal health record.[facility]
--- OUTSIDE RECORDS SUMMARY | 2025-09-27 11:58 | XMS_ITS | Clinical Summary ---
Author Organization [facility] Address [address] [address] Phone Care Team Providers Care Assessor Name Role Phone Kojo Hou DO Primary Care Provider [phone] Allergies Active Allergy Reactions Criticality Noted Date [...] Active Active Problems No known active problems Family History Medical History Relation Comments Sleep disorder Mother Relation Status Comments Mother Social History Tobacco Use Types Packs/Day Years Used Date Smoking Tobacco: Every Day Cigarettes 1 57.9 Started: 1969 Smokeless Tobacco: Never Tobacco Cessation:Ready [...] 1998 ZOSTER VACCINES (1 of 2) 2003 ABDOMINAL AORTIC ANEURYSM (AAA) SCREENING 2018 Adult Td,Tdap Booster 11/07/2019 11/07/2009 TSH LEVEL 03/11/2021 03/11/2020 LIPID PANEL 05/02/2023 05/02/2018 INFLUENZA VACCINE (#1) 2025 COVID-19 VACCINE (3 - 2024-2 6 season) 2025 02/04/2021, 01/07/2021 CREATININE LEVEL 12/10/2025 12/10/2024 POTASSIUM LEVEL 12/10/2025 12/10/2024 RSV VACCINE (1 - 1-dose 75+ series) 2028 HEPATITIS C SCREENING Completed 05/02/2018 HEPATITIS A [...] Procedure Name Priority Date/Time Associated Diagnosis Comments BASIC METABOLIC PANEL (BMP) Routine 12/10/2024 11:17 AM EST Heart failure with preserved ejection fraction, unspecified HF chronicity THYROID STIMULATING HORMONE (TSH) Routine 03/11/2020 11:08 AM EDT Hypothyroidism, adult from Last 3 Months or Most Recently Relevant to Health Maintenance Results * (ABNORMAL) Basic metabolic panel (12/10/2024 11:17 AM EST) SODIUM 142 133 - 146 mmol/L [facility] CHLORIDE 99 96 - 108 mmol/L [facility] POTASSIUM 4.6 3.3 - 5.1 mmol/L [facility] CO2 35 21 - 35 mmol/L [facility] BUN 25(H) 6 - 19 mg/dL [facility] CREATININE 1.00 0.5 - 1.5 mg/dL [facility] GLUCOSE 154(H) 70 - 99 mg/dL [facility] CALCIUM 9.2 8.4 - 10.3 mg/dL [facility] EGFR 80 >59 mL/min/1.7 3m2 [facility] Comment:Estimated glomerular filtration rate calculated using the CKD-EPI refit equation. ANION GAP 13 10 - 20 mmol/L [facility] Blood 12/10/2024 11:1 7 AM EST 12/10/2024 11:19 AM EST us Pili Oropeza MD LAB BLOOD BKR ORDERABLES Final Result [address] [address] * (ABNORMAL) TSH (03/11/2020 11:08 AM EDT) TSH 38.30(H) 0.27 - 4.20 uIU/mL [facility] Blood 03/11/2020 11:0 8 AM EDT 03/11/2020 11:10 AM EDT us Olivia HOUSE LAB BLOOD BKR ORDERABLES Fi nal Result Performing Organization Address [facility]/ZIP Co de Phone Number [address] [address] from Last 3 Months or Most Recently Relevant to Health Maintenance [place] [address] [place] [address] MEDICARE SUPPLEMENT MEDICARE PART A & B [facility] NET PARTIAL MEDICARE REPLACEMENT [facility] MEDICARE SUPPLEMENT MEDICARE PART A & B [facility] NET PARTIAL [facility] MEDICARE SUPPLEMENT MEDICARE PART A & [place] [address] [place] [address] MEDICARE SUPPLEMENT MEDICARE PART A & B [facility] MEDICARE SUPPLEMENT MEDICARE PART A & B [facility] PARTIAL MEDICARE REPLACEMENT MEDICARE SUPPLEMENT MEDICARE PART A & B MEDICARE PART A & B [facility] PARTIAL MEDICARE REPLACEMENT [facility] MEDICARE SUPPLEMENT MEDICARE PART A & B [facility] NET PARTIAL MEDICARE REPLACEMENT [facility] MEDICARE SUPPLEMENT MEDICARE PART A & B [facility] NET PARTIAL [facility] MEDIC[facility] REPL[facility] Care Teams Assessor Relationship Specialty Start Date End Date NancyKojo [email or web address] PCP - General 08/23/17 Additional Source Comments The information contained in this document represents components of the legal health record. It is not the complete legal health record.[facility]
--- OUTSIDE RECORDS SUMMARY | 2025-09-27 11:58 | XMS_ITS | Encounter Summary ---
Author Organization [facility] Address [address] [address] Phone Care Team Providers Care Probation Manager Name Role Phone Kojo Hou Primary Care Provider [phone] Ameya Kojo Precious Unavailable Encounter Details Date Type Department Care Team (Late st Contact Info) Description 05/02/2018 Ancillary Orders Virtual Department [address] [place] [address] Asiya Segura, MIGUEL [address] [place] [address] Acute bronchitis, unspecified organism Social History Tobacco [...] organism documented in this encounter Care Teams Probation Manager Relationship Specialty Start Date End Date Kojo Hou DO PCP - General 08/23/17 Kojo Hou DO [address] [place] [address] [place] [address] Insurance Assigned Provider 02/04/18 documented as of this encounter Additional Source Comments The information contained in this document represents components of the legal health record. It is not the complete legal health record.[facility]
--- OUTSIDE RECORDS SUMMARY | 2025-09-27 11:59 | XMS_ITS | Data Portability ---
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 MUST MEET 2 OUT OF [...] culture, wound - left forearm 2024 025 [facility], [address] [place] [address], [place], [address], 08:10:38 CMP, serum or plasma 2024 025 [facility], [address] [place] [address], [address], 15:39:50 hemoglobin A1c, QN, blood 2024 025 [facility], [address] [place] [address], [place], [address], 15:39:50 CBC w/ auto diff 2024 025 [facility], [address] [place] [address], [address], 15:39:50 TSH + free T4, serum 2024 025 [facility], [address] [place] [address], [address], 15:39:50 Referral lymphedema consult 2024 025 [email or web address] 10 [facility], [address] [place] [address], [address], 08:35:53 Procedures None recorded. Surgeries None recorded. Imaging US, duplex, venous, lower extremity - r/o dvt 2024 025 [facility] Scheduling, [address] [place] [address], [place], [address], 14:03:34 Medication Orders doxycyclin e hyclate 100 mg tablet 2024 025 [facility]2024, [address] [place], [address], 5 08:49:31 prednisone 10 mg tablet 2024 025 [facility]5, [address] [place], [address], 5 14:04:28 prednisone 10 mg tablet 2024 025 [facility]5, [address] [place], [address], 5 11:07:05 doxycyclin e hyclate 100 mg tablet 2024 025 [facility] [address] [place], [address], 08:49:28 tramadol 50 mg tablet 2024 025 [facility] [address] [place], [address], 11:07:09 Hibiclens 4 % topical liquid 2024 025 [facility] [address] [place], [address], 11:13:31 metformin 500 mg tablet 2024 025 [facility] [address] [place], [address], 15:35:38 cephalexin 500 mg capsule 2023 025 [facility]2024, [address] [place], [address], 15:25:19 terbinafin e HCl 250 mg tablet 2023 024 [facility] [address] [place], [address], 14:05:41 spironolac tone 50 mg tablet 2023 024 [facility]2024, [address] [place], [address], 14:22:22 Patient TargetsNo targets recorded. Patient InstructionsNo instructions recorded. Reason for Referral Lymphedema Consult for Lymph edema of lower extremity Referring Physician: Kojo Hou, Internal Medicine, Encounter Date: 03/26/2025 Results Created Date Observation Date Name Description Value Unit Range Abnormal Flag Note LastModifiedBy Organization Detail LastModifiedTime 10/14/20 24 10/12/2024 US, echoc ardio gram No observ ation record ed. [facility] (Medical Records) [address] [place], [address], 10/15/2024 11:38:26 12/03/19 25 10/12/2024 CT, chest , w/o contr ast No observ ation record ed. [facility] (Medical Records) [address] [place], [address], 12/03/2024 15:24:21 04/23/20 25 04/23/2025 US, fiorella [facility] mity No observ ation record ed. [email or web address] [facility] (Medical Records) [address] [place], [address], 04/24/2025 14:57:25 Result Notes None recorded. Problems Name Problem SNOMED Code Status Onset Date Resolution Date Notes Provider Name and Address Organization Details Recorded Time Stented coronary artery 360560228 Active 2017 Asiya Segura NP, S [address] [place] [address], [address], [facility] 8 08:53:20 Chronic obstruct anurag pulmonar y disease 62727808 Active 2017 Asiya Segura NP, S [address] [place] [address], [address], [facility] 8 08:54:03 Atrial fibrilla tion 66663076 Active 2017 Asiya Segura NP, S [address] [place] [address], [address], [facility] 8 08:54:43 Acute non-ST segment elevatio n myocardi al infarcti on 315564140 Completed 201704/20/2018 Asiya Segura NP, S [address] [place] [address], [address], [facility] 8 09:04:24 Sleep apnea 07574471 Active 2017 Asiya Segura [employer]ER, S [address] [place], [address], [facility] 8 09:19:12 Hypothyr oidism 54206022 Active 2019 HARSH MUHAMMAD [address] [place], [address], [facility] 5 10:35:43 Venous stasis edema of bilatera l lower limbs 78645986484 496115 Active 2020 HARSH MUHAMMAD [address] [place] [address], [address], [facility] 1 12:11:22 Abdomina l aortic aneurysm 519892448 Active 2021 HARSH MUHAMMAD [address] [place] [address], [address], [facility] 2 16:16:46 Edema of lower extremit y 823274631 Active 2021 HARSH MUHAMMAD [address] [place] [address], [address], [facility] 2 16:24:25 Chronic sinusiti s 27888904 Active 2021 HARSH MUHAMMAD [address] [place] [address], [address], [facility] 2 16:33:24 COVID-19 292248094 Active 2021 HARSH MUHAMMAD [address] [place], [address], [facility] 2 08:42:21 Obstruct anurag sleep apnea syndrome 84764767 Active 2022 HARSH MUHAMMAD [address] [place], [address], [facility] 3 15:37:17 Pulmonar y embolism 40137133 Active 2022 HARSH MUHAMMAD [address] [place], [address], [facility] 3 15:40:40 Hyperkal emia 46414932 Active 2022 HARSH MUHAMMAD [address] [place], [address], [facility] 3 15:46:19 Dyspnea 609258052 Active 2022 HARSH MUHAMMAD [address] [place], [address], [facility] 3 09:35:39 Type 2 diabetes mellitus 02729621 Active 2022 dx'd in ER 2 HARSH MUHAMMAD [address] [place], [address], [facility] 5 10:35:54 Allergic rhinitis 64067083 Active 2022 HARSH MUHAMMAD [address] [place], [address], [facility] 3 12:31:24 Acute bronchit is 35084534 Active 2023 HARSH MUHAMMAD [address] [place], [address], [facility] 4 10:32:11 Hyperlip idemia 43506556 Active 2023 HARSH MUHAMMAD [address] [place], [address], [facility] 5 10:35:21 Cellulit is of lower leg 051254768 Active 2023 HARSH MUHAMMAD [address] [place], [address], [facility] 4 15:50:51 Lymphede ma of lower extremit y 805102482 Active 2023 HARSH MUHAMMAD [address] [place], [address], [facility] 4 15:53:36 Stasis dermatit is of lower limb due to chronic peripher al venous hyperten pham 458975977 Active 2023 HARSH MUHAMMAD [address] [place], [address], [facility] 4 14:01:58 Asthma 998775163 Active 2024 HARSH MUHAMMAD [address] [place], [address], [facility] 5 15:24:52 Acute sinusiti s 39985718 Active 2024 HARSH MUHAMMAD [address] [place], [address], [facility] 5 11:09:26 Acute exacerba tion of chronic obstruct anurag pulmonar y disease 511705341 Active 2024 HARSH MUHAMMAD [address] [place], [address], [facility] 5 09:06:40 Congesti ve heart failure 03895834 Active 2024 HARSH MUHAMMAD [address] [place], [address], [facility] 5 09:06:59 Chronic hypoxemi c respirat ory failure 450820998 Active 2024 HARSH MUHAMMAD [address] [place], [address], [facility] 5 09:07:13 Essentia l hyperten pham 50760871 Active 2024 HARSH MUHAMMAD [address] [place], [address], [facility] 5 09:29:23 Edema of left lower limb 165513351 Active 2024 HARSH MUHAMMAD [address] [place], [address], [facility] 5 11:03:36 Cellulit is of left lower limb 14844946383 805420 Active 2024 HARSH MUHAMMAD [address] [place], [address], [facility] 5 11:04:47 Acute cellulit is Active 2024 HARSH MUHAMMAD [address] [place], [address], [facility] 5 13:58:55 Acute dermatit is 57779840 Active 2024 HARSH MUHAMMAD [address] [place], [address], [facility] 5 14:02:21 Streptoc occal sore throat 28004683 Active 2024 HARSH MUHAMMAD [address] [place], [address], [facility] 5 12:19:54 Notes:s/p STEMI 11/2015 Problem Notes None recorded. Procedures Surgical History Date Name Laterality Status Provider Name and Address Organization Details Recorded Time Tonsillectomy completed Asiya senior NP, S [address] [place] [address], [address], [facility] 04/20/2018 09:00:14 Imaging Results None recorded. Procedure Notes None recorded. Medical Equipment None Reported. Allergies Allergen ID Allergen Name Allergen Category Reaction Reaction Severity Criticality Documentation Date Start Date Code Code System Note Provider Name and Address Organization Details Recorded Time 844 Product containin g penicilli n (product) medicatio n Not available Not available Not available 02/13/2018 07240 8001 SNOMED [facility] 8 11:48:11 9392 doxycycli ne Not available Not available Not available Not available 08/20/2025 3640 RxNorm HARSH MUHAMMAD [address] [place], [address], [facility] Jose L Internal Medicine 12:21:02 Medications Name Sig Start Date Stop Date [...] Not Available No t Available metoprolo l tartrate 100 mg tablet [...] TAKE 1 TABLET BY MOUTH EVERY DAY NEEDS APPT CALL OFFICE active Not Available Not Available No t [...] No t Available albuterol sulfate HFA 90 mcg/actua tion [...] (BMI) Body weight Heart rate Oxygen saturation Systolic And Diastolic Provider Name and Address Organization Details Last Updated DateTime 5 185.42 cm 47.5 kg/m2 146961. 25 g 58 /min 95 % 118/74 mm[Hg] Nohemy Kohler [facility] 5 15:16:48 Date Recorded Body height Body mass index (BMI) Body weight Heart rate Oxygen saturation Systolic And Diastolic Provider Name and Address Organization Details Last Updated DateTime 5 185.42 cm 50.4 kg/m2 942551. 29 g 96 /min 95 % 118/72 mm[Hg] ANNABELLE BECK [facility] 5 15:09:27 Date Recorded Body height Oxygen saturation Body mass index (BMI) Body weight Heart rate Systolic And Diastolic Provider Name and Address Organization Details Last Updated DateTime 5 185.42 cm 97 % 47.9 kg/m2 409190. 03 g 68 /min 102/68 mm[Hg] ANNABELLE EBONY [facility] Internal Medicine 5 10:24:18 Date Recorded Body height Provider Name an d Address Organization Details Last Updated DateTime 05/14/2025 185.42 cm Nohemy Kohler [facility] Medicine 05/14/2025 13:46:35 Date Recorded Body height Body mass index (BMI) Body weight Heart rate Oxygen saturation Systolic And Diastolic Provider Name and Address Organization Details Last Updated DateTime 4 185.42 cm 50.5 kg/m2 403972. 88 g 102 /min 93 % 100/60 mm[Hg] Haleigh Hidalgomond [facility] Medicine 4 13:56:40 Social History Question Answer Notes LastModified by Organizat ion Details LastModified Time Tobacco Smoking Status Former Smoker [facility] 03/26/2025 15:03:48 What Was The Date Of Your Most Recent Tobacco Screening? 05/14/2025 [email or web address] Information not available 05/14/2025 How Much Tobacco Do You Smoke? 0.25 PPD [email or web address] Information not available 10/22/2022 Sex: Unknown Functional Status Question Answer Note LastModified by Organization D etails LastModified Time Do you or have you ever used any other forms of tobacco or nicotine? No [email or web address] Information not available 10/09/2024 Mental Status None [...] 50 mcg/0.5 mL dose 01/07/2021 completed Patricia bill, [facility] 11/15/2022 11:11:45 COVID-19, mRNA, LNP-S, PF, 50 mcg/0.5 mL dose 02/04/2021 completed Patriciatari Higgins landy, [facility] 11/15/2022 11:11:52 COVID-19, mRNA, LNP-S, PF, 50 mcg/0.5 mL dose 09/17/2021 completed Patriciatari bill, [facility] 11/15/2022 11:11:59 Tdap 11/07/2009 completed Not Available [facility] 09/21/2022 22:19:34 Past Encounters Encounter ID Performer Location Encounter Start Date Encounter Closed Date Diagnosis/Indication Diagnosis SNOMED-CT Code Diagnosis ICD10 Code Diagnosis IMO Codes Diagnosis Note [id number] Asiya Segura NP, S [facility] [address] [place] [address],[place] [address] 02/13/2018 11:41:19 02/13/2018 17:13:46 Acute exacerbation of chronic obstructive pulmonary disease 466227243 J44.1 o2 sat 93 %, to come to office for [place] visit for sat recheck Saturday 02/17 Atrial fibrillation 4943 6004 I48.91 nml sinus rhythm, cont. metoprolol Acute sinusitis 81344606 J01.90 see COPD instructio ns, rest [id number] [facility] [address],[place] [address] 02/17/2018 09:27:29 02/17/2018 10:13:38 Acute sinusitis 54793643 J01.90 [id number] Kojo Hou [facility] [address] [place] [address],[place] [address] 03/01/2018 09:23:55 03/01/2018 11:47:57 Atrial fibrillation 63977252 I48.91 nml sinus rhythm, cont. metoprolol , f/u with Dr. Dutch carney as scheduled Hypothyroidism 67567952 E03.9 to recheck TSH with Free t4, TSHwas elevated in ER labs. continue levothyrox ine Obstructiv e sleep apnea syndrome 83733234 G47.33 continue use CPAP, f/u Dr. Harper prn Hypercholesterolemia 136 86254 E78.00 recheck profile, consider /discussed Crestor Coronary arteriosclerosis in [place] artery 6066438159 107 I25.10 exercise as zeinab [id number] [facility] [address] [facility],[place] [address] 04/18/2018 09:48:44 04/18/2018 10:37:32 Local infection of wound 15269050 T14.90XA cleansed, wrapped with ricardo after bacitacin and telfa applied [id number] Kojo Hou [facility] [address] [facility],[place] [address] 04/21/2018 08:51:19 04/21/2018 09:38:34 Impaired fasting glycemia 268513132 R73.01 Screening procedure 2012 5005 Z13.9 Open wound of lower limb 05790164 S81.802D improving, call if problems Sleep apnea 21479582 G47 .30 stable Coronary arteriosclerosis 83658071 I25.10 stable Atrial fibrillation 4943 6004 I48.91 nml sinus rhythm, cont. metoprolol , saw Dr. Dutch carney , no changes [id number] Kojo Hou [facility] Internal [facility] [address] [facility],[place] [address] 05/02/2018 08:55:20 05/02/2018 11:48:20 Acute bronchitis 53246991 J20.9 f/u Tuesday in office Open wound of lower limb 10669185 S81.802D Hypothyroidism 37101652 E03.9 to recheck TSH with Free t4, meds increased in February Impaired f asting glycemia 751602145 R73.01 no clinical diagnosis NIDDM Hypercholesterolemia 136 28432 E78.00 recheck profile, Screening procedure 2012 5006 Z13.9 [id number] [facility] [address] [facility],[place] [address] 05/05/2018 10:00:05 05/05/2018 11:16:11 Hypercholesterolemia 62560200 E78.00 increase crestor 10 mg Hypothyroidism 66692579 E03.9 TSH > 7, increase levothyrox ine to 88 mcg, recheck 6 weeks Acute bronchitis 1693675 2 J20.9 await CXR, not read yet, done [facility] continue prednisone & abx Obstructiv e sleep apnea syndrome 50134776 G47.33 f/u Dr. Costello prn, try more compliance Paroxysmal atrial fibrillation 659917738 I48.0 RRR Infection of tooth 48460 8007 K04.7 to f/u with dentist, have forms to complete, call out to dentist- do they need to use anesthetic with epinephrin e [id number] Kojo Hou [facility] [address] [facility], [place] [address] 05/09/2018 09:01:14 05/09/2018 11:37:20 Dyspnea on exertion 10568895 R06.09 r/o PE sent [place] [facility] [place] [id number] Kojo Hou [facility] [address] [facility], [place] [address] 03/07/2020 14:10:16 03/07/2020 15:08:27 Atrial fibrillation 46010657 I48.91 stable Hypothyroidism 02272294 E03.9 will check and determine if he needs medication Edema of l ower extremity 420793079 R60.0 will recheck in one week Essential hypertension 59509350 I10 BP 130/80, doing well [id number] Kojo Hou DO [facility] Internal Medicine [address] [facility], [place] [address] 03/14/2020 11:38:12 03/14/2020 12:19:25 Atrial fibrillation 67873270 I48.91 stable Edema of l ower extremity 603782878 R60.0 will recheck in one week via phone call to pt with update will discuss possibly increasing lasix dose [id number] Kojo Hou [facility] [address] [facility], [place] [address] 04/16/2020 09:54:29 04/16/2020 10:49:38 Chronic obstructive pulmonary disease 82548857 J44.9 would like to try another inhaler for his COPD Edema of l ower extremity 716930497 R60.0 will increase lasix dosage to 80 [...] see if it has adjusted Skin tag 107205622 L91.8 referral [id number] Kojo Hou [facility] [address] [facility],[place] [address] 03/10/2021 09:39:34 03/10/2021 15:36:03 Hypothyroidism 18213464 E03.9 recent labs, medication changed appropriat nik Chronic ob structive pulmonary disease 82475847 J44.9 will try neb Chronic sinusitis 668613 00 J32.9 will fu with XR sinuses [id number] Kojo Hou [facility] [address] [facility],[place] [address] 10/22/2022 15:40:28 10/22/2022 16:47:37 Hypothyroidism 56709794 E03.8 recent labs, medication changed appropriat nik Chronic ob structive pulmonary disease 63529872 J44.9 will try nebulizer Atrial fibrillation 4943 6004 I48.11 adrian start on xarelto since he has never been on a blood thinner and his risk score is high for a cardiovasc ular event Advance care planning 71 3369159 Z71.89 advised Abdominal aortic aneurysm 333424936 I71.40 declined Active or passive immunization 056276217 Z23 patient advised he is due for flu shot, tdap, pneu & shingles Edema of l ower extremity 075366781 R60.0 will set up with a vascular surgeon Chronic sinusitis 753285 00 J32.0 will trial a spray [id number] Kojo Hou [facility] [address] [facility],[place] [address] 11/15/2022 14:49:58 11/15/2022 16:00:15 Obstructive sleep apnea syndrome 16256174 G47.33 will resubmit CPAP supplies Pulmonary embolism 87214 003 I26.99 will recheck lungs in one mos Edema of l ower extremity 351338132 R60.0 will set up with a vascular surgeon on Tuesday (10 am) Hyperkalemia 68262132 E8 7.5 will recheck levels [id number] Kojo Hou [facility] [address] [facility],[place] [address] 10/09/2024 15:41:10 10/09/2024 16:23:20 Edema of lower extremity 532382064 R60.0 recommende d vascular referralst art on diuretic Cellulitis of lower leg 784282688 L03.115 will start on doxy for the infection Lymphedema of lower extremity 138931171 I89.0 will set up with lymp consult Dyspnea 616008740 R06.[address] wo [id number] Kjoo Hou [facility] [address] [facility],[place] [address] 10/24/2024 15:17:57 10/24/2024 16:32:34 Edema of lower extremity 226617347 R60.0 recommende d vascular referralst art on diuretic Lymphedema of lower extremity 283511400 I89.0 new referral sent in for a new vascular surgeon [id number] Kojo Hou [facility] [address] [facility],[place] [address] 11/05/2024 13:48:44 11/05/2024 14:23:31 Edema of lower extremity 484867581 R60.0 has his appt for the clinic on 12/03 Stasis padma matitis of lower limb due to chronic peripheral venous hypertension 564371537 I87.399 start keflex and terbinafin e for the risk of infection [id number] Kojo Hou [facility] [address] [facility],[place] [address] 01/07/2025 14:47:36 01/07/2025 16:10:00 Depression screening 675756772 Z13.31 Acute exac erbation of chronic obstructive pulmonary disease 330540347 J44.1 resolved Congestive heart failure 00938290 I50.21 stable Chronic hy poxemic respiratory failure 945452126 J96.11 resolved Edema of l ower extremity 464667827 R60.0 has fu with them coming up Atrial fibrillation 4943 6004 I48.11 adrian start on xarelto since he has never been on a blood thinner and his risk score is high for a cardiovasc ular event Type 2 juan betes mellitus 18933260 E11.9 currently on the Hypothyroidism 08114938 E03.8 recent labs, medication changed appropriat nik [id number] Kojo Hou [facility] [address] [facility], [employer] [place] [address] 03/26/2025 14:52:29 03/26/2025 16:14:29 Depression screening 258430173 Z13.31 neg Lymphedema of lower extremity 853202414 I89.0 [id number] Kojo Hou [facility] [address] [facility], [employer] [place] [address] 04/23/2025 10:11:30 04/23/2025 11:25:42 Edema of left lower limb 290572357 R60.0 86840650 has fu with them coming up Cellulitis of left lower limb 5760477003 1954297 L03.563 3885487 will set up with prednisone , doxy and tramadol with STAT US r/o clot for acute worsening of edema has vascular appt notable changes in toe coloration , but pt states it has well like this for awhileswel ling is more than previous, around 4+ edematende r to the touch and warm Lymphedema of lower extremity 584210705 I89.0 new referral sent in for a new vascular surgeon [id number] Kojo Hou [facility] Medicine [address] [facility], [employer] [place] [address] 05/14/2025 13:44:52 05/14/2025 14:11:24 Acute cellulitis 7298552224 L03.90 5434717949 send out culture for armrestart prednisone and doxycyclin e Acute dermatitis 2140440 6 L30.9 3 restart treatment Health Concerns Section Related Observation LastModified by Organization Detai ls LastModified Time None Recorded Concern Status LastModified by Organization Details LastModified Time None Recorded Advance Directives Directive None Recorded Payers Insurance Date Sequence Insurance Name Policy Number Policy Jasso Covered Member ID Jasso Member ID Guarantor Name 05/14/2025 2 [employer] (MEDICARE SUPPLEMENT) Rudy Mathias [id number] Rudy Mathias 02/13/2018 1 *SELF PAY* Ho henry Mathias 10/09/2024 2 [place] PRIOR TO 2023 - [facility] (MEDICAID) Rudy Mathias [id number] Rudy Mathias 10/09/2024 2 [place] [facility] Rudy Mathias [id number] Rudy Mathias 10/09/2024 1 [place] B[place] [facility] Rudy Mathias [id number] Rudy Mathias 10/09/2024 1 [facility] (MEDICARE REPLACEMENT/A DVANTAGE - PPO) [id number] Rudy Mathias [id number] Rudy Mathias 09/14/2025 1 [place] [facility] Rudy Mathias [id number] Rudy Mathias Notes Date Note Type Note [...] CT and BW, no results back from [facility], will call to request the restarts continue on other medications as prescribedwill fu with patient after the results HARSH MUHAMMAD [address] [facility], [place], [id number], [facility] 11/05/2024 14:22:31 5 text/htm l [...] been encouraged to fu with both his air filler and his vascular surgeon, patient is non [...] and cont with vascular HARSH MUHAMMAD [address] [place], [id number], [facility] 01/07/2025 15:40:55 5 text/htm l ROS as noted in the HPI here for eval of his leg swelling has longstanding hx of leg swelling and has been eval by cardiology recently Kojo Hou, [address] [place], [id number], [facility] 03/26/2025 15:40:59 5 [...] toe which was 98% HARSH MUHAMMAD [address] [place], [id number], [facility] 04/23/2025 11:17:33 5 [...] the skin clean and dry HARSH MUHAMMAD [address] [place] [address], [place], [phone], [facility] 05/14/2025 14:16:40
[2025-09-27 18:58] LABS: Hematocrit 50.4 % (42.0-52.0); Hemoglobin 16.4 g/dl (14.0-18.0); Imm Gran Abs Auto 0.02 X10*3/uL (0.00-0.03); Imm Gran Pct Auto 0.2 % (0.0-0.4); Lymphocytes Absolute Auto 1.8 X10*3/uL (1.2-4.9); MANUAL DIFF FLAG SCAN; Mean Corpuscular HGB Conc 32.5 g/dl (31.0-36.0); Mean Corpuscular Hemoglobin 31.7 pg (27.0-33.0); Mean Corpuscular Volume 97.3 fL (80.0-98.0); NRBC Abs Auto 0.000 X10*3/uL (0.0-0.012); NRBC Pct Auto 0.0 /100WBC (0.0-0.2); PLT CLUMP 1; Red Blood Count 5.18 X10*6/uL (4.60-5.80); SCAN SMEAR FLAG 1
[2025-09-27 19:04] LABS: Alanine Aminotransferase 14 U/L (0-40); Albumin Level 4.2 g/dL (3.5-5.0); Alkaline Phosphatase 74 U/L (39-117); Anion Gap 12 (12-20); Aspartate Amino Transferase 23 U/L (5-37); Blood Urea Nitrogen 18 mg/dL (9-16); Calcium 9.0 mg/dL (8.4-10.2); Carbon Dioxide 34 mmol/L (22-29); Chloride 102 mmol/L (96-108); Cholesterol 112 mg/dL (<200); Estimated Glomerular Filt Rate > 60; HDL Cholesterol 30 mg/dL (>40); Potassium 4.6 mmol/L (3.3-5.1); Sodium 143 mmol/L (135-145); Total Protein 6.7 g/dL (6.5-8.0); Triglycerides 112 mg/dL (<150)
[2025-09-27 19:06] LABS: Digoxin 0.2 ng/mL (0.8-2.0)
[2025-09-27 19:07] LABS: Platelet Count 159 X10*3/uL (160-400); White Blood Count 8.5 X10*3/uL (4.8-10.8)
[2025-09-27 19:52] LABS: Free T4 (Free Thyroxine) 0.87 ng/dL (0.71-1.85)
== END 2025-09-27 11:06 | disposition home or self-care (01) ==
LOC: HO.MANLDS 11:05
PROVIDERS: Physician Assistant; Visit Provider Internal Medicine
DX: I48.19 Other persistent atrial fibrillation (principal); E78.5 Hyperlipidemia, unspecified; E11.9 Type 2 diabetes mellitus without complications; E03.8 Other specified hypothyroidism
CPT/HCPCS: 36415; 80053; 80061; 80162; 83036; 84439; 84443; 85025